=== PATIENT | male | born 1950 | race Caucasian/White ===

== ENCOUNTER → 2017-09-29 11:00 | Outpatient (CLI) | payer MEDICARE, SELFPAY | PROVIDERS: PCP Family Medicine; Visit Provider Nurse Practitioner Gerontology | DX: R31.0 Gross hematuria (principal); C67.9 Malignant neoplasm of bladder, unspecified | CPT/HCPCS: 81003; 99214 ==

== ENCOUNTER → 2017-09-29 11:49 | Outpatient (CLI) | payer MEDICARE, SELFPAY | PROVIDERS: PCP Family Medicine; Visit Provider Urology | DX: R31.0 Gross hematuria (principal); R30.0 Dysuria; Z01.818 Encounter for other preprocedural examination ==

== ENCOUNTER → 2017-09-29 13:42 | Outpatient (REF) | payer MEDICARE, SELFPAY | LOC: LBN 13:42 | PROVIDERS: PCP Family Medicine; Visit Provider Nurse Practitioner Gerontology | DX: R30.0 Dysuria (principal) | CPT/HCPCS: 87086 ==

== ENCOUNTER 2017-10-05 16:49 | Emergency (ER) | payer MEDICARE, SELFPAY ==
[2017-10-05 16:52] VITALS: BP 161/60; PULSE 114; RESP 22; TEMP 37.3; O2SAT 97
--- NOTE | 2017-10-05 18:48 | ED.GENADUL_ITS ---
Disposition Clinical Impression: Urinary retention, Hematuria, Bladder cancer, Painful bladder spasm Disposition: HOME Condition: Good Instructions: Urinary Retention in Men (ED), Garcia Catheter Placement and Care (ED), Hematuria (ED) Additional Instructions: Return immediately if you have any new or worsening symptoms including further bladder retention, blockage or clotting of your catheter. Otherwise follow-up with Dr. Vieyra's office as previously arranged. Referrals: Curly Vieyra MD [ [facility] STAFF PHYSICIAN] - 10/06/17 (Keep your appointment as scheduled for tomorrow) Medical Decision Making - Medical Decision Making Patient presenting to emergency department Inc. acute pain and discomfort due to urinary retention from his Garcia catheter being blocked. Patient states that this was placed due to hematuria from bladder cancer. Garcia catheter was placed last and patient states he is due to see Dr. Vieyra tomorrow and has not had any problems but today started having some small clots and then fully stopped draining any urine. He tried to wait this out to see if this would self resolve but did not resolve. Patient has in a three-way 22 [place] Garcia catheter. Patient was given 4 mg of morphine for pain and discomfort and bladder was irrigated with approximately 500 cc of sterile water removing multiple clots and hematuria. After we began to have flow out of the main port of the catheter. Once this was achieved we performed continuous bladder irrigation with 2 L of sterile saline and had no further clot passage and drainage was mostly clear with only slight tinge of hematuria. Patient felt significantly more comfortable once bladder began to drain. I do not feel patient needs any labs or imaging at this time due to patient having close follow-up with Dr. Vieyra first thing tomorrow morning. After discussion of diagnosis and plan of care with patient patient agreed and stated no further needs, questions, or concerns at this time. History of Present Illness - General Chief complaint: Urinary Stated complaint: CHARLEY Time Seen by Provider: 10/05/17 17:18 Source: patient, RN notes reviewed Mode of arrival: EMS Limitations: no limitations - History of Present Illness Initial comments: Patient reports this morning he noticed his Garcia catheter starting to have less drainage coming out of it. Patient states that he has history of bladder cancer and hematuria which a Garcia was placed in last and he has had continued bloody urination with occasional clot formation. This morning he noticed slowing up which he thought would resolve on its own but then any flow began to cease completely and patient started having significant pain and bladder spasms requiring him to call EMS to be transported to the emergency department. Patient denies any fever chills, nausea vomiting, syncope, or other medical complaints at this time. Onset/Timin -: days(s) Radiation: abdomen (Suprapubic) Severity scale (1-10): 10 Quality: sharp Consistency: intermittent Improves with: none Worsens with: none Associated Symptoms: denies other symptoms Treatments Prior to Arrival: none - Related Data Tiotropium [place] [Spiriva] 18 mcg IH DAILY tab-cap 07/06/12 Amlodipine Besylate 5 mg PO DAILY #90 tab-cap 01/14/17 Metoprolol Tartrate [Lopressor] 1 tab PO BID #180 tab 01/14/17 Budesonide/Formoterol Fumarate [Symbicort 80/4.5 Mcg Inhaler] 2 puff IH BID #1 each 05/26/17 Proventil Hfa 1 - 2 puff IH Q6H PRN #1 inhaler 05/26/17 Simvastatin 40 mg PO DAILY #90 tab-cap 05/26/17 Lisinopril 40 mg PO DAILY #90 tab-cap 06/22/17 Metformin HCl 1,000 mg PO BID #180 tab-cap 06/22/17 Diazepam 5 mg PO Q8H PRN #30 tablet 10/02/17 OxyCODONE/APAP 5 mg/325 mg [Percocet 5 mg/325 mg] 1 - 2 tab PO Q4H PRN PRN #30 tab 10/02/17 Sulfameth/Trimeth Ds [Bactrim Double Strength] 1 tab PO HS #5 tab 10/02/17 Allergies Allergy/AdvReac Type Severity Reaction Status Date / Time No Known Allergies Allergy Unverified 10/05/17 17:01 Review of Systems Constitutional: denies: chills, fever Respiratory: no symptoms reported Gastrointestinal: abdominal pain (Suprapubic). denies: nausea, vomiting, diarrhea Genitourinary: as per HPI, hematuria Comment: All other systems reviewed and negative Past Medical History - Past Medical History Medical history: arthritis, CAD, cancer (Bladder mass), COPD, diabetes, hyperlipidemia, hypertension Surgical history: coronary bypass surgery, other (TURP) Family history: CAD/WA, cancer, diabetes - Social History Smoking status: current everyday smoker Alcohol use: occasionally Drug use: none General Exam - General Limitations: no limitations General appearance: alert, in no apparent distress - Head Head exam: Present: atraumatic - Respiratory Respiratory exam: Absent: respiratory distress - Cardiovascular Cardiovascular Exam: Present: regular rate, normal rhythm - GI/Abdominal GI/Abdominal exam: Present: soft, tenderness (Suprapubic), normal bowel sounds. Absent: guarding, rebound, rigid, organomegaly, mass, bruit - exam: Present: other (Garcia catheter is in place and patient does have drainage noted from around the catheter that appears to be hematuria). Absent: testicular tenderness, scrotal swelling - Neurological Exam Neurological exam: Present: alert, oriented X3 - Skin Skin exam: Present: warm, dry, normal color. Absent: intact Course Vital Signs - 24 hr 10/05/17 16:52 Temperature 37.3 C Pulse 114 H Respiratory 22 Rate Blood Pressure 161/60 Pulse Oximetry 97
[2017-10-05 18:58] VITALS: BP 152/62; PULSE 88; RESP 18; O2SAT 94
== END 2017-10-05 19:01 | disposition home or self-care (01) ==
PROVIDERS: Emergency Provider Student in an Organized Health Care Education/Training Program; PCP Family Medicine
DX: R33.8 Other retention of urine (principal); R31.0 Gross hematuria; N32.89 Other specified disorders of bladder
CPT/HCPCS: 51700 ×2; 96374; 99284 ×2

== ENCOUNTER → 2017-10-06 08:30 | Outpatient (CLI) | payer MEDICARE, SELFPAY | PROVIDERS: PCP Family Medicine; Visit Provider Nurse Practitioner Gerontology | DX: C67.4 Malignant neoplasm of posterior wall of bladder (principal); F17.210 Nicotine dependence, cigarettes, uncomplicated | CPT/HCPCS: 52001; 99214 ==

== ENCOUNTER → 2017-10-11 08:30 | Outpatient (CLI) | payer MEDICARE, SELFPAY | PROVIDERS: PCP Family Medicine; Visit Provider Urology | DX: N32.89 Other specified disorders of bladder (principal); R31.9 Hematuria, unspecified; C67.4 Malignant neoplasm of posterior wall of bladder; Z48.816 Encounter for surgical aftercare following surgery on the genitourinary system | CPT/HCPCS: 53600; 81003; 99213 ==

== ENCOUNTER → 2017-10-11 14:12 | Outpatient (REF) | payer MEDICARE, SELFPAY | LOC: LBN 14:12 | PROVIDERS: PCP Family Medicine; Visit Provider Urology | DX: N32.89 Other specified disorders of bladder (principal); R31.9 Hematuria, unspecified; C67.4 Malignant neoplasm of posterior wall of bladder; Z48.816 Encounter for surgical aftercare following surgery on the genitourinary system | CPT/HCPCS: 53600; 81003; 87077; 99213; 87086 ==

== ENCOUNTER → 2017-10-19 09:55 | Outpatient (BNVA) | payer MEDICARE, SELFPAY | PROVIDERS: PCP Family Medicine; Visit Provider Urology | DX: C67.9 Malignant neoplasm of bladder, unspecified (principal); Z79.890 Hormone replacement therapy | CPT/HCPCS: 51798; 99213 ==

== ENCOUNTER 2017-12-21 01:05 | Outpatient (CLI) | payer MEDICARE, SELFPAY ==
--- NOTE | 2017-12-21 06:12 | DI.RAD_ITS ---
SYMPTOM/DIAGNOSIS: PEDAL EDEMA, R60.0, H/O CABG PA AND LATERAL CHEST: Comparison is made with 03/29/12. Heart size and pulmonary vasculature are within normal limits. The lungs are clear. No effusions or pneumothoraces are identified. There are degenerative changes in the spine. Sternal wires are in place. IMPRESSION: No acute pulmonary process.
[2017-12-21 08:14] LABS: Abs Immature Grans 0.01 k/cumm (0.0-0.09); Absolute Basophil Count 0.06 k/cumm (0.0-0.2); Absolute Eosinophil Count 0.45 k/cumm (0.0-0.7); Absolute Lymphocyte Count 2.73 k/cumm (1.2-3.4); Absolute Monocyte Count 1.22 k/cumm (0.11-0.7); Absolute Neutrophil Count 7.05 k/cumm (1.2-6.7); Basophils % 0.5; Eosinophils % 3.9; HCT 40.5 % (40.0-50.0); HGB 13.4 g/dL (13.5-17.5); Immature Grans % 0.1; Lymphocytes % 23.7; Mean Corp. HGB Concentration 33.1 g/dL (32.0-36.0); Mean Corpuscular Hemoglobin 30.7 pg (27.0-33.0); Mean Corpuscular Volume 92.9 fL (80-95); Mean Platelet Volume 10.3 fL (8.0-11.0); Monocytes % 10.6; Neutrophils % 61.2; Platelet Count 247 x1000/uL (130-400); RBC 4.36 m/cumm (4.50-6.00); RBC Distribution Width 13.4 % (11.8-14.1); White Blood Cell Count 11.52 k/cumm (4.4-10.8)
[2017-12-21 08:52] LABS: Bilirubin Negative (Negative); Blood Large (Negative); Clarity Clear; Glucose Negative (Negative); Ketones Negative (Negative); Leukocyte Esterase Negative (Negative); Nitrite Negative (Negative); Urobilinogen 0.2 EU/dL (Up TO 0.2)
[2017-12-21 09:13] LABS: Epithelial Cells Few HPF (Negative); RBC >50 (0-2); WBC 20-50 HPF (0-5)
[2017-12-21 09:14] LABS: Bacteria Few HPF (Negative); C & S Indicated? Yes; Casts 0-2 Coarse Granular LPF (Negative); Crystals Negative HPF (Negative); Mucus Negative (Negative); Other Cells Few Transitional (Negative)
[2017-12-21 10:09] LABS: ALT 24 U/L (12-78); AST 20 U/L (15-37); Albumin 3.4 g/dL (3.4-5.0); Alkaline Phosphatase 94 U/L (46-116); Anion Gap 10.5 mmol/L (3-11); BUN 18 mg/dL (7-18); Bilirubin, Total 0.2 mg/dL (0.2-1.0); CO2 25.5 mmol/L (21.0-32.0); Chloride 105 mmol/L (98-107); Estimated GFR 55.23 (mL/min/1.73m2); Glucose 129 mg/dL (70-100); NT-proBNP 1222 pg/mL; Potassium 4.4 mmol/L (3.5-5.1); Sodium 141 mmol/L (136-145); TSH (W/Ref FT4) 0.21 uIU/mL (0.358-3.74); Total Protein 6.9 g/dL (6.4-8.2)
[2017-12-21 10:20] LABS: Hemoglobin A1C 6.1 % (4.5-6.2)
[2017-12-21 10:29] LABS: FREE T4 1.19 ng/dL (0.76-1.46)
[2017-12-21 10:52] LABS: Cholesterol 193 mg/dL (50-200); HDL Cholesterol 42 mg/dL (40-60); LDL CHOLESTEROL 109 mg/dL (<100); Triglyceride 402 mg/dL (30-150)
== END 2017-12-21 01:25 ==
PROVIDERS: PCP Family Medicine; Visit Provider Family Medicine
DX: R60.0 Localized edema (principal); E78.5 Hyperlipidemia, unspecified; E11.9 Type 2 diabetes mellitus without complications; Z95.1 Presence of aortocoronary bypass graft; I50.1 Left ventricular failure, unspecified; I50.9 Heart failure, unspecified
CPT/HCPCS: 36415; 80053; 80061; 83721; 87077; 71046; 81003; 81015; 83036; 83880; 84439; 84443; 85025; 87086

== ENCOUNTER 2017-12-28 00:43 | Outpatient (CLI) | payer MEDICARE, SELFPAY ==
--- NOTE | 2017-12-28 07:33 | MERGE_ITS ---
*[facility]* *[facility]* [address] [place] [address] Date of study: 12/28/2017 Transthoracic Echocardiography M-mode, complete 2D, complete spectral Doppler, and color Doppler *STUDY CONCLUSIONS* Summary: 1. Left ventricle: The cavity size was mildly dilated. Wall thickness was increased in a pattern of mild LVH. Systolic function was mildly reduced. The estimated ejection fraction was 45-50%. Severe hypokinesis of the basal-midinferolateral and inferior myocardium. 2. Mitral valve: There was mild regurgitation. 3. Left atrium: The atrium was moderately dilated. 4. Right ventricle: The cavity size was normal. Wall thickness was normal. Systolic function was mildly reduced by visual assessment. 5. Right atrium: The atrium was dilated. 6. Atrial septum: There was a very small patent foramen ovale. Doppler showed a trivial shunt. *PATIENT PRESENTATION* Height: 190.5cm ((75in) ) S/D Pressure: 146 / 65 Weight: 106.6kg ((234.5lb) ) BSA: 2.39m^2 Test start time: 07:40 AM. Test stop time: 08:40 AM. 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 Pertinent images and digital data are archived for permanent storage and are available for subsequent review. Comparison was made to the study of 02/10/2012. Study status: Routine. Transthoracic echocardiography. M-mode, complete 2D, complete spectral Doppler, and color Doppler. A Transthoracic Echocardiogram was performed. Scanning was performed from the parasternal, apical, subcostal, and suprasternal notch acoustic windows. Images were obtained using an [id number] cardiac ultrasound machine. Image quality was adequate. Study completion: The patient tolerated the procedure well. There were no complications. History: PMH: CHF. *CARDIAC ANATOMY* Left ventricle: The cavity size was mildly dilated. Wall thickness was increased in a pattern of mild LVH. Systolic function was mildly reduced. The estimated ejection fraction was 45-50%. Regional wall motion abnormalities: Severe hypokinesis of the basal-midinferolateral and inferior myocardium. Aortic valve: Probably trileaflet; normal thickness leaflets. Mobility was not restricted. Doppler: Transvalvular velocity was within the normal range. There was no stenosis. There was no significant regurgitation. VTI ratio of LVOT to aortic valve: 0.78. Valve area (VTI): 2.6cm^2. Indexed valve area (VTI): 1.1cm^2/m^2. Peak velocity ratio of LVOT to aortic valve: 0.62. Valve area (Vmax): 2.1cm^2. Indexed valve area (Vmax): 0.9cm^2/m^2. Mean velocity ratio of LVOT to aortic valve: 0.6. Valve area (Vmean): 2cm^2. Indexed valve area (Vmean): 0.8cm^2/m^2. Mean gradient (S): 5.3mm Hg. Peak gradient (S): 12.4mm Hg. Aorta: Aortic root: The aortic root was normal in size. Ascending aorta: The ascending aorta was poorly visualized. Mitral valve: Structurally normal valve. Mobility was not restricted. Doppler: Transvalvular velocity was within the normal range. There was no evidence for stenosis. There was mild regurgitation. Valve area by pressure half-time: 3.8cm^2. Indexed valve area by pressure half-time: 1.6cm^2/m^2. Peak gradient (D): 3.9mm Hg. Left atrium: The atrium was moderately dilated. Atrial septum: There was a very small patent foramen ovale. Doppler showed a trivial shunt. Right ventricle: The cavity size was normal. Wall thickness was normal. Systolic function was mildly reduced by visual assessment. Pulmonic valve: Doppler: Transvalvular velocity was within the normal range. There was no evidence for stenosis. There was no significant regurgitation. Peak gradient (S): 5.2mm Hg. Tricuspid valve: Structurally normal valve. Doppler: Transvalvular velocity was within the normal range. There was no evidence for stenosis. There was mild regurgitation. Pulmonary artery: Pulmonary systolic pressure was within the normal range, in the range of 35mm Hg to 40mm Hg. Right atrium: The atrium was dilated. Pericardium: There was no pericardial effusion. Systemic veins: Inferior vena cava: Well visualized. The vessel was patent and normal in size. The respirophasic diameter changes were in the normal range (greater than or equal to 50%). Baseline ECG: Normal sinus rhythm. Measurements Left ventricle Value Reference LV ID, ED, PLAX (H) 7.0 cm 3.5 - 6.0 LV ID, ES, PLAX (H) 5.3 cm 2.1 - 4.0 LV PW thickness, ED, PLAX 1.1 cm LV end-diastolic volume, 1-p A2C 190 ml LV ejection fraction, 1-p A2C 38 % LV end-diastolic volume, 1-p A4C 222 ml LV ejection fraction, 1-p A4C 50 % LV e', lateral 0.076 m/sec LV E/e', lateral 13 LV e', medial 0.048 m/sec LV E/e', medial 20 LV e', average 0.062 m/sec LV E/e', average 16 Ventricular septum Value Reference IVS thickness, ED, PLAX 1.3 cm LVOT Value Reference LVOT ID, A-P 2.1 cm LVOT area 3.3 cm^2 LVOT peak velocity, S 1.09 m/sec LVOT mean velocity, S 0.64 m/sec LVOT VTI, S 24.2 cm LVOT peak gradient, S 4.8 mm Hg LVOT mean gradient, S 2 mm Hg Stroke volume (SV), LVOT DP 80 ml Stroke index (SV/bsa), LVOT DP 34 ml/m^2 Aortic valve Value Reference Aortic valve peak velocity, S 1.8 m/sec Aortic valve mean velocity, S 1.05 m/sec Aortic valve VTI, S 31.0 cm Aortic mean gradient, S 5.3 mm Hg Aortic peak gradient, S 12.4 mm Hg VTI ratio, LVOT/AV 0.78 Aortic valve area, VTI 2.6 cm^2 Velocity ratio, peak, LVOT/AV 0.62 Aortic valve area, peak velocity 2.1 cm^2 Velocity ratio, mean, LVOT/AV 0.6 Aortic valve area, mean velocity 2 cm^2 Aortic valve area/bsa, mean velocity 0.8 cm^2/m^2 Aorta Value Reference Aortic root ID, ED 3.4 cm Left atrium Value Reference LA ID, A-P, ES 4.2 cm LA ID/bsa, A-P 1.7 cm/m^2 <=2.2 LA area, ES, A4C (H) 28.4 cm^2 8.8 - 23.4 LA area, ES, A2C 29 cm^2 LA volume/bsa, ES, 1-p A4C 45 ml/m^2 LA volume, ES, 2-p 101 ml LA volume/bsa, ES, 2-p 42 ml/m^2 LA/aortic root ratio 1.21 Mitral valve Value Reference Mitral E-wave peak velocity 0.98 m/sec Mitral A-wave peak velocity 1.08 m/sec Mitral deceleration time 200 ms 150 - 230 Mitral pressure half-time 58 ms Mitral peak gradient, D 3.9 mm Hg Mitral E/A ratio, peak 0.91 Mitral valve area, PHT, DP 3.8 cm^2 Tricuspid valve Value Reference Tricuspid regurg peak velocity 3 m/sec Tricuspid peak RV-RA gradient 36.4 mm Hg Right atrium Value Reference RA area, ES, A4C (H) 22.5 cm^2 8.3 - 19.5 Pulmonic valve Value Reference Pulmonic peak gradient, S 5.2 mm Hg Legend: (L) and (H) marti values outside specified reference range. I have personally reviewed the images and have reviewed and edited the reported findings. Electronically signed by Jonathan Childs 12/28/2017 12:07
== END 2017-12-28 01:03 ==
PROVIDERS: PCP Family Medicine; Visit Provider Family Medicine
DX: I50.9 Heart failure, unspecified (principal); I51.9 Heart disease, unspecified; I34.0 Nonrheumatic mitral (valve) insufficiency; I51.7 Cardiomegaly
CPT/HCPCS: 93306

== ENCOUNTER 2017-12-29 00:20 | Outpatient (CLI) | payer MEDICARE, SELFPAY ==
--- NOTE | 2017-12-29 06:52 | MERGEMPI_ITS ---
*[facility]* *[facility]* [address] [place] [address] Myocardial Perfusion Imaging - SPECT Yinka protocol Date of study: 12/29/2017 *PATIENT PRESENTATION* Height: 190.5cm (75in) Blood Pressure: Weight: 106.8kg (235lb) BSA: 2.4m^2 Referring physician: Jonathan Childs Ordering physician: Silver Luis Impressions: - Abnormal study after pharmacologic stress. - Low risk of cardiac events. Summary: 1. Myocardial perfusion imaging: There is a small sized, severely intense, fixed defect involving the apical inferior and mid inferior wall(s). This suggests small myocardial infarction in the distribution of the right coronary artery. 2. The calculated left ventricular ejection fraction after stress: 38%. LV global systolic function is moderately reduced. Diffuse left ventricular regional motion abnormalities. There is severe hypokinesis involving the inferior wall(s) of the left ventricle. 3. Stress ECG conclusions: The stress ECG is negative. Recommendations: Medical management is recommended. Indication: I50.9, Appropriate Use Criteria: A (Appropriate). History: REASON FOR TESTING: CONGESTIVE HEART FAILURE WITH LEG SWELLING FOR THE PAST SEVERAL MONTHS. PMH: CHF, HEART FAILURE, SCIATICA, PFO NOTED ON ECHOCARDIOGRAM, URINARY RETENSION, BLADDER CANCER, CARDIAC ARREST 2011 WITH 4V CABG, PEURAL EFFUSION, COPD, ETOH ABUSE, DIABETES. FAMILY HX: FATHER- [place] X3, AT THE AGE OF 57. MOTHER- ANGINA. SMOKINPPD X 45-50 YEARS. EXCERCISE: NO REGULAR EXCERCISE, BUT DOES WALK SLOWLY 1 MILE 2X/WEEK. PMH: COPD. Risk factors: Family history of coronary artery disease. Current tobacco use. Diabetes mellitus. Cholesterol: 193mg/dl. HDL: 42mg/dl. LDL: 109mg/dl. Triglycerides: 402mg/dl. ALLERGIES: NKDA MEDICATIONS: TRAMADOL 50 HS PRN, TIOTROPIUM BROMIDE 18 MCG INHALATION DAILY, SIMVASTATIN 40 MG DAILY, METOPROLOL TARTRATE BID-PT UNSURE OF DOSE, METFORMIN 1000 MG BID, LISINOPRIL 40 MG DAILY, FUROSEMIDE 40 MG DAILY, SYMBICORT 2 PUFFS BID, AMLODIPINE 5 MG DAILY, PROVENTIL MDI, 1-2 PUFFS Q6H PRN. Imaging Technique: Protocol: Yinka protocol. Acquisition: Gated SPECT; 1 day - rest/stress. The patient was imaged in the supine position. Attenuation correction used. Isotope administration: - Rest. Tc[99m]-sestamibi. Dose: 11.9mCi. Injection time: 09:25 AM. Injection to stress time: 00:45. - Stress. Tc[99m]-sestamibi. Dose: 36mCi. Injection time: 11:12 AM. 1-2 min before end of exercise Baseline ECG: LAST EKG 12/20/17- SINUS RHYTHM, 1ST DEGREE AVB, OCCAS PAC, PVC. RBBB. TODAY'S EKG- SINUS RHYTHM, RBBB. HR 62. Normal sinus rhythm with 1degrees AV block and right bundle branch block. Stress protocol: +--------+--+ + + !Stage !HR!BP (mmHg) !Comments ! +--------+--+ + + !Baseline!62!142/68 (93)! ! +--------+--+ + + !1 min !79!150/68 (95)!Inject Regadenoson.! +--------+--+ + + !3 min !83!142/62 (89)! ! +--------+--+ + + !6 min !82!138/60 (86)! ! +--------+--+ + + * Stress results: The rate-pressure product for the peak heart rate and blood pressure was 68270iy Hg/min. Stress ECG: PATIENT UNABLE OT DO ETT DUE TO SCIATICA PAIN AND LEG WEAKNESS. REGADENOSON TESTING ENDED IN 6 MINS MEDICATION EFFECT NO LONGER PRESENT. MAX HR WAS 87, WITH A HYPERTENSIVE BLOOD PRESSURE RESPONSE. ECTOPY: OCCASIONAL PVC'S AND PAC'S NOTED. ANGINA: NO REPORTED CHEST PAIN OR PRESSURE. ISCHEMIA: NO ISCHEMIC CHANGES NOTED. The stress ECG is negative. Myocardial perfusion: Imaging information: gated. The image quality was good. The left ventricle is moderately dilated. There is a small sized, severely intense, fixed defect involving the apical inferior and mid inferior wall(s). This suggests small myocardial infarction in the distribution of the right coronary artery. Ventricular Function (Wall Motion): The calculated left ventricular ejection fraction after stress: 38%. LV global systolic function is moderately reduced. Diffuse left ventricular regional motion abnormalities. There is severe hypokinesis involving the inferior wall(s) of the left ventricle. Study data: Jonathan Childs MD supervised and was readily available during the procedure. This study was interpreted by [facility]. Study status: Routine. Consent: The risks, benefits, and alternatives to the procedure were explained to the patient and informed consent was obtained. Procedure: Initial setup. A baseline ECG was recorded. Surface ECG leads and manual cuff blood pressure measurements were monitored. Heart sounds: Normal. Lung sounds: Normal. Treadmill exercise testing was performed using the Yinka protocol. Study completion: All catheters inserted during the procedure were removed. The patient tolerated the procedure well and was discharged from the lab. Discharge: The patient left the laboratory in stable condition. Birthdate: Patient birthdate: 1950. Sex: Gender: male. Study date: Study date: 12/29/2017. Study time: 06:52 AM. Signature Documentation: - The imaging portion of this study was interpreted by Nuclear Metal Molder Jonathan Childs MD. - The imaging portion of this study was interpreted by Nuclear Radiologist David Longoria MD. - The Stress ECG portion of this study was interpreted by Jonathan Childs MD. Electronically signed by Jonathan Childs 12/29/2017 15:13
[2017-12-29] MEDS: Regadenoson 0.4 MG/5 ML SYR IVP (13:16)
== END 2017-12-29 00:40 ==
PROVIDERS: PCP Family Medicine; Visit Provider Family Medicine
DX: I50.9 Heart failure, unspecified (principal); M79.89 Other specified soft tissue disorders; I25.2 Old myocardial infarction
CPT/HCPCS: 78452; 93016; 93018; 93017; J2785

== ENCOUNTER 2018-01-25 02:05 | Outpatient (CLI) | payer MEDICARE, SELFPAY ==
[2018-01-25 11:20] LABS: Anion Gap 10.4 mmol/L (3-11); BUN 21 mg/dL (7-18); CO2 24.6 mmol/L (21.0-32.0); CREATININE 1.22 mg/dL (0.70-1.30); Calcium 9.3 mg/dL (8.5-10.1); Chloride 106 mmol/L (98-107); Estimated GFR 59.43 (mL/min/1.73m2); Glucose 140 mg/dL (70-100); Potassium 4.8 mmol/L (3.5-5.1); Sodium 141 mmol/L (136-145)
== END 2018-01-25 02:25 ==
PROVIDERS: PCP Family Medicine; Visit Provider Family Medicine
DX: I50.9 Heart failure, unspecified (principal)
CPT/HCPCS: 36415; 80048

== ENCOUNTER 2018-02-09 06:34 | Inpatient (IN) | payer MEDICARE, SELFPAY ==
[2018-02-09] VITALS (26 sets, daily range): BP systolic 108–144; BP diastolic 53–71; PULSE 39–115; RESP 8–29; TEMP 36.5–40.3; O2SAT 90–96
--- NOTE | 2018-02-09 06:44 | DI.RAD_ITS ---
SYMPTOMS/DIAGNOSIS: SHORTNESS OF BREATH, FEVER, COUGH PORTABLE AP CHEST: The heart is not enlarged. The lungs are grossly clear. Mediastinal vascular clips and sternal sutures again noted. CONCLUSION: No evidence of acute change.
[2018-02-09 06:51] LABS: Abs Immature Grans 0.01 k/cumm (0.0-0.09); Absolute Basophil Count 0.01 k/cumm (0.0-0.2); Absolute Lymphocyte Count 0.63 k/cumm (1.2-3.4); Absolute Monocyte Count 0.93 k/cumm (0.11-0.7); Absolute Neutrophil Count 6.32 k/cumm (1.2-6.7); Basophils % 0.1; HCT 37.7 % (40.0-50.0); HGB 12.8 g/dL (13.5-17.5); Immature Grans % 0.1; Mean Corpuscular Hemoglobin 30.3 pg (27.0-33.0); Mean Corpuscular Volume 89.1 fL (80-95); Mean Platelet Volume 10.2 fL (8.0-11.0); Monocytes % 11.8; Platelet Count 131 x1000/uL (130-400); RBC 4.23 m/cumm (4.50-6.00); RBC Distribution Width 13.6 % (11.8-14.1)
--- NOTE | 2018-02-09 06:57 | W.ED.GENAD ---
Discharge Plan Disposition Patient Disposition: [facility] INPATIENT Condition: Stable Discharge Details Chief Complaint: Chest Pain Clinical Impression: Influenza, Community acquired pneumonia, Hypoxemia, Hypomagnesemia Reason For Visit: CHARLEY Primary Care Provider: Silver Luis ED Provider: Fabiano Billings Home Meds and New Rx's Prescriptions: No Action tramadol 50 mg tablet 50 mg PO HS PRN Qty: 20 RF: 0 furosemide 40 mg tablet 20 mg PO DAILY Qty: 30 RF: 11 nitroglycerin 0.4 mg tablet, sublingual 0.4 mg SL ONCE Qty: 20 RF: 2 Spiriva with HandiHaler 18 MCG capsule, w/inhalation device 18 mcg Inhalation DAILY RF: 0 metoprolol tartrate [Lopressor] 50 MG tablet 1 tab PO BID Qty: 180 RF: 2 simvastatin 40 MG tablet 40 mg PO DAILY Qty: 90 RF: 3 PROVENTIL HFA 18 GM HFA.AER.AD 1 - 2 puff Inhalation Q6H PRN Qty: 1 RF: 3 metformin 1,000 MG tablet 1,000 mg PO BID Qty: 180 RF: 3 lisinopril 40 MG tablet 40 mg PO DAILY Qty: 90 RF: 4 amlodipine 5 mg tablet 5 mg PO DAILY Qty: 90 RF: 2 Symbicort 80-4.5 mcg/actuation HFA aerosol inhaler 2 puff Inhalation BID Qty: 1 RF: 3 Medical Decision Making This is a pleasant 67-year-old male with a past medical history of cardiac disease with four-vessel bypass 6 years ago, COPD, who presents today for evaluation of shortness of breath. Patient has had 2 days of shortness of breath, fever, chills and cough. He denies any chest pain or chest tightness. Does admit to a small amount of chest fullness. He states the symptoms are inconsistent with his previous heart attack. Physical exam demonstrates hypoxemia, tachypnea, febrile and tachycardic patient. Concerning differential at this time is highest for community-acquired pneumonia. Pulmonary embolism less likely as he has no concerning recent red flags. EKG shows a right bundle branch block, which appears consistent with his prior EKGs. His chest fullness is inconsistent with an ACS presentation. We are pending laboratory and imaging workup at this time, however I do feel that with the patient's vital sign abnormalities, and current clinical disposition that inpatient admission will be indicated. Chest x-ray is concerning for infiltrate. We are waiting final results at this time. We will start the patient on antibiotic treatment for community-acquired pneumonia. 7:47 AM The patient's influenza has returned and it is positive. With the patient's age, risk factors, and current clinical disposition we will start Tamiflu. I did contact Dr. Almaraz who is on-call for cardiology and discussed the case with him with the patient's EKG findings. I reviewed the EKG and EKG findings, at this point he feels that based on the patient's clinical history, EKG findings, and history of a right bundle branch block he would recommend that he be evaluated on an inpatient basis by cardiology, but he does not feel that this is clinically congruent with ACS either. We will contact the hospitalist for potential admission. 8:07 AM I discussed the case with Dr. Gordon, she agrees the assessment and plan. Patient will be admitted. I have extensively reviewed the treatment plan with the patient. I have addressed all patient concerns at this time. I have also discussed the plan with the admitting physician and they agree with the current assessment and plan and have agreed to assume responsibility for the patient. All parties demonstrate verbal understanding and agreement with our assessment and plan at this time. EKG 6: 36 Rate 116, sinus tachycardia, W[place] 222, QTc 478, QRS 154. Right bundle branch block. Previous EKG from 12/20/17 shows similar right bundle branch block. 2-3 mm depression in V1 and V2 and V3, with 1-2 mm elevation in lead III in the setting of a right bundle branch block. All abnormalities are with discordant QRS complex. HPI General Date/Time Provider Initiated Documentation: 02/09/18 06:43. HPI Narrative: This is a 67-year-old male with a past medical history of cardiac disease with a four-vessel CABG 6 years ago, congestive heart failure, COPD, diabetes mellitus, hypertension, and gout. Patient presents today for evaluation of shortness of breath fever and cough. Patient states that for the last 2 days he has had a cough that is been nonproductive, fever and chills at home, and notable shortness of breath. He denies any relieving factors at home. He has had notable decrease in energy. He denies any chest pain, sharp chest pain, arm, neck, or shoulder pain. He denies any pleuritic chest pain. He does admit to a mild chest fullness. The patient very clearly states that this feels nothing like the symptoms that he had when he had his CABG 6 years ago. Patient still smokes greater than a pack per day. Patient denies any other complaints at this time. He denies any recent antibiotics or admissions. He denies any pertinent family history. Related Data Home Medications Medication Instructions Recorded Confirmed Spiriva with HandiHaler 18 mcg INHALATION DAILY tab-cap 07/06/12 02/09/18 metoprolol tartrate [Lopressor] 1 tab PO BID #180 tab 01/14/17 02/09/18 simvastatin 40 mg PO DAILY #90 tab-cap 05/26/17 02/09/18 lisinopril 40 mg PO DAILY #90 tab-cap 06/22/17 02/09/18 metformin 1,000 mg PO BID #180 tab-cap 06/22/17 02/09/18 amlodipine 5 mg tablet 5 mg PO DAILY #90 tab 10/25/17 02/09/18 tramadol 50 mg tablet 50 mg PO HS PRN #20 tab 12/24/17 02/09/18 furosemide 40 mg tablet 20 mg PO DAILY #30 tab 01/03/18 02/09/18 nitroglycerin 0.4 mg sublingual 0.4 mg SL ONCE #20 tab 01/03/18 02/09/18 tablet budesonide-formoterol HFA 80 2 puff INHALATION BID #1 ea 01/10/18 02/09/18 mcg-4.5 mcg/actuation aerosol inhaler Previous Rx's Medication Instructions Recorded metoprolol tartrate [Lopressor] 1 tab PO BID #180 tab 01/14/17 simvastatin 40 mg PO DAILY #90 tab-cap 05/26/17 lisinopril 40 mg PO DAILY #90 tab-cap 06/22/17 metformin 1,000 mg PO BID #180 tab-cap 06/22/17 amlodipine 5 mg tablet 5 mg PO DAILY #90 tab 10/25/17 tramadol 50 mg tablet 50 mg PO HS PRN #20 tab 12/24/17 furosemide 40 mg tablet 20 mg PO DAILY #30 tab 01/03/18 nitroglycerin 0.4 mg sublingual 0.4 mg SL ONCE #20 tab 11/19/18 tablet budesonide-formoterol HFA 80 2 puff INHALATION BID #1 ea 01/10/18 mcg-4.5 mcg/actuation aerosol inhaler Allergies Allergy/AdvReac Type Severity Reaction Status Date / Time No Known Allergies Allergy Unverified 02/09/18 06:44 General Stated Complaint: Chest Pain JOSH: 2 Review of Systems Review of Systems All systems reviewed & are unremarkable except as noted in HPI and below PFSH Surgical History PROCEDURES Social History Smoking/Tobacco Use Status: Current every day substance use type: does not use hailee/advent: No preference special hailee needs: No Exam Narrative Exam Narrative: 1.Const: Well-nourished, Well-developed, appearing stated age 2.Eyes: PERRL, no conjunctival injection, and symmetrical lids. 3.ENT: Atraumatic external nose and ears. Moist MM. Neck: Symmetric, trachea midline, No thyromegaly. 4.CVS: +S1/S2, No murmurs or gallops. Peripheral pulses 2+ and equal in all extremities. Brisk capillary refill in all extremities. Radial pulses are equal and symmetric bilaterally. 5.RESP: Minimal crackles in the bases, mild respiratory distress with tachypnea. No significant wheezes or rhonchi 6.GI: Soft, Nontender/Nondistended, No hepatosplenomegaly. No guarding or rebound. 7.MSK: Normocephalic/Atraumatic, Extremities w/o deformity or ttp No cyanosis or clubbing, Normal movement of all extremities 8.Skin: Warm, Dry. No rashes or lesions. 9.Neuro: chief of party II-XII grossly intact. Sensation grossly intact, no focal neurologic deficits. 10.Psych: (AAO) x3. Appropriate mood and affect Course Vital Signs Temperature 40.3 C H 02/09/18 06:41 Pulse 114 H 02/09/18 06:41 Respiratory Rate 29 H 02/09/18 06:41 Blood Pressure 144/67 H 02/09/18 06:41 Pulse Oximetry 90 L 02/09/18 06:41 Temperature 40.3 C H 02/09/18 06:41 Temperature Source Temporal Artery Scan 02/09/18 06:41 Pulse 114 H 02/09/18 06:41 Respiratory Rate 28 H 02/09/18 06:45 Respiratory Effort 02/09/18 06:45 Respiratory Depth Normal 02/09/18 06:45 Respiratory Pattern Tachypnea 02/09/18 06:45 Blood Pressure 144/67 H 02/09/18 06:41 Pulse Oximetry 90 L 02/09/18 06:41 Oxygen Delivery Method Nasal Cannula 02/09/18 06:41 Oxygen Flow Rate 3 02/09/18 06:41 Pain Level 0 02/09/18 06:45 Lab/Test Results Lab/Test Results: 02/09/18 06:52 Blood Blood Culture - Pending 02/09/18 06:50 Nasopharynx Influenza Types A,B Antigen - Pending 02/09/18 06:44 Blood Blood Culture - Pending Laboratory Tests Range/Units 02/09/18 06:40 WBC (4.4-10.8) k/cumm 7.90 RBC (4.50-6.00) m/cumm 4.23 L Hgb (13.5-17.5) g/dL 12.8 L Hct (40.0-50.0) % 37.7 L MCV (80-95) fL 89.1 MCH (27.0-33.0) pg 30.3 MCHC (32.0-36.0) g/dL 34.0 RDW (11.8-14.1) % 13.6 Plt Count (130-400) x1000/uL 131 MPV (8.0-11.0) fL 10.2 Immature Gran % 0.1 Neutrophils % 80.0 Lymphocytes % 8.0 Monocytes % 11.8 Eosinophils % 0.0 Basophils % 0.1 Absolute Neutrophils (1.2-6.7) k/cumm 6.32 Absolute Lymphocytes (1.2-3.4) k/cumm 0.63 L Absolute Monocytes (0.11-0.7) k/cumm 0.93 H Absolute Eosinophils (0.0-0.7) k/cumm 0.00 Absolute Basophils (0.0-0.2) k/cumm 0.01
[2018-02-09] MEDS: Aspirin 81 MG CHEW (07:00)
[2018-02-09] MEDS: Ketorolac 30 MG/ML VIAL (07:00)
[2018-02-09 07:07] LABS: ALT 23 U/L (12-78); AST 24 U/L (15-37); Albumin 3.2 g/dL (3.4-5.0); Alkaline Phosphatase 76 U/L (46-116); Anion Gap 11.9 mmol/L (3-11); BUN 20 mg/dL (7-18); Bilirubin, Total 0.4 mg/dL (0.2-1.0); CO2 23.1 mmol/L (21.0-32.0); CREATININE 1.58 mg/dL (0.70-1.30); Calcium 8.8 mg/dL (8.5-10.1); Chloride 103 mmol/L (98-107); Glucose 152 mg/dL (70-100); Magnesium 1.1 mg/dL (1.8-2.4); Sodium 138 mmol/L (136-145); Troponin I 0.06 ng/mL (0.00-0.06)
[2018-02-09] MEDS: MAGNESIUM SULFATE 1 GM/100 ML BAG IVPB ×2 (07:20→08:29)
--- NOTE | 2018-02-09 07:26 | NUR.NOTE ---
Nursing Note: Report from Reshma TOBIAS. Pt c/o sob, LS with scattered I/E wheezes and cooarse throughout. non-productive cough. febrile 39.5C. IV abx infusing. BC x2 sent to lab. awaiting flu results. resting in bed, will continue to monitor.
[2018-02-09] MEDS: Oseltamivir 75 MG CAP PO ×2 (07:44→19:38)
[2018-02-09] MEDS: DOXYCYCLINE 100 MG in Normal Saline 100 ML IVPB ×2 (07:49→19:32)
--- NOTE | 2018-02-09 08:32 | NUR.NOTE ---
Nursing Note: Awaiting bed placement for med surg. Pt awake and alert. denies pain. meds infusing per MAR. temp trending down. no acute resp distress noted. will continue to monitor.
--- NOTE | 2018-02-09 08:53 | NUR.NOTE ---
Nursing Note: Called for Report, RN in morning meeting, awaiting call back
[2018-02-09 11:45] LABS: NT-proBNP 1907 pg/mL
[2018-02-09] MEDS: Metoprolol 50 MG TAB PO ×2 (12:28→19:38)
[2018-02-09] MEDS: Enoxaparin 40 MG/0.4 ML SYR SC (12:28)
[2018-02-09] MEDS: Benzonatate 100 MG CAP PO ×2 (12:28→19:38)
[2018-02-09] MEDS: Normal Saline 1,000 ML 75 ML IV (12:28)
[2018-02-09] MEDS: Normal Saline Flush 10 ML SYR IVP (12:29)
[2018-02-09] MEDS: MAGNESIUM SULFATE 2 GM/50 ML BAG IVPB ×2 (12:29→14:43)
[2018-02-09] MEDS: Albuterol/Ipratropium 3 ML UPD VIAL UPD ×2 (12:44→18:35)
--- NOTE | 2018-02-09 15:01 | W.PM.HP.N ---
Date of service: 02/09/18 Time of Service: 15:02 Assessment and Plan (1) Acute exacerbation of chronic obstructive pulmonary disease (COPD): Current visit: Yes Status: Acute Triggered by Influenza A as well as CAP. Will initiate prednisone. Continue doxycycline as well as rocephin started in the ER. Rx nebs, antitussives, continue home symbicort. Treat flu. (2) Influenza A: Current visit: Yes Status: Acute Continue tamiflu initiated in ER (3) CAP (community acquired pneumonia): Current visit: Yes Status: Acute Continue IV fluids, doxycycline, rocephin. (4) Ischemic heart disease: Current visit: No Status: Chronic Troponin elevated is borderline. Additionally, patient's creatinine is mildly worse than his baseline. Clinical significance of this is unclear. Will check troponin once again at 2200. Cardiology is consulted, as per ER recommendation. (5) Bladder cancer: Current visit: No Status: Acute F/u as outpatient. Will r/o urinary retention considering worsening creatinine. (6) Diabetes mellitus: Current visit: No Status: Acute Noninsulin dependent. Hold home meds. Corrective scale for now. (7) Essential hypertension: Current visit: No Status: Chronic Hold lisinopril and lasix in light of CHARLIE and mild dehydration. (8) Hyperlipidemia: Current visit: No Status: Chronic Continue home statin (9) CHF (congestive heart failure): Current visit: No Status: Chronic Clinically, not in acute exacerbation. Elevated BNP is likely due to current pulmonary infection. Benefits of IV hydration at this time outweigh the risks. Continue gentle IVF and monitor respiratory status. (10) Bundle branch block, right: Current visit: Yes Status: Chronic Per cardiology, no ACS. (11) Discharge planning issues: Current visit: Yes Status: Acute Full code (12) DVT prophylaxis: Current visit: Yes Status: Acute Lovenox (13) CHARLIE (acute kidney injury): Current visit: Yes Status: Acute On aurelia-i, lasix, presently dehydrated from his febrile illness and has history of bladder malignancy. Hold nephrotoxic meds. Gently hydrate. Monitor I/O's, daily weights. R/o urinary retention. (14) Elevated troponin: Current visit: Yes Status: Acute No ACS per cardiology. Will obtain one final value today at 10 pm. (15) Tobacco abuse: Current visit: Yes Status: Acute Counseled on quitting. Nicotrol inhaler while in house. History of Present Illness Chief Complaint: I couldn't breathe Narrative: Mr Lilly is a 67 year old male with PMHX of CAD s/p CABG x4 at [facility] in 2011, ICMO/chronic mild systolic CHF with EF 45-50%, non-oxygen dependent COPD, HTN, hyperlipidemia, who presented to [facility] ED on 02/09/18 complaining of shortness of breath. The patient states everything began on Wednesday 4 days ago. He felt tired, had subjective fevers, chills, runny nose, and nonproductive cough. He did not notice himself wheeze. He states he didn't have chest pain, but felt his chest was full, congested. He did feel short of breath and have palpitations. He was using inhalers he had at home probably too much, but they stopped helping. In the ED, the patient was febrile, tachypneic to 25 breath/min, tachycardic to 110's, and saturated 91% on RA. His flu swab was positive, and his CXR, though read as negative, has an infiltrate in Left lower lobe per my read. His EKG revealed evidence of RBBB (old) with a slight ST elevations in lead III, possibly also seen in lead III on EKG from 12/20/17. His troponin was borderline elevated at 0.06 when he first presented. On repeat draw at 2 pm, it is now 0.10. The patient was initiated on doxycycline, rocephin, and tamiflu as well as gentle IVF. We were asked to admit the patient for further care. Review of Systems Review of Systems 12 systems reviewed. Pertinent positives and negatives are as per HPI. Additionally, complains of feeling like his Left ear is clogged. [facility] Medical History Bladder cancer (Chronic) CAD in [place] artery (Chronic) CHF (congestive heart failure) (Chronic) COPD (chronic obstructive pulmonary disease) (Chronic) Hyperlipidemia (Chronic) Hypertension (Chronic) Seu-vlbuiqf-fphdxbrfw diabetes mellitus without complications (Chronic) PFO (patent foramen ovale) (Chronic) Surgical History S/P CABG x 4 (Acute) H/O transurethral destruction of bladder lesion (Chronic) PROCEDURES Family History Father Heart disease Mother Diabetes Other Hyperlipidemia Hypertension Social History Smoking/Tobacco Use Status: Current every day tobacco type: cigarettes alcohol intake: current alcohol intake frequency: holidays/special occasions only substance use type: does not use hailee/gnosticism: No preference special hailee needs: No Meds Home Medications Medication Instructions Recorded Confirmed Type Spiriva with HandiHaler 18 mcg INHALATION DAILY tab-cap 07/06/12 02/09/18 History metoprolol tartrate [Lopressor] 1 tab PO BID #180 tab 01/14/17 02/09/18 Rx Proventil Hfa 1 - 2 puff INHALATION Q6H PRN #1 05/26/17 02/09/18 Clinic inhaler simvastatin 40 mg PO DAILY #90 tab-cap 05/26/17 02/09/18 Rx lisinopril 40 mg PO DAILY #90 tab-cap 06/22/17 02/09/18 Rx metformin 1,000 mg PO BID #180 tab-cap 06/22/17 02/09/18 Rx amlodipine 5 mg tablet 5 mg PO DAILY #90 tab 10/25/17 02/09/18 Rx tramadol 50 mg tablet 50 mg PO HS PRN #20 tab 12/24/17 02/09/18 Rx furosemide 40 mg tablet 20 mg PO DAILY #30 tab 01/03/18 02/09/18 Rx nitroglycerin 0.4 mg sublingual 0.4 mg SL ONCE #20 tab 01/03/18 02/09/18 Rx tablet budesonide-formoterol HFA 80 2 puff INHALATION BID #1 ea 01/10/18 02/09/18 Rx mcg-4.5 mcg/actuation aerosol inhaler Allergies Allergy/AdvReac Type Severity Reaction Status Date / Time No Known Allergies Allergy Unverified 02/09/18 06:44 Exam Narrative Exam Narrative: General: Middle aged male, laying in bed, looks like he has the flu, laying flat, not tachypneic, able to speak in multiple full sentences without signs of respiratory distress, mildly hard of hearing Neurological: A&Ox3, no focal deficits Psychiatric: Appropriate speech pattern/content Skin: Ichthiosis BLE's, dry skin HEENT: EOMI, Dry MM, clear oropharynx, no submandibular or cervical lymphadenopathy, no goiter or JVD Cardiovascular: RRR, no m/r/g Lungs: coarse breath sounds B with quiet expiratory wheezing Gastrointestinal: abdomen soft, nontender, nondistended Extremities: no edema, clubbing or cyanosis of BLE's; 1+ pedal pulses bilaterally Results Imaging Additional studies: CXR: per my read, LLL infiltrate. Officially: No evidence of acute change. EKG: being located. Results will be addended to current note Labs : 02/09/18 06:40 02/09/18 06:40 Laboratory Results - last 24 hr 02/09/18 02/09/18 02/09/18 06:40 06:40 14:00 WBC 7.90 RBC 4.23 L Hgb 12.8 L Hct 37.7 L MCV 89.1 MCH 30.3 MCHC 34.0 RDW 13.6 Plt Count 131 MPV 10.2 Immature Gran % 0.1 Neutrophils % 80.0 Lymphocytes % 8.0 Monocytes % 11.8 Eosinophils % 0.0 Basophils % 0.1 Absolute Neutrophils 6.32 Absolute Lymphocytes 0.63 L Absolute Monocytes 0.93 H Absolute Eosinophils 0.00 Absolute Basophils 0.01 Sodium 138 Potassium 4.0 Chloride 103 Carbon Dioxide 23.1 Anion Gap 11.9 H BUN 20 H Creatinine 1.58 H Estimated GFR/1.73 m2 44.10 Glucose 152 H Calcium 8.8 Magnesium 1.1 L Total Bilirubin 0.4 AST 24 ALT 23 Alkaline Phosphatase 76 Troponin I 0.06 0.10 H NT-Pro-B Natriuret Pep 1907 H Total Protein 7.0 Albumin 3.2 L Last Vital Signs Temp 37.5 C 02/09/18 11:50 Pulse 86 02/09/18 11:50 Resp 20 02/09/18 11:50 BP 132/71 02/09/18 11:50 Pulse Ox 95 02/09/18 11:50
--- NOTE | 2018-02-09 15:01 | W.CARDCONSUL ---
Date of service: 02/09/18 Time of Service: 15:02 Assessment and Plan (1) Bundle branch block, right: Start date: 02/09/18 Current visit: Yes Status: Acute Likely rate related right bundle branch block. Old inferior MA with posterior extension corresponds with inferior defect on recent stress test. No acute ischemic changes. Ruled out for MA. Continue all cardiac medications without dose adjustments History of Present Illness Chief Complaint: Abnormal EKG Narrative: 67-year-old man with ischemic cardiomyopathy status post CABG admitted because of shortness of breath and found to have influenza. December 2017 stress test showed small MA and RCA territory, post stress EF 38%. Echocardiogram showed an LVEF of 45-50% and mild RV dysfunction. Admission EKG reviewed and interpreted to show showed sinus tachycardia with first-degree AV block and right bundle branch block, old inferior MA with posterior extension no acute ischemic changes. Telemetry is pending visualized to show sinus rhythm throughout. No ventricular or supraventricular tachycardia. No bradycardias Patient ruled out for MA. Consults Consult date: 02/09/18 Requesting physician: Stephen Billings Review of Systems Review of Systems Not obtained [facility] Medical History Bladder cancer (Chronic) CAD in upper [place] artery (Chronic) CHF (congestive heart failure) (Chronic) COPD (chronic obstructive pulmonary disease) (Chronic) Hyperlipidemia (Chronic) Hypertension (Chronic) Eoc-qzkjuak-jcwlclaxu diabetes mellitus without complications (Chronic) PFO (patent foramen ovale) (Chronic) Surgical History PROCEDURES Social History Smoking/Tobacco Use Status: Current every day substance use type: does not use hailee/scientology: No preference special hailee needs: No Exam Narrative Exam Narrative: Patient not examined. Results Last Vital Signs Temp 37.5 C 02/09/18 11:50 Pulse 86 02/09/18 11:50 Resp 20 02/09/18 11:50 BP 132/71 02/09/18 11:50 Pulse Ox 95 02/09/18 11:50 Labs : 02/09/18 06:40 02/09/18 06:40 Laboratory Results - last 24 hr 02/09/18 02/09/18 02/09/18 06:40 06:40 14:00 WBC 7.90 RBC 4.23 L Hgb 12.8 L Hct 37.7 L MCV 89.1 MCH 30.3 MCHC 34.0 RDW 13.6 Plt Count 131 MPV 10.2 Immature Gran % 0.1 Neutrophils % 80.0 Lymphocytes % 8.0 Monocytes % 11.8 Eosinophils % 0.0 Basophils % 0.1 Absolute Neutrophils 6.32 Absolute Lymphocytes 0.63 L Absolute Monocytes 0.93 H Absolute Eosinophils 0.00 Absolute Basophils 0.01 Sodium 138 Potassium 4.0 Chloride 103 Carbon Dioxide 23.1 Anion Gap 11.9 H BUN 20 H Creatinine 1.58 H Estimated GFR/1.73 m2 44.10 Glucose 152 H Calcium 8.8 Magnesium 1.1 L Total Bilirubin 0.4 AST 24 ALT 23 Alkaline Phosphatase 76 Troponin I 0.06 0.10 H NT-Pro-B Natriuret Pep 1907 H Total Protein 7.0 Albumin 3.2 L
--- NOTE | 2018-02-09 15:10 | HPE_ITS ---
Date of service: 02/09/18 Time of Service: 15:02 Assessment and Plan (1) Acute exacerbation of chronic obstructive pulmonary disease (COPD): Current visit: Yes Status: Acute Triggered by Influenza A as well as CAP. Will initiate prednisone. Continue doxycycline as well as rocephin started in the ER. Rx nebs, antitussives, continue home symbicort. Treat flu. (2) Influenza A: Current visit: Yes Status: Acute Continue tamiflu initiated in ER (3) CAP (community acquired pneumonia): Current visit: Yes Status: Acute Continue IV fluids, doxycycline, rocephin. (4) Ischemic heart disease: Current visit: No Status: Chronic Troponin elevated is borderline. Additionally, patient's creatinine is mildly worse than his baseline. Clinical significance of this is unclear. Will check troponin once again at 2200. Cardiology is consulted, as per ER recommendation. (5) Bladder cancer: Current visit: No Status: Acute F/u as outpatient. Will r/o urinary retention considering worsening creatinine. (6) Diabetes mellitus: Current visit: No Status: Acute Noninsulin dependent. Hold home meds. Corrective scale for now. (7) Essential hypertension: Current visit: No Status: Chronic Hold lisinopril and lasix in light of CHARLIE and mild dehydration. (8) Hyperlipidemia: Current visit: No Status: Chronic Continue home statin (9) CHF (congestive heart failure): Current visit: No Status: Chronic Clinically, not in acute exacerbation. Elevated BNP is likely due to current pulmonary infection. Benefits of IV hydration at this time outweigh the risks. Continue gentle IVF and monitor respiratory status. (10) Bundle branch block, right: Current visit: Yes Status: Chronic Per cardiology, no ACS. (11) Discharge planning issues: Current visit: Yes Status: Acute Full code (12) DVT prophylaxis: Current visit: Yes Status: Acute Lovenox (13) CHARLIE (acute kidney injury): Current visit: Yes Status: Acute On aurelia-i, lasix, presently dehydrated from his febrile illness and has history of bladder malignancy. Hold nephrotoxic meds. Gently hydrate. Monitor I/O's, daily weights. R/o urinary retention. (14) Elevated troponin: Current visit: Yes Status: Acute No ACS per cardiology. Will obtain one final value today at 10 pm. (15) Tobacco abuse: Current visit: Yes Status: Acute Counseled on quitting. Nicotrol inhaler while in house. History of Present Illness Chief Complaint: I couldn't breathe Narrative: Mr Lilly is a 67 year old male with PMHX of CAD s/p CABG x4 at [facility] in 2011, ICMO/chronic mild systolic CHF with EF 45-50%, non-oxygen dependent COPD, HTN, hyperlipidemia, who presented to [facility] ED on 02/09/18 complaining of shortness of breath. The patient states everything began on Wednesday 4 days ago. He felt tired, had subjective fevers, chills, runny nose, and nonproductive cough. He did not notice himself wheeze. He states he didn't have chest pain, but felt his chest was full, congested. He did feel short of breath and have palpitations. He was using inhalers he had at home probably too much, but they stopped helping. In the ED, the patient was febrile, tachypneic to 25 breath/min, tachycardic to 110's, and saturated 91% on RA. His flu swab was positive, and his CXR, though read as negative, has an infiltrate in Left lower lobe per my read. His EKG revealed evidence of RBBB (old) with a slight ST elevations in lead III, possibly also seen in lead III on EKG from 12/20/17. His troponin was borderline elevated at 0.06 when he first presented. On repeat draw at 2 pm, it is now 0.10. The patient was initiated on doxycycline, rocephin, and tamiflu as well as gentle IVF. We were asked to admit the patient for further care. Review of Systems Review of Systems 12 systems reviewed. Pertinent positives and negatives are as per HPI. Additionally, complains of feeling like his Left ear is clogged. [facility] Medical History Bladder cancer (Chronic) CAD in [place] artery (Chronic) CHF (congestive heart failure) (Chronic) COPD (chronic obstructive pulmonary disease) (Chronic) Hyperlipidemia (Chronic) Hypertension (Chronic) [id number] diabetes mellitus without complications (Chronic) PFO (patent foramen ovale) (Chronic) Surgical History S/P CABG x 4 (Acute) H/O transurethral destruction of bladder lesion (Chronic) PROCEDURES Family History Father Heart disease Mother Diabetes Other Hyperlipidemia Hypertension Social History Smoking/Tobacco Use Status: Current every day tobacco type: cigarettes alcohol intake: current alcohol intake frequency: holidays/special occasions only substance use type: does not use hailee/shinto: No preference special hailee needs: No Meds Home Medications Medication Instructions Recorded Confirmed Type Spiriva with HandiHaler 18 mcg INHALATION DAILY tab-cap 07/06/12 02/09/18 History metoprolol tartrate [Lopressor] 1 tab PO BID #180 tab 01/14/17 02/09/18 Rx Proventil Hfa 1 - 2 puff INHALATION Q6H PRN #1 05/26/17 02/09/18 Clinic inhaler simvastatin 40 mg PO DAILY #90 tab-cap 05/26/17 02/09/18 Rx lisinopril 40 mg PO DAILY #90 tab-cap 06/22/17 02/09/18 Rx metformin 1,000 mg PO BID #180 tab-cap 06/22/17 02/09/18 Rx amlodipine 5 mg tablet 5 mg PO DAILY #90 tab 10/25/17 02/09/18 Rx tramadol 50 mg tablet 50 mg PO HS PRN #20 tab 12/24/17 02/09/18 Rx furosemide 40 mg tablet 20 mg PO DAILY #30 tab 01/03/18 02/09/18 Rx nitroglycerin 0.4 mg sublingual 0.4 mg SL ONCE #20 tab 01/03/18 02/09/18 Rx tablet budesonide-formoterol HFA 80 2 puff INHALATION BID #1 ea 01/10/18 02/09/18 Rx mcg-4.5 mcg/actuation aerosol inhaler Allergies Allergy/AdvReac Type Severity Reaction Status Date / Time No Known Allergies Allergy Unverified 02/09/18 06:44 Exam Narrative Exam Narrative: General: Middle aged male, laying in bed, looks like he has the flu, laying flat, not tachypneic, able to speak in multiple full sentences without signs of respiratory distress, mildly hard of hearing Neurological: A&Ox3, no focal deficits Psychiatric: Appropriate speech pattern/content Skin: Ichthiosis BLE's, dry skin HEENT: EOMI, Dry MM, clear oropharynx, no submandibular or cervical lymphadenopathy, no goiter or JVD Cardiovascular: RRR, no m/r/g Lungs: coarse breath sounds B with quiet expiratory wheezing Gastrointestinal: abdomen soft, nontender, nondistended Extremities: no edema, clubbing or cyanosis of BLE's; 1+ pedal pulses bilaterally Results Imaging Additional studies: CXR: per my read, LLL infiltrate. Officially: No evidence of acute change. EKG: being located. Results will be addended to current note Labs : 02/09/18 06:40 02/09/18 06:40 Laboratory Results - last 24 hr 02/09/18 02/09/18 02/09/18 06:40 06:40 14:00 WBC 7.90 RBC 4.23 L Hgb 12.8 L Hct 37.7 L MCV 89.1 MCH 30.3 MCHC 34.0 RDW 13.6 Plt Count 131 MPV 10.2 Immature Gran % 0.1 Neutrophils % 80.0 Lymphocytes % 8.0 Monocytes % 11.8 Eosinophils % 0.0 Basophils % 0.1 Absolute Neutrophils 6.32 Absolute Lymphocytes 0.63 L Absolute Monocytes 0.93 H Absolute Eosinophils 0.00 Absolute Basophils 0.01 Sodium 138 Potassium 4.0 Chloride 103 Carbon Dioxide 23.1 Anion Gap 11.9 H BUN 20 H Creatinine 1.58 H Estimated GFR/1.73 m2 44.10 Glucose 152 H Calcium 8.8 Magnesium 1.1 L Total Bilirubin 0.4 AST 24 ALT 23 Alkaline Phosphatase 76 Troponin I 0.06 0.10 H NT-Pro-B Natriuret Pep 1907 H Total Protein 7.0 Albumin 3.2 L Last Vital Signs Temp 37.5 C 02/09/18 11:50 Pulse 86 02/09/18 11:50 Resp 20 02/09/18 11:50 BP 132/71 02/09/18 11:50 Pulse Ox 95 02/09/18 11:50
[2018-02-09] MEDS: predniSONE 20 MG TAB 40 MG PO ×2 (16:17→19:38)
[2018-02-09] MEDS: guaiFENesin/D-METHORPHAN HB 5 ML CUP PO (16:35)
[2018-02-09] MEDS: guaiFENesin 600 MG TABCR PO (19:37)
[2018-02-09] MEDS: Magnesium Chloride 64 MG TABCR PO (19:38)
[2018-02-09] MEDS: Budesonide/Formoterol 80/4.5 6.9 GM 60 PUFF INH IH (19:40)
[2018-02-09 22:22] LABS: Troponin I 0.09 ng/mL (0.00-0.06)
[2018-02-09] MEDS: Normal Saline 1,000 ML 125 ML IV (23:25)
[2018-02-10] VITALS (22 sets, daily range): BP systolic 118–152; BP diastolic 61–74; PULSE 51–64; RESP 8–20; TEMP 36.1–36.8; O2SAT 92–98
[2018-02-10] MEDS: Albuterol/Ipratropium 3 ML UPD VIAL UPD ×3 (05:47→17:47)
[2018-02-10 07:11] LABS: Abs Immature Grans 0.01 k/cumm (0.0-0.09); Absolute Lymphocyte Count 0.87 k/cumm (1.2-3.4); Absolute Monocyte Count 0.33 k/cumm (0.11-0.7); Absolute Neutrophil Count 5.87 k/cumm (1.2-6.7); HGB 11.4 g/dL (13.5-17.5); Immature Grans % 0.1; Lymphocytes % 12.3; Mean Corp. HGB Concentration 32.6 g/dL (32.0-36.0); Mean Corpuscular Hemoglobin 29.7 pg (27.0-33.0); Mean Corpuscular Volume 91.1 fL (80-95); Mean Platelet Volume 10.3 fL (8.0-11.0); Monocytes % 4.7; Neutrophils % 82.9; Platelet Count 114 x1000/uL (130-400); RBC 3.84 m/cumm (4.50-6.00); RBC Distribution Width 13.8 % (11.8-14.1); White Blood Cell Count 7.08 k/cumm (4.4-10.8)
[2018-02-10 07:23] LABS: Anion Gap 9.9 mmol/L (3-11); BUN 25 mg/dL (7-18); CO2 22.1 mmol/L (21.0-32.0); CREATININE 1.19 mg/dL (0.70-1.30); Calcium 8.4 mg/dL (8.5-10.1); Chloride 106 mmol/L (98-107); Glucose 189 mg/dL (70-100); Magnesium 2.2 mg/dL (1.8-2.4); Potassium 4.2 mmol/L (3.5-5.1); Sodium 138 mmol/L (136-145)
[2018-02-10] MEDS: Budesonide/Formoterol 80/4.5 6.9 GM 60 PUFF INH IH ×2 (07:40→20:13)
[2018-02-10] MEDS: Insulin Aspart 300 UNITS/3 ML PEN SC ×3 (07:59→17:01)
[2018-02-10] MEDS: guaiFENesin 600 MG TABCR PO ×2 (08:00→20:13)
[2018-02-10] MEDS: Magnesium Chloride 64 MG TABCR PO ×2 (08:00→20:13)
[2018-02-10] MEDS: Oseltamivir 75 MG CAP PO ×2 (08:00→20:13)
[2018-02-10] MEDS: Carbamide Peroxide 15 ML BTL AU ×2 (08:00→20:13)
[2018-02-10] MEDS: Acetaminophen 325 MG TAB PO (08:00)
[2018-02-10] MEDS: Pantoprazole 40 MG TABCR PO (08:01)
[2018-02-10] MEDS: Benzonatate 100 MG CAP PO (08:01)
[2018-02-10] MEDS: Simvastatin 40 MG TAB PO (08:01)
[2018-02-10] MEDS: predniSONE 20 MG TAB 40 MG PO (08:02)
[2018-02-10] MEDS: DOXYCYCLINE 100 MG in Normal Saline 100 ML IVPB (08:02)
--- NOTE | 2018-02-10 09:27 | PHARADMIT ---
Admission Pharmacy Clinical Review Influenza Code Status Full Code Current Weight 104.5 kg Renally Cleared and Narrow Therapeutic Index Meds Crcl ~74.00 mL/min current meds okay QTc Value / Action Taken QTc 469 BP Control, Fever BP 145/61 Tmax 40.3 on admit Electrolytes reviewed within normal limits DVT Prophylaxis enoxaparin Opiate Usage / Scheduled Bowel Regimen Ordered prn/prn Plt/SCr for Heparin / Enoxaparin plt 114 (down) SCr 1.19 INR for Warfarin n/a H/H stable, WBC/Bands H/H 11.4/35.0 wbc 7.08 Antibiotic appropriateness ceftriaxone and doxycycline for CAP/COPD exacerbation per H+P Cultures and Sensitivities blood culture no growth at 24 hours rapid influenza- positive for flu A antigen sputum culture pending Surgical ABX d/c within 24 hr n/a DM control / Insulin Dosing bg 189 sliding scale insulin aspart Heart Failure (Check EF%) (SUGAR's, B-Block, Diuretics) metoprolol IV to PO Switch n/a Home Meds Reviewed -multiple anticholinergic meds (tiotropium, oxybutynin) may increase risk of anticholinergic side effects/toxicity -doses of simvastatin greater than 20 mg daily should be avoided in pts also using amlodipine, monitor for adverse reactions/toxicity Home Meds Not Ordered amlodipine, furosemide, lisinopril, metformin, oxybutynin, phenazopyridine, tiotropium Comments- -watch platelet levels, may need to change DVT prophylaxis if continues to decrease -watch for mag level tomorrow
--- NOTE | 2018-02-10 10:30 | PDOC.CMIN ---
Care Management Initial Assess REASON FOR HOSPITALIZATION:: Influenza PAST MEDICAL HISTORY/PAST SURGICAL HISTORY:: Bladder cancer, CAD S/P CABGx4 [facility] in 2012, CHF, COPD, Hyperlipidemia, Hypertension, Non-insulin dependent diabetes mellitus without complications, PFO PREVIOUS FUNCTIONAL STATUS/SOCIAL/FAMILY SUPPORTS:: Al resides alone in [place] alone and reports that he has a good support system of friends locally. He has three adult children, one of whom lives locally. He is retired following many years working in [employer] and at [employer] in [place]. He is independent with his ADLs and transportation. CURRENT FUNCTIONAL STATUS:: Al was ambulating independently in his room. He remains pleasant in interaction-consistent from previous admission. ADVANCE DIRECTIVES:: On file at [facility]. Has patient been provided with information about the portal?: No Did the patient sign up for the portal?: No INSURANCE COVERAGE / FINANCIAL ISSUES:: Medicare, financial asst 100. CURRENT HOME/COMMUNITY SERVICES/EQUIPMENT:: No current services. PRIMARY CARE PHYSICIAN:: Silver Luis MD. POTENTIAL DISCHARGE NEEDS:: Follow up appointment with MD. PATIENT/FAMILY EDUCATION NEEDS:: Discharge education, any limitations and follow up plan of care. Ask Me Three discussion. ANTICIPATED BARRIERS TO DISCHARGE:: No anticipated barriers to discharge. TRANSPORTATION:: Al will transport via private vehicle with friendAdolfo, when medically ready per MD. PLAN:: Al will discharge home when medically cleared by MD. Al will follow up with PCP and plan of care. Anticipate Al will discharge with no services. He will transport via private vehicle with friendAdolfo. CM to continue to provide support to patient and careteam regarding discharge planning and disposition.
--- NOTE | 2018-02-10 10:55 | INITIAL_ITS ---
Care Management Initial Assess REASON FOR HOSPITALIZATION:: Influenza PAST MEDICAL HISTORY/PAST SURGICAL HISTORY:: Bladder cancer, CAD S/P CABGx4 [facility] [place] in 2012, CHF, COPD, Hyperlipidemia, Hypertension, Non-insulin dependent diabetes mellitus without complications, PFO PREVIOUS FUNCTIONAL STATUS/SOCIAL/FAMILY SUPPORTS:: Al resides alone in [place] alone and reports that he has a good support system of friends locally. He has three adult children, one of whom lives locally. 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 He is independent with his ADLs and transportation. CURRENT FUNCTIONAL STATUS:: Al was ambulating independently in his room. He remains pleasant in interaction-consistent from previous admission. ADVANCE DIRECTIVES:: On file at [facility]. Has patient been provided with information about the portal?: No Did the patient sign up for the portal?: No INSURANCE COVERAGE / FINANCIAL ISSUES:: Medicare, financial asst 100. CURRENT HOME/COMMUNITY SERVICES/EQUIPMENT:: No current services. PRIMARY CARE PHYSICIAN:: Silver Luis MD. POTENTIAL DISCHARGE NEEDS:: Follow up appointment with MD. PATIENT/FAMILY EDUCATION NEEDS:: Discharge education, any limitations and follow up plan of care. Ask Me Three discussion. ANTICIPATED BARRIERS TO DISCHARGE:: No anticipated barriers to discharge. TRANSPORTATION:: Al will transport via private vehicle with friendAdolfo, when medically ready per MD. PLAN:: Al will discharge home when medically cleared by MD. Al will follow up with PCP and plan of care. Anticipate Al will discharge with no services. He will transport via private vehicle with Adlofo hebert. CM to continue to provide support to patient and careteam regarding discharge planning and disposition.
--- NOTE | 2018-02-10 11:04 | DI.RAD_ITS ---
SYMPTOM/DIAGNOSIS: WORSENING OXYGEN REQUIREMENT PORTABLE AP CHEST: There is no evidence of a localized pulmonary infiltrate, mass or pleural effusion. The heart is top limits of normal in size in this patient who is status post CABG. The hilar vasculature is unremarkable. The mediastinum and tracheal air column are intact. SUMMARY: No evidence of acute cardiopulmonary disease on a single AP upright portable chest.
[2018-02-10] MEDS: Enoxaparin 40 MG/0.4 ML SYR SC (12:21)
--- NOTE | 2018-02-10 14:00 | CHAPLAIN ---
Al was sitting up watching tv when I visited. He said he is feeling better and hopes to go home tomorrow. 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
--- NOTE | 2018-02-10 17:32 | W.PM.PROGNOT ---
Date of Service Date of service: 02/10/18 Time of Service: 15:00 Assessment and Plan (1) Acute exacerbation of chronic obstructive pulmonary disease (COPD): Current visit: No Status: Acute Triggered by Influenza A. CAP not seen on repeat CXR. Prednisone taper. Continue doxycycline as well as rocephin, nebs, antitussives, continue home symbicort; tamiflu. (2) Influenza A: Current visit: No Status: Acute Continue tamiflu (3) CAP (community acquired pneumonia): Current visit: No Status: Acute I am now less convinced that the patient truly has this. D/c abx. (4) Ischemic heart disease: Current visit: No Status: Chronic Troponin elevationis borderline in setting of mild worsening of creatinine. Clinical significance of this is unclear. Cardiology does not recommend further workup. (5) Bladder cancer: Current visit: No Status: Acute F/u as outpatient. (6) Diabetes mellitus: Current visit: No Status: Acute Noninsulin dependent. Continue to Hold home meds. Corrective scale for now. (7) Essential hypertension: Current visit: No Status: Chronic Hold lisinopril and lasix in light of CHARLIE and mild dehydration. (8) Hyperlipidemia: Current visit: No Status: Chronic Continue home statin (9) CHF (congestive heart failure): Current visit: No Status: Chronic Clinically, not in acute exacerbation. Elevated BNP is likely due to current pulmonary infection. Resume lasix tomorrow. (10) Bundle branch block, right: Current visit: No Status: Chronic Per cardiology, no ACS. (11) Discharge planning issues: Current visit: No Status: Acute Full code Possible discharge tomorrow. (12) DVT prophylaxis: Current visit: No Status: Acute Lovenox (13) CHARLIE (acute kidney injury): Current visit: No Status: Acute Improved/resolving. Hold nephrotoxic meds. D/c IVF. Monitor I/O's, daily weights. (14) Elevated troponin: Current visit: No Status: Acute No ACS per cardiology. (15) Tobacco abuse: Current visit: No Status: Acute Counseled on quitting. Nicotrol inhaler while in house. Subjective Interval history since last seen: Feels better today. Last night, HR was noted to go down into 40's and occasionally 30's and patient did require oxygen. The patient admits to snoring at home and has never had a sleep study. He verbalizes understanding that he will have to get one. Denies dizziness, chest pain, shortness of breath, nausea, vomiting. Exam Narrative Exam Narrative: General: Middle aged male, sitting up in a chair, comfortable, looks a little better Neurological: A&Ox3, no focal deficits Psychiatric: Appropriate speech pattern/content Skin: Ichthiosis BLE's, dry skin HEENT: EOMI, MMM Cardiovascular: RRR, no m/r/g, slightly bradycardic Lungs: coarse breath sounds B with quiet expiratory wheezing, better Gastrointestinal: abdomen soft, nontender, nondistended Extremities: no edema, clubbing or cyanosis of BLE's; 1+ pedal pulses bilaterally Objective Objective Clinical Data: Abnormal lab results 02/09/18 02/10/18 02/10/18 Range/Units 21:55 06:15 06:18 RBC 3.84 L (4.50-6.00) m/cumm Hgb 11.4 L (13.5-17.5) g/dL Hct 35.0 L (40.0-50.0) % Plt Count 114 L (130-400) x1000/uL Absolute Lymphocytes 0.87 L (1.2-3.4) k/cumm BUN 25 H (7-18) mg/dL Glucose 189 H (70-100) mg/dL Calcium 8.4 L (8.5-10.1) mg/dL Troponin I 0.09 H (0.00-0.06) ng/mL Vital Signs Temperature 36.2 C L 02/10/18 15:53 Temperature Source Temporal Artery Scan 02/10/18 15:53 Pulse 55 L 02/10/18 15:53 Pulse Rhythm Regular 02/10/18 15:55 Pulse 110 H 02/09/18 06:50 Respiratory Rate 20 02/10/18 15:53 Respiratory Effort 02/10/18 15:55 Respiratory Depth Normal 02/10/18 15:55 Respiratory Pattern Normal 02/10/18 15:55 Blood Pressure 132/65 02/10/18 15:53 Blood Pressure Mean 85 02/09/18 06:38 Pulse Oximetry 92 L 02/10/18 16:04 Oxygen Delivery Method Room Air 02/10/18 16:04 Oxygen Flow Rate 0 02/10/18 16:04 Pain Level 0 02/10/18 15:53 Intake & Output 02/09/18 02/10/18 02/10/18 23:59 11:59 23:59 Intake Total 1350.000 / 3000.472 6932 / 2068 480 / 2068 Output Total 1500 / 1500 Balance 1350.000 / 1698.333 88 / 568 480 / 568 Weight 104.5 kg Intake: IV 1110.000 / 0066.878 2229 / 1108 Oral 240 / 240 480 / 960 480 / 960 Output: Urine 1500 / 1500 Post Void Residual 0 / 0 Other: Urine Color Light Mariah Urine Appearance Clear Urine Odor Normal Comment pt states that he just voided in the toilet Bladder scan results 40 and 66 Voiding Methods Toilet Toilet Laboratory Results WBC 7.08 k/cumm (4.4-10.8) 02/10/18 06:18 RBC 3.84 m/cumm (4.50-6.00) L 02/10/18 06:18 Hgb 11.4 g/dL (13.5-17.5) L 02/10/18 06:18 Hct 35.0 % (40.0-50.0) L 02/10/18 06:18 MCV 91.1 fL (80-95) 02/10/18 06:18 MCH 29.7 pg (27.0-33.0) 02/10/18 06:18 MCHC 32.6 g/dL (32.0-36.0) 02/10/18 06:18 RDW 13.8 % (11.8-14.1) 02/10/18 06:18 Plt Count 114 x1000/uL (130-400) L 02/10/18 06:18 MPV 10.3 fL (8.0-11.0) 02/10/18 06:18 Immature Gran % 0.1 02/10/18 06:18 Neutrophils % 82.9 02/10/18 06:18 Lymphocytes % 12.3 02/10/18 06:18 Monocytes % 4.7 02/10/18 06:18 Eosinophils % 0.0 02/10/18 06:18 Basophils % 0.0 02/10/18 06:18 Absolute Neutrophils 5.87 k/cumm (1.2-6.7) 02/10/18 06:18 Absolute Lymphocytes 0.87 k/cumm (1.2-3.4) L 02/10/18 06:18 Absolute Monocytes 0.33 k/cumm (0.11-0.7) 02/10/18 06:18 Absolute Eosinophils 0.00 k/cumm (0.0-0.7) 02/10/18 06:18 Absolute Basophils 0.00 k/cumm (0.0-0.2) 02/10/18 06:18 Sodium 138 mmol/L (136-145) 02/10/18 06:15 Potassium 4.2 mmol/L (3.5-5.1) 02/10/18 06:15 Chloride 106 mmol/L (98-107) 02/10/18 06:15 Carbon Dioxide 22.1 mmol/L (21.0-32.0) 02/10/18 06:15 Anion Gap 9.9 mmol/L (3-11) 02/10/18 06:15 BUN 25 mg/dL (7-18) H 02/10/18 06:15 Creatinine 1.19 mg/dL (0.70-1.30) 02/10/18 06:15 Estimated GFR/1.73 m2 >= 60.00 (mL/min/1.73m2) 02/10/18 06:15 Glucose 189 mg/dL (70-100) H 02/10/18 06:15 Calcium 8.4 mg/dL (8.5-10.1) L 02/10/18 06:15 Magnesium 2.2 mg/dL (1.8-2.4) 02/10/18 06:15 Total Bilirubin 0.4 mg/dL (0.2-1.0) 02/09/18 06:40 AST 24 U/L (15-37) 02/09/18 06:40 ALT 23 U/L (12-78) 02/09/18 06:40 Alkaline Phosphatase 76 U/L (46-116) 02/09/18 06:40 Troponin I 0.09 ng/mL (0.00-0.06) H 02/09/18 21:55 NT-Pro-B Natriuret Pep 1907 pg/mL (-299) H 02/09/18 06:40 Total Protein 7.0 g/dL (6.4-8.2) 02/09/18 06:40 Albumin 3.2 g/dL (3.4-5.0) L 02/09/18 06:40 CXR: No evidence of acute cardiopulmonary disease on a single AP upright portable chest.
[2018-02-11] VITALS (8 sets, daily range): BP systolic 134–166; BP diastolic 64–80; PULSE 52–78; RESP 8–28; TEMP 36.1–37; O2SAT 89–95
[2018-02-11] MEDS: Albuterol 2.5 MG/3 ML INH SOLN VIAL UPD (02:10)
[2018-02-11 05:57] LABS: Abs Immature Grans 0.01 k/cumm (0.0-0.09); Absolute Lymphocyte Count 1.45 k/cumm (1.2-3.4); Absolute Monocyte Count 0.81 k/cumm (0.11-0.7); HGB 11.2 g/dL (13.5-17.5); Immature Grans % 0.1; Lymphocytes % 14.7; Mean Corp. HGB Concentration 32.9 g/dL (32.0-36.0); Mean Corpuscular Hemoglobin 29.6 pg (27.0-33.0); Mean Corpuscular Volume 89.9 fL (80-95); Mean Platelet Volume 10.4 fL (8.0-11.0); Monocytes % 8.2; Platelet Count 130 x1000/uL (130-400); RBC 3.78 m/cumm (4.50-6.00); RBC Distribution Width 13.7 % (11.8-14.1); White Blood Cell Count 9.84 k/cumm (4.4-10.8)
[2018-02-11 06:01] LABS: Absolute Neutrophil Count 7.58 k/cumm (1.2-6.7)
[2018-02-11 06:08] LABS: Anion Gap 9.7 mmol/L (3-11); BUN 32 mg/dL (7-18); CO2 22.3 mmol/L (21.0-32.0); Calcium 8.8 mg/dL (8.5-10.1); Chloride 107 mmol/L (98-107); Estimated GFR 55.23 (mL/min/1.73m2); Glucose 116 mg/dL (70-100); Magnesium 1.7 mg/dL (1.8-2.4); Potassium 3.6 mmol/L (3.5-5.1); Sodium 139 mmol/L (136-145)
[2018-02-11] MEDS: guaiFENesin 600 MG TABCR PO (09:13)
[2018-02-11] MEDS: Carbamide Peroxide 15 ML BTL AU (09:13)
[2018-02-11] MEDS: Magnesium Chloride 64 MG TABCR PO (09:13)
[2018-02-11] MEDS: Metoprolol 50 MG TAB PO (09:14)
[2018-02-11] MEDS: Simvastatin 40 MG TAB PO (09:14)
[2018-02-11] MEDS: Pantoprazole 40 MG TABCR PO (09:14)
[2018-02-11] MEDS: predniSONE 20 MG TAB 40 MG PO (09:14)
[2018-02-11] MEDS: Oseltamivir 75 MG CAP PO (09:14)
[2018-02-11] MEDS: Normal Saline Flush 10 ML SYR IVP (10:38)
[2018-02-11] MEDS: MAGNESIUM SULFATE 2 GM/50 ML BAG IVPB (10:39)
[2018-02-11] MEDS: Budesonide/Formoterol 80/4.5 6.9 GM 60 PUFF INH IH (10:58)
[2018-02-11] MEDS: Enoxaparin 40 MG/0.4 ML SYR SC (12:42)
[2018-02-11] MEDS: Insulin Aspart 300 UNITS/3 ML PEN SC (12:42)
--- NOTE | 2018-02-11 13:07 | W.PM.DS.N ---
Date of service: 02/11/18 Time of Service: 13:07 DS: Diagnosis Discharge Diagnosis (1) Acute exacerbation of chronic obstructive pulmonary disease (COPD): Status: Acute (2) Influenza A: Status: Acute (3) CAP (community acquired pneumonia): Status: Suspected (4) Ischemic heart disease: Status: Chronic (5) Bladder cancer: Status: Chronic (6) Diabetes mellitus: Status: Chronic (7) Essential hypertension: Status: Chronic (8) Hyperlipidemia: Status: Chronic (9) CHF (congestive heart failure): Status: Chronic Asessment and Plan: Chronic, systolic, EF 45-50% (10) Bundle branch block, right: Status: Chronic (11) CHARLIE (acute kidney injury): Status: Resolved (12) Elevated troponin: Status: Acute Asessment and Plan: No ACS on this admission (13) Tobacco abuse: Status: Acute (14) Sleep apnea: Status: Suspected Asessment and Plan: with noctural hypoxia and bradycardia Discharge Plan Disposition Patient Disposition: HOME Condition: Stable Discharge Details Reason For Visit: INFLUENZA Admit Date/Time: 02/09/18 08:00 Admit Provider: Fabby Birmingham Attending Provider: Fabby Birmingham [facility] Hospital Course: Mr Lilly is a 67 year old male with PMHx of non-oxygen dependent COPD, CAD s/p CABG, chronic systolic CHF (EF 45-50%), who was admitted to [facility] on 02/09/17 for COPD exacerbation due to Influenza A infection in addition to suspected community acquired pneumonia. He also had borderline, nonspecific Troponin elevations with a right bundle branch block on EKG. He was evaluated by cardiology and was ruled out for acute coronary syndrome. He remained on telemetry because of nonsustained VTach which he had in setting of hypomagnesemia and resolved with correction of magnesium levels. His exacerbation of COPD due to influenza A infection was treated with tamiflu, prednisone, sheduled and prn nebs, symbicort, antitussives. He also received 2 days of empiric antibiotics, which were discontinued once his repeat CXR failed to reveal an infiltrate. The patient did have an episode of hypoxia on his first night in the hospital, which coincided with bradycardia at the time of sleep. There is a high index of suspicion that the patient has JIMMY. He is getting discharged home with an overnight oxymetry study, which should be followed up by his PCP. Ultimately, he is going to need a formal sleep study. During the day the patient does not require oxygen - his ambulatory pulse ox is 89% on room air. His metoprolol dose at night is being lowered to 25 mg (morning dose remains 50 mg) in light of this bradycardia, likely associated with underlying JIMMY. He will be finishing 2 more days of steroids and his 5 day course of tamiflu at home with follow up with his PCP for further care. Home Meds and New Rx's Prescriptions: New benzonatate 100 mg Capsule 100 mg PO TID PRN PRN (Reason: cough) Qty: 30 RF: 0 prednisone 20 mg Tablet 20 mg PO DAILY Qty: 3 RF: 0 pantoprazole 40 mg Tablet,Delayed Release (Dr/Ec) 40 mg PO DAILY@0730 Qty: 10 RF: 0 magnesium chloride [Mag 64] 64 mg Tablet,Delayed Release (Dr/Ec) 64 mg PO BID Qty: 60 RF: 0 guaifenesin [Mucinex] 600 mg Tablet Extended Release 12hr 600 mg PO BID PRN PRN (Reason: cough) Qty: 20 RF: 0 oseltamivir [Tamiflu] 75 mg Capsule 75 mg PO BID Qty: 5 RF: 0 Continued tramadol 50 mg tablet 50 mg PO HS PRN Qty: 20 RF: 0 furosemide 40 mg tablet 20 mg PO DAILY Qty: 30 RF: 11 nitroglycerin 0.4 mg tablet, sublingual 0.4 mg SL ONCE Qty: 20 RF: 2 Spiriva with HandiHaler 18 MCG capsule, w/inhalation device 18 mcg Inhalation DAILY RF: 0 simvastatin 40 MG tablet 40 mg PO DAILY Qty: 90 RF: 3 PROVENTIL HFA 18 GM HFA.AER.AD 1 - 2 puff Inhalation Q6H PRN Qty: 1 RF: 3 metformin 1,000 MG tablet 1,000 mg PO BID Qty: 180 RF: 3 lisinopril 40 MG tablet 40 mg PO DAILY Qty: 90 RF: 4 amlodipine 5 mg tablet 5 mg PO DAILY Qty: 90 RF: 2 Symbicort 80-4.5 mcg/actuation HFA aerosol inhaler 2 puff Inhalation BID Qty: 1 RF: 3 Changed metoprolol tartrate [Lopressor] 50 MG tablet See Rx Instructions .ROUTE .COMPLEX Qty: 45 RF: 0 Discharge Instructions Instructions: Prednisone (By mouth), Oseltamivir (By mouth), How to Stop Smoking (DC), Influenza (DC), COPD (Chronic Obstructive Pulmonary Disease) (DC) Additional Instructions: You must stop smoking! Finish your tamiflu and prednisone as prescribed. Return to the hospital with any fever, bleeding, chest pain, or shortness of breath. Follow up with your PCP for results of the overnight oximetry study. You will need a formal sleep study as outpatient. Stand Alone Forms: Nursing Discharge Form Referrals: Silver Luis [Primary Care Provider] - 02/21/18 1:20 pm Activity:: Activity as Tolerated Equipment/Supplies:: No Equipment Needed Diet:: heart healthy diabetic Discharge Orders Discharge Orders: Discharge Order (Routine); Ordered 02/11/18 Ordered By: Fabby Birmingham Other Ambulatory Orders: Basic Metabolic Panel (Routine) Timeframe: 1 Week Location: Determined by Patient Ordered By: Fabby Birmingham Complete Blood Count No Diff (Routine) Timeframe: 1 Week Location: Determined by Patient Ordered By: Fabby Birmingham Magnesium (Routine) Timeframe: 1 Week Location: Determined by Patient Ordered By: Fabby Birmingham SaO2 Overnight Study (Outpt) (ONCE) (1) Timeframe: 1 Day Location: Determined by Patient Ordered By: Fabby Birmingham Exam Narrative Exam Narrative: General: Middle aged male, sitting up in a chair, comfortable, eating a hamburger, looks better Neurological: A&Ox3, no focal deficits Psychiatric: Appropriate speech pattern/content Skin: Ichthiosis BLE's, dry skin HEENT: EOMI, MMM Cardiovascular: RRR, no m/r/g, slightly bradycardic Lungs: coarse breath sounds B; no wheezing heard Gastrointestinal: abdomen soft, nontender, nondistended Extremities: no edema, clubbing or cyanosis of BLE's; 1+ pedal pulses bilaterally DS: Data Vitals/I&O Vitals and I&O: Vital Signs Temperature 36.5 C 02/11/18 11:35 Temperature Source Tympanic 02/11/18 11:35 Pulse 62 02/11/18 12:23 Pulse Rhythm Regular 02/11/18 12:50 Pulse 110 H 02/09/18 06:50 Respiratory Rate 18 02/11/18 11:35 Respiratory Effort 02/11/18 12:50 Respiratory Depth Normal 02/11/18 12:50 Respiratory Pattern Normal 02/11/18 12:50 Blood Pressure 134/64 02/11/18 11:35 Blood Pressure Mean 85 02/09/18 06:38 Pulse Oximetry 94 L 02/11/18 11:35 Oxygen Delivery Method Room Air 02/11/18 11:35 Oxygen Flow Rate 0 02/11/18 11:35 Pain Level 0 02/11/18 11:35 Comment 02/11/18 03:35 Intake & Output 02/10/18 02/11/18 02/11/18 23:59 11:59 23:59 Intake Total 720 / 2308 780 / 780 Balance 720 / 808 780 / 780 Intake: Oral 720 / 1200 780 / 780 Other: Urine Appearance Clear Comment voided in toilet. volume not measured. pt denies dysuria and states he voided a good volume. Pt voids independently in bathroom. Voiding Methods Toilet Toilet Completed studies during hospitalization [Text1]: Blood cx x 2 02/09/18: NGTD Sputum cx 02/09/18: normal respiratory sulaiman Influenza A: positive CXR 02/09/18: No evidence of acute change. CXR 02/10/18: No evidence of acute cardiopulmonary disease on a single AP upright portable chest. Labs on day of discharge: Labs from last 24 hours 02/11/18 02/11/18 05:41 05:41 WBC 9.84 D RBC 3.78 L Hgb 11.2 L Hct 34.0 L MCV 89.9 MCH 29.6 MCHC 32.9 RDW 13.7 Plt Count 130 MPV 10.4 Immature Gran % 0.1 Neutrophils % 77.0 Lymphocytes % 14.7 Monocytes % 8.2 Eosinophils % 0.0 Basophils % 0.0 Absolute Neutrophils 7.58 H Absolute Lymphocytes 1.45 Absolute Monocytes 0.81 H Absolute Eosinophils 0.00 Absolute Basophils 0.00 Sodium 139 Potassium 3.6 Chloride 107 Carbon Dioxide 22.3 Anion Gap 9.7 BUN 32 H Creatinine 1.30 Estimated GFR/1.73 m2 55.23 Glucose 116 H Calcium 8.8 Magnesium 1.7 L Preliminary micro results at discharge 02/09/18 07:13 Blood Culture - Preliminary Blood NO GROWTH 48 HOURS 02/09/18 06:52 Blood Culture - Preliminary Blood NO GROWTH 48 HOURS PFSH Medical History Bladder cancer (Chronic) CAD in [place] artery (Chronic) CHF (congestive heart failure) (Chronic) COPD (chronic obstructive pulmonary disease) (Chronic) Hyperlipidemia (Chronic) Hypertension (Chronic) [id number]-svqcizdxw diabetes mellitus without complications (Chronic) PFO (patent foramen ovale) (Chronic) Surgical History S/P CABG x 4 (Acute) H/O transurethral destruction of bladder lesion (Chronic) PROCEDURES Family History Father Heart disease Mother Diabetes Other Hyperlipidemia Hypertension Social History Smoking/Tobacco Use Status: Current every day tobacco type: cigarettes alcohol intake: current alcohol intake frequency: holidays/special occasions only substance use type: does not use hailee/church: No preference special hailee needs: No
--- NOTE | 2018-02-11 16:58 | PDOC.CMDIS ---
LACE Index Scoring Tool - Questions: Length of Stay (in days): 3 Acuity (Admit via E.D.?): Yes Comorbidities: Diabetes w/o Complication, Congestive Heart Failure, Chronic Pulmonary Disease E.D. Visits: 2 - Answers: Total Score: 13 Risk of Readmission: High Risk Care Management Discharge Reason for Hospitalization: Influenza Discharge Plan: Al will discharge home when medically cleared by MD. Al will follow up with PCP and plan of care including cardiology follow up and eventual sleep study. No additional services anticipated at this time. He will transport via private vehicle with friend, Adolfo. Patient/Family Education Needs: Review of discharge instructions; discuss Ask Me Three.
== END 2018-02-11 16:08 | disposition home or self-care (01) | DRG 194 ==
LOC: ER 08:17 → MS 09:40
PROVIDERS: Admitting Provider Internal Medicine; Emergency Provider Student in an Organized Health Care Education/Training Program; PCP Family Medicine; Visit Provider Internal Medicine
DX: J11.00 Influenza due to unidentified influenza virus with unspecified type of pneumonia (principal); N17.9 Acute kidney failure, unspecified; F17.210 Nicotine dependence, cigarettes, uncomplicated; I11.0 Hypertensive heart disease with heart failure; J44.1 Chronic obstructive pulmonary disease with (acute) exacerbation; I50.9 Heart failure, unspecified; G47.30 Sleep apnea, unspecified; G47.36 Sleep related hypoventilation in conditions classified elsewhere; I25.5 Ischemic cardiomyopathy; R77.8 Other specified abnormalities of plasma proteins; Z95.1 Presence of aortocoronary bypass graft; E11.9 Type 2 diabetes mellitus without complications; Z79.84 Long term (current) use of oral hypoglycemic drugs; E78.5 Hyperlipidemia, unspecified; E83.42 Hypomagnesemia
CPT/HCPCS: 36415; 80048; 80053; 87040; 87449; 93005; 94618; 94640; 96365; 96366; 96368; 96375; 99221; 99223; 99232; 99239; 99285; J1650; 71045; 83735; 83880; 84484; 85025; 87070; 87205; 93010; J0696; J1885; J3475; J7512; J7613; J7620

== ENCOUNTER → 2018-02-09 11:39 | Outpatient (BNVA) | payer MEDICARE, SELFPAY | PROVIDERS: PCP Family Medicine; Visit Provider Student in an Organized Health Care Education/Training Program | DX: R69 Illness, unspecified (principal) ==

== ENCOUNTER 2018-04-11 14:05 | Observation (INO) | payer MEDICARE, SELFPAY ==
[2018-04-11] VITALS (7 sets, daily range): BP systolic 132–176; BP diastolic 61–79; PULSE 54–67; RESP 16–18; TEMP 36.1–36.9; O2SAT 93–96
[2018-04-11] MEDS: Lactated Ringers 1,000 ML 80 ML IV ×2 (10:35→14:36)
--- NOTE | 2018-04-11 10:39 | W.PM.HP.N ---
Date of service: 04/11/18 Time of Service: 10:39 Assessment and Plan (1) Malignant neoplasm of posterior wall of urinary bladder: Current visit: No Status: Acute We would do a cystoscopy with transurethral resection of any recurrent tumor that is visible. If a large tumor is found, we may need to admit him for continuous bladder irrigation overnight. If a small tumor is found, we may instill mitomycin-C into the bladder to help prevent recurrence. If no tumor is found, we will simply schedule him for surveillance cystoscopy. History of Present Illness Chief Complaint: Urothelial cell acrcinoma of bladder Narrative: This is a 68-year-old gentleman who has a previous diagnosis of noninvasive urothelial cell carcinoma of the bladder. He comes in for surveillance cystoscopy. He is not having any gross hematuria. He still gets up an average of twice a night to void. He has not gone into retention. Review of Systems Review of Systems No fevers or chills No vision change or dysphasia No diabetes or thyroid No sputum production or hemoptysis. Hospitalized with pneumonia in January 2018. No chest pain or palpitations. Due to see cardiology in May No nausea, vomiting, hepatitis, ulcers, jaundice, diarrhea or constipation No seizures, strokes or peripheral neuropathy No bleeding disorders or anemia No gout PFSH Social History Smoking and Tabacco status: Current every day tobacco type: cigarettes Tobacco: How many years used: 40 alcohol intake: current alcohol intake frequency: holidays/special occasions only substance use type: does not use hailee/sabianist: No preference special hailee needs: No Meds Home Medications Medication Instructions Recorded Confirmed Type Proventil Hfa 1 - 2 puff INHALATION Q6H PRN #1 05/26/17 04/11/18 Clinic inhaler simvastatin 40 mg PO DAILY #90 tab-cap 05/26/17 04/11/18 Rx lisinopril 40 mg PO DAILY #90 tab-cap 06/22/17 04/11/18 Rx metformin 1,000 mg PO BID #180 tab-cap 06/22/17 04/11/18 Rx amlodipine 5 mg tablet 5 mg PO DAILY #90 tab 10/25/17 04/11/18 Rx nitroglycerin 0.4 mg sublingual 0.4 mg SL ONCE #20 tab 01/03/18 04/11/18 Rx tablet budesonide-formoterol HFA 80 2 puff INHALATION BID #1 ea 01/10/18 04/11/18 Rx mcg-4.5 mcg/actuation aerosol inhaler guaifenesin [Mucinex] 600 mg PO BID PRN PRN #20 tab 02/11/18 04/11/18 Rx magnesium chloride [Mag 64] 64 mg PO BID #60 tab 02/11/18 04/11/18 Rx isosorbide mononitrate ER 30 mg 30 mg PO DAILY #30 tab 02/21/18 04/11/18 Rx tablet,extended release 24 hr metoprolol tartrate 50 mg tablet 50 mg PO DAILY #90 tab 02/21/18 04/11/18 Rx nicotine 10 mg inhalation cartridge 1 inh IH BID PRN #168 each 02/21/18 04/11/18 Rx ascorbic acid (vitamin C) [Vitamin 500 mg PO DAILY 03/03/18 04/11/18 History C] furosemide 40 mg PO .QOD 03/03/18 04/11/18 History metoprolol tartrate 25 mg PO HS 03/03/18 04/11/18 History Allergies Allergy/AdvReac Type Severity Reaction Status Date / Time No Known Allergies Allergy Unverified 04/11/18 10:26 Exam Narrative Exam Narrative: He is in no current distress. He is cooperative. He does not appear septic or toxic. His vital signs are documented elsewhere in the chart His neck is thick but supple with no mass His lungs are clear Cardiac exam shows no murmurs. His rate is regular Abdomen is soft with no masses There is no edema in the lower extremities He is awake, alert and oriented Results Last Vital Signs Temp 36.3 C L 04/11/18 10:31 Pulse 61 04/11/18 10:31 Resp 16 04/11/18 10:31 BP 149/61 H 04/11/18 10:31 Pulse Ox 96 04/11/18 10:31
[2018-04-11] MEDS: Lidocaine 2% Jelly 6 ML SYR (11:33)
--- NOTE | 2018-04-11 11:40 | BLADDER_PTH ---
PATIENT: Al Lilly LOC: U#:[id number] AGE/SX: 68/M ROOM: 206 RE04/11/[address]: Curly Vieyra MD : 1950 BED: A DIS: 04/12/2018 SPEC #: [id number] RECD: 04/11/18 17:38 STATUS: KRIS REQ #: [id number] OMER: 04/11/18 11:[address]: Curly Vieyra DEPT: Surgical Specimen RECD BY: Yuridia Rios ENTERED: 04/11/18 17:38 SP TYPE: Bladder OTHR DR: Silver Luis MD Tissues: 1 - BLADDER CURRETTINGS Procedures: GROSS AND MICRO LEVEL 5 Comments: [id number]
[2018-04-11] MEDS: Diazepam 2 MG TAB PO (13:21)
[2018-04-11] MEDS: traMADol 50 MG TAB PO (13:21)
--- NOTE | 2018-04-11 14:30 | ROE_ITS ---
DATE OF PROCEDURE: April 11, 2018 PREOPERATIVE DIAGNOSIS: Bladder cancer. POSTOPERATIVE DIAGNOSIS: Same. PROCEDURE: Cystoscopy, transurethral resection of large bladder tumor. SURGEON: Curly Vieyra M.D. ANESTHESIA: General. COMPLICATIONS: None. ESTIMATED BLOOD LOSS: 200 cc's HISTORY: This is a 68-year-old gentleman who was previously identified as having a non-invasive, lar ge urothelial cell carcinoma of the bladder. He presents today for surveillance cystoscopy. It has been about four months since his last procedure. OPERATIVE REPORT: The patient was brought to the Operating Room on 04/11/18. After successful induct ion of general anesthesia, he was placed in the dorsal lithotomy position. His genitalia was prepped and draped. 2% Xylocaine jelly was instilled into the urethra to act as a local anesthetic. A 22 Kiswahili rigid cystoscope was passed through the urethra into the bladder. The urethra and bladde r were inspected with the 30-degree lens. The pendulous, bulbous and membranous urethras appeared normal with no strictures. The prostatic ure thra showed some papillary tissue just at the bladder neck. The bladder neck was entered and the jami dder mucosa was inspected. Some smaller papillary lesions were seen at the base of the bladder, but up on the right lateral and posterior bladder wall a greater than 5 cm papillary lesion was identifie d. We removed the cystoscope and utilized a 24 Kiswahili resectoscope to resect the tumor. We used bipolar cautery and resected all visible tumor within the bladder and prostate. All resected tissue was carol cuated and sent to Pathology for permanent section. At the completion of the resection we switched to the cautery button and cauterized the entire resect ion site. Some areas of bladder perforation were identified, so it was elected not to place Mitomyci n-C into the bladder. The patient will be kept with a Garcia catheter for 5 to 7 days total. At the completion of the procedure no active bleeding was seen. I went ahead and started continuous bladder irrigation in the perioperative period. Once the patient wakes up we will discontinue the ir rigation and decide if he can go home with a Garcia catheter, or if he needs to stay overnight for con tinued bladder irrigation. cc: Silver Luis M.D.
[2018-04-11] MEDS: metFORMIN 500 MG TAB 1000 MG PO (17:51)
[2018-04-11] MEDS: Budesonide/Formoterol 80/4.5 6.9 GM 60 PUFF INH IH (19:33)
[2018-04-11] MEDS: Magnesium Chloride 64 MG TABCR PO (19:33)
[2018-04-11] MEDS: Ketorolac 15 MG/ML VIAL IVP (20:51)
[2018-04-11] MEDS: Metoprolol 25 MG TAB PO (21:55)
[2018-04-12 04:00] VITALS: BP 140/67; PULSE 60; RESP 17; TEMP 36.6; O2SAT 94
[2018-04-12] MEDS: Lactated Ringers 1,000 ML 80 ML IV (05:37)
[2018-04-12 07:19] LABS: HGB 10.5 g/dL (13.5-17.5)
--- NOTE | 2018-04-12 07:23 | W.PM.PROGNOT ---
Date of Service Date of service: 04/12/18 Time of Service: 07:23 Assessment and Plan (1) Malignant neoplasm of posterior wall of urinary bladder: Current visit: No Status: Acute We will await this AM's labs. Assuming they are OK, we will D/C his CBI and discharge him with his catheter in place. He will come to the office on Wednesday or Wednesday to have his catheter removed. Subjective Interval history since last seen: Required hand irrigation once overnight. Comfortable at this time. Exam Narrative Exam Narrative: He looks comfortable. I hand irrigated his catheter until no additional clots were obtained. His CBI is now clear Objective Objective Clinical Data: Vital Signs Temperature 36.6 C 04/12/18 04:00 Temperature Source Tympanic 04/12/18 04:00 Pulse 60 04/12/18 04:00 Pulse Rhythm Regular 04/11/18 19:45 Respiratory Rate 17 04/12/18 04:00 Respiratory Effort 04/11/18 19:45 Respiratory Depth Normal 04/11/18 19:45 Respiratory Pattern Normal 04/11/18 19:45 Blood Pressure 140/67 04/12/18 04:00 Pulse Oximetry 94 L 04/12/18 04:00 Oxygen Delivery Method Room Air 04/12/18 04:00 Oxygen Flow Rate 0 04/12/18 04:00 Pain Level 0 04/11/18 16:15 Intake & Output 04/11/18 04/11/18 04/12/18 11:59 23:59 11:59 Intake Total 100 / 2576 2476 / 2576 1940.000 / 1940.000 Balance 100 / 2576 2476 / 2576 1940.000 / 1940.000 Weight 101 kg 103 kg Intake: IV 100 / 1136 1036 / 1136 1100.000 / 1100.000 Oral 1440 / 1440 840 / 840 Other: Urine Color Whitehead Urine Appearance Hematuria Emesis Description None
[2018-04-12 07:28] LABS: Anion Gap 8.4 mmol/L (3-11); BUN 32 mg/dL (7-18); CO2 24.6 mmol/L (21.0-32.0); CREATININE 1.24 mg/dL (0.70-1.30); Calcium 8.6 mg/dL (8.5-10.1); Chloride 107 mmol/L (98-107); Estimated GFR 58.15 (mL/min/1.73m2); Glucose 149 mg/dL (70-100); Potassium 4.5 mmol/L (3.5-5.1); Sodium 140 mmol/L (136-145)
--- NOTE | 2018-04-12 07:28 | W.PM.DS.N ---
Date of service: 04/12/18 DS: Diagnosis Discharge Diagnosis (1) Malignant neoplasm of posterior wall of urinary bladder: Status: Acute Discharge Plan Disposition Patient Disposition: HOME Condition: Stable Discharge Details Reason For Visit: BLADDER TUMOR Admit Date/Time: 04/11/18 14:05 Admit Provider: Curly Vieyra Attending Provider: Curly Vieyra Primary Care Provider: Silver Luis [facility] Course Hospital Course: The patient was brought to the operating room on 04/11/2018. He underwent cystoscopy. We found a large volume papillary bladder tumor and performed transurethral resection of that tumor. We considered discharging him with a Garcia catheter in place, but his urine remained bloody enough that I thought a more prudent approach would be to run continuous bladder irrigation for 24 hours. He was then admitted as an observation patient. We ran continuous bladder irrigation with saline. He required hand irrigation once overnight. I again hand irrigated him this morning and removed a number of small clots. He will be discharged later today with his catheter hooked to a leg bag (assuming his morning lab work is stable). He will need his catheter in place for 5-7 days total, so he will follow-up with us either Wednesday of this week or Wednesday of next week to have his catheter removed. His ultimate treatment plan will depend on his surgical pathology. Home Meds and New Rx's Prescriptions: No Action nitroglycerin 0.4 mg tablet, sublingual 0.4 mg SL ONCE Qty: 20 RF: 2 tramadol 50 mg tablet 50 mg PO Q6H MDD 4 tab PRN (Reason: pain) Qty: 12 RF: 0 Nicotrol 10 mg cartridge 1 inh IH BID PRN (Reason: nicotine cravings) Qty: 168 RF: 0 metoprolol tartrate 50 mg tablet 50 mg PO DAILY Qty: 90 RF: 3 isosorbide mononitrate 30 mg tablet extended release 24 hr 30 mg PO DAILY Qty: 30 RF: 5 simvastatin 40 MG tablet 40 mg PO DAILY Qty: 90 RF: 3 PROVENTIL HFA 18 GM HFA.AER.AD 1 - 2 puff Inhalation Q6H PRN Qty: 1 RF: 3 metformin 1,000 MG tablet 1,000 mg PO BID Qty: 180 RF: 3 lisinopril 40 MG tablet 40 mg PO DAILY Qty: 90 RF: 4 amlodipine 5 mg tablet 5 mg PO DAILY Qty: 90 RF: 2 Symbicort 80-4.5 mcg/actuation HFA aerosol inhaler 2 puff Inhalation BID Qty: 1 RF: 3 furosemide 40 mg tablet 40 mg PO .QOD RF: 0 metoprolol tartrate 25 mg tablet 25 mg PO HS RF: 0 ascorbic acid (vitamin C) [Vitamin C] 500 mg Tablet 500 mg PO DAILY RF: 0 magnesium chloride [Mag 64] 64 mg Tablet,Delayed Release (Dr/Ec) 64 mg PO BID Qty: 60 RF: 0 guaifenesin [Mucinex] 600 mg Tablet Extended Release 12hr 600 mg PO BID PRN PRN (Reason: cough) Qty: 20 RF: 0 Discharge Instructions Instructions: Cystoscopy (DC) Additional Instructions: Garcia catheter to leg bag. Follow-up appointment Wednesday of this week or Wednesday of next week for catheter removal. He will also need an appointment to discuss his pathology results at the same visit. Stand Alone Forms: Nursing Discharge Form Referrals: Curly Vieyra MD [ [facility] STAFF PHYSICIAN] - Activity:: As Tolerated Equipment/Supplies:: Garcia catheter to leg bag Diet:: As Tolerated Discharge Orders Discharge Orders: Discharge Order (Routine); Ordered 04/12/18 Ordered By: Curly Vieyra Exam Narrative Exam Narrative: At the time of discharge: He looks well. He does not appear septic or toxic. His vital signs are documented elsewhere in the chart He does not appear short of breath at rest. Cardiac exam shows a regular rate and rhythm His abdomen is soft with no masses. His Garcia catheter is draining pink urine. I hand irrigated the catheter and removed multiple small clots. He is awake, alert and oriented. DS: Data Vitals/I&O Vitals and I&O: Vital Signs Temperature 36.6 C 04/12/18 04:00 Temperature Source Tympanic 04/12/18 04:00 Pulse 60 04/12/18 04:00 Pulse Rhythm Regular 04/11/18 19:45 Respiratory Rate 17 04/12/18 04:00 Respiratory Effort 04/11/18 19:45 Respiratory Depth Normal 04/11/18 19:45 Respiratory Pattern Normal 04/11/18 19:45 Blood Pressure 140/67 04/12/18 04:00 Pulse Oximetry 94 L 04/12/18 04:00 Oxygen Delivery Method Room Air 04/12/18 04:00 Oxygen Flow Rate 0 04/12/18 04:00 Pain Level 0 04/11/18 16:15 Intake & Output 04/11/18 04/11/18 04/12/18 11:59 23:59 11:59 Intake Total 100 / 2576 2476 / 2576 1940.000 / 1940.000 Balance 100 / 2576 2476 / 2576 1940.000 / 1940.000 Weight 101 kg 103 kg Intake: IV 100 / 1136 1036 / 1136 1100.000 / 1100.000 Oral 1440 / 1440 840 / 840 Other: Urine Color Whitehead Urine Appearance Hematuria Emesis Description None Labs on day of discharge: Labs from last 24 hours 04/12/18 04/12/18 06:12 06:12 Hgb 10.5 L Hct 32.0 L Sodium Pending Potassium Pending Chloride Pending Carbon Dioxide Pending Anion Gap Pending BUN Pending Creatinine Pending Estimated GFR/1.73 m2 Pending Glucose Pending Calcium Pending PFSH Medical History Bladder cancer (Chronic) CAD in [place] artery (Chronic) CHF (congestive heart failure) (Chronic) COPD (chronic obstructive pulmonary disease) (Chronic) Hyperlipidemia (Chronic) Hypertension (Chronic) Eiz-gvsmezd-qagbzzvet diabetes mellitus without complications (Chronic) PFO (patent foramen ovale) (Chronic) Social History Smoking and Tabacco status: Current every day tobacco type: cigarettes Tobacco: How many years used: 40 alcohol intake: current alcohol intake frequency: holidays/special occasions only substance use type: does not use hailee/orthodox: No preference special hailee needs: No
[2018-04-12 07:47] VITALS: BP 159/74; PULSE 50; RESP 18; TEMP 36; O2SAT 97
[2018-04-12] MEDS: amLODIPine 5 MG TAB PO (08:05)
[2018-04-12] MEDS: Lisinopril 20 MG TAB 40 MG PO (08:05)
[2018-04-12] MEDS: Magnesium Chloride 64 MG TABCR PO (08:05)
[2018-04-12] MEDS: Ascorbic Acid 500 MG TAB PO (08:05)
[2018-04-12] MEDS: metFORMIN 500 MG TAB 1000 MG PO (08:06)
[2018-04-12] MEDS: Metoprolol 50 MG TAB PO (08:06)
[2018-04-12] MEDS: Furosemide 40 MG TAB PO (08:06)
[2018-04-12] MEDS: Budesonide/Formoterol 80/4.5 6.9 GM 60 PUFF INH IH (09:04)
== END 2018-04-12 10:00 | disposition home or self-care (01) ==
LOC: MS 16:37
PROVIDERS: Admitting Provider Urology; PCP Family Medicine; Visit Provider Urology
PROC: 0TBB8ZZ Excision of Bladder, Via Natural or Artificial Opening Endoscopic (ICD-10-PCS; CPT 52240; principal; 2018-04-11 11:00)
DX: C67.4 Malignant neoplasm of posterior wall of bladder (principal); C67.2 Malignant neoplasm of lateral wall of bladder; F17.210 Nicotine dependence, cigarettes, uncomplicated
CPT/HCPCS: 52240; 36415; 80048; 88305; 99217; 99225; NC; 85014; 85018; 88307; G0378; J0690; J1100; J1885; J2405; J3010

== ENCOUNTER → 2018-04-15 07:43 | Outpatient (BNVA) | payer MEDICARE, SELFPAY | PROVIDERS: PCP Family Medicine; Visit Provider Urology | DX: C67.9 Malignant neoplasm of bladder, unspecified (principal); Z46.6 Encounter for fitting and adjustment of urinary device; R31.0 Gross hematuria | CPT/HCPCS: 99212; 99214 ==

== ENCOUNTER 2018-04-17 14:48 | Emergency (ER) | payer MEDICARE, SELFPAY ==
[2018-04-17 14:51] VITALS: BP 166/50; PULSE 85; RESP 20; TEMP 36.8; O2SAT 96
[2018-04-17 16:16] LABS: Bilirubin Small (Negative); Blood Large (Negative); Clarity Cloudy; Glucose Negative (Negative); Ketones Trace mg/dL (Negative); Leukocyte Esterase Small (Negative); Nitrite Negative (Negative)
[2018-04-17 16:26] LABS: Bacteria Few HPF (Negative); C & S Indicated? Yes; Casts Negative LPF (Negative); Crystals Negative HPF (Negative); Epithelial Cells Rare HPF (Negative); Mucus Negative (Negative); Other Cells Rare Renal (Negative); RBC >50 (0-2)
--- NOTE | 2018-04-17 16:55 | W.ED.GENAD ---
Discharge Plan Disposition Patient Disposition: HOME Condition: Improving Discharge Details Chief Complaint: Urinary Clinical Impression: Retention of urine, unspecified, Painful bladder spasm, Gross hematuria Primary Care Provider: Silver Luis ED Provider: Dhaval Alexandra Home Meds and New Rx's Prescriptions: Continued nitroglycerin 0.4 mg tablet, sublingual 0.4 mg SL ONCE Qty: 20 RF: 2 Nicotrol 10 mg cartridge 1 inh IH BID PRN (Reason: nicotine cravings) Qty: 168 RF: 0 metoprolol tartrate 50 mg tablet 50 mg PO DAILY Qty: 90 RF: 3 simvastatin 40 MG tablet 40 mg PO DAILY Qty: 90 RF: 3 PROVENTIL HFA 18 GM HFA.AER.AD 1 - 2 puff Inhalation Q6H PRN Qty: 1 RF: 3 metformin 1,000 MG tablet 1,000 mg PO BID Qty: 180 RF: 3 lisinopril 40 MG tablet 40 mg PO DAILY Qty: 90 RF: 4 amlodipine 5 mg tablet 5 mg PO DAILY Qty: 90 RF: 2 Symbicort 80-4.5 mcg/actuation HFA aerosol inhaler 2 puff Inhalation BID Qty: 1 RF: 3 furosemide 40 mg tablet 40 mg PO .QOD RF: 0 metoprolol tartrate 25 mg tablet 25 mg PO HS RF: 0 ascorbic acid (vitamin C) [Vitamin C] 500 mg Tablet 500 mg PO DAILY RF: 0 magnesium chloride [Mag 64] 64 mg Tablet,Delayed Release (Dr/Ec) 64 mg PO BID Qty: 60 RF: 0 guaifenesin [Mucinex] 600 mg Tablet Extended Release 12hr 600 mg PO BID PRN PRN (Reason: cough) Qty: 20 RF: 0 Discharge Instructions Instructions: Urinary Retention in Men (ED) Additional Instructions: Please continue to stay well-hydrated and keep your appointment with urologist for tomorrow. You may use the provided diazepam 2 mg tablets 1 tablet every 6 hours just as needed for bladder spasms. If you have any new or significant worsening of symptoms please feel free to return the emergency department. Referrals: Curly Vieyra MD [ [facility] STAFF PHYSICIAN] - 1 day (Keep your appointment as scheduled for tomorrow. ) Discharge Data Discharge Date/Time-TO BE ENTERED AT DEPARTURE: 04/17/18 17:05 Medical Decision Making Patient presenting the emergency department for chief complaint of bladder spasms and leaking around his catheter. Patient states that he had a catheter placed by urology and was due to have it out on Wednesday but had some clotting which they irrigated. They did give patient diazepam which she has been using for spasms but he ran out. Over the last couple hours he is noted more leaking around catheter, less urine noted in leg bag, and more increase of spasms. Physical exam is unremarkable and no suprapubic tenderness, and small amount of bloody output seen in bag. Otherwise patient is afebrile and comfortable except when having spasms which were observed in the emergency department. Concern for possible clot causing retention. director of medical staff services did do bladder scan noted around 200 mL's retained in bladder. Bladder irrigation was ordered. director of medical staff services stated that they irrigated bladder with approximately 60 cc allowed this to retain in the bladder for a while and then they were able to expel a clot. After that patient had full resolution of symptoms, continued bladder drainage into leg bag, no further spasms. Urinalysis was ordered and does show some leukocyte esterase, only only 5-10WBC, and large amount of blood which is to be expected. Given that patient is following up with urologist tomorrow and culture has been ordered I do not feel that initial treatment with antibiotic is immediately warranted as I question if some of these findings are related to patient's ongoing bladder cancer. Patient denies any other changes in his symptoms. Return precautions were discussed and patient has follow-up tomorrow morning with urologist. After discussion of diagnosis and plan of care patient has no further needs, questions, or concerns and states clear understanding to return to the emergency department for any worsening symptoms. HPI General Mode of arrival: ambulatory. Date/Time Provider Initiated Documentation: 04/17/18 14:54. Limitations to Documentation: no limitations. Information obtained by: patient, RN notes reviewed and old records reviewed. History of Present Illness 68 year old M presents to the emergency department with the chief complaint of Bladder spasms, urinary retention, described as severe, and it has been colicky. Related Data Home Medications Medication Instructions Recorded Confirmed simvastatin 40 mg PO DAILY #90 tab-cap 05/26/17 04/20/18 lisinopril 40 mg PO DAILY #90 tab-cap 06/22/17 04/20/18 metformin 1,000 mg PO BID #180 tab-cap 06/22/17 04/20/18 amlodipine 5 mg tablet 5 mg PO DAILY #90 tab 10/25/17 04/17/18 nitroglycerin 0.4 mg sublingual 0.4 mg SL ONCE #20 tab 01/03/18 04/20/18 tablet budesonide-formoterol HFA 80 2 puff INHALATION BID #1 ea 01/10/18 04/17/18 mcg-4.5 mcg/actuation aerosol inhaler guaifenesin [Mucinex] 600 mg PO BID PRN PRN #20 tab 02/11/18 04/20/18 magnesium chloride [Mag 64] 64 mg PO BID #60 tab 02/11/18 04/20/18 metoprolol tartrate 50 mg tablet 50 mg PO DAILY #90 tab 02/21/18 04/20/18 nicotine 10 mg inhalation cartridge 1 inh IH BID PRN #168 each 02/21/18 04/20/18 ascorbic acid (vitamin C) [Vitamin 500 mg PO DAILY 03/03/18 04/17/18 C] furosemide 40 mg PO .QOD 03/03/18 04/20/18 metoprolol tartrate 25 mg PO HS 03/03/18 04/20/18 Previous Rx's Medication Instructions Recorded simvastatin 40 mg PO DAILY #90 tab-cap 05/26/17 lisinopril 40 mg PO DAILY #90 tab-cap 06/22/17 metformin 1,000 mg PO BID #180 tab-cap 06/22/17 amlodipine 5 mg tablet 5 mg PO DAILY #90 tab 10/25/17 nitroglycerin 0.4 mg sublingual 0.4 mg SL ONCE #20 tab 01/03/18 tablet budesonide-formoterol HFA 80 2 puff INHALATION BID #1 ea 01/10/18 mcg-4.5 mcg/actuation aerosol inhaler guaifenesin [Mucinex] 600 mg PO BID PRN PRN #20 tab 02/11/18 magnesium chloride [Mag 64] 64 mg PO BID #60 tab 02/11/18 metoprolol tartrate 50 mg tablet 50 mg PO DAILY #90 tab 02/21/18 nicotine 10 mg inhalation cartridge 1 inh IH BID PRN #168 each 02/21/18 Allergies Allergy/AdvReac Type Severity Reaction Status Date / Time No Known Allergies Allergy Unverified 04/11/18 10:26 General Stated Complaint: Urinary JOSH: 3 Review of Systems Constitutional Denies chills and Denies fever(s) Gastrointestinal Denies abdominal pain, Denies diarrhea, Denies nausea and Denies vomiting Genitourinary Reports as per HPI, Reports hematuria and Reports urinary incontinence Neurologic Denies confusion Psychiatric Denies confusion [facility] Medical History Bladder cancer (Chronic) CAD in [place] artery (Chronic) CHF (congestive heart failure) (Chronic) COPD (chronic obstructive pulmonary disease) (Chronic) Hyperlipidemia (Chronic) Hypertension (Chronic) Peh-pcrioof-anzfqanjm diabetes mellitus without complications (Chronic) PFO (patent foramen ovale) (Chronic) Surgical History S/P CABG x 4 (Acute) H/O transurethral destruction of bladder lesion (Chronic) PROCEDURES Family History Father Heart disease Mother Diabetes Other Hyperlipidemia Hypertension Social History Smoking and Tabacco status: Current every day tobacco type: cigarettes Tobacco: How many years used: 40 alcohol intake: current alcohol intake frequency: holidays/special occasions only substance use type: does not use hailee/jehovah's witness: No preference special hailee needs: No Exam Const General: cooperative and no acute distress Orientation: alert, awake and oriented x3 Resp Effort & Inspection: normal respiratory effort and able to speak in complete sentences Auscultation: clear to auscultation bilaterally Cardio Rate: regular rate Rhythm: regular rhythm Heart Sounds: S1 normal and S2 normal GI Palpation: soft and nontender Auscultation: normal bowel sounds Male General Exam: Yes normal external exam and Yes other (Urinary catheter in place) Back/Spine/Pelvis Back: no CVA tenderness Neuro General: alert, awake and oriented x3 Extrem General: normal capillary refill Course Vital Signs Temperature 36.8 C 04/17/18 14:51 Pulse 85 04/17/18 14:51 Respiratory Rate 20 04/17/18 14:51 Blood Pressure 166/50 H 04/17/18 14:51 Pulse Oximetry 96 04/17/18 14:51 Temperature 36.8 C 04/17/18 14:51 Temperature Source Temporal Artery Scan 04/17/18 14:51 Pulse 85 04/17/18 14:51 Respiratory Rate 20 04/17/18 14:51 Respiratory Effort Non-Labored 04/17/18 14:51 Blood Pressure 166/50 H 04/17/18 14:51 Blood Pressure Position Sitting 04/17/18 14:51 Pulse Oximetry 96 04/17/18 14:51 Oxygen Delivery Method Room Air 04/17/18 14:51 Oxygen Flow Rate 0 04/17/18 14:51 Pain Level 5 04/17/18 14:51 Lab/Test Results Lab/Test Results: 04/17/18 16:09 Urine - Reflex from Ua Urine Culture - Pending Laboratory Tests Range/Units 04/17/18 16:09 Urine Color (Yellow) Red Urine Clarity Cloudy Urine pH (5-8) 6.0 Ur Specific [place] (1.005-1.025) 1.020 Urine Protein (Negative) mg/dL >=300 H Urine Ketones (Negative) mg/dL Trace H Urine Blood (Negative) Large H Urine Nitrite (Negative) Negative Urine Bilirubin (Negative) Small H Urine Urobilinogen (Up TO 0.2) EU/dL 1.0 H Ur Leukocyte Esterase (Negative) Small H Urine RBC (0-2) >50 H Urine WBC (0-5) HPF 5-10 Ur Epithelial Cells (Negative) HPF Rare Urine Crystals (Negative) HPF Negative Urine Bacteria (Negative) HPF Few Urine Casts (Negative) LPF Negative Urine Mucus (Negative) Negative Urine Other (Negative) Rare renal Ur Culture Indicated? Yes Urine Glucose (Negative) mg/dL Negative
[2018-04-17] MEDS: Diazepam 2 MG TAB 4 MG PO (17:03)
== END 2018-04-17 17:05 | disposition home or self-care (01) ==
PROVIDERS: Emergency Provider Nurse Practitioner Family; PCP Family Medicine
DX: R33.9 Retention of urine, unspecified (principal); R31.0 Gross hematuria; N32.89 Other specified disorders of bladder; Z96.0 Presence of urogenital implants
CPT/HCPCS: 99284; 81003; 81015; 87086

== ENCOUNTER → 2018-04-18 08:00 | Outpatient (BNVA) | payer MEDICARE, SELFPAY | PROVIDERS: PCP Family Medicine; Visit Provider Urology | DX: C67.4 Malignant neoplasm of posterior wall of bladder (principal); R31.9 Hematuria, unspecified; Z46.6 Encounter for fitting and adjustment of urinary device | CPT/HCPCS: 99212 ==

== ENCOUNTER → 2018-04-28 10:49 | Outpatient (BNVA) | payer MEDICARE, SELFPAY | PROVIDERS: PCP Family Medicine; Visit Provider Urology | DX: C67.9 Malignant neoplasm of bladder, unspecified (principal) | CPT/HCPCS: 99213 ==

== ENCOUNTER → 2018-05-30 09:12 | Outpatient (BNVA) | payer MEDICARE, SELFPAY | PROVIDERS: PCP Family Medicine; Visit Provider Urology | DX: C67.8 Malignant neoplasm of overlapping sites of bladder (principal); R31.0 Gross hematuria | CPT/HCPCS: 81003; 99213 ==

== ENCOUNTER 2018-05-30 14:24 | Outpatient (REF) | payer MEDICARE, SELFPAY | END 2018-05-30 14:44 | LOC: LBN 14:24 | PROVIDERS: PCP Family Medicine; Visit Provider Urology | DX: R31.0 Gross hematuria (principal); R31.9 Hematuria, unspecified | CPT/HCPCS: 87077; 87086; 87186 ==

== ENCOUNTER 2018-06-10 09:09 | Outpatient (CLI) | payer MEDICARE, SELFPAY | END 2018-06-10 09:29 | PROVIDERS: PCP Family Medicine; Visit Provider Internal Medicine Cardiovascular Disease | DX: C67.8 Malignant neoplasm of overlapping sites of bladder (principal); R31.9 Hematuria, unspecified; I25.10 Atherosclerotic heart disease of native coronary artery without angina pectoris; E78.2 Mixed hyperlipidemia; I25.5 Ischemic cardiomyopathy; I10 Essential (primary) hypertension; Z95.1 Presence of aortocoronary bypass graft; E11.9 Type 2 diabetes mellitus without complications; J44.9 Chronic obstructive pulmonary disease, unspecified | CPT/HCPCS: 51720; 81003; 96401; 99204; 99212; 99215; J9280; 93005; 93010 ==

== ENCOUNTER → 2018-06-20 09:01 | Outpatient (BNVA) | payer MEDICARE, SELFPAY | PROVIDERS: PCP Family Medicine; Visit Provider Urology | DX: C67.9 Malignant neoplasm of bladder, unspecified (principal); R31.9 Hematuria, unspecified; E11.9 Type 2 diabetes mellitus without complications; I10 Essential (primary) hypertension; J44.9 Chronic obstructive pulmonary disease, unspecified | CPT/HCPCS: 51720; 81003; 99212; J9280 ==

== ENCOUNTER → 2018-07-04 09:08 | Outpatient (BNVA) | payer MEDICARE, SELFPAY | PROVIDERS: PCP Family Medicine; Visit Provider Urology | DX: C67.8 Malignant neoplasm of overlapping sites of bladder (principal); R31.9 Hematuria, unspecified; J44.9 Chronic obstructive pulmonary disease, unspecified; I10 Essential (primary) hypertension; E11.9 Type 2 diabetes mellitus without complications | CPT/HCPCS: 51720; 81003; 99212; J9280 ==

== ENCOUNTER → 2018-07-19 13:42 | Outpatient (BNVA) | payer MEDICARE, SELFPAY | PROVIDERS: PCP Family Medicine; Visit Provider Urology | DX: C67.4 Malignant neoplasm of posterior wall of bladder (principal); F17.210 Nicotine dependence, cigarettes, uncomplicated | CPT/HCPCS: 51720; 81003; 99212; J9280 ==

== ENCOUNTER 2018-07-20 01:32 | Outpatient (CLI) | payer MEDICARE, SELFPAY ==
[2018-07-20 10:56] LABS: HCT 37.9 % (40.0-50.0); HGB 12.3 g/dL (13.5-17.5); Mean Corp. HGB Concentration 32.5 g/dL (32.0-36.0); Mean Corpuscular Hemoglobin 29.1 pg (27.0-33.0); Mean Corpuscular Volume 89.6 fL (80-95); Mean Platelet Volume 11.5 fL (8.0-11.0); Platelet Count 215 x1000/uL (130-400); RBC 4.23 m/cumm (4.50-6.00); RBC Distribution Width 14.6 % (11.8-14.1); White Blood Cell Count 8.43 k/cumm (4.4-10.8)
[2018-07-20 11:16] LABS: ALT 19 U/L (12-78); AST 14 U/L (15-37); Albumin 3.4 g/dL (3.4-5.0); Alkaline Phosphatase 84 U/L (46-116); Anion Gap 9.9 mmol/L (3-11); BUN 25 mg/dL (7-18); Bilirubin, Total 0.2 mg/dL (0.2-1.0); CO2 22.1 mmol/L (21.0-32.0); CREATININE 1.26 mg/dL (0.70-1.30); Calcium 9.2 mg/dL (8.5-10.1); Calculated LDL 69; Chloride 110 mmol/L (98-107); Cholesterol 146 mg/dL (50-200); Estimated GFR 57.08 (mL/min/1.73m2); Glucose 102 mg/dL (70-100); HDL Cholesterol 51 mg/dL (40-60); Potassium 4.8 mmol/L (3.5-5.1); Sodium 142 mmol/L (136-145); Total Protein 6.8 g/dL (6.4-8.2); Triglyceride 133 mg/dL (30-150)
[2018-07-20 11:21] LABS: Hemoglobin A1C 5.9 % (4.5-6.2)
== END 2018-07-20 01:52 ==
PROVIDERS: PCP Family Medicine; Visit Provider Family Medicine
DX: E11.9 Type 2 diabetes mellitus without complications (principal); E78.2 Mixed hyperlipidemia
CPT/HCPCS: 36415; 80053; 80061; 83721; 85027; 83036

== ENCOUNTER → 2018-08-02 13:46 | Outpatient (BNVA) | payer MEDICARE, SELFPAY | PROVIDERS: PCP Family Medicine; Visit Provider Urology | DX: R31.9 Hematuria, unspecified (principal); C67.8 Malignant neoplasm of overlapping sites of bladder | CPT/HCPCS: 51720; 81003; 99212; J9280 ==

== ENCOUNTER → 2018-08-16 13:37 | Outpatient (BNVA) | payer MEDICARE, SELFPAY | PROVIDERS: PCP Family Medicine; Visit Provider Urology | DX: C67.4 Malignant neoplasm of posterior wall of bladder (principal); R31.9 Hematuria, unspecified | CPT/HCPCS: 51720; 81003; 99212; J9280 ==

== ENCOUNTER → 2018-10-07 12:33 | Outpatient (BNVA) | payer MEDICARE, SELFPAY | PROVIDERS: PCP Family Medicine; Visit Provider Urology | DX: C67.4 Malignant neoplasm of posterior wall of bladder (principal) | CPT/HCPCS: 52000; 99212 ==

== ENCOUNTER 2018-10-24 08:46 | Inpatient (IN) | payer MEDICARE, SELFPAY ==
[2018-10-24] VITALS (9 sets, daily range): BP systolic 128–162; BP diastolic 46–72; PULSE 50–74; RESP 12–18; TEMP 36–37.2; O2SAT 96–99
--- NOTE | 2018-10-24 09:23 | W.PM.HP.N ---
Date of service: 10/24/18 Time of Service: 09:23 Assessment and Plan (1) Malignant neoplasm of posterior wall of urinary bladder: Current visit: No Status: Acute We will move ahead with repeat transurethral resection of the bladder tumor. We will plan on instilling chemotherapy into the bladder immediately after the resection (as long as the urine is clear) We have made arrangements for admission for continuous bladder irrigation just in case the urine remains bloody. 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 He has undergone intravesical mitomycin treatments in the office. He then had a surveillance cystoscopy which showed recurrent tumors. He presents now for repeat transurethral resection. He is not seeing any gross hematuria currently. He has no dysuria or episodes of retention. Review of Systems Review of Systems No fevers or chills. He sustained a recent fall which led to skin breaks on the arms and forehead. No vision change or dysphasia No thyroid dysfunction. Hx diabetes. No hemoptysis. SOB on exertion. No chest pain or palpitations. Hx CAD and CHF No nausea, vomiting, hepatitis, ulcers, jaundice, diarrhea or constipation No seizures, strokes or peripheral neuropathy No bleeding disorders or anemia No gout. Soft tissue mass left elbow PFSH Social History Smoking/Tobacco Use Status: Current every day Tobacco Type: cigarettes Tobacco: How many years used: 40 Alcohol Intake: current Alcohol Intake frequency: holidays/special occasions only Drug use: Never Substance use type: does not use Cate/Denominational: No preference Special cate needs: No Do you feel safe in your relationship?: Yes Meds Home Medications Medication Instructions Recorded Confirmed Type Proventil Hfa 1 - 2 puff INHALATION Q6H PRN #1 05/26/17 10/24/18 Clinic inhaler metformin 1,000 mg PO BID #180 tab-cap 06/22/17 10/24/18 Rx nitroglycerin 0.4 mg sublingual 0.4 mg SL ONCE #20 tab 01/03/18 10/24/18 Rx tablet guaifenesin [Mucinex] 600 mg PO BID PRN PRN #20 tab 02/11/18 10/24/18 Rx magnesium chloride [Mag 64] 64 mg PO BID #60 tab 02/11/18 10/24/18 Rx metoprolol tartrate 50 mg tablet 50 mg PO DAILY #90 tab 02/21/18 10/24/18 Rx nicotine 10 mg inhalation cartridge 1 inh IH BID PRN #168 each 02/21/18 10/24/18 Rx ascorbic acid (vitamin C) [Vitamin 500 mg PO DAILY 03/03/18 10/24/18 History C] furosemide 40 mg PO .QOD 03/03/18 10/24/18 History metoprolol tartrate 25 mg PO HS 03/03/18 10/24/18 History simvastatin 40 mg tablet 40 mg PO DAILY #90 tab-cap 05/27/18 10/24/18 Rx aspirin 81 mg tablet,delayed 81 mg PO DAILY #90 tab 06/14/18 10/24/18 Rx release budesonide-formoterol HFA 80 2 puff INHALATION BID #1 each 06/30/18 10/24/18 Rx mcg-4.5 mcg/actuation aerosol inhaler amlodipine 5 mg tablet 5 mg PO DAILY #90 tab 07/25/18 10/24/18 Rx lisinopril 40 mg tablet 40 mg PO DAILY #90 tab-cap 09/14/18 10/24/18 Rx Allergies Allergy/AdvReac Type Severity Reaction Status Date / Time No Known Allergies Allergy Unverified 10/20/18 15:20 Exam Narrative Exam Narrative: He is in no current distress. He is cooperative. His vital signs are documented elsewhere in the chart His neck is supple with no mass His chest wall motion is normal. His lungs are clear on auscultation with decreased breath sounds at the bases. Cardiac exam shows a regular rate and rhythm His abdomen is soft with no masses. There are chronic venous stasis skin changes in the lower extremities. There is a nontender mobile soft tissue mass overlying the left elbow. There is a healed abrasion on the forehead. He is awake, alert and oriented. Results Last Vital Signs Temp 36.1 C L 10/24/18 09:10 Pulse 57 L 10/24/18 09:10 Resp 16 10/24/18 09:10 BP 150/72 H 10/24/18 09:10 Pulse Ox 96 10/24/18 09:10
[2018-10-24] MEDS: Lactated Ringers 1,000 ML 80 ML IV ×4 (09:47→23:48)
[2018-10-24] MEDS: ceFAZolin 2 GM/50 ML BAG IVPB (10:41)
[2018-10-24] MEDS: Lidocaine 2% Jelly 6 ML SYR (10:58)
--- NOTE | 2018-10-24 11:05 | BLADDER_PTH ---
PATIENT: Al Lilly LOC: U#:[id number] AGE/SX: 68/M ROOM: RE10/24/[address]: Curly Vieyra MD : [id number] BED: A DIS: 10/26/2018 SPEC #: [id number] RECD: 10/24/18 12:44 STATUS: KRIS REQ #: [id number] OMER: 10/24/18 11:[address]: Curly Vieyra DEPT: Surgical Specimen RECD BY: Yuridia Rios ENTERED: 10/24/18 12:45 SP TYPE: Bladder OTHR DR: Silver Luis MD Tissues: 1 - BLADDER CURRETTINGS Procedures: GROSS AND MICRO LEVEL 5 Comments: [id number]
[2018-10-24] MEDS: fentaNYL 100 MCG/2 ML VIAL IVP ×2 (12:20→12:33)
[2018-10-24] MEDS: traMADol 50 MG TAB PO (14:36)
[2018-10-24] MEDS: Ketorolac 15 MG/ML VIAL IVP (14:36)
--- NOTE | 2018-10-24 15:13 | NUR.NOTE ---
Nursing Note: 1303: pt arrives to room 231 via stretcher from pacu. pt moves from stretcher to bed by sliding on his own. pt has patent IV in LW, pt has schultz draining stokes urine with no clots noted. pt hr regular, ls decreased, hypo bowel sounds. pt oriented to call [facility] system. fluids at the bedside
[2018-10-24] MEDS: metFORMIN 500 MG TAB 1000 MG PO (16:18)
[2018-10-24] MEDS: Budesonide/Formoterol 80/4.5 6.9 GM 60 PUFF INH IH (20:11)
[2018-10-24] MEDS: Magnesium Chloride 64 MG TABCR PO (20:12)
[2018-10-24] MEDS: Metoprolol 25 MG TAB PO (21:26)
[2018-10-25 00:14] VITALS: BP 159/72; PULSE 59; RESP 19; TEMP 37.2; O2SAT 98
[2018-10-25 03:57] VITALS: BP 138/70; PULSE 59; RESP 18; TEMP 36.6; O2SAT 98
[2018-10-25 07:21] LABS: HCT 32.8 % (40.0-50.0); HGB 10.6 g/dL (13.5-17.5); Mean Corp. HGB Concentration 32.3 g/dL (32.0-36.0); Mean Corpuscular Hemoglobin 30.5 pg (27.0-33.0); Mean Corpuscular Volume 94.5 fL (80-95); Mean Platelet Volume 9.9 fL (8.0-11.0); Platelet Count 199 x1000/uL (130-400); RBC 3.47 m/cumm (4.50-6.00); RBC Distribution Width 13.5 % (11.8-14.1); White Blood Cell Count 8.13 k/cumm (4.4-10.8)
--- NOTE | 2018-10-25 07:25 | W.PM.PROGNOT ---
Date of Service Date of service: 10/25/18 Time of Service: 07:25 Assessment and Plan (1) Malignant neoplasm of posterior wall of urinary bladder: Current visit: No Status: Acute We will get him up and more active today and see if it is possible to wean off his bladder irrigation. If it is, we can probably let him home later today. If his urine remains red or pink as he becomes more active, we will likely need to run bladder irrigation for 1 additional day. Subjective Interval history since last seen: He has remained comfortable with no significant spasms. He has not gone into clot retention. Exam Narrative Exam Narrative: He looks well. He does not appear septic or toxic. His vital signs are documented elsewhere in the chart. His urine is pink but clear with his bladder irrigation and a slow rate currently. He is awake and alert Objective Objective Clinical Data: Abnormal lab results 10/25/18 Range/Units 07:10 RBC 3.47 L (4.50-6.00) m/cumm Hgb 10.6 L (13.5-17.5) g/dL Hct 32.8 L (40.0-50.0) % Vital Signs Temperature 36.6 C 10/25/18 03:57 Temperature Source Temporal Artery Scan 10/25/18 03:57 Pulse 59 L 10/25/18 03:57 Pulse Rhythm Regular 10/25/18 04:33 Respiratory Rate 18 10/25/18 03:57 Respiratory Effort Non-Labored 10/25/18 04:33 Respiratory Depth Normal 10/25/18 04:33 Respiratory Pattern Normal 10/25/18 04:33 Blood Pressure 138/70 10/25/18 03:57 Pulse Oximetry 98 10/25/18 03:57 Respiratory End-tidal CO2 30 10/24/18 12:50 Oxygen Delivery Method Room Air 10/25/18 03:57 Oxygen Flow Rate 0 10/25/18 03:57 Pain Level 0 10/25/18 03:57 Intake & Output 10/24/18 10/24/18 10/25/18 11:59 23:59 11:59 Intake Total 50 / 9802.683 0282.666 / 1878.666 240 / 240 Balance 50 / 4637.556 7996.666 / 1878.666 240 / 240 Weight 101.1 kg Intake: IV 50 / 5229.096 7607.666 / 1578.666 Oral 300 / 300 240 / 240 Other: Urine Color [place] Whitehead Urine Appearance Clear Clear Clear Comment attempting to decrease flow of CBI at this time; urine remains pink to whitehead, no clots, no increased pain at this time, no spasms noted Emesis Description None Laboratory Results WBC 8.13 k/cumm (4.4-10.8) 10/25/18 07:10 RBC 3.47 m/cumm (4.50-6.00) L 10/25/18 07:10 Hgb 10.6 g/dL (13.5-17.5) L 10/25/18 07:10 Hct 32.8 % (40.0-50.0) L 10/25/18 07:10 MCV 94.5 fL (80-95) 10/25/18 07:10 MCH 30.5 pg (27.0-33.0) 10/25/18 07:10 MCHC 32.3 g/dL (32.0-36.0) 10/25/18 07:10 RDW 13.5 % (11.8-14.1) 10/25/18 07:10 Plt Count 199 x1000/uL (130-400) 10/25/18 07:10 MPV 9.9 fL (8.0-11.0) 10/25/18 07:10
[2018-10-25 07:27] VITALS: BP 156/71; PULSE 63; RESP 16; TEMP 36.2; O2SAT 94
[2018-10-25 07:33] LABS: Anion Gap 11.5 mmol/L (3-11); BUN 28 mg/dL (7-18); CO2 21.5 mmol/L (21.0-32.0); Calcium 8.1 mg/dL (8.5-10.1); Chloride 109 mmol/L (98-107); Glucose 94 mg/dL (70-100); Potassium 4.2 mmol/L (3.5-5.1); Sodium 142 mmol/L (136-145)
[2018-10-25] MEDS: Magnesium Chloride 64 MG TABCR PO ×2 (08:14→20:02)
[2018-10-25] MEDS: Metoprolol 50 MG TAB PO (08:14)
[2018-10-25] MEDS: Lisinopril 20 MG TAB 40 MG PO (08:14)
[2018-10-25] MEDS: Simvastatin 40 MG TAB PO (08:14)
[2018-10-25] MEDS: amLODIPine 5 MG TAB PO (08:14)
[2018-10-25] MEDS: Ascorbic Acid 500 MG TAB PO (08:14)
[2018-10-25] MEDS: metFORMIN 500 MG TAB 1000 MG PO ×2 (08:14→16:41)
[2018-10-25] MEDS: Furosemide 40 MG TAB PO (08:14)
[2018-10-25] MEDS: Budesonide/Formoterol 80/4.5 6.9 GM 60 PUFF INH IH ×2 (12:09→20:02)
--- NOTE | 2018-10-25 14:20 | PDOC.CMIN ---
- If Service Date Differs Date of service: 10/25/18 Time of Service: 14:20 Care Management Initial Assess REASON FOR HOSPITALIZATION:: Malignant neoplasm of posterior wall of bladder PAST MEDICAL HISTORY/PAST SURGICAL HISTORY:: Past medical History: Bladder cancer. CAD. CHF. COPD. Hyperlipidemia. Hypertension. NIDDM. PFO (patent foramen ovale). Surgical history. Hx of TURP. S/P: CABG X4 PREVIOUS FUNCTIONAL STATUS/SOCIAL/FAMILY SUPPORTS:: Al lives alone with his cat Villa in an apartment in [place], [place] He has 2 sons who live locally and a daughter who lives on the [facility]. Al is independent with all of his care and activities and continues to drive. CURRENT FUNCTIONAL STATUS:: Al was sitting up in bed when CM came to see him. He was pleasant and cooperatine and readily engaged in conversation. Al shared the history of his bladder cancer from diagnosis 3-4 years ago to the current hospitalization. He states that the bladder tumors keep recurring, requiring additional surgeries. Al states he believes he may be discharged tomorrow. He hopes his schultz can be removed before discharge but knows it may not be . He has had to go home with a catheter before and is comfortable with the care it requires. ADVANCE DIRECTIVES:: On file. Elton Lilly [facility] [phone] Has patient been provided with information about the portal?: No Did the patient sign up for the portal?: No CODE STATUS:: Full Code INSURANCE COVERAGE / FINANCIAL ISSUES:: Medicare. Financial Assist 100 CURRENT HOME/COMMUNITY SERVICES/EQUIPMENT:: none currently PRIMARY CARE PHYSICIAN:: Silver Felder POTENTIAL DISCHARGE NEEDS:: follow up with Urologist, PCP and discharge plan of care PATIENT/FAMILY EDUCATION NEEDS:: Discharge plan, limitations, follow up plan, Ask Me Three. TRANSPORTATION:: Al will be transported by private vehicle with his son when ready. PLAN:: Al will be discharged home with no new services. He states that he would like to investigate the possibility of receiving Meals on Wheels. A referral was sent by CM to [facility], at his request. CM will continue to provide suppport to patient, family and discharge planning needs.
--- NOTE | 2018-10-25 14:38 | ROE_ITS ---
DATE OF PROCEDURE: October 24, 2018 PREOPERATIVE DIAGNOSIS: Bladder cancer. POSTOPERATIVE DIAGNOSIS: Bladder cancer. PROCEDURE: Cystoscopy; transurethral resection of large bladder tumor. SURGEON: Curly Vieyra M.D. ANESTHESIA: General. COMPLICATIONS: None. ESTIMATED BLOOD LOSS: 200 cc's HISTORY: This is a 68-year-old gentleman who has a history of large volume papillary, noninvasive ur othelial cell carcinoma of the bladder. He underwent transurethral resection followed by an inductio n course of Mitomycin-C. On surveillance cystoscopy he had recurrent tumor, especially up toward the dome. He presents now for a cystoscopy with transurethral resection of visible tumor. OPERATIVE REPORT: The patient was brought to the Operating Room on 10/24/18. After successful inducti on of general anesthesia, he was placed in the dorsal lithotomy position. His genitalia was prepped and draped sterilely. A 26 Moroccan resectoscope sheath was passed through the urethra into the bladder. The bladder was ins pected with the 30-degree lens. Multiple areas of papillary tumor were visible at the bladder neck and also up toward the dome. A fe w areas of papillary tumor were seen on the lateral kitchen. The posterior wall appeared relatively sp ared. We then used the resectoscope loop and bipolar cautery to resect visible tumor. There were some area s up toward the dome that were not adequately accessible for resection, so we used the plasma bulb to cauterize those areas. At the completion of the procedure no active bleeding was identified. We collected all resected tiss ue and sent it to Pathology for permanent section. We then removed the cystoscope and passed in a 22 Moroccan hematuria catheter through the urethra into the bladder. The catheter balloon was inflated w ith 30 cc's of sterile water. The catheter was hooked to gravity drainage. At the completion of the procedure, bimanual exam was performed. There was no lateral wall fixation of the bladder, but there did feel to be some anterior wall thickening with no specific discreet mass . This area was still quite mobile. The patient tolerated the procedure well. There were no complications.
[2018-10-25 16:17] VITALS: BP 129/68; PULSE 66; RESP 18; TEMP 37.7; O2SAT 94
[2018-10-25] MEDS: Metoprolol 25 MG TAB PO (21:34)
[2018-10-26 00:12] VITALS: BP 130/63; PULSE 68; RESP 18; TEMP 37.6; O2SAT 94
[2018-10-26 03:37] VITALS: TEMP 38
[2018-10-26] MEDS: Normal Saline Flush 10 ML SYR IV (03:37)
[2018-10-26] MEDS: Ketorolac 15 MG/ML VIAL IVP (03:37)
[2018-10-26 03:48] VITALS: BP 162/73; PULSE 66; RESP 16; TEMP 38; O2SAT 96
[2018-10-26 07:40] VITALS: BP 103/68; PULSE 67; RESP 17; TEMP 37; O2SAT 96
[2018-10-26] MEDS: amLODIPine 5 MG TAB PO (07:59)
[2018-10-26] MEDS: Simvastatin 40 MG TAB PO (07:59)
[2018-10-26] MEDS: metFORMIN 500 MG TAB 1000 MG PO (07:59)
[2018-10-26] MEDS: Metoprolol 50 MG TAB PO (07:59)
[2018-10-26] MEDS: Lisinopril 20 MG TAB 40 MG PO (08:00)
[2018-10-26] MEDS: Magnesium Chloride 64 MG TABCR PO (08:00)
[2018-10-26] MEDS: Ascorbic Acid 500 MG TAB PO (08:00)
[2018-10-26] MEDS: Budesonide/Formoterol 80/4.5 6.9 GM 60 PUFF INH IH (08:17)
--- NOTE | 2018-10-26 10:25 | PGE_ITS ---
Date of Service Date of service: 10/26/18 Time of Service: 10:25 Assessment and Plan (1) Bladder cancer: Current visit: No Status: Chronic We will run the bladder irrigation for another hour or so and then discontinue it. If his urine remains transparent, he can be discharged home with his catheter in place. He would need to follow-up in my office either Wednesday morning or Wednesday morning to have his catheter removed. His ultimate treatment will depend on his surgical pathology. Qualifiers: Bladder location: overlapping sites Qualified Code(s): C67.8 - Malignant neoplasm of overlapping sites of bladder Subjective Interval history since last seen: He had several occurrences of clot retention yesterday, but was comfortable overnight. He has had a few spasms but not so many that he required medical treatment. Exam Narrative Exam Narrative: He is comfortable. I hand irrigated his catheter and obtained some very small soft clots. We then restarted his bladder irrigation and it is crystal-clear at this time. Objective Objective Clinical Data: Vital Signs Temperature 37.0 C 10/26/18 07:40 Temperature Source Tympanic 10/26/18 07:40 Pulse 67 10/26/18 07:40 Pulse Rhythm Regular 10/26/18 04:21 Respiratory Rate 17 10/26/18 07:40 Respiratory Effort Non-Labored 10/26/18 04:21 Respiratory Depth Normal 10/26/18 04:21 Respiratory Pattern Normal 10/26/18 04:21 Blood Pressure 103/68 10/26/18 07:40 Pulse Oximetry 96 10/26/18 07:40 Respiratory End-tidal CO2 30 10/24/18 12:50 Oxygen Delivery Method Room Air 10/26/18 07:40 Oxygen Flow Rate 0 10/26/18 07:40 Pain Level 0 10/26/18 07:40 Comment 10/26/18 03:48 Intake & Output 10/25/18 10/25/18 10/26/18 11:59 23:59 11:59 Intake Total 720 / 2960 2240 / 2960 1000 / 1000 Balance 720 / 2960 2240 / 2960 1000 / 1000 Intake: IV 1999 Oral 720 / 960 240 / 960 980 / 980 Other: Urine Color [place] Urine Appearance Clear Clear Clear Comment CBI noted to not be engaged even with clamps open. darkened drainage in schultz line. CBI re-engaged to wide open, drainage returns to reji color. very small clots noted. pt denies pain or spasms at this time. pt in significant discomfort. hand irrigated for large amount of clots in syringe followed by moderate amount of clots in schultz tubing pt noting increased bladder spasms while up in the chair this morning. pt has ambulated x 1 in halls with RN. pt educated to suppository available for spasms. pt declines supp x 2 so far this shift. pt did receive toradol for discomfort in left knee previously Stool Size Moderate Stool Characteristics Soft Formed Laboratory Results WBC 8.13 k/cumm (4.4-10.8) 10/25/18 07:10 RBC 3.47 m/cumm (4.50-6.00) L 10/25/18 07:10 Hgb 10.6 g/dL (13.5-17.5) L 10/25/18 07:10 Hct 32.8 % (40.0-50.0) L 10/25/18 07:10 MCV 94.5 fL (80-95) 10/25/18 07:10 MCH 30.5 pg (27.0-33.0) 10/25/18 07:10 MCHC 32.3 g/dL (32.0-36.0) 10/25/18 07:10 RDW 13.5 % (11.8-14.1) 10/25/18 07:10 Plt Count 199 x1000/uL (130-400) 10/25/18 07:10 MPV 9.9 fL (8.0-11.0) 10/25/18 07:10 Sodium 142 mmol/L (136-145) 10/25/18 07:10 Potassium 4.2 mmol/L (3.5-5.1) 10/25/18 07:10 Chloride 109 mmol/L (98-107) H 10/25/18 07:10 Carbon Dioxide 21.5 mmol/L (21.0-32.0) 10/25/18 07:10 11.5 mmol/L (3-11) H 10/25/18 07:10 BUN 28 mg/dL (7-18) H 10/25/18 07:10 1.20 mg/dL (0.70-1.30) 10/25/18 07:10 >= 60.00 (mL/min/1.73m2) 10/25/18 07:10 Glucose 94 mg/dL (70-100) 10/25/18 07:10 Calcium 8.1 mg/dL (8.5-10.1) L 10/25/18 07:10
--- NOTE | 2018-10-26 10:28 | W.PM.DS.N ---
Date of service: 10/26/18 Time of Service: 10:28 DS: Diagnosis Discharge Diagnosis (1) Bladder cancer: Status: Chronic Discharge Plan Disposition Patient Disposition: HOME Condition: Stable Discharge Details Reason For Visit: BLADDER CANCER Admit Date/Time: 10/24/18 12:02 Admit Provider: Curly Vieyra Attending Provider: Curly Vieyra Primary Care Provider: Silver Luis [place] Hospital Course Hospital Course: The patient was taken to the operating room on 10/24/2018. He underwent cystoscopy with transurethral resection of a large bladder tumor. We admitted him to the hospital afterwards for continuous bladder irrigation. He developed a few clots that needed hand irrigation on postoperative day #1 so we kept him in the hospital an additional day with bladder irrigation. On the morning of 10/26/2018, I hand irrigated his catheter and remove some soft clot but no large organized clots. He will be discharged to home later today as long as his urine remains transparent. He will go home with his Schultz catheter in place and come to the office either Wednesday morning or Wednesday morning for a voiding trial. Home Meds and New Rx's Prescriptions: New diazepam 5 mg tablet 5 mg PO TID PRN (Reason: spasm) Qty: 15 RF: 0 No Action nitroglycerin 0.4 mg tablet, sublingual 0.4 mg SL ONCE Qty: 20 RF: 2 Nicotrol 10 mg cartridge 1 inh IH BID PRN (Reason: nicotine cravings) Qty: 168 RF: 0 metoprolol tartrate 50 mg tablet 50 mg PO DAILY Qty: 90 RF: 3 PROVENTIL HFA 18 GM HFA.AER.AD 1 - 2 puff Inhalation Q6H PRN Qty: 1 RF: 3 metformin 1,000 MG tablet 1,000 mg PO BID Qty: 180 RF: 3 simvastatin 40 mg tablet 40 mg PO DAILY Qty: 90 RF: 3 aspirin [Adult Low Dose Aspirin] 81 mg tablet,delayed release (DR/EC) 81 mg PO DAILY Qty: 90 RF: 3 Symbicort 80-4.5 mcg/actuation HFA aerosol inhaler 2 puff Inhalation BID Qty: 1 RF: 5 amlodipine 5 mg tablet 5 mg PO DAILY Qty: 90 RF: 3 lisinopril 40 mg tablet 40 mg PO DAILY Qty: 90 RF: 4 furosemide 40 mg tablet 40 mg PO .QOD RF: 0 metoprolol tartrate 25 mg tablet 25 mg PO HS RF: 0 ascorbic acid (vitamin C) [Vitamin C] 500 mg Tablet 500 mg PO DAILY RF: 0 magnesium chloride [Mag 64] 64 mg Tablet,Delayed Release (Dr/Ec) 64 mg PO BID Qty: 60 RF: 0 guaifenesin [Mucinex] 600 mg Tablet Extended Release 12hr 600 mg PO BID PRN PRN (Reason: cough) Qty: 20 RF: 0 Discharge Instructions Additional Instructions: Schultz catheter to either leg bag or large drainage bag. Follow-up in my office either Wednesday of this week or Wednesday of next week for a voiding trial Okay to drive and shower Asked patient not to restart his aspirin until his catheter has been removed Ask the patient not to do any heavy lifting or straining (greater than 20 pounds) Stand Alone Forms: Nursing Discharge Form Referrals: Curly Vieyra MD [ [facility] STAFF PHYSICIAN] - (Dr Vieyra's office will call you with a day and time for cath removal) Activity:: no lifting over 20 pounds Equipment/Supplies:: schultz to drainage Diet:: As Tolerated Discharge Orders Discharge Orders: Discharge Order (Routine); Ordered 10/26/18 Ordered By: Curly Vieyra Discharge Data Discharge Comment: If urine does not remain free flowing/transparent, restart CBI and do not discharge today DS: Data Vitals/I&O Vitals and I&O: Vital Signs Temperature 37.0 C 10/26/18 07:40 Temperature Source Tympanic 10/26/18 07:40 Pulse 67 10/26/18 07:40 Pulse Rhythm Regular 10/26/18 04:21 Respiratory Rate 17 10/26/18 07:40 Respiratory Effort Non-Labored 10/26/18 04:21 Respiratory Depth Normal 10/26/18 04:21 Respiratory Pattern Normal 10/26/18 04:21 Blood Pressure 103/68 10/26/18 07:40 Pulse Oximetry 96 10/26/18 07:40 Respiratory End-tidal CO2 30 10/24/18 12:50 Oxygen Delivery Method Room Air 10/26/18 07:40 Oxygen Flow Rate 0 10/26/18 07:40 Pain Level 0 10/26/18 07:40 Comment 10/26/18 03:48 Intake & Output 0910/25/18 10/26/18 11:59 23:59 11:59 Intake Total 720 / 2960 2240 / 2960 1000 / 1000 Balance 720 / 2960 2240 / 2960 1000 / 1000 Intake: IV 1999 Oral 720 / 960 240 / 960 980 / 980 Other: Urine Color [place] Urine Appearance Clear Clear Clear Comment CBI noted to not be engaged even with clamps open. darkened drainage in schultz line. CBI re-engaged to wide open, drainage returns to reji color. very small clots noted. pt denies pain or spasms at this time. pt in significant discomfort. hand irrigated for large amount of clots in syringe followed by moderate amount of clots in schultz tubing pt noting increased bladder spasms while up in the chair this morning. pt has ambulated x 1 in halls with RN. pt educated to suppository available for spasms. pt declines supp x 2 so far this shift. pt did receive toradol for discomfort in left knee previously Stool Size Moderate Stool Characteristics Soft Formed PFSH Medical History Bladder cancer (Chronic) CAD in [place] artery (Chronic) S/p CABG x 4 @ [facility] [place] in 2011 CHF (congestive heart failure) (Chronic) EF 40-50% COPD (chronic obstructive pulmonary disease) (Chronic) Hyperlipidemia (Chronic) Hypertension (Chronic) Rvr-oeybrbf-ccepdnmvu diabetes mellitus without complications (Chronic) PFO (patent foramen ovale) (Chronic) Surgical History H/O transurethral destruction of bladder lesion (Chronic) PROCEDURES Vessel coronary artery bypass graft 11/23/11. Ejection fraction 60 %. S/P CABG x 4 (Acute) Family History Father Heart disease of [place] at 56 yo Mother Diabetes Other Hyperlipidemia Hypertension Social History Smoking/Tobacco Use Status: Current every day Tobacco Type: cigarettes Tobacco: How many years used: 40 Alcohol Intake: current Alcohol Intake frequency: holidays/special occasions only Drug use: Never Substance use type: does not use Cate/Scientology: No preference Special cate needs: No Do you feel safe in your relationship?: Yes
--- NOTE | 2018-10-26 10:44 | PDOC.CMDIS ---
LACE Index Scoring Tool - Questions: Length of Stay (in days): 2 Acuity (Admit via E.D.?): No Comorbidities: Congestive Heart Failure, Chronic Pulmonary Disease, Any Tumor E.D. Visits: 2 - Answers: Total Score: 9 Risk of Readmission: Low Risk Care Management Discharge Reason for Hospitalization: Malignant neoplasm of posterior wall of bladder Discharge Plan: Al will be discharged home with additional services at this time. He requested a Meals on Wheels referral was initiated by CM to [place] [facility] for [facility] and [facility]. Al will transport via private vehicle with a friend. Patient/Family Education Needs: Review of discharge instructions, community based supports, discussed self care needs upon discharge Ask Me Three. Services Needed at Discharge: Home Delivered Meals
[2018-10-26 11:43] VITALS: BP 111/63; PULSE 61; RESP 18; TEMP 37; O2SAT 97
== END 2018-10-26 13:39 | disposition home or self-care (01) | DRG 670 ==
LOC: PDS 08:58 → MS 13:35
PROVIDERS: Admitting Provider Urology; PCP Family Medicine; Visit Provider Urology
PROC: 0TBB8ZZ Excision of Bladder, Via Natural or Artificial Opening Endoscopic (ICD-10-PCS; CPT 52240; principal; 2018-10-24 11:45)
DX: C67.5 Malignant neoplasm of bladder neck (principal); C67.2 Malignant neoplasm of lateral wall of bladder; J44.9 Chronic obstructive pulmonary disease, unspecified; F17.210 Nicotine dependence, cigarettes, uncomplicated; G47.33 Obstructive sleep apnea (adult) (pediatric); E78.5 Hyperlipidemia, unspecified; I10 Essential (primary) hypertension; E11.9 Type 2 diabetes mellitus without complications; Z79.84 Long term (current) use of oral hypoglycemic drugs
CPT/HCPCS: 52240; 52500; 36415; 80048; 85027; 94640; 99232; 99238; NC; 88307; J0690; J1885; J3010

== ENCOUNTER → 2018-10-27 13:47 | Outpatient (BNVA) | payer MEDICARE, SELFPAY | PROVIDERS: PCP Family Medicine; Visit Provider Nurse Practitioner Gerontology | DX: C67.8 Malignant neoplasm of overlapping sites of bladder (principal); Z46.6 Encounter for fitting and adjustment of urinary device; Z48.816 Encounter for surgical aftercare following surgery on the genitourinary system; C67.4 Malignant neoplasm of posterior wall of bladder | CPT/HCPCS: 99213 ==

== ENCOUNTER → 2018-10-28 15:01 | Outpatient (BNVA) | payer MEDICARE, SELFPAY | PROVIDERS: PCP Family Medicine; Visit Provider Urology | DX: Z48.816 Encounter for surgical aftercare following surgery on the genitourinary system (principal); Z46.6 Encounter for fitting and adjustment of urinary device; C67.9 Malignant neoplasm of bladder, unspecified | CPT/HCPCS: 51700 ==

== ENCOUNTER → 2018-10-31 07:44 | Outpatient (BNVA) | payer MEDICARE, SELFPAY | PROVIDERS: PCP Family Medicine; Visit Provider Nurse Practitioner Gerontology | DX: Z48.816 Encounter for surgical aftercare following surgery on the genitourinary system (principal); C67.8 Malignant neoplasm of overlapping sites of bladder | CPT/HCPCS: 99212 ==

== ENCOUNTER → 2018-11-03 14:49 | Outpatient (BNVA) | payer MEDICARE, SELFPAY | PROVIDERS: PCP Family Medicine; Visit Provider Urology | DX: C67.9 Malignant neoplasm of bladder, unspecified (principal); Z48.816 Encounter for surgical aftercare following surgery on the genitourinary system; R35.0 Frequency of micturition; Z87.448 Personal history of other diseases of urinary system | CPT/HCPCS: 51798; 81003; 99212 ==

== ENCOUNTER 2018-11-03 16:02 | Outpatient (REF) | payer MEDICARE, SELFPAY | END 2018-11-03 16:22 | LOC: LBN 16:02 | PROVIDERS: PCP Family Medicine; Visit Provider Urology | DX: R35.0 Frequency of micturition (principal) | CPT/HCPCS: 87077; 87086; 87186 ==

== ENCOUNTER 2018-11-15 12:36 | Outpatient (REF) | payer MEDICARE, SELFPAY ==
[2018-11-15 13:34] LABS: Bilirubin Negative (Negative); Blood Moderate (Negative); Clarity Cloudy (Clear); Glucose Negative (Negative); Ketones Negative (Negative); Leukocyte Esterase Moderate (Negative); Nitrite Positive (Negative); Urobilinogen 0.2 EU/dL (Up TO 0.2); pH 5.5 (5-8)
[2018-11-15 13:54] LABS: Bacteria Moderate HPF (Negative); C & S Indicated? C&S Done As Ordered; Casts Negative LPF (Negative); Crystals Negative HPF (Negative); Epithelial Cells Few HPF (Negative); Mucus Negative (Negative); WBC >50 HPF (0-5)
== END 2018-11-15 12:56 ==
LOC: LBN 12:36
PROVIDERS: PCP Family Medicine; Visit Provider Family Medicine
DX: R35.0 Frequency of micturition (principal)
CPT/HCPCS: 87077; 81003; 81015; 87086; 87186

== ENCOUNTER → 2018-12-05 07:41 | Outpatient (BNVA) | payer MEDICARE, SELFPAY | PROVIDERS: PCP Family Medicine; Referring Provider Family Medicine; Visit Provider Urology | DX: C67.8 Malignant neoplasm of overlapping sites of bladder (principal); R31.9 Hematuria, unspecified; R30.0 Dysuria | CPT/HCPCS: 81003; 99213 ==

== ENCOUNTER 2018-12-05 10:51 | Outpatient (REF) | payer MEDICARE, SELFPAY | END 2018-12-05 11:11 | LOC: LBN 10:51 | PROVIDERS: PCP Family Medicine; Visit Provider Urology | DX: R30.0 Dysuria (principal) | CPT/HCPCS: 87077; 87086; 87186 ==

== ENCOUNTER → 2018-12-19 08:07 | Outpatient (BNVA) | payer MEDICARE, SELFPAY | PROVIDERS: PCP Family Medicine; Referring Provider Family Medicine; Visit Provider Urology | DX: C67.9 Malignant neoplasm of bladder, unspecified (principal) | CPT/HCPCS: 51720; 99212; J9201 ==

== ENCOUNTER → 2018-12-26 08:06 | Outpatient (BNVA) | payer MEDICARE, SELFPAY | PROVIDERS: PCP Family Medicine; Referring Provider Family Medicine; Visit Provider Urology | DX: C67.4 Malignant neoplasm of posterior wall of bladder (principal) | CPT/HCPCS: 51720; 81003; 99213; J9201 ==

== ENCOUNTER → 2019-01-03 08:10 | Outpatient (BNVA) | payer MEDICARE, SELFPAY | PROVIDERS: PCP Family Medicine; Referring Provider Family Medicine; Visit Provider Urology | DX: C67.4 Malignant neoplasm of posterior wall of bladder (principal); R31.9 Hematuria, unspecified | CPT/HCPCS: 51720; 81003; 99212; J9201 ==

== ENCOUNTER → 2019-01-09 08:11 | Outpatient (BNVA) | payer MEDICARE, SELFPAY | PROVIDERS: PCP Family Medicine; Referring Provider Family Medicine; Visit Provider Urology | DX: C67.4 Malignant neoplasm of posterior wall of bladder (principal); R31.9 Hematuria, unspecified | CPT/HCPCS: 51720; 81003; 99212; J9201 ==

== ENCOUNTER → 2019-01-16 07:49 | Outpatient (BNVA) | payer MEDICARE, SELFPAY | PROVIDERS: PCP Family Medicine; Referring Provider Family Medicine; Visit Provider Urology | DX: R31.9 Hematuria, unspecified (principal); C67.4 Malignant neoplasm of posterior wall of bladder | CPT/HCPCS: 51720; 81003; 99212; J9201 ==

== ENCOUNTER → 2019-03-07 08:29 | Outpatient (BNVA) | payer MEDICARE, SELFPAY | PROVIDERS: PCP Family Medicine; Referring Provider Family Medicine; Visit Provider Urology | DX: C67.9 Malignant neoplasm of bladder, unspecified (principal) | CPT/HCPCS: 52000; 81003; 99213 ==

== ENCOUNTER 2019-04-06 07:08 | Day surgery (SDC) | payer MEDICARE, SELFPAY ==
[2019-04-06] VITALS (10 sets, daily range): BP systolic 82–152; BP diastolic 36–75; PULSE 41–53; RESP 16–27; TEMP 36.1–36.6; O2SAT 90–97
--- NOTE | 2019-04-06 07:57 | W.PM.HP.N ---
Date of service: 04/06/19 Time of Service: 07:57 Assessment and Plan Assessment and plan (1) Bladder cancer: Status: Chronic Assessment and plan: Cystoscopy with transurethral resection of bladder tumor. His follow-up will really depend on his surgical pathology. 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 On one occasion, there was a question of lamina propria involement focally, but no muscularis invasion. He has had intravesical treatments with mitomycin-C but his tumor recurred. We then treated him with an induction series of intravesical gemcitabine. On his last cystoscopy, he did have a recurrence up towards the dome of the bladder. He presents for transurethral resection. Review of Systems Narrative: No fevers or chills No vision change or dysphasia No diabetes or thyroid No change in chronic shortness of breath. No sputum production or hemoptysis No chest pain or palpitations No nausea, vomiting, hepatitis, ulcers, jaundice, diarrhea or constipation No seizures, strokes or peripheral neuropathy No bleeding disorders or anemia No gout attacks recently [facility] Social History Smoking/Tobacco Use Status: Current every day Tobacco Type: cigarettes Smoking packs per day: 1 Smoking cigarettes per day: 20.0 Years smoked: 40 Smoking pack-years: 40.00 Tobacco: How many years used: 40 Alcohol Intake: current Alcohol Intake frequency: a few times a week Alcohol type: beer Drug use: Never Substance use type: does not use Cate/Sikh: No preference Special cate needs: No Do you feel safe at home: Yes Do you feel safe in your relationship?: Yes Meds Home Medications and Allergies Home Medications Medication Instructions Recorded Confirmed Type Proventil Hfa 1 - 2 puff INHALATION Q6H PRN #1 05/26/17 04/06/19 Clinic inhaler nitroglycerin 0.4 mg sublingual 0.4 mg SL ONCE #20 tab 01/03/18 04/06/19 Rx tablet guaifenesin [Mucinex] 600 mg PO BID PRN PRN #20 tab 02/11/18 04/06/19 Rx magnesium chloride [Mag 64] 64 mg PO BID #60 tab 02/11/18 04/06/19 Rx nicotine 10 mg inhalation cartridge 1 inh IH BID PRN #168 each 02/21/18 04/06/19 Rx ascorbic acid (vitamin C) [Vitamin 500 mg PO DAILY 03/03/18 04/06/19 History C] furosemide 40 mg PO .QOD 03/03/18 04/06/19 History simvastatin 40 mg tablet 40 mg PO DAILY #90 tab-cap 05/27/18 04/06/19 Rx aspirin 81 mg tablet,delayed 81 mg PO DAILY #90 tab 06/14/18 04/06/19 Rx release amlodipine 5 mg tablet 5 mg PO DAILY #90 tab 07/25/18 04/06/19 Rx lisinopril 40 mg tablet 40 mg PO DAILY #90 tab-cap 09/14/18 04/06/19 Rx ampicillin 500 mg capsule 500 mg PO QID #28 cap 12/06/18 04/06/19 Rx metformin 1,000 mg tablet 1,000 mg PO BID #180 tab-cap 12/13/18 04/06/19 Rx budesonide-formoterol HFA 80 2 puff INHALATION BID #1 each 03/01/19 04/06/19 Rx mcg-4.5 mcg/actuation aerosol inhaler metoprolol tartrate 25 mg tablet 25 mg PO HS #90 tab 03/07/19 04/06/19 Rx metoprolol tartrate 50 mg tablet 50 mg PO DAILY #90 tab 03/07/19 04/06/19 Rx Allergies Allergy/AdvReac Type Severity Reaction Status Date / Time No Known Allergies Allergy Unverified 04/03/19 10:18 Exam Const General: cooperative and comfortable Neck Neck: supple Resp Effort & Inspection: normal respiratory effort Auscultation: clear to auscultation bilaterally Cardio Rate: regular rate Rhythm: regular rhythm GI Inspection: normal to inspection Palpation: soft, no masses and nontender Neuro General: alert, awake and oriented x3 Results Last Vital Signs Temp 36.6 C 04/06/19 07:28 Pulse 48 L 04/06/19 07:28 Resp 16 04/06/19 07:28 BP 152/70 H 04/06/19 07:28 Pulse Ox 97 04/06/19 07:28
[2019-04-06] MEDS: Lactated Ringers 1,000 ML 80 ML IV (08:12)
[2019-04-06] MEDS: ceFAZolin 2 GM/50 ML BAG IVPB (08:41)
[2019-04-06] MEDS: Lidocaine 2% Jelly 6 ML SYR (08:55)
--- NOTE | 2019-04-06 09:30 | BLADDER_PTH ---
PATIENT: Al Lilly LOC: [facility] U#:[id number] AGE/SX: 69/M ROOM: RE04/06/[address]: Curly Vieyra MD : 1950 BED: DIS: 04/06/2019 SPEC #: [id number] RECD: 04/06/19 12:14 STATUS: KRIS REQ #: [id number] OMER: 04/06/19 09:[address]: Curly Vieyra DEPT: Surgical Specimen RECD BY: Yuridia Rios ENTERED: 04/06/19 12:15 SP TYPE: Bladder OTHR DR: Silver Luis MD Tissues: 1 - BLADDER CURRETTINGS Procedures: GROSS AND MICRO LEVEL 5 Comments: [id number]
--- NOTE | 2019-04-06 10:12 | W.PM.DSUDISC ---
Discharge Plan Disposition Patient Disposition: HOME Condition: Stable Discharge Details Attending Provider: Curly Vieyra Primary Care Provider: Silver Luis Home Meds and New Rx's Prescriptions: No Action nitroglycerin 0.4 mg tablet, sublingual 0.4 mg SL ONCE Qty: 20 RF: 2 Nicotrol 10 mg cartridge 1 inh IH BID PRN (Reason: nicotine cravings) Qty: 168 RF: 0 PROVENTIL HFA 18 GM HFA.AER.AD 1 - 2 puff Inhalation Q6H PRN Qty: 1 RF: 3 simvastatin 40 mg tablet 40 mg PO DAILY Qty: 90 RF: 3 aspirin [Adult Low Dose Aspirin] 81 mg tablet,delayed release (DR/EC) 81 mg PO DAILY Qty: 90 RF: 3 amlodipine 5 mg tablet 5 mg PO DAILY Qty: 90 RF: 3 lisinopril 40 mg tablet 40 mg PO DAILY Qty: 90 RF: 4 ampicillin 500 mg capsule 500 mg PO QID Qty: 28 RF: 0 metformin 1,000 mg tablet 1,000 mg PO BID Qty: 180 RF: 3 budesonide-formoterol [Symbicort] 80-4.5 mcg/actuation HFA aerosol inhaler 2 puff Inhalation BID Qty: 1 RF: 11 metoprolol tartrate 50 mg tablet 50 mg PO DAILY Qty: 90 RF: 3 metoprolol tartrate 25 mg tablet 25 mg PO HS Qty: 90 RF: 3 furosemide 40 mg tablet 40 mg PO .QOD RF: 0 ascorbic acid (vitamin C) [Vitamin C] 500 mg Tablet 500 mg PO DAILY RF: 0 magnesium chloride [Mag 64] 64 mg Tablet,Delayed Release (Dr/Ec) 64 mg PO BID Qty: 60 RF: 0 guaifenesin [Mucinex] 600 mg Tablet Extended Release 12hr 600 mg PO BID PRN PRN (Reason: cough) Qty: 20 RF: 0 Discharge Instructions Additional Instructions: no lifting over 10 to 20 pounds Followup 1 to 2 weeks for pathology results catheter will be removed prior to discharge Activity:: see above Shower/Bathe:: 24 hours Diet:: As Tolerated DS: Diagnosis Discharge Diagnosis (1) Bladder cancer: Status: Chronic
[2019-04-06] MEDS: Phenazopyridine 200 MG TAB (12:28)
--- NOTE | 2019-04-07 07:07 | ROE_ITS ---
REPORT OF OPERATIVE PROCEDURE DATE OF SURGERY April 06, 2019 PREOPERATIVE DIAGNOSIS Bladder cancer. POSTOPERATIVE DIAGNOSIS Bladder cancer. PROCEDURE Cystoscopy with transurethral resection of large bladder tumor. SURGEON Curly Vieyra M.D. ANESTHESIA General. COMPLICATIONS None. ESTIMATED BLOOD LOSS 100 cc HISTORY This is a 69-year-old gentleman who has a history of low grade noninvasive urothelial cell carcinoma of the bladder. He was initially treated with intravesical mitomycin C, but he had recurrent tumors. We then converted to intravesical gemcitabine. On surveillance cystoscopy we identified papillary tumor up toward the dome of the bladder. He presen ts now for transurethral resection of these areas. OPERATIVE REPORT The patient was brought to the Operating Room on 04/06/2019. After successful induction of general ane sthesia, he was placed in the dorsal lithotomy position. His genitalia was prepped and draped steril andrey. A #24 Liberian resectoscope sheath was passed through the urethra into the bladder. We used the visual obturator to inspect the urethra and prostate as we entered the bladder. The pendulous, bulbous and membranous urethras appeared normal with no strictures. The prostatic uret hra showed no papillary lesions The bladder showed multiple areas with papillary lesions. There was a small less than 2-cm lesion on the posterior bladder wall, but up toward the dome of the bladder, especially on the right side, we i dentified an area of papillary tumor that measured greater than 5 cm. We then utilized bipolar cautery and resected the viable tumor. All resected tissue was evacuated and sent to Pathology for permanent section. Because of the large size of the resected area, we switched to the vaporization button and cauterized all resected areas. Hemostasis appeared quite good. We did not see any evidence of extravesical tissue, but because of th e extent of the resection, we elected not to place a dose of gemcitabine into the bladder today. We placed a #16-Liberian Garcia catheter through the urethra into the bladder. We inflated the catheter balloon with 10 cc of sterile water. The catheter was hooked to gravity drainage. Bimanual examination revealed no fixed mass. A belladonna and opium suppository was then positioned r ectally to help with postop bladder spams. The patient tolerated the procedure well with no complications. If the resected tissue shows low grad e noninvasive urothelial cell carcinoma as we expect, we would recommended a repeat induction course of gemcitabine.
== END 2019-04-06 13:05 | disposition home or self-care (01) ==
PROVIDERS: PCP Family Medicine; Visit Provider Urology
PROC: 0TBB8ZZ Excision of Bladder, Via Natural or Artificial Opening Endoscopic (ICD-10-PCS; CPT 52240; principal; 2019-04-06 08:45)
DX: C67.8 Malignant neoplasm of overlapping sites of bladder (principal)
CPT/HCPCS: 52240; NC; 88307; J0690; J1885; J2001

== ENCOUNTER → 2019-04-10 13:10 | Outpatient (BNVA) | payer MEDICARE, SELFPAY | PROVIDERS: PCP Family Medicine; Referring Provider Family Medicine; Visit Provider Nurse Practitioner Gerontology | DX: C67.8 Malignant neoplasm of overlapping sites of bladder (principal); R33.9 Retention of urine, unspecified | CPT/HCPCS: 51701; 99213 ==

== ENCOUNTER → 2019-04-17 14:45 | Outpatient (BNVA) | payer MEDICARE, SELFPAY | PROVIDERS: PCP Family Medicine; Referring Provider Family Medicine; Visit Provider Urology | DX: C67.8 Malignant neoplasm of overlapping sites of bladder (principal) | CPT/HCPCS: 99213 ==

== ENCOUNTER → 2019-05-02 13:46 | Outpatient (BNVA) | payer MEDICARE, SELFPAY | PROVIDERS: PCP Family Medicine; Referring Provider Family Medicine; Visit Provider Urology | DX: C67.8 Malignant neoplasm of overlapping sites of bladder (principal) | CPT/HCPCS: 51720; 81003; 99212; J9201 ==

== ENCOUNTER → 2019-05-09 13:57 | Outpatient (BNVA) | payer MEDICARE, SELFPAY | PROVIDERS: PCP Family Medicine; Referring Provider Family Medicine; Visit Provider Urology | DX: C67.8 Malignant neoplasm of overlapping sites of bladder (principal) | CPT/HCPCS: 51720; 99213; J9201 ==

== ENCOUNTER → 2019-05-16 14:18 | Outpatient (BNVA) | payer MEDICARE, SELFPAY | PROVIDERS: PCP Family Medicine; Referring Provider Family Medicine; Visit Provider Urology | DX: C67.8 Malignant neoplasm of overlapping sites of bladder (principal) | CPT/HCPCS: 51720; 99212; J9201 ==

== ENCOUNTER → 2019-05-23 14:19 | Outpatient (BNVA) | payer MEDICARE, SELFPAY | PROVIDERS: PCP Family Medicine; Referring Provider Family Medicine; Visit Provider Urology | DX: C67.8 Malignant neoplasm of overlapping sites of bladder (principal) | CPT/HCPCS: 51720; 99213; J9201 ==

== ENCOUNTER → 2019-05-30 13:46 | Outpatient (BNVA) | payer MEDICARE, SELFPAY | PROVIDERS: PCP Family Medicine; Referring Provider Family Medicine; Visit Provider Urology | DX: C67.8 Malignant neoplasm of overlapping sites of bladder (principal) | CPT/HCPCS: 51720; 99212; J9201 ==

== ENCOUNTER → 2019-06-06 13:56 | Outpatient (BNVA) | payer MEDICARE, SELFPAY | PROVIDERS: PCP Family Medicine; Referring Provider Family Medicine; Visit Provider Urology | DX: C67.8 Malignant neoplasm of overlapping sites of bladder (principal) | CPT/HCPCS: 51720; 99212; J9201 ==

== ENCOUNTER → 2019-10-13 13:10 | Outpatient (BNVA) | payer MEDICARE, SELFPAY | PROVIDERS: PCP Family Medicine; Referring Provider Family Medicine; Visit Provider Urology | DX: C67.8 Malignant neoplasm of overlapping sites of bladder (principal); J44.9 Chronic obstructive pulmonary disease, unspecified; I11.0 Hypertensive heart disease with heart failure; I50.9 Heart failure, unspecified; E11.9 Type 2 diabetes mellitus without complications; F17.210 Nicotine dependence, cigarettes, uncomplicated | CPT/HCPCS: 52000; 99213 ==

== ENCOUNTER 2019-10-27 03:19 | Outpatient (CLI) | payer MEDICARE, SELFPAY ==
[2019-10-28 20:22] LABS: COVID-19 RT-PCR Result NEGATIVE (Negative)
== END 2019-10-27 03:39 ==
PROVIDERS: PCP Family Medicine; Visit Provider Urology
DX: Z11.59 Encounter for screening for other viral diseases (principal)
CPT/HCPCS: U0003

== ENCOUNTER 2019-10-30 06:06 | Day surgery (SDC) | payer MEDICARE, SELFPAY ==
[2019-10-30 06:15] VITALS: BP 140/62; PULSE 52; RESP 17; TEMP 37.2; O2SAT 97
[2019-10-30] MEDS: Lactated Ringers 1,000 ML 80 ML IV (06:50)
--- NOTE | 2019-10-30 07:04 | W.PM.HP.N ---
Date of service: 10/30/19 Time of Service: 07:04 Assessment and Plan Assessment and plan (1) Bladder cancer: Status: Chronic Assessment and plan: We will resect all visible tumor and instill Mitomycin C into the bladder Qualifiers: Bladder location: overlapping sites Qualified Code(s): C67.8 - Malignant neoplasm of overlapping sites of bladder History of Present Illness History of Present Illness Chief Complaint: Bladder Cancer Narrative: This is a 69 year old man who has a history of high grade, noninvasive urothelial cell carcinoma of the bladder. He has received intravesical Gemcitabine therapy. At his most recent cystoscopy, tumor was again identified on the anterior bladder wall. He presents for TURBT. He has seen some intermittent gross blood in the urine within the past 2 weeks, but none in the past 3 days. Review of Systems Narrative: No fevers or chills No vision change or dysphasia No diabetes or thyroid c/o chronic cough. No sputum production or hemoptysis No chest pain or palpitations No nausea, vomiting, hepatitis, ulcers, jaundice, diarrhea or constipation No seizures, strokes or peripheral neuropathy No bleeding disorders or anemia No gout PFSH Medical History Bladder cancer CAD in [place] artery S/p CABG x 4 @ [facility] [place] in 2011 CHF (congestive heart failure) EF 40-50% COPD (chronic obstructive pulmonary disease) Hyperlipidemia Hypertension Cve-wckyczk-vxddpqsnh diabetes mellitus without complications PFO (patent foramen ovale) Surgical History H/O transurethral destruction of bladder lesion PROCEDURES Vessel coronary artery bypass graft 11/23/11. Ejection fraction 60 %. S/P CABG x 4 PT. F/U WITH DR. DUONG, PT. STATES HE SAW DR. BLAIR AND STATED HE DIDN'T NEED TO BE SEEN ANYMORE, AND TO JUST F/U WITH PCP Family History Father Heart disease of [place] at 56 yo Mother Diabetes Other Hyperlipidemia Hypertension Social History Smoking/Tobacco Use Status: Current every day Tobacco Type: cigarettes Smoking packs per day: 1 Smoking cigarettes per day: 20.0 Years smoked: 40 Smoking pack-years: 40.00 Tobacco: How many years used: 40 Alcohol Intake: current Alcohol Intake frequency: a few times a week Alcohol type: beer Drug use: Never Substance use type: does not use Cate/Adventist: No preference Special cate needs: No Do you feel safe at home: Yes Do you feel safe in your relationship?: Yes Meds Home Medications and Allergies Home Medications Medication Instructions Recorded Confirmed Type nitroglycerin 0.4 mg sublingual 0.4 mg SL ONCE #20 tab 01/03/18 10/30/19 Rx tablet magnesium chloride [Mag 64] 64 mg PO BID #60 tab 02/11/18 10/30/19 Rx ascorbic acid (vitamin C) [Vitamin 500 mg PO DAILY 03/03/18 10/30/19 History C] furosemide 40 mg PO .QOD 03/03/18 10/30/19 History aspirin 81 mg tablet,delayed 81 mg PO DAILY #90 tab 06/14/18 10/26/19 Rx release lisinopril 40 mg tablet 40 mg PO DAILY #90 tab-cap 09/14/18 10/30/19 Rx metformin 1,000 mg tablet 1,000 mg PO BID #180 tab-cap 12/13/18 10/30/19 Rx budesonide-formoterol HFA 80 2 puff INHALATION BID #1 each 03/01/19 10/30/19 Rx mcg-4.5 mcg/actuation aerosol inhaler metoprolol tartrate 25 mg tablet 25 mg PO HS #90 tab 03/07/19 10/30/19 Rx metoprolol tartrate 50 mg tablet 50 mg PO DAILY #90 tab 03/07/19 10/30/19 Rx oxybutynin chloride 5 mg tablet 5 mg PO Q6H PRN PRN #12 tab 04/07/19 10/30/19 Rx albuterol sulfate 90 mcg/actuation 2 puff IH Q4H PRN #18 gm 05/15/19 10/30/19 Rx aerosol inhaler inhalational spacing device #1 each 05/15/19 05/15/19 Rx simvastatin 40 mg tablet 40 mg PO DAILY #90 tab-cap 05/15/19 10/30/19 Rx amlodipine 5 mg tablet 5 mg PO DAILY #90 tab 07/24/19 10/30/19 Rx Allergies Allergy/AdvReac Type Severity Reaction Status Date / Time No Known Allergies Allergy Unverified 10/30/19 06:23 Exam Const General: cooperative, comfortable and no acute distress Neck Neck: supple Resp Effort & Inspection: normal respiratory effort Auscultation: clear to auscultation bilaterally Cardio Rate: regular rate Rhythm: regular rhythm GI Inspection: normal to inspection Palpation: soft and no masses Skin Other: chronic venous stasis changes lower extremities Neuro General: patient alert and patient awake Results Last Vital Signs Temp 37.2 C 10/30/19 06:15 Pulse 52 L 10/30/19 06:15 Resp 17 10/30/19 06:15 BP 140/62 10/30/19 06:15 Pulse Ox 97 10/30/19 06:15 COVID-19 Screening Have you,or household,traveled outside [place] in last 14 days?: No Had IN PERSON contact w/suspected or confirmed C-19 person: No
[2019-10-30] MEDS: ceFAZolin 2 GM/50 ML BAG IVPB (07:30)
[2019-10-30] MEDS: Lidocaine 2% Jelly 6 ML SYR (07:48)
--- NOTE | 2019-10-30 08:32 | BLADDER_PTH ---
PATIENT: Al Lilly LOC: [facility] U#:[id number] AGE/SX: 69/M ROOM: RE10/30/[address]: Curly Vieyra MD : 1950 BED: DIS: 10/30/2019 SPEC #: [id number] RECD: 10/30/19 12:35 STATUS: KRIS RE #: [id number] OMER: 10/30/19 08:[address]: Curly Vieyra DEPT: Surgical Specimen RECD BY: Yuridia Rios ENTERED: 10/30/19 12:36 SP TYPE: Bladder OTHR DR: Silver Luis MD Tissues: 1 - BLADDER BIOPSY Procedures: GROSS AND MICRO LEVEL 5 Comments: [id number]
--- NOTE | 2019-10-30 08:37 | W.PM.DSUDISC ---
Discharge Plan Disposition Patient Disposition: HOME Condition: Stable Discharge Details Reason For Visit: bladder cancer Attending Provider: Curly Vieyra Primary Care Provider: Silver Luis Home Meds and New Rx's Prescriptions: No Action nitroglycerin 0.4 mg tablet, sublingual 0.4 mg SL ONCE Qty: 20 RF: 2 simvastatin 40 mg tablet 40 mg PO DAILY Qty: 90 RF: 3 albuterol sulfate [Ventolin HFA] 90 mcg/actuation HFA aerosol inhaler 2 puff IH Q4H PRN (Reason: shortness of breath or wheezing) Qty: 18 RF: 6 (DME) Aerochamber MV Spacer See Rx Instructions .ROUTE .MEDSUPPLY Qty: 1 RF: 0 aspirin [Adult Low Dose Aspirin] 81 mg tablet,delayed release (DR/EC) 81 mg PO DAILY Qty: 90 RF: 3 lisinopril 40 mg tablet 40 mg PO DAILY Qty: 90 RF: 4 metformin 1,000 mg tablet 1,000 mg PO BID Qty: 180 RF: 3 budesonide-formoterol [Symbicort] 80-4.5 mcg/actuation HFA aerosol inhaler 2 puff Inhalation BID Qty: 1 RF: 11 metoprolol tartrate 50 mg tablet 50 mg PO DAILY Qty: 90 RF: 3 metoprolol tartrate 25 mg tablet 25 mg PO HS Qty: 90 RF: 3 oxybutynin chloride 5 mg tablet 5 mg PO Q6H PRN PRN (Reason: bladder spasms) Qty: 12 RF: 0 amlodipine 5 mg tablet 5 mg PO DAILY Qty: 90 RF: 3 furosemide 40 mg tablet 40 mg PO .QOD RF: 0 ascorbic acid (vitamin C) [Vitamin C] 500 mg Tablet 500 mg PO DAILY RF: 0 magnesium chloride [Mag 64] 64 mg Tablet,Delayed Release (Dr/Ec) 64 mg PO BID Qty: 60 RF: 0 Discharge Instructions Additional Instructions: Garcia to leg bag Followup @ 1 week for catheter removal Followup @ 2 weeks for pathology results Shower/Bathe:: 24 hours Diet:: As Tolerated Discharge Orders Discharge Orders: Discharge Order (Routine); Ordered 10/30/19 Ordered By: Curly Vieyra DS: Diagnosis Discharge Diagnosis (1) Bladder cancer: Status: Chronic
--- NOTE | 2019-10-30 08:41 | ROE_ITS ---
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 He has been treated with intravesical gemcitabine. On his most recent surveillance cystoscopy, he was found to have a recurrent tumor posteriorly and up towards the dome of the bladder. He presents for transurethral resection. Findings: Multiple papillary lesions on posterior bladder wall and dome. Largest tumor measures over 5 cm in diameter. Procedure Description: The patient was brought to the operating room on 10/30/2019. After successful induction of general anesthesia, he is placed in the dorsal lithotomy position. He was given a dose of IV antibiotics. His genitalia is prepped and draped. 2% Xylocaine jelly is instilled into the urethra to act as a local anesthetic. 24 R[place]an resectoscope sheath was passed through the urethra into the bladder. We used a 30 degree lens to visualize the previously identified bladder tumors. We used bipolar cautery and and Trivedi resectoscope to resect all visible tumor. Some of the underlying muscle was resected as well. All resected tissue was evacuated and sent to pathology for permanent section. All resected sites were then cauterized using the bipolar cautery. At the completion of the procedure, no active bleeding was seen. Because of the depth of resection, we elected not to place intravesical mitomycin-C. I did place an 18 [place] Garcia through the urethra into the bladder. The catheter balloon was inflated with 10 cc of sterile water and the catheter was hooked to gravity drainage. I also instilled a belladonna and opium suppository to help with postop bladder spasms. The patient tolerated the procedure well. The estimated blood loss was 100 cc. He was taken to the recovery room in stable condition.
[2019-10-30 08:45] VITALS: BP 131/65; PULSE 57; RESP 20; TEMP 37; O2SAT 98
[2019-10-30 08:50] VITALS: BP 152/57; PULSE 55; RESP 17; TEMP 37; O2SAT 97
[2019-10-30 08:55] VITALS: BP 168/57; PULSE 55; RESP 16; TEMP 37; O2SAT 97
[2019-10-30] MEDS: Phenazopyridine 200 MG TAB PO (09:07)
[2019-10-30 09:10] VITALS: BP 154/63; PULSE 53; RESP 15; TEMP 36.9; O2SAT 95
[2019-10-30 09:52] VITALS: BP 159/77; PULSE 50; RESP 19; TEMP 36.4; O2SAT 94
== END 2019-10-30 10:34 | disposition home or self-care (01) ==
PROVIDERS: PCP Family Medicine; Visit Provider Urology
PROC: 0TBB8ZZ Excision of Bladder, Via Natural or Artificial Opening Endoscopic (ICD-10-PCS; CPT 52240; principal; 2019-10-30 07:30)
DX: C67.8 Malignant neoplasm of overlapping sites of bladder (principal); I25.10 Atherosclerotic heart disease of native coronary artery without angina pectoris; I11.0 Hypertensive heart disease with heart failure; I50.9 Heart failure, unspecified; E78.5 Hyperlipidemia, unspecified; E11.9 Type 2 diabetes mellitus without complications; Q21.1 Atrial septal defect
CPT/HCPCS: 52240; 88305; NC; 88307; J0690

== ENCOUNTER → 2019-11-02 10:27 | Outpatient (BNVA) | payer MEDICARE, SELFPAY | PROVIDERS: PCP Family Medicine; Referring Provider Family Medicine; Visit Provider Nurse Practitioner Gerontology | DX: C67.8 Malignant neoplasm of overlapping sites of bladder (principal); I11.0 Hypertensive heart disease with heart failure; I50.9 Heart failure, unspecified; J44.9 Chronic obstructive pulmonary disease, unspecified; E11.9 Type 2 diabetes mellitus without complications; Z79.84 Long term (current) use of oral hypoglycemic drugs; F17.210 Nicotine dependence, cigarettes, uncomplicated; Z46.6 Encounter for fitting and adjustment of urinary device | CPT/HCPCS: 99213 ==

== ENCOUNTER → 2019-11-13 14:48 | Outpatient (BNVA) | payer MEDICARE, SELFPAY | PROVIDERS: PCP Family Medicine; Referring Provider Family Medicine; Visit Provider Urology | DX: C67.8 Malignant neoplasm of overlapping sites of bladder (principal); J44.9 Chronic obstructive pulmonary disease, unspecified; I50.9 Heart failure, unspecified; E11.9 Type 2 diabetes mellitus without complications; I11.0 Hypertensive heart disease with heart failure | CPT/HCPCS: 99213 ==

== ENCOUNTER → 2019-12-28 13:40 | Outpatient (BNVA) | payer MEDICARE, SELFPAY | PROVIDERS: PCP Family Medicine; Referring Provider Family Medicine; Visit Provider Nurse Practitioner Gerontology | DX: C67.8 Malignant neoplasm of overlapping sites of bladder (principal); Z98.890 Other specified postprocedural states; J44.9 Chronic obstructive pulmonary disease, unspecified; I11.0 Hypertensive heart disease with heart failure; I50.9 Heart failure, unspecified; E11.9 Type 2 diabetes mellitus without complications | CPT/HCPCS: 51720; 81003; 99213; J9201 ==

== ENCOUNTER → 2020-02-15 09:04 | Outpatient (BNVA) | payer MEDICARE, SELFPAY | PROVIDERS: PCP Family Medicine; Referring Provider Family Medicine; Visit Provider Urology | DX: C67.8 Malignant neoplasm of overlapping sites of bladder (principal) | CPT/HCPCS: 52000; 81003; 99213 ==

== ENCOUNTER 2020-02-29 02:32 | Outpatient (CLI) | payer MEDICARE, SELFPAY ==
[2020-03-01 15:25] LABS: COVID-19 RT-PCR Result NEGATIVE (Negative)
== END 2020-02-29 02:52 ==
PROVIDERS: PCP Family Medicine; Visit Provider Urology
DX: Z11.52 Encounter for screening for COVID-19 (principal); Z01.818 Encounter for other preprocedural examination
CPT/HCPCS: U0003

== ENCOUNTER 2020-03-04 08:05 | Day surgery (SDC) | payer MEDICARE, SELFPAY ==
[2020-03-04] VITALS (7 sets, daily range): BP systolic 107–157; BP diastolic 50–79; PULSE 48–58; RESP 15–17; TEMP 36–36.8; O2SAT 16–100
--- NOTE | 2020-03-04 08:38 | W.PM.HP.N ---
Date of service: 03/04/20 Time of Service: 08:39 Assessment and Plan Assessment and plan (1) Bladder cancer: Status: Chronic Assessment and plan: For cystoscopy, TURBT and instillation of Mitomicin C into the bladder Qualifiers: Bladder location: overlapping sites Qualified Code(s): C67.8 - Malignant neoplasm of overlapping sites of bladder History of Present Illness History of Present Illness Chief Complaint: Bladder cancer Narrative: This is a 69-year-old gentleman who has a history of high-grade, noninvasive urothelial cell carcinoma of the bladder. He has been treated with transurethral resections as well as intravesical instillation of gemcitabine. On his most recent surveillance cystoscopy, we did find a papillary lesion up towards the dome of the bladder. He presents for transurethral resection as well as instillation of mitomycin-C into the bladder. Review of Systems Narrative: No fevers or chills No vision change or dysphasia Hx Diabetes Hx COPD. No hemoptysis No chest pain or palpitations No nausea, vomiting, hepatitis, ulcers, jaundice No seizures, strokes or peripheral neuropathy No bleeding disorders or anemia Having gout flareup right elbow PFSH Medical History Bladder cancer CAD [place] [facility] [place] CHF (congestive heart failure) EF 40-50% COPD (chronic obstructive pulmonary disease) Hyperlipidemia Hypertension Bij-ovzrjsj-jzqtwkixu diabetes mellitus without complications PFO (patent foramen ovale) Surgical History H/O transurethral destruction of bladder lesion PROCEDURES Vessel coronary artery bypass graft 11/23/11. Ejection fraction 60 %. S/P CABG x 4 PT. F/U WITH DR. DUONG, PT. STATES HE SAW DR. BLAIR AND STATED HE DIDN'T NEED TO BE SEEN ANYMORE, AND TO JUST F/U WITH PCP Family History Father Heart disease of [place] at 56 yo Mother Diabetes Other Hyperlipidemia Hypertension Social History Smoking/Tobacco Use Status: Current every day Tobacco Type: cigarettes Smoking packs per day: 1 Smoking cigarettes per day: 20.0 Years smoked: 40 Smoking pack-years: 40.00 Tobacco: How many years used: 40 Smoking risk assessment performed?: Yes Alcohol Intake: current Alcohol Intake frequency: a few times a week Alcohol type: beer Drug use: Never Substance use type: does not use Cate/Gnosticism: No preference Special cate needs: No Do you feel safe at home: Yes Do you feel safe in your relationship?: Yes Meds Home Medications and Allergies Home Medications Medication Instructions Recorded Confirmed Type nitroglycerin 0.4 mg sublingual 0.4 mg SL ONCE #20 tab 01/03/18 03/01/20 Rx tablet magnesium chloride [Mag 64] 64 mg PO BID #60 tab 02/11/18 03/04/20 Rx ascorbic acid (vitamin C) [Vitamin 500 mg PO DAILY 03/03/18 03/04/20 History C] furosemide 40 mg PO .QOD 03/03/18 03/04/20 History aspirin 81 mg tablet,delayed 81 mg PO DAILY #90 tab 06/14/18 03/04/20 Rx release budesonide-formoterol HFA 80 2 puff INHALATION BID #1 each 03/01/19 03/04/20 Rx mcg-4.5 mcg/actuation aerosol inhaler metoprolol tartrate 25 mg tablet 25 mg PO HS #90 tab 03/07/19 03/04/20 Rx metoprolol tartrate 50 mg tablet 50 mg PO DAILY #90 tab 03/07/19 03/04/20 Rx albuterol sulfate 90 mcg/actuation 2 puff IH Q4H PRN #18 gm 05/15/19 03/01/20 Rx aerosol inhaler inhalational spacing device #1 each 05/15/19 03/01/20 Rx simvastatin 40 mg tablet 40 mg PO DAILY #90 tab-cap 05/15/19 03/04/20 Rx amlodipine 5 mg tablet 5 mg PO DAILY #90 tab 07/24/19 03/04/20 Rx hyoscyamine sulfate 0.125 mg 0.125 mg PO Q6H PRN #20 tab 10/30/19 03/01/20 Rx sublingual tablet lisinopril 40 mg tablet 40 mg PO DAILY #90 tab-cap 12/06/19 03/04/20 Rx metformin 1,000 mg tablet 1,000 mg PO BID #180 tab-cap 12/06/19 03/04/20 Rx Allergies Allergy/AdvReac Type Severity Reaction Status Date / Time No Known Allergies Allergy Unverified 03/04/20 08:14 Exam Const General: cooperative and comfortable Neck Neck: supple Resp Effort & Inspection: normal respiratory effort Auscultation: diminished lung sounds Cardio Rate: regular rate Rhythm: regular rhythm GI Palpation: soft Neuro General: patient alert, patient awake and patient oriented x3 Results Last Vital Signs Temp 36.8 C 03/04/20 08:05 Pulse 58 L 03/04/20 08:05 Resp 16 03/04/20 08:05 BP 123/79 03/04/20 08:05 Pulse Ox 95 03/04/20 08:05 COVID-19 Screening Have you, or household traveled for leisure in last 14 days?: No Had IN PERSON contact w/suspected or confirmed C-19 person: No
[2020-03-04] MEDS: Lactated Ringers 1,000 ML 80 ML IV (08:54)
[2020-03-04] MEDS: ceFAZolin 2 GM/50 ML BAG IVPB (09:17)
[2020-03-04] MEDS: Lidocaine 2% Jelly 6 ML SYR (09:34)
--- NOTE | 2020-03-04 09:38 | BLADDER_PTH ---
PATIENT: Al Lilly LOC: [facility] U#:[id number] AGE/SX: 69/M ROOM: RE03/04/[address]: Curly Vieyra MD : 1950 BED: DIS: 03/04/2020 SPEC #: [id number] RECD: 03/04/20 12:22 STATUS: KRIS RE #: [id number] OMER: 03/04/20 09:[address]: Curly Vieyra DEPT: Surgical Specimen RECD BY: Yuridia Rios ENTERED: 03/04/20 12:23 SP TYPE: Bladder OTHR DR: Silver Luis MD Tissues: 1 - BLADDER BIOPSY 2 - PROSTATE CURRETTINGS Procedures: GROSS AND MICRO LEVEL 4 GROSS AND MICRO LEVEL 5 Comments: [id number]
[2020-03-04] MEDS: fentaNYL 100 MCG/2 ML VIAL IVP (09:40)
[2020-03-04] MEDS: mitoMYcin 40 MG, Normal Saline 40 ML BLADIN (09:59)
--- NOTE | 2020-03-04 10:05 | W.PM.DSUDISC ---
Discharge Plan Disposition Patient Disposition: HOME Condition: Stable Discharge Details Reason For Visit: Bladder Cancer Attending Provider: Curly Vieyra Primary Care Provider: Silver Luis Home Meds and New Rx's Prescriptions: No Action nitroglycerin 0.4 mg tablet, sublingual 0.4 mg SL ONCE Qty: 20 RF: 2 simvastatin 40 mg tablet 40 mg PO DAILY Qty: 90 RF: 3 albuterol sulfate [Ventolin HFA] 90 mcg/actuation HFA aerosol inhaler 2 puff IH Q4H PRN (Reason: shortness of breath or wheezing) Qty: 18 RF: 6 (DME) Aerochamber MV Spacer See Rx Instructions .ROUTE .MEDSUPPLY Qty: 1 RF: 0 hyoscyamine sulfate [Levsin/SL] 0.125 mg tablet, sublingual 0.125 mg PO Q6H PRN (Reason: spasms) Qty: 20 RF: 0 aspirin [Adult Low Dose Aspirin] 81 mg tablet,delayed release (DR/EC) 81 mg PO DAILY Qty: 90 RF: 3 budesonide-formoterol [Symbicort] 80-4.5 mcg/actuation HFA aerosol inhaler 2 puff Inhalation BID Qty: 1 RF: 11 metoprolol tartrate 50 mg tablet 50 mg PO DAILY Qty: 90 RF: 3 metoprolol tartrate 25 mg tablet 25 mg PO HS Qty: 90 RF: 3 amlodipine 5 mg tablet 5 mg PO DAILY Qty: 90 RF: 3 lisinopril 40 mg tablet 40 mg PO DAILY Qty: 90 RF: 4 metformin 1,000 mg tablet 1,000 mg PO BID Qty: 180 RF: 3 furosemide 40 mg tablet 40 mg PO .QOD RF: 0 ascorbic acid (vitamin C) [Vitamin C] 500 mg Tablet 500 mg PO DAILY RF: 0 magnesium chloride [Mag 64] 64 mg Tablet,Delayed Release (Dr/Ec) 64 mg PO BID Qty: 60 RF: 0 Discharge Instructions Additional Instructions: Leave Garcia catheter clamped with mitomycin C in the bladder for 1 to 2 hours then unclamp, drain bladder and remove Garcia catheter. If the patient has significant pain before the 1 or 2 hours is up, unclamp, drain bladder and remove Garcia. Followup 1 to 2 weeks for pathology results Activity:: Activity as Tolerated Shower/Bathe:: 24 hours Diet:: As Tolerated Discharge Orders Discharge Orders: Discharge Order (Routine); Ordered 03/04/20 Ordered By: Curly Vieyra DS: Diagnosis Discharge Diagnosis (1) Bladder cancer: Status: Chronic
--- NOTE | 2020-03-04 10:09 | ROE_ITS ---
Date of service: 03/04/20 Time of Service: 10:09 Operative Note Operative Note DATE OF PROCEDURE: 03/04/20 PRE-OP DIAGNOSIS: Bladder cancer POST-OP DIAGNOSIS: same PROCEDURE: Cystoscopy, TUR bladder tumor, TUR papillary lesion in prostatic urethra, instillation Mitomycin C into bladder SURGEON: Curly Vieyra ANESTHESIA: other (General by LMA) ESTIMATED BLOOD LOSS: 25 PATHOLOGY: other (1. Bladder tumor 2. 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 He has been treated with transurethral resections as well as instillation of gemcitabine into the bladder. He presents for repeat cystoscopy with transurethral resection. He was identified as having small tumors at the dome on his surveillance cystoscopy. Findings: Papillary lesion in prostatic urethra Papillary lesions dome of bladder Procedure Description: The patient was brought to the operating room on 03/04/2020. After successful induction of general anesthesia without intubation, he was placed in the dorsal lithotomy position. His genitalia is prepped and draped. He was given preoperative IV antibiotics. A 24 Malaysian resectoscope sheath was passed through the urethra into the bladder. The urethra and bladder were inspected with the visual obturator and 30 degree lens. The pendulous, bulbous and membranous urethra was appeared normal. There is a papillary lesion in the prostate with an attachment to the prostatic urethra. Just inside the bladder neck was a small left-sided 1 cm papillary lesion. This was toward the floor the bladder. 2 additional papillary lesions were seen up towards the dome. We then used the [email or web address] resectoscope and bipolar cautery to perform transurethral resection of the visible lesions. The bladder lesions were collected together and sent to pathology for permanent section. The prostatic urethra lesions were likewise collected and sent as a separate specimen. All bleeding points were cauterized using the bipolar cautery. Once hemostasis had been obtained, the bladder was filled with irrigant, the scope was removed and an 18 [place] Schultz catheter was passed through the urethra into the bladder. The catheter balloon was inflated with 10 cc of sterile water. Once the bladder was drained, a solution containing 40 mg of mitomycin-C mixed in 40 mL of saline was instilled into the bladder. The catheter was then clamped leaving the solution in place. The patient tolerated this procedure well with no complications. A belladonna and opium suppository was placed rectally. He was then taken to the recovery room in stable condition.
[2020-03-04] MEDS: Phenazopyridine 200 MG TAB PO (12:28)
== END 2020-03-04 13:14 | disposition home or self-care (01) ==
PROVIDERS: PCP Family Medicine; Visit Provider Urology
PROC: 0TBB8ZZ Excision of Bladder, Via Natural or Artificial Opening Endoscopic (ICD-10-PCS; CPT 52234; principal; 2020-03-04 09:30)
DX: C67.1 Malignant neoplasm of dome of bladder (principal); C67.5 Malignant neoplasm of bladder neck; J44.9 Chronic obstructive pulmonary disease, unspecified; E11.9 Type 2 diabetes mellitus without complications; F17.210 Nicotine dependence, cigarettes, uncomplicated
CPT/HCPCS: 52234; 52204; 51720; 88305; NC; 88307; J0690; J1100; J2001; J2405; J2704; J3010; J9280

== ENCOUNTER → 2020-03-22 14:32 | Outpatient (BNVA) | payer MEDICARE, SELFPAY | PROVIDERS: PCP Family Medicine; Referring Provider Family Medicine; Visit Provider Urology | DX: C67.8 Malignant neoplasm of overlapping sites of bladder (principal) | CPT/HCPCS: 99213; 99214 ==

== ENCOUNTER → 2020-05-01 08:40 | Outpatient (BNVA) | payer MEDICARE, SELFPAY | PROVIDERS: PCP Family Medicine; Referring Provider Family Medicine; Visit Provider Nurse Practitioner Gerontology | DX: C67.8 Malignant neoplasm of overlapping sites of bladder (principal); N39.0 Urinary tract infection, site not specified; R30.0 Dysuria | CPT/HCPCS: 81003 ==

== ENCOUNTER 2020-05-01 13:06 | Outpatient (REF) | payer MEDICARE, SELFPAY | END 2020-05-01 13:07 | disposition home or self-care (01) | LOC: LBN 13:06 | PROVIDERS: PCP Family Medicine; Visit Provider Nurse Practitioner Gerontology | DX: N39.0 Urinary tract infection, site not specified (principal) | CPT/HCPCS: 87077; 87086; 87186 ==

== ENCOUNTER → 2020-05-21 09:45 | Outpatient (BNVA) | payer MEDICARE, SELFPAY | PROVIDERS: PCP Family Medicine; Referring Provider Family Medicine; Visit Provider Urology | DX: C67.8 Malignant neoplasm of overlapping sites of bladder (principal) | CPT/HCPCS: 51720; 81003; 99213; J9031 ==

== ENCOUNTER → 2020-07-09 08:35 | Outpatient (BNVA) | payer MEDICARE, SELFPAY | PROVIDERS: PCP Family Medicine; Referring Provider Family Medicine; Visit Provider Urology | DX: C67.8 Malignant neoplasm of overlapping sites of bladder (principal) | CPT/HCPCS: 52000; 81003; 99213 ==

== ENCOUNTER → 2020-08-21 13:39 | Outpatient (BNVA) | payer MEDICARE, SELFPAY | PROVIDERS: PCP Family Medicine; Referring Provider Family Medicine; Visit Provider Nurse Practitioner Gerontology | DX: C67.8 Malignant neoplasm of overlapping sites of bladder (principal); Z51.11 Encounter for antineoplastic chemotherapy | CPT/HCPCS: 51720; 81003; J9030 ==

== ENCOUNTER 2020-10-14 03:48 | Outpatient (CLI) | payer MEDICARE, SELFPAY ==
[2020-10-14 13:53] LABS: Abs Immature Grans 0.03 10^3/uL (0.0-0.06); Absolute Basophil Count 0.06 10^3/uL (0.0-0.2); Absolute Eosinophil Count 0.28 10^3/uL (0.0-0.7); Absolute Lymphocyte Count 2.52 10^3/uL (1.2-3.4); Absolute Monocyte Count 0.94 10^3/uL (0.1-0.8); Basophils % 0.6; HCT 37.8 % (40.0-50.0); HGB 12.4 g/dL (13.5-17.5); Immature Grans % 0.3; Lymphocytes % 26.7; MCH 31.1 pg (27.0-33.0); MCHC 32.8 % (32.0-36.0); MCV 94.7 fL (80-95); MPV 9.9 fL (8.0-11.0); Neutrophils % 59.4; Nucleated RBC 0 %; Platelet Count 216 10^3/uL (130-400); RBC 3.99 10^6/uL (4.36-5.78); RDW 12.8 % (11.8-14.1); RDW-SD 44.5 fL; WBC 9.43 10^3/uL (4.4-10.8)
[2020-10-14 15:29] LABS: ALT 24 U/L (16-63); AST 12 U/L (15-37); Albumin 3.6 g/dL (3.4-5.0); Alkaline Phosphatase 94 U/L (46-116); Anion Gap 15.2 mmol/L (3-11); BUN 24 mg/dL (7-18); Bilirubin, Total 0.4 mg/dL (0.2-1.0); CO2 19.8 mmol/L (21.0-32.0); CREATININE 1.5 mg/dL (0.70-1.30); Calcium 8.8 mg/dL (8.5-10.1); Calculated LDL 37 mg/dL (<100); Chloride 109 mmol/L (98-107); Cholesterol 125 mg/dL (<200); Glucose 153 mg/dL (74-106); HDL Cholesterol 48 mg/dL (40-60); Potassium 4.3 mmol/L (3.5-5.1); Sodium 144 mmol/L (136-145); TSH (W/Ref FT4) 0.03 uIU/mL (0.36-3.74); Total Protein 6.9 g/dL (6.4-8.2); Triglyceride 200 mg/dL (<150)
[2020-10-14 15:52] LABS: FREE T4 1.15 ng/dL (0.76-1.46)
[2020-10-15 10:28] LABS: Hepatitis C Ab w Rflx HCV PCR Negative (Negative)
== END 2020-10-14 03:49 | disposition home or self-care (01) ==
LOC: LBO 03:48
PROVIDERS: PCP Family Medicine; Visit Provider Family Medicine
DX: E11.9 Type 2 diabetes mellitus without complications (principal); Z85.51 Personal history of malignant neoplasm of bladder; Z11.59 Encounter for screening for other viral diseases; Z00.00 Encounter for general adult medical examination without abnormal findings; C67.8 Malignant neoplasm of overlapping sites of bladder
CPT/HCPCS: 36415; 52000; 80053; 80061; 81003; 86803; 99213; 84439; 84443; 85025

== ENCOUNTER 2020-10-16 01:17 | Outpatient (CLI) | payer MEDICARE, SELFPAY ==
--- NOTE | 2020-10-16 08:30 | DI.RAD_ITS ---
Exam(s) XR HAND RT COMPLETE XR HAND LT COMPLETE XR WRIST LT COMPLETE XR WRIST RT COMPLETE EXAM: XR HAND and wrist RT COMPLETE and XR hand and wrist left complete CLINICAL HISTORY: bilat wrist / hand pain, M79.641. TECHNIQUE: 2D digital imaging was performed. COMPARISON: No previous for comparison. FINDINGS: BONES: No acute fracture is present. No bony destructive lesion is seen. JOINTS: No dislocation present. No erosions are identified. No periarticular osteopenia. There is m ild periarticular spurring and a few of the DIP joints of both hands. SOFT TISSUE: There is soft tissue calcification in joint swelling in the hands and wrists bilaterally . The findings are most marked in the right hand at the MCP joints and the PIP joints. IMPRESSION: Findings suggestive of CPPD arthropathy. Gout or other inflammatory arthritides may also be consider ed. DATA REPOSITORY: RADIATION DOSE DELIVERED:
--- NOTE | 2020-10-16 08:30 | DI.CTLCSR_ITS ---
Exam(s) CT CHEST LUNG CANCER SCREEN EXAM: CT CHEST LUNG CANCER SCREEN CLINICAL HISTORY: Screening for lung cancer, current smoker, F17.210 TECHNIQUE: Imaging Protocol: Axial computed tomography images with coronal and sagittal reformatted images were created and reviewed COMPARISON: No exams were available for comparison FINDINGS: Tracheobronchial tree: Patent where visualized. Pulmonary parenchyma: No consolidation or dominant measurable mass. Mild paraseptal emphysema. Lung Nodules: There is a 3 mm nodule in the right upper lobe. There is a 5 mm nodule in the left upp er lobe. Mediastinum and Jayashree: No dominant adenopathy or fluid collection. Pleura: No effusion or pneumothorax. Heart: The heart is not dilated. Coronary artery calcifications and/or stents. No pericardial effusi on. Aorta: Thoracic aorta non-dilated.Atherosclerosis. Upper abdomen: Unremarkable. Soft Tissues: Unremarkable. Bones: Within normal limits. Sternal wires are in place. Old bilateral rib fractures. There is DISH in the thoracic spine. IMPRESSION: Pulmonary nodules. Lung RADS Cat 2 - Benign Appearance / Behavior: Nodules with a very low likelihood of becoming a clin ically active cancer due to size or lack of growth Lung-RADS 1.0 CATEGORIES: Category 0 - Prior chest CT exam(s) being located for comparison. Category 1 - Annual screening in 12 months. No nodules or definitely benign nodules. Category 2 - Annual screening in 12 months. Benign appearance. Nodules with low likelihood of becomin g active cancer. Category 3 - 6-month follow-up. Probably benign. Short-term follow-up suggested. Nodules with low lik elihood of becoming active cancer. Category 4A - 3-month follow-up and CT/PET if >8 mm in size. Suspicious finding. Findings which requi re additional testing. Category 4B - Findings which require additional testing and tissue sampling. Suspicious finding. Modifier S- Potentially clinically significant finding. (Non lung cancer) RADIATION DOSE DELIVERED: 81.62mGy.cm Total DLP 1.84mGy CTDIvol 81.62mGy.cm Total DLP 1.84mGy CTDIvol DATA REPOSITORY: All CT scans at this facility are submitted to the National Radiology Data Registry (NRDR) Dose Index Registry (DIR) with the [employer] ([employer]). RADIATION OPTIMIZATION: All CT scans at this facility use at least one of these dose optimization te chniques: automated exposure control; mA and/or kV adjustment per patient size (includes targeted exa ms where dose is matched to clinical indication); or iterative reconstruction.
== END 2020-10-16 01:37 ==
PROVIDERS: PCP Family Medicine; Visit Provider Family Medicine
DX: F17.210 Nicotine dependence, cigarettes, uncomplicated (principal); D22.9 Melanocytic nevi, unspecified; E11.42 Type 2 diabetes mellitus with diabetic polyneuropathy; K08.9 Disorder of teeth and supporting structures, unspecified; L84 Corns and callosities; M25.531 Pain in right wrist; M25.532 Pain in left wrist; M79.641 Pain in right hand; M79.642 Pain in left hand; Z12.2 Encounter for screening for malignant neoplasm of respiratory organs; R91.8 Other nonspecific abnormal finding of lung field; M12.841 Other specific arthropathies, not elsewhere classified, right hand; M12.842 Other specific arthropathies, not elsewhere classified, left hand
CPT/HCPCS: 71271; 73110; 73130

== ENCOUNTER 2020-10-17 05:00 | Outpatient (CLI) | payer MEDICARE, SELFPAY ==
[2020-10-17] MEDS: Albuterol HFA 18 GM 200 PUFF INH IH (11:06)
[2020-10-17] MEDS: Inhaler, Assist Device 1 EACH MC (11:07)
--- NOTE | 2020-10-18 12:54 | W.PFT ---
Date of service: 10/17/20 Time of Service: 10:07 Pulmonary Function Test Result Requesting Provider Polly Beverly Indications: Productive cough Interpretation Spirometry: There is moderate airflow limitation. There is no significant bronchodilator response. The FVC is low. Lung Volumes: Lung volumes are normal. Diffusion Capacity: The diffusion is reduced. Airway Pressure: Voice resistance is normal. Impression Moderate airflow obstruction with no significant bronchodilator response. The low FVC is likely due to airflow limitation. There is a reduced diffusion. In the correct clinical setting these pulmonary function tests could be consistent with emphysematous COPD. Note: When compared to 01/28/2012 the FEV1 and FVC have improved and there is no longer a significant bronchodilator effect. The diffusion has reduced since this time the airways resistance has improved. Clinical Correlation therefore is recommended.
== END 2020-10-17 05:01 | disposition home or self-care (01) ==
PROVIDERS: PCP Family Medicine; Visit Provider Family Medicine
DX: J44.9 Chronic obstructive pulmonary disease, unspecified (principal)
CPT/HCPCS: 94060; 94726; 94729

== ENCOUNTER 2020-10-22 04:22 | Outpatient (CLI) | payer MEDICARE, SELFPAY ==
[2020-10-22 12:20] LABS: Bilirubin Negative (Negative); Blood Negative (Negative); Clarity Clear (Clear); Glucose Negative (Negative); Ketones Negative (Negative); Leukocyte Esterase Negative (Negative); Nitrite Negative (Negative); Specific Gravity 1.025 (1.005-1.025); Urobilinogen 0.2 EU/dL (Up TO 0.2)
[2020-10-22 12:31] LABS: Bacteria Negative HPF (Negative); C & S Indicated? No; Casts 5-10 Hyaline LPF (Negative); Crystals Negative HPF (Negative); Epithelial Cells Few HPF (Negative); Mucus Negative (Negative); RBC Negative HPF (0-2); WBC Negative HPF (0-5)
[2020-10-22 12:57] LABS: Magnesium 1.8 mg/dL (1.8-2.4)
[2020-10-22 13:01] LABS: PHOSPHORUS 3.8 mg/dL (2.6-4.7); Uric Acid 8.3 mg/dL (3.5-7.2)
[2020-10-22 14:00] LABS: COMMENT (LAB VIEW ONLY) 181.47 mg/dL
[2020-10-22 15:13] LABS: PROTEIN 262.9 mg/dL (0.0-11.9)
[2020-10-24 10:05] LABS: Parathyroid Hormone,Intact 75 pg/mL (19-88)
== END 2020-10-22 04:23 | disposition home or self-care (01) ==
LOC: LOS 04:23
PROVIDERS: PCP Family Medicine; Visit Provider Family Medicine
DX: E87.2 Acidosis (principal); E11.22 Type 2 diabetes mellitus with diabetic chronic kidney disease; I12.9 Hypertensive chronic kidney disease with stage 1 through stage 4 chronic kidney disease, or unspecified chronic kidney disease; N18.31 Chronic kidney disease, stage 3a; M79.641 Pain in right hand; M79.642 Pain in left hand; E11.42 Type 2 diabetes mellitus with diabetic polyneuropathy
CPT/HCPCS: 36415; 81003; 81015; 82043; 82570; 83735; 83970; 84100; 84156; 84550

== ENCOUNTER 2020-10-29 01:03 | Outpatient (CLI) | payer MEDICARE, SELFPAY ==
[2020-10-30 09:58] LABS: Hepatitis B Surface Ag Negative (Negative)
[2020-10-30 10:02] LABS: C3 Complement 115 mg/dL (81-157); C4 Complement 25 mg/dL (13-39); Kappa Free Light Chain 4.99 mg/dL (0.33-1.94); Lambda Free Light Chain 3.35 mg/dL (0.57-2.63)
[2020-10-30 10:47] LABS: Syphilis Serology (RPR) Negative (Negative)
[2020-10-30 13:47] LABS: Albumin 57.9 % (55.8-66.1); Total Protein 7.1 g/dL (6.3-8.2)
[2020-10-30 15:36] LABS: ANA Interpretation Negative (Negative)
== END 2020-10-29 01:04 | disposition home or self-care (01) ==
LOC: LOS 01:04
PROVIDERS: PCP Family Medicine; Visit Provider Family Medicine
DX: N18.9 Chronic kidney disease, unspecified (principal); R80.9 Proteinuria, unspecified
CPT/HCPCS: 36415; 87340; 83883; 84165; 86038; 86160; 86592

== ENCOUNTER 2020-10-31 03:01 | Outpatient (CLI) | payer MEDICARE, SELFPAY ==
[2020-11-05 12:08] LABS: Cryoglobulin, S Negative %ppt (Negative)
== END 2020-10-31 03:02 | disposition home or self-care (01) ==
LOC: LBO 03:01
PROVIDERS: PCP Family Medicine; Visit Provider Family Medicine
DX: N18.9 Chronic kidney disease, unspecified (principal); R80.9 Proteinuria, unspecified
CPT/HCPCS: 36415; 82595

== ENCOUNTER 2020-11-02 08:36 | Outpatient (REF) | payer MEDICARE, SELFPAY ==
[2020-11-04 15:18] LABS: Albumin, Urine % 72.7 %; Globulins, Urine % 27.3 %; Immunotyping, Urine (See Note); Total Protein Urine 263 mg/dL (See Note); Total Protein, Urine 24hrs 1841 mg/24hrs (<150); Urine Volume 700 mL
== END 2020-11-02 08:37 | disposition home or self-care (01) ==
LOC: LBN 08:36
PROVIDERS: PCP Family Medicine; Visit Provider Family Medicine
DX: R80.9 Proteinuria, unspecified (principal); N18.9 Chronic kidney disease, unspecified
CPT/HCPCS: 84156; 84166; 86335; 81050

== ENCOUNTER 2020-11-05 01:50 | Outpatient (CLI) | payer MEDICARE, SELFPAY ==
[2020-11-05 11:57] LABS: Source Nasal/Nares
[2020-11-05 14:25] LABS: COVID-19 PCR Negative (Negative)
== END 2020-11-05 01:51 | disposition home or self-care (01) ==
LOC: LBO 01:50
PROVIDERS: PCP Family Medicine; Visit Provider Urology
DX: Z20.822 Contact with and (suspected) exposure to COVID-19 (principal); Z01.818 Encounter for other preprocedural examination
CPT/HCPCS: 87635

== ENCOUNTER 2020-11-07 07:53 | Day surgery (SDC) | payer MEDICARE, SELFPAY ==
[2020-11-07 08:10] VITALS: BP 159/77; PULSE 57; RESP 16; TEMP 36.8; O2SAT 98
[2020-11-07] MEDS: Lactated Ringers 1,000 ML 80 ML IV (08:32)
--- NOTE | 2020-11-07 08:32 | ANES.PREOP_ITS ---
General Info Date of Service Date Performed: 11/07/20 Height: 6 ft 3 in Weight: 98.4 kg Body Mass Index (BMI): 27.1 Surgical Procedure: Operation Date: 11/07/20 09:40 Proposed Procedures Side Surgeon p Transurethral Resection Bladder Tumo Curly Vieyra MD s Bladder Installation mitomcycin c Curly Vieyra MD Meds Allergies and Home Medications Allergies Allergy/AdvReac Type Severity Reaction Status Date / Time No Known Allergies Allergy Unverified 11/07/20 08:06 Home Medication Medication Instructions Recorded nitroglycerin 0.4 mg sublingual 0.4 mg SL ONCE #20 tab 01/03/18 tablet magnesium chloride [Mag 64] 64 mg PO BID #60 tab 02/11/18 ascorbic acid (vitamin C) [Vitamin 500 mg PO DAILY 03/03/18 C] aspirin 81 mg tablet,delayed 81 mg PO DAILY #90 tab 06/14/18 release inhalational spacing device #1 each 05/15/19 metoprolol tartrate 25 mg tablet 25 mg PO HS #90 tab 05/01/20 metoprolol tartrate 50 mg tablet 50 mg PO DAILY #90 tab 05/01/20 simvastatin 40 mg tablet 40 mg PO DAILY #90 tab-cap 05/23/20 albuterol sulfate 90 mcg/actuation 2 puff IH Q4H PRN #18 gm 10/09/20 aerosol inhaler amlodipine 5 mg tablet 5 mg PO DAILY #90 tab 10/09/20 budesonide-formoterol HFA 80 2 puff INHALATION BID #1 each 10/09/20 mcg-4.5 mcg/actuation aerosol inhaler furosemide 40 mg tablet 40 mg PO DAILY PRN tab 10/09/20 hyoscyamine sulfate 0.125 mg 0.125 mg PO Q6H PRN #20 tab 10/09/20 sublingual tablet lisinopril 40 mg tablet 40 mg PO DAILY #90 tab-cap 10/09/20 metformin 1,000 mg tablet 1,000 mg PO BID #180 tab-cap 10/09/20 Current Visit Medications: Current Medications Generic Name Dose Route Start Last Admin Trade Name Freq PRN Reason Stop Dose Admin Ringer's Solution 1,000 mls @ 80 mls/hr 11/07/20 06:00 IV 12/06/20 23:59 INFUSION WILLY Cefazolin Sodium 2,000 mg/ 100 mls @ 200 mls/hr 11/07/20 06:00 Sodium Chloride IVPB 11/07/20 16:00 PREOP WILLY IV Miscellaneous Supplies 1 each 11/07/20 06:00 Iv Access IV 12/06/20 23:59 DIRECTED WILLY Sodium Chloride 0 ml 11/07/20 06:00 Normal Saline Flush 10 Ml Syr IV 12/06/20 23:59 PRN PRN Sodium Chloride 0 ml 11/07/20 06:00 Normal Saline 10 Ml Vial IJ 12/06/20 23:59 DIRECTED PRN Sterile Water 0 ml 11/07/20 06:00 Water,Injection,Sterile 10 Ml Vial IJ 12/06/20 23:59 DIRECTED PRN PFSH Active Problems Active Problems: Problem Status Onset Code Essential hypertension 01/03/13 I10 Hyperlipidemia 03/28/12 E78.5 Pulmonary nodule seen on imaging study 12/10/14 R91.1 CHF (congestive heart failure) I50.9 Bundle branch block, right I45.10 Tobacco abuse Z72.0 History of coronary artery bypass surgery ~2011 Z95.1 Alcohol abuse 01/04/13 F10.10 Bilateral wrist pain M25.531, M25.532 Bilateral hand pain M79.641, M79.642 Plantar callus L84 Poor dentition K08.9 Multiple atypical skin moles D22.9 Diabetic peripheral neuropathy associated with type 2 diabetes mellitus E11.42 Metabolic acidosis E87.2 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 stattes no chest pain or pressure Chronic obstructive lung disease (03/28/12) Diabetes Gout (07/04/14) Hyperlipidemia Hypertension Olecranon bursitis of left elbow (07/04/14) PFO (patent foramen ovale) Surgical History Surgical History H/O transurethral destruction of bladder lesion S/P CABG x 4 (~2011) Tobacco Smoking/Tobacco Use Status: Current every day Tobacco Type: cigarettes Smoking packs per day: 1 Smoking cigarettes per day: 20.0 Years smoked: 40 Smoking pack- years: 40.00 Tobacco: How many years used: 40 Counseling given: provider counseling Alcohol Alcohol Intake: current Alcohol intake frequency: a few times a week Alcohol type: beer Substance Use Substance use: Never Substance use type: does not use Vital Signs and Lab Results Vital Signs Most Recent Vital Signs in EMR: Most Recent Vital Signs Temp Pulse Resp BP Pulse Ox 36.8 C 57 L 16 159/77 H 98 11/07/20 08:10 11/07/20 08:10 11/07/20 08:10 11/07/20 08:10 11/07/20 08:10 Point of Care Results Point of Care Results: Finger Stick Blood Glucose 104 11/07/20 08:27 Lab Results Blood Type / Crossmatch: No Data to Display Complete Blood Count: White Blood Count 9.43 10^3/uL (4.4-10.8) 10/14/20 13:25 10/14/20 Red Blood Count 3.99 10^6/uL (4.36-5.78) L 10/14/20 13:25 10/14/20 Hemoglobin 12.4 g/dL (13.5-17.5) L 10/14/20 13:25 10/14/20 Hematocrit 37.8 % (40.0-50.0) L 10/14/20 13:25 10/14/20 Platelet Count 216 10^3/uL (130-400) 10/14/20 13:25 10/14/20 Complete Metabolic Panel: Sodium Level 144 mmol/L (136-145) 10/14/20 13:25 10/14/20 Potassium Level 4.3 mmol/L (3.5-5.1) 10/14/20 13:25 10/14/20 Chloride Level 109 mmol/L (98-107) H 10/14/20 13:25 10/14/20 Carbon Dioxide Level 19.8 mmol/L (21.0-32.0) L 10/14/20 13:25 10/14/20 Blood Urea Nitrogen 24 mg/dL (7-18) H 10/14/20 13:25 10/14/20 Creatinine 1.5 mg/dL (0.70-1.30) H 10/14/20 13:25 10/14/20 Estimated GFR/1.73 m2 46.40 (mL/min/1.73m2) 10/14/20 13:25 10/14/20 Magnesium Level 1.8 mg/dL (1.8-2.4) 10/22/20 11:27 10/22/20 Calcium Level 8.8 mg/dL (8.5-10.1) 10/14/20 13:25 10/14/20 Albumin 3.6 g/dL (3.4-5.0) 10/14/20 13:25 10/14/20 Glucose Level 153 mg/dL (74-106) H 10/14/20 13:25 10/14/20 Hemoglobin A1c 5.7 % (4.5-5.7) 10/09/20 09:26 10/09/20 Liver Function Panel: Alanine Aminotransferase (ALT/SGPT) 24 U/L (16-63) 10/14/20 13:25 10/14/20 Aspartate Amino Transf (AST/SGOT) 12 U/L (15-37) L 10/14/20 13:25 10/14/20 Coagulation Panel: No Data to Display Cardiac Panel: No Data to Display Arterial Blood Gas: No Data to Display Venous Blood Gas: No Data to Display Pancreas Panel: No Data to Display Thyroid Panel: Thyroid Stimulating Hormone (TSH) 0.03 uIU/mL (0.36-3.74) L 10/14/20 13:25 10/14/20 Infectious Disease: Coronavirus (COVID-19)(PCR) Negative (Negative) 11/05/20 10:53 11/05/20 Coronavirus 2019 Source Nasal/Nares 11/05/20 10:53 11/05/20 Hepatitis B Surface Antigen Negative (Negative) 10/29/20 10:38 10/29/20 Hepatitis C Antibody Negative (Negative) 10/14/20 13:25 10/14/20 Syphilis Serology Negative (Negative) 10/29/20 10:38 10/29/20 Blood Cultures: No Data to Display Toxicology Panel: No Data to Display Imaging and Studies Imaging and Studies Stress Test Summary: 2018: small sized, fixed defect involving the apical inferior and mid inferior kitchen suggestive of infarct in RCA territory. LVEF 38% diffuse LV regional wall motion abnormalities. there is severe hypokinesis of the inferior kitchen. Stress EKG is negative. Echocardiogram Summary: 2018: Mild LVH, LVEF 45-50%, severe hypokinesis of the basal-midinferolateral and inferior myocardium. mild MR, LA moderate dilation, RVFXN mildly reduced. RA dilation. small PFO. Pulmonary Function Summary: 10/2020: moderate airflow obstruction with no sig bronchodilator response. reduced diffusion. 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 Anesthesia Assessment and Plan Anesthesia History Personal History: No History of Anesthesia Complications Family History: No Family History of Anesthesia Complications Exercise Tolerance Exercise Tolerance: Metabolic Equivalents>4 Cardiac & Pulmonary Exam Cardiac Exam: Normal S1/S2 Heart Sounds Pulmonary Exam: Clear Bilateral Breath Sounds Airway Exam Known Difficult Airway: No Mallampati Class: 2 Mouth Opening: Normal (> 3cm) Thyromental Distance: Less than 3 cm Neck Range of Motion: Limited ROM Neck Circumference: Normal Teeth Condition: Other (denies loose, but teeth in very poor condition, multiple missing, multiple decayed. ) ASA Classification ASA Score: ASA 3 Emergency Case?: No NPO Status NPO Status: NPO Clears >2 hours, Solids >8 hours Anesthesia Plan Resuscitation Status: Full Code Anesthesia Technique: General Anesthesia Airway Planned: Natural Airway ( vs LMA. ) Monitors Used: Standard Monitors Preoperative Comments:: 70 yo male for TURPT. sig PMHx: HTN (furosemide, lisinopril, metoprolol), bundle branch block, smoker, CAD (CABG 2011, has NTG - hasn't used, ASA), COPD/emphysema (albut - uses rarely/sybicort), CHF, PFO. Previous anesthesia: LMA 5 and GA without airway for TURBT in the past. Has tolerated procedure well.
[2020-11-07 09:04] VITALS: BMI 27.1
--- NOTE | 2020-11-07 09:09 | HPE_ITS ---
Date of service: 11/07/20 Time of Service: 09:09 Assessment and Plan Assessment and plan (1) Bladder cancer: Status: Chronic Assessment and plan: We will resect his visible tumors and instill Mitomycin C into the bladder postoperatively. Qualifiers: Bladder location: overlapping sites Qualified Code(s): C67.8 - Malignant neoplasm of overlapping sites of bladder History of Present Illness History of Present Illness Chief Complaint: Bladder cancer Narrative: his is a 70-year-old gentleman who has a history of urothelial cell carcinoma of the bladder. He was treated with transurethral resection along with intravesical BCG. He has had both maintenance doses of BCG and an induction series. His most recent surveillance cystoscopy demonstrated papillary lesions toward the dome of the bladder. He presents for TUR bladder tumor and instillation of Mitomycin C. He is not seeing any gross hematuria. Review of Systems Narrative: No fevers or chills No vision change or dysphasia Hx diabetes but A1C now normal. No thyroid dysfunction Hx COPD. No cough or hemoptysis Hx CAD and CHF. Had bypass surgery in past. 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 stattes no chest pain or pressure Chronic obstructive lung disease (03/28/12) Diabetes Gout (07/04/14) Hyperlipidemia Hypertension Olecranon bursitis of left elbow (07/04/14) PFO (patent foramen ovale) Surgical History H/O transurethral destruction of bladder lesion S/P CABG x 4 (~2011) Family History (Updated 10/09/20 @ 10:20 by Polly Beverly MD) Father , age 57 Heart disease of [place] at 56 yo Mother , 93 Diabetes Other Hyperlipidemia Hypertension Social History (Updated 10/09/20 @ 10:22 by Polly Beverly MD) Smoking/Tobacco Use Status: Current every day Tobacco Type: cigarettes Smoking packs per day: 1 Smoking cigarettes per day: 20.0 Years smoked: 40 Smoking pack- years: 40.00 Tobacco: How many years used: 40 Counseling given: provider counseling Smoking risk assessment performed?: Yes Alcohol Intake: current Alcohol Intake frequency: a few times a week Alcohol type: beer Drug use: Never Substance use type: does not use Household members: none Housing: apartment Number of Children: 2 number of grandchildren: 4 Education Level: high school 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 Cate/Religious: No preference Special cate needs: No Do you feel safe at home: Yes Do you feel safe in your relationship?: Yes Meds Allergies and Home Medications Allergies Allergy/AdvReac Type Severity Reaction Status Date / Time No Known Allergies Allergy Unverified 11/07/20 08:06 Home Medications Medication Instructions Recorded Confirmed Type nitroglycerin 0.4 mg sublingual 0.4 mg SL ONCE #20 tab 01/03/18 11/05/20 Rx tablet magnesium chloride [Mag 64] 64 mg PO BID #60 tab 02/11/18 11/07/20 Rx ascorbic acid (vitamin C) [Vitamin 500 mg PO DAILY 03/03/18 11/07/20 History C] aspirin 81 mg tablet,delayed 81 mg PO DAILY #90 tab 06/14/18 11/05/20 Rx release inhalational spacing device #1 each 05/15/19 11/05/20 Rx metoprolol tartrate 25 mg tablet 25 mg PO HS #90 tab 05/01/20 11/07/20 Rx metoprolol tartrate 50 mg tablet 50 mg PO DAILY #90 tab 05/01/20 11/07/20 Rx simvastatin 40 mg tablet 40 mg PO DAILY #90 tab-cap 05/23/20 11/07/20 Rx albuterol sulfate 90 mcg/actuation 2 puff IH Q4H PRN #18 gm 10/09/20 11/05/20 Rx aerosol inhaler amlodipine 5 mg tablet 5 mg PO DAILY #90 tab 10/09/20 11/07/20 Rx budesonide-formoterol HFA 80 2 puff INHALATION BID #1 each 10/09/20 11/07/20 Rx mcg-4.5 mcg/actuation aerosol inhaler furosemide 40 mg tablet 40 mg PO DAILY PRN tab 10/09/20 11/05/20 History hyoscyamine sulfate 0.125 mg 0.125 mg PO Q6H PRN #20 tab 10/09/20 11/05/20 Rx sublingual tablet lisinopril 40 mg tablet 40 mg PO DAILY #90 tab-cap 10/09/20 11/07/20 Rx metformin 1,000 mg tablet 1,000 mg PO BID #180 tab-cap 10/09/20 11/07/20 Rx Exam Const General: cooperative and no acute distress Neck Neck: supple Resp Effort & Inspection: normal respiratory effort Auscultation: clear to auscultation bilaterally Cardio Rate: regular rate Rhythm: regular rhythm GI Palpation: soft and no masses Neuro General: patient alert, patient awake and patient oriented x3 Results Last Vital Signs Temp 36.8 C 11/07/20 08:10 Pulse 57 L 11/07/20 08:10 Resp 16 11/07/20 08:10 BP 159/77 H 11/07/20 08:10 Pulse Ox 98 11/07/20 08:10
[2020-11-07] MEDS: ceFAZolin 2,000 MG in Normal Saline 100 ML 200 MG IVPB (10:00)
[2020-11-07] MEDS: Lidocaine 2% Jelly 6 ML SYR (10:16)
--- NOTE | 2020-11-07 10:21 | BLADDER_PTH ---
PATIENT: Al Lilly LOC: [facility] U#:[id number] AGE/SX: 70/M ROOM: RE11/07/[address]: Curly Vieyra MD : 1950 BED: DIS: 11/07/2020 SPEC #: [id number] RECD: 11/07/20 12:54 STATUS: KRIS REQ #: [id number] OMER: 11/07/20 10:[address]: Curly Vieyra DEPT: Surgical Specimen RECD BY: Yuridia Rios ENTERED: 11/07/20 12:55 SP TYPE: Bladder OTHR DR: Polly Beverly Tissues: 1 - BLADDER CURRETTINGS Procedures: GROSS AND MICRO LEVEL 5 Comments: [id number]
--- NOTE | 2020-11-07 10:27 | W.PM.DSUDISC ---
Discharge Plan Disposition Patient Disposition: HOME Condition: Stable Discharge Details Reason For Visit: Bladder cancer Attending Provider: Curly Vieyra Primary Care Provider: Polly Beverly Home Meds and New Rx's Prescriptions: No Action nitroglycerin 0.4 mg tablet, sublingual 0.4 mg SL ONCE Qty: 20 RF: 2 (DME) Aerochamber MV Spacer See Rx Instructions .ROUTE .MEDSUPPLY Qty: 1 RF: 0 albuterol sulfate [Ventolin HFA] 90 mcg/actuation HFA aerosol inhaler 2 puff IH Q4H PRN (Reason: shortness of breath or wheezing) Qty: 18 RF: 6 amlodipine 5 mg tablet 5 mg PO DAILY Qty: 90 RF: 3 budesonide-formoterol [Symbicort] 80-4.5 mcg/actuation HFA aerosol inhaler 2 puff Inhalation BID Qty: 1 RF: 11 hyoscyamine sulfate [Levsin/SL] 0.125 mg tablet, sublingual 0.125 mg PO Q6H PRN (Reason: spasms) Qty: 20 RF: 0 lisinopril 40 mg tablet 40 mg PO DAILY Qty: 90 RF: 4 metformin 1,000 mg tablet 1,000 mg PO BID Qty: 180 RF: 3 Hold Instructions: Home Medication placed on hold at Doctor's office aspirin [Adult Low Dose Aspirin] 81 mg tablet,delayed release (DR/EC) 81 mg PO DAILY Qty: 90 RF: 3 metoprolol tartrate 50 mg tablet 50 mg PO DAILY Qty: 90 RF: 3 metoprolol tartrate 25 mg tablet 25 mg PO HS Qty: 90 RF: 3 simvastatin 40 mg tablet 40 mg PO DAILY Qty: 90 RF: 3 ascorbic acid (vitamin C) [Vitamin C] 500 mg Tablet 500 mg PO DAILY RF: 0 furosemide 40 mg tablet 40 mg PO DAILY PRN (Reason: edema) RF: 0 magnesium chloride [Mag 64] 64 mg Tablet,Delayed Release (Dr/Ec) 64 mg PO BID Qty: 60 RF: 0 Discharge Instructions Additional Instructions: Leave schultz clamped with Mitomycin C in bladder for 1 to 2 hours (unclamp sooner if pt having pain) then unclamp, drain bladder and remove schultz Followup appt @ 2 weeks for pathology results Activity:: Activity as Tolerated Shower/Bathe:: 24 hours Diet:: As Tolerated Discharge Orders Discharge Orders: Discharge Order (Routine); Ordered 11/07/20 Ordered By: Curly Vieyra DS: Diagnosis Discharge Diagnosis (1) Bladder cancer: Status: Chronic
--- NOTE | 2020-11-07 10:31 | W.PM.OP ---
Date of service: 11/07/20 Time of Service: 10:31 Operative Note Operative Note DATE OF PROCEDURE: 11/07/20 PRE-OP DIAGNOSIS: Bladder cancer POST-OP DIAGNOSIS: same PROCEDURE: cystoscopy, TUR bladder tumor and instillation Mitomycin C into bladder SURGEON: Curly Vieyra ANESTHESIA TYPE: Local By Surgeon and General:No Airway Refer to Anesthesia Record ESTIMATED BLOOD LOSS: 25 PATHOLOGY: other (bladder tumor) COMPLICATIONS: None Patient was transported to: same day Patient's condition: stable Implants: 16 Telugu schultz catheter with 10 cc sterile water in balloon Indications: This is a 70-year-old gentleman who has a history of high-grade, noninvasive urothelial cell carcinoma of the bladder. He has been treated with multiple transurethral resections as well as intravesical BCG (both induction and maintenance doses). On his most recent surveillance cystoscopy, we identified recurrent tumors at the dome. He presents for transurethral resection Findings: papillary lesions at dome of bladder Procedure Description: The patient was given preoperative antibiotics. He was brought to the operating room on 11/08/2020. After successful induction of general anesthesia, he was placed in the dorsal lithotomy position. His genitalia was prepped and draped. 2% Xylocaine jelly was instilled into the urethra to act as a local anesthetic. A 24 Telugu resectoscope sheath was then passed through the urethra into the bladder. The bladder was inspected with a 30 degree lens. As with our previous cystoscopy, we identified 3 areas of papillary tumor at the dome. None of these areas were larger than 2 cm in largest dimension. We used bipolar cautery and an Trivedi resectoscope to resect the visible papillary lesions. The base of the resection was cauterized. Hemostasis was achieved. All resected tissue was evacuated and sent to pathology for permanent section. We then passed a 16 Telugu Schultz catheter through the urethra into the bladder. The catheter balloon was inflated with 10 cc of sterile water. The bladder was drained. We then instilled a solution of mitomycin-C 40 mg mixed in 50 mL of saline. We clamped the catheter leaving the solution in the bladder. The patient tolerated this procedure well. We will plan on relieving the mitomycin-C in the bladder for 1 to 2 hours as long as patient is able to tolerate it.
[2020-11-07 10:40] VITALS: BP 124/65; PULSE 61; RESP 16; TEMP 36.7; O2SAT 96
--- NOTE | 2020-11-07 10:41 | W.ANESPOSTOP ---
Postoperative Evaluation Date, Time and Location Date Performed: 11/07/20 Time Performed: 10:41 Patient Location: Day Surgery Unit Vital Signs Most Recent Imported Vital Signs: Most Recent Vital Signs Temp Pulse Resp BP Pulse Ox 36.8 C 57 L 16 159/77 H 98 11/07/20 08:10 11/07/20 08:10 11/07/20 08:10 11/07/20 08:10 11/07/20 08:10 Most Recent Manually Entered Vital Signs: Adult Blood Pressure: 124/65 Heart Rate: 58 Respirations: 12 Oxygen Saturation (%): 96 Temperature (C): 36.7 C Pain Score (0-10 Scale): 0 Pain Score Most Recent Pain Score: Most Recent Pain Score Pain Level 0 11/07/20 08:10 Assessment Mental Status: Awake (Alert & Oriented to Patient Baseline) Airway and Respiratory Function: Patent airway with normal (patient baseline) respiratory exam Cardiovascular Function: Hemodynamically Stable Hydration Status: Adequately Hydrated Nausea & Vomiting: No Nausea or Vomiting Pain: Pt. Denies Any Pain Peripheral Nerve Block: Patient did not receive a nerve block Teaching Patient Teaching: Discussed Safe Use of Pain Medication Given Likely or Known JIMMY
[2020-11-07 10:42] VITALS: BP 124/65; PULSE 58; RESP 12; TEMPC 36.7; O2SAT 96
[2020-11-07 11:11] VITALS: BP 159/85; PULSE 55; RESP 18; TEMP 36.6; O2SAT 91
[2020-11-07] MEDS: Phenazopyridine 200 MG TAB PO (11:22)
== END 2020-11-07 12:04 | disposition home or self-care (01) ==
PROVIDERS: PCP Family Medicine; Visit Provider Urology
PROC: 0TBB8ZZ Excision of Bladder, Via Natural or Artificial Opening Endoscopic (ICD-10-PCS; CPT 52234; principal; 2020-11-07 09:30)
PROC: (CPT 52234; 2020-11-07 09:30)
DX: C67.8 Malignant neoplasm of overlapping sites of bladder (principal)
CPT/HCPCS: 52234; 51720; 88307; J0690; J2001; J9280

== ENCOUNTER 2020-11-22 01:43 | Outpatient (CLI) | payer MEDICARE, SELFPAY ==
[2020-11-22 12:28] LABS: Anion Gap 10.5 mmol/L (3-11); BUN 25 mg/dL (7-18); CO2 23.5 mmol/L (21.0-32.0); CREATININE 1.5 mg/dL (0.70-1.30); Calcium 8.9 mg/dL (8.5-10.1); Chloride 108 mmol/L (98-107); Glucose 101 mg/dL (74-106); Potassium 4.5 mmol/L (3.5-5.1); Sodium 142 mmol/L (136-145)
== END 2020-11-22 01:44 | disposition home or self-care (01) ==
LOC: LOS 01:43
PROVIDERS: PCP Family Medicine; Visit Provider Family Medicine
DX: I12.9 Hypertensive chronic kidney disease with stage 1 through stage 4 chronic kidney disease, or unspecified chronic kidney disease; N18.31 Chronic kidney disease, stage 3a; C67.8 Malignant neoplasm of overlapping sites of bladder; R35.0 Frequency of micturition
CPT/HCPCS: 36415; 80048; 81003; 99213

== ENCOUNTER 2020-11-22 15:19 | Outpatient (REF) | payer MEDICARE, SELFPAY | END 2020-11-22 15:20 | disposition home or self-care (01) | LOC: LBN 15:19 | PROVIDERS: PCP Family Medicine; Visit Provider Urology | DX: N39.0 Urinary tract infection, site not specified (principal) | CPT/HCPCS: 87077; 87086; 87186 ==

== ENCOUNTER 2020-11-27 11:35 | Outpatient (REF) | payer MEDICARE, SELFPAY ==
--- NOTE | 2020-11-27 11:00 | SKI_PTH ---
PATIENT: Al Lilly LOC: [facility] U#:[id number] AGE/SX: 70/M ROOM: RE11/27/[address]: Polly Beverly : 1950 BED: DIS: 11/27/2020 SPEC #: [id number] RECD: 11/27/20 13:02 STATUS: KRIS RODRIGUEZ #: [id number] OMER: 11/27/20 11:[address]: Polly Beverly DEPT: Surgical Specimen RECD BY: Yuridia Rios Tissues: 1 - SKIN BIOPSY(SHAVE/PUNCH) Procedures: SKIN LEVEL 4 Comments: [id number]
== END 2020-11-27 11:36 | disposition home or self-care (01) ==
LOC: LBN 11:35
PROVIDERS: PCP Family Medicine; Visit Provider Family Medicine
DX: D22.5 Melanocytic nevi of trunk (principal)
CPT/HCPCS: 88305

== ENCOUNTER 2021-02-25 02:36 | Outpatient (CLI) | payer MEDICARE, SELFPAY ==
[2021-02-25 10:08] LABS: Hemoglobin A1C 6.3 % (<5.7)
[2021-02-25 11:05] LABS: COMMENT (LAB VIEW ONLY) 71.25 mg/dL
[2021-02-25 11:12] LABS: Anion Gap 11.7 mmol/L (3-11); BUN 31 mg/dL (7-18); CO2 21.3 mmol/L (21.0-32.0); CREATININE 1.5 mg/dL (0.70-1.30); Calcium 8.9 mg/dL (8.5-10.1); Chloride 107 mmol/L (98-107); Glucose 117 mg/dL (74-106); Potassium 4.6 mmol/L (3.5-5.1); Sodium 140 mmol/L (136-145)
== END 2021-02-25 02:37 | disposition home or self-care (01) ==
LOC: LBO 02:36
PROVIDERS: PCP Family Medicine; Visit Provider Family Medicine
DX: E11.22 Type 2 diabetes mellitus with diabetic chronic kidney disease (principal); I12.9 Hypertensive chronic kidney disease with stage 1 through stage 4 chronic kidney disease, or unspecified chronic kidney disease; N18.31 Chronic kidney disease, stage 3a
CPT/HCPCS: 36415; 80048; 82043; 82570; 83036

== ENCOUNTER → 2021-02-28 12:44 | Outpatient (BNVA) | payer MEDICARE, SELFPAY | PROVIDERS: PCP Family Medicine; Referring Provider Family Medicine; Visit Provider Urology | DX: R30.0 Dysuria (principal); C67.8 Malignant neoplasm of overlapping sites of bladder | CPT/HCPCS: 52000; 81003 ==

== ENCOUNTER 2021-02-28 18:50 | Outpatient (REF) | payer MEDICARE, SELFPAY | END 2021-02-28 18:51 | disposition home or self-care (01) | LOC: LBN 18:50 | PROVIDERS: PCP Family Medicine; Visit Provider Urology | DX: R30.0 Dysuria (principal) | CPT/HCPCS: 87077; 87086; 87186 ==

== ENCOUNTER 2021-05-26 02:55 | Outpatient (CLI) | payer MEDICARE, SELFPAY ==
[2021-05-26 13:50] LABS: Hemoglobin A1C 6.6 % (<5.7)
[2021-05-26 14:45] LABS: ALT 20 U/L (16-63); AST 13 U/L (15-37); Albumin 3.5 g/dL (3.4-5.0); Alkaline Phosphatase 111 U/L (46-116); Anion Gap 10.8 mmol/L (3-11); BUN 33 mg/dL (7-18); Bilirubin, Total 0.3 mg/dL (0.2-1.0); CO2 22.2 mmol/L (21.0-32.0); CREATININE 1.5 mg/dL (0.70-1.30); Calcium 8.8 mg/dL (8.5-10.1); Chloride 109 mmol/L (98-107); Estimated GFR 46.27 (mL/min/1.73m2); Glucose 130 mg/dL (74-106); Potassium 4.3 mmol/L (3.5-5.1); Sodium 142 mmol/L (136-145); Total Protein 7.1 g/dL (6.4-8.2)
== END 2021-05-26 02:56 | disposition home or self-care (01) ==
LOC: LBO 02:55
PROVIDERS: PCP Family Medicine; Visit Provider Family Medicine
DX: E11.42 Type 2 diabetes mellitus with diabetic polyneuropathy (principal); E11.22 Type 2 diabetes mellitus with diabetic chronic kidney disease; I12.9 Hypertensive chronic kidney disease with stage 1 through stage 4 chronic kidney disease, or unspecified chronic kidney disease; E66.9 Obesity, unspecified
CPT/HCPCS: 36415; 80053; 83036

== ENCOUNTER → 2021-05-30 12:39 | Outpatient (BNVA) | payer MEDICARE, SELFPAY | PROVIDERS: PCP Family Medicine; Visit Provider Urology | DX: N39.0 Urinary tract infection, site not specified (principal); C67.8 Malignant neoplasm of overlapping sites of bladder | CPT/HCPCS: 81003; 99214 ==

== ENCOUNTER 2021-05-30 18:43 | Outpatient (REF) | payer MEDICARE, SELFPAY | END 2021-05-30 18:44 | disposition home or self-care (01) | LOC: LBN 18:43 | PROVIDERS: PCP Family Medicine; Visit Provider Urology | DX: R31.9 Hematuria, unspecified (principal); C67.9 Malignant neoplasm of bladder, unspecified | CPT/HCPCS: 87077; 87086; 87186 ==

== ENCOUNTER → 2021-06-10 10:44 | Outpatient (BNVA) | payer MEDICARE, SELFPAY | PROVIDERS: PCP Family Medicine; Referring Provider Family Medicine; Visit Provider Urology | DX: C67.8 Malignant neoplasm of overlapping sites of bladder (principal); N39.0 Urinary tract infection, site not specified | CPT/HCPCS: 52000; 81003 ==

== ENCOUNTER → 2021-06-16 10:15 | Outpatient (BNVA) | payer MEDICARE, SELFPAY | PROVIDERS: PCP Family Medicine; Referring Provider Family Medicine; Visit Provider Surgery | DX: D22.5 Melanocytic nevi of trunk (principal); L98.9 Disorder of the skin and subcutaneous tissue, unspecified | CPT/HCPCS: 11402; 99242 ==

== ENCOUNTER 2021-06-16 11:49 | Outpatient (REF) | payer MEDICARE, SELFPAY ==
--- NOTE | 2021-06-16 10:45 | SKI_PTH ---
PATIENT: Al Lilly LOC: [facility] U#:[id number] AGE/SX: 71/M ROOM: RE06/16/[address]: Radha Baum : 1950 BED: DIS: 06/16/2021 SPEC #: [id number] RECD: 06/16/21 12:51 STATUS: KRIS RODRIGUEZ #: [id number] OMER: 06/16/21 10:[address]: Radha Baum DEPT: Surgical Specimen RECD BY: Yuridia Rios ENTERED: 06/16/21 12:52 SP TYPE: DESTIN RODRIGUEZ DR: Polly Beverly Tissues: 1 - SKIN BIOPSY(SHAVE/PUNCH) Procedures: SKIN LEVEL 4 Comments: [id number]
== END 2021-06-16 11:50 | disposition home or self-care (01) ==
LOC: LBN 11:49
PROVIDERS: PCP Family Medicine; Visit Provider Surgery
DX: D22.5 Melanocytic nevi of trunk (principal); L90.5 Scar conditions and fibrosis of skin
CPT/HCPCS: 88305

== ENCOUNTER → 2021-06-26 12:42 | Outpatient (BNVA) | payer MEDICARE, SELFPAY | PROVIDERS: PCP Family Medicine; Referring Provider Family Medicine; Visit Provider Surgery | DX: D22.5 Melanocytic nevi of trunk (principal); L98.9 Disorder of the skin and subcutaneous tissue, unspecified ==

== ENCOUNTER 2021-09-01 01:29 | Outpatient (CLI) | payer MEDICARE, SELFPAY ==
[2021-09-01 12:45] LABS: Abs Immature Grans 0.03 10^3/uL (0.0-0.06); Absolute Basophil Count 0.04 10^3/uL (0.0-0.2); Absolute Eosinophil Count 0.25 10^3/uL (0.0-0.7); Absolute Lymphocyte Count 1.94 10^3/uL (1.2-3.4); Absolute Monocyte Count 0.87 10^3/uL (0.1-0.8); Absolute Neutrophil Count 5.04 10^3/uL (1.2-6.7); Basophils % 0.5; Eosinophils % 3.1; HCT 33.7 % (40.0-50.0); HGB 10.8 g/dL (13.5-17.5); Immature Grans % 0.4; Lymphocytes % 23.7; MCH 30.3 pg (27.0-33.0); MCV 95 fL (80-95); Monocytes % 10.6; Neutrophils % 61.7; Platelet Count 215 10^3/uL (130-400); RBC 3.56 10^6/uL (4.36-5.78); RDW 15.5 % (11.8-14.1); RDW-SD 54.4 fL; WBC 8.17 10^3/uL (4.4-10.8)
[2021-09-01 13:10] LABS: ALT 20 U/L (16-63); AST 19 U/L (15-37); Albumin 3.5 g/dL (3.4-5.0); Alkaline Phosphatase 102 U/L (46-116); Anion Gap 11.6 mmol/L (3-11); BUN 40 mg/dL (7-18); Bilirubin, Total 0.5 mg/dL (0.2-1.0); CO2 18.4 mmol/L (21.0-32.0); Calcium 8.8 mg/dL (8.5-10.1); Chloride 110 mmol/L (98-107); Glucose 99 mg/dL (74-106); Potassium 4.5 mmol/L (3.5-5.1); Sodium 140 mmol/L (136-145); Total Protein 7.2 g/dL (6.4-8.2)
[2021-09-01 14:06] LABS: Hemoglobin A1C 5.8 % (<5.7)
[2021-09-01 14:47] LABS: COMMENT (LAB VIEW ONLY) 98.62 mg/dL
[2021-09-01 14:57] LABS: Microalb ug/mg Crea 683.9 ug/mg Cr
[2021-09-05 10:42] LABS: Lab Add On Test DONE
[2021-09-05 11:10] LABS: TSH 0.05 uIU/mL (0.36-3.74)
[2021-09-05 12:54] LABS: Bilirubin Negative (Negative); Blood Small (Negative); Clarity Cloudy (Clear); Glucose Negative (Negative); Ketones Negative (Negative); Leukocyte Esterase Moderate (Negative); Nitrite Negative (Negative); Urobilinogen 0.2 EU/dL (Up TO 0.2); pH 5.5 (5-8)
[2021-09-05 13:08] LABS: Bacteria Moderate HPF (Negative); C & S Indicated? Yes; Casts Negative LPF (Negative); Crystals Negative HPF (Negative); Epithelial Cells Rare HPF (Negative); Mucus Negative (Negative); RBC 0-2 HPF (0-2); WBC >50 HPF (0-5)
== END 2021-09-01 01:30 | disposition home or self-care (01) ==
LOC: LOS 01:29
PROVIDERS: PCP Family Medicine; Visit Provider Family Medicine
DX: E11.22 Type 2 diabetes mellitus with diabetic chronic kidney disease (principal); I12.9 Hypertensive chronic kidney disease with stage 1 through stage 4 chronic kidney disease, or unspecified chronic kidney disease; N18.31 Chronic kidney disease, stage 3a; Z00.00 Encounter for general adult medical examination without abnormal findings; E11.42 Type 2 diabetes mellitus with diabetic polyneuropathy; E11.9 Type 2 diabetes mellitus without complications; R94.6 Abnormal results of thyroid function studies; N39.0 Urinary tract infection, site not specified; R30.0 Dysuria
CPT/HCPCS: 36415; 80053; 87077; 81003; 81015; 82043; 82570; 83036; 84436; 84439; 84443; 85025; 87086; 87186

== ENCOUNTER 2021-09-07 14:31 | Emergency (ER) | payer MEDICARE, SELFPAY ==
[2021-09-07] VITALS (21 sets, daily range): BP systolic 151–177; BP diastolic 50–65; PULSE 48–60; RESP 15–41; TEMP 36.5–36.6; O2SAT 95–98
--- NOTE | 2021-09-07 14:30 | RT.EKG_ITS ---
APPROVED REPORT Exam: Resting ECG Reason for Exam: chest pain Patient Location: E HR:56 bpm ECG Measurements Heart Rate 56 AXIS MA 257 P -41 QRSd 149 QRS -75 QT 487 T 63 QTc 472 Conclusion Sinus bradycardia...rate< 60 Prolonged MA interval...MA >220, V-rate 50- 90 Right bundle branch block...QRSd>120, terminal axis(90,270) Left ventricular hypertrophy...multiple LVH criteria Inferior infarct, old...Q >35mS, II III aVF sinus bradycardia, left axis, RBBB, poor baseline
--- NOTE | 2021-09-07 14:45 | DI.RAD_ITS ---
Exam(s) XR PORTABLE CHEST AP EXAM: XR PORTABLE CHEST AP CLINICAL HISTORY: chest pain TECHNIQUE: 2D digital imaging was performed of the chest. One image was obtained. An AP view was ob tained. COMPARISON: CR XR PORTABLE CHEST AP from 02/10/2018 FINDINGS: MEDIASTINUM: Normal. HEART: Normal. PULMONARY VASCULATURE: Normal. LUNGS: No focal consolidating infiltrates are seen. PLEURAL SPACE: No pleural effusion or pneumothorax. BONE:Within normal limits for the patient's age. There are old right rib fracture deformities. Nino al wires are in place. Surgical clips are seen in the mediastinum. OTHER FINDINGS:Normal. IMPRESSION: No acute pulmonary findings. DATA REPOSITORY: RADIATION DOSE DELIVERED:
[2021-09-07] MEDS: Aspirin 81 MG CHEW 324 MG CH (15:01)
--- NOTE | 2021-09-07 15:06 | ED.GENADUL_ITS ---
Discharge Plan Disposition Patient Disposition: HOME Condition: Improving Discharge Details Chief Complaint: Chest Pain Clinical Impression: Chest pain Primary Care Provider: Polly Beverly ED Provider: Billy Mosquera Home Meds and New Rx's Prescriptions: No Action atorvastatin 40 mg tablet 40 mg PO QHS Qty: 90 3RF (DME) blood-glucose meter [OneTouch Ultra2 Meter] Kit See Rx Instructions .ROUTE .MEDSUPPLY Qty: 1 0RF Rx Instructions: As directed (DME) lancets [OneTouch Delica Plus Lancet] 30 gauge misc See Rx Instructions .ROUTE .MEDSUPPLY Qty: 100 0RF Rx Instructions: As directed (DME) OneTouch Ultra Test Strip See Rx Instructions .ROUTE .MEDSUPPLY Qty: 100 3RF Rx Instructions: As directed - test daily nitroglycerin 0.4 mg tablet, sublingual 0.4 mg SL ONCE Qty: 20 2RF Rx Instructions: 1 tab SL q. 5-10 minutes as needed for chest pain. No relief after 3 seek emergency care/call 911. glimepiride 2 mg tablet 2 mg PO DAILY PRN (Reason: hyperglycemia) Qty: 30 1RF (DME) Aerochamber MV Spacer See Rx Instructions .ROUTE .MEDSUPPLY Qty: 1 0RF Rx Instructions: As directed albuterol sulfate [Ventolin HFA] 90 mcg/actuation HFA aerosol inhaler 2 puff IH Q4H PRN (Reason: shortness of breath or wheezing) Qty: 18 6RF budesonide-formoterol [Symbicort] 80-4.5 mcg/actuation HFA aerosol inhaler 2 puff Inhalation BID Qty: 1 11RF lisinopril 40 mg tablet 40 mg PO DAILY Qty: 90 4RF aspirin [Adult Low Dose Aspirin] 81 mg tablet,delayed release (DR/EC) 81 mg PO DAILY Qty: 90 3RF Label Comments: 10/30/19 Pt states he no longer takes. PG metoprolol tartrate 50 mg tablet 50 mg PO DAILY Qty: 90 3RF metoprolol tartrate 25 mg tablet 25 mg PO HS Qty: 90 3RF Rx Instructions: 25mg at night, 50 mg in the morning amlodipine 5 mg tablet 10 mg PO DAILY Qty: 90 3RF ascorbic acid (vitamin C) [Vitamin C] 500 mg Tablet 500 mg PO DAILY Mag 64 64 mg Tablet,Delayed Release (Dr/Ec) 64 mg PO BID Qty: 60 0RF Discharge Instructions Instructions: Chest Pain (ED) Additional Instructions: Please follow-up with cardiology and your primary care physician. Please return to the emergency department you develop any chest pain shortness of breath nausea sweating feeling like you are pass out or any other abnormal symptoms Medical Decision Making 71-year-old male history of coronary disease, quadruple bypass 10 years ago presents with exertional chest pain over the past 3 days relieved with rest, no shortness of breath fevers chills cough peripheral edema or systemic signs of in fection, has not taken aspirin today as he is out of his medications. EKG showing right bundle branch block known to have this conduction delay, sinus bradycardia without significant ST segment changes. Resting comfortably chest pain-free now. Given age and comorbidities as well as past history concern for ACS versus pleurisy versus musculoskeletal versus anxiety versus less likely PE versus less likely aortic pathology versus less likely GI. Screening labs chest x-ray EKG trial of nitro. Will administer aspirin. Close reassessment of symptoms disposition pending symptomatology and labs 18: 21 patient resting comfortably no acute distress. Is chest pain-free. Labs unremarkable. BNP elevated however no signs of fluid overload clinically. Patient denies short of breath, has no hypoxia or peripheral edema. Counseled patient that his symptoms could be a sign that a cardiac is imminent and I encouraged patient to stay overnight for further testing including echocardiogram cardiac evaluation. Patient adamant that he wants to return home. We will follow-up with cardiology within the next 24 to 48 hours. Patient given strict return precautions for worsening symptoms. HPI General Date/Time Provider Initiated Documentation: 09/07/21 14:32 . HPI Narrative: 71-year-old male history of coronary artery disease, quadruple bypass 10 years ago presents with exertional chest pain worse for the past 3 days resolved/relieved with rest denies shortness of breath nausea vomiting diaphoresis leg swelling or leg pain. No history of DVT or PE. Is supposed to be on daily aspirin however has not taken it in some time. Related Data Home Medications Medication Instructions Recorded Confirmed magnesium chloride 64 mg 64 mg PO BID #60 tabs 02/11/18 09/07/21 (magnesium chloride) tablet,delayed release (Mag 64) ascorbic acid (vitamin C) 500 mg 500 mg PO DAILY 01/17/19 07/24/22 tablet (Vitamin C) aspirin 81 mg tablet,delayed 81 mg PO DAILY #90 tabs 06/14/18 09/07/21 release (Adult Low Dose Aspirin) inhalational spacing device #1 ea 05/15/19 09/07/21 (Aerochamber MV spacer) albuterol sulfate 90 mcg/actuation 2 puff inhalation Q4H PRN 10/09/20 09/07/21 aerosol inhaler (Ventolin HFA) shortness of breath or wheezing #18 grams budesonide-formoterol HFA 80 2 puff inhalation BID #1 ea 10/09/20 09/07/21 mcg-4.5 mcg/actuation aerosol inhaler (Symbicort) lisinopril 40 mg tablet 40 mg PO DAILY #90 tab-caps 10/09/20 09/07/21 atorvastatin 40 mg tablet 40 mg PO QHS #90 tabs 11/27/20 09/07/21 blood sugar diagnostic (OneTouch #100 ea 02/28/21 09/07/21 Ultra Test strips) blood-glucose meter (Nimble Apps LimitedTouch #1 ea 02/28/21 09/07/21 Ultra2 Meter kit) lancets 30 gauge (OneTouch Delica #100 ea 02/28/21 09/07/21 Plus Lancet) metoprolol tartrate 25 mg tablet 25 mg PO HS #90 tabs 05/06/21 09/07/21 metoprolol tartrate 50 mg tablet 50 mg PO DAILY #90 tabs 05/06/21 09/07/21 amlodipine 5 mg tablet 10 mg PO DAILY #90 tabs 08/05/21 09/07/21 glimepiride 2 mg tablet 2 mg PO DAILY PRN hyperglycemia 09/05/21 09/07/21 #30 tabs nitroglycerin 0.4 mg sublingual 0.4 mg sublingual ONCE CAD #20 tabs 09/05/21 09/07/21 tablet Previous Rx's Medication Instructions Recorded magnesium chloride 64 mg 64 mg PO BID #60 tabs 02/11/18 (magnesium chloride) tablet,delayed release (Mag 64) aspirin 81 mg tablet,delayed 81 mg PO DAILY #90 tabs 06/14/18 release (Adult Low Dose Aspirin) inhalational spacing device #1 ea 05/15/19 (Aerochamber MV spacer) albuterol sulfate 90 mcg/actuation 2 puff inhalation Q4H PRN 10/09/20 aerosol inhaler (Ventolin HFA) shortness of breath or wheezing #18 grams budesonide-formoterol HFA 80 2 puff inhalation BID #1 ea 10/09/20 mcg-4.5 mcg/actuation aerosol inhaler (Symbicort) lisinopril 40 mg tablet 40 mg PO DAILY #90 tab-caps 10/09/20 atorvastatin 40 mg tablet 40 mg PO QHS #90 tabs 11/27/20 blood sugar diagnostic (Nimble Apps LimitedTouch #100 ea 02/28/21 Ultra Test strips) blood-glucose meter (N[employer] Apps LimitedTouch #1 ea 02/28/21 Ultra2 Meter kit) lancets 30 gauge (Nimble Apps LimitedTouch Delica #100 ea 02/28/21 Plus Lancet) metoprolol tartrate 25 mg tablet 25 mg PO HS #90 tabs 05/06/21 metoprolol tartrate 50 mg tablet 50 mg PO DAILY #90 tabs 05/06/21 amlodipine 5 mg tablet 10 mg PO DAILY #90 tabs 08/05/21 glimepiride 2 mg tablet 2 mg PO DAILY PRN hyperglycemia 09/05/21 #30 tabs nitroglycerin 0.4 mg sublingual 0.4 mg sublingual ONCE CAD #20 tabs 09/05/21 tablet Allergies Allergy/AdvReac Type Severity Reaction Status Date / Time No Known Allergies Allergy Verified 09/07/21 14:39 General Stated Complaint: Chest Pain JOSH: 2 Review of Systems Narrative: Review of Systems Constitutional: negative Eyes: negative ENT: negative Cardiovascular: Chest pain Respiratory: negative Gastrointestinal: negative : negative Musculoskeletal: negative Skin: negative Neurologic: negative Psych: negative PFSH All Active Problems (Updated 09/07/21 @ 18:23 by Billy Mosquera MD) Chest pain (Acute) Hyperthyroidism determined by thyroid function test (Acute) Recurrent UTI (urinary tract infection) (Acute) Multiple atypical skin moles (Acute) Onychomycosis (Acute) Essential hypertension (Chronic 01/03/13) Hyperlipidemia (Chronic 03/28/12) Pulmonary nodule seen on imaging study (Acute 12/10/14) lung CT due 10/2021 CHF (congestive heart failure) (Chronic) Bundle branch block, right (Chronic) Tobacco abuse (Acute) 40 pack year hx. Plantar callus (Acute) Poor dentition (Acute) Diabetic peripheral neuropathy associated with type 2 diabetes mellitus (Acute) Hypertension associated with stage 3a chronic kidney disease due to type 2 diabetes mellitus (Acute) Bladder cancer (Chronic ~06/2016) CAD in [place] artery (Chronic ~2011) S/[place] CABG x 4 [place] [facility] [place] Chronic obstructive lung disease (Chronic 03/28/12) Medical History (Updated 09/07/21 @ 18:23 by Billy Mosquera MD) Alcohol abuse (01/04/13) binge drinks 6 pack on Wednesday Gout (07/04/14) Hyperlipidemia Olecranon bursitis of left elbow (07/04/14) PFO (patent foramen ovale) Surgical History (Updated 09/04/21 @ 17:01 by Polly Beverly MD) H/O transurethral destruction of bladder lesion S/P CABG x 4 (~2011) Family History Father , age 57 Heart disease of [place] at 56 yo Mother , 93 Diabetes Other Hyperlipidemia Hypertension Social History Smoking/Tobacco Use Status: Current every day Tobacco Type: cigarettes Smoking packs per day: 1 Smoking cigarettes per day: 20.0 Years smoked: 40 Smoking pack-years: 40.00 Tobacco: How many years used: 40 Quit status: not considering quitting Counseling given: provider counseling Smoking risk assessment performed?: Yes Alcohol Intake: current Alcohol Intake frequency: a few times a week Alcohol type: beer Drug use: Never Substance use type: does not use Household members: none Housing: apartment Number of Children: 2 number of grandchildren: 4 Education Level: high school 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 Cate/Quaker: No preference Special cate needs: No Do you feel safe at home: Yes Do you feel safe in your relationship?: Yes Exam Narrative Exam Narrative: Physical Examination General: alert, awake, cooperative, resting comfortably, no acute distress HEENT: normocephalic, atraumatic; PERRL, EOM intact, conjunctiva normal; no nasal discharge; moist mucous membranes, oral and pharyngeal mucosa normal, tolerating secretions Neck: supple, trachea midline; full ROM Chest: normal to inspection Respiratory: normal respiratory effort, speaking in full sentences, clear to auscultation, no wheezing, rales or rhonchi Cardiac: Bradycardia, regular rhythm, S1S2 intact, no murmurs rubs or gallops GI: abdomen soft, non-tender, non-distended; no palpable mass or hepatosplenomegaly Skin: no lesions, rashes or trauma appreciated Neuro: AAOx3, normal speech, moving all extremities Extremities: No peripheral edema Psych: Appropriate mood and affect Course Vital Signs Vital signs: Vital Signs Temperature 36.5 C 09/07/21 14:34 Pulse 60 09/07/21 14:34 Respiratory Rate 24 09/07/21 14:34 Blood Pressure 177/65 H 09/07/21 14:34 Pulse Oximetry 97 09/07/21 14:34 Temperature 36.5 C 09/07/21 14:34 Temperature Source Skin 09/07/21 14:34 Pulse 60 09/07/21 14:34 Respiratory Rate 24 09/07/21 14:34 Respiratory Effort 09/07/21 14:50 Blood Pressure 177/65 H 09/07/21 14:34 Pulse Oximetry 97 09/07/21 14:34 Oxygen Delivery Method Room Air 09/07/21 14:34 Oxygen Flow Rate 0 09/07/21 14:34 Pain Level 0 09/07/21 14:34
[2021-09-07 15:11] LABS: Abs Immature Grans 0.02 10^3/uL (0.0-0.06); Absolute Basophil Count 0.06 10^3/uL (0.0-0.2); Absolute Eosinophil Count 0.34 10^3/uL (0.0-0.7); Absolute Lymphocyte Count 2.02 10^3/uL (1.2-3.4); Absolute Neutrophil Count 5.78 10^3/uL (1.2-6.7); Basophils % 0.7; Eosinophils % 3.7; HCT 33.2 % (40.0-50.0); HGB 11.1 g/dL (13.5-17.5); Immature Grans % 0.2; Lymphocytes % 22.1; MCH 30.7 pg (27.0-33.0); MCHC 33.4 % (32.0-36.0); MCV 92 fL (80-95); MPV 9.8 fL (8.0-11.0); Monocytes % 9.9; Neutrophils % 63.4; Platelet Count 239 10^3/uL (130-400); RBC 3.61 10^6/uL (4.36-5.78); RDW-SD 50.9 fL; WBC 9.12 10^3/uL (4.4-10.8)
[2021-09-07 15:23] LABS: PTT Activated 24.8 sec (21.0-27.5); Prothrombin Time 10.4 sec (9.3-11.0)
[2021-09-07 15:30] LABS: ALT 21 U/L (16-63); AST 15 U/L (15-37); Albumin 3.5 g/dL (3.4-5.0); Alkaline Phosphatase 100 U/L (46-116); Anion Gap 12.3 mmol/L (3-11); BUN 48 mg/dL (7-18); Bilirubin, Total 0.4 mg/dL (0.2-1.0); CO2 18.7 mmol/L (21.0-32.0); CREATININE 1.9 mg/dL (0.70-1.30); Calcium 8.9 mg/dL (8.5-10.1); Chloride 110 mmol/L (98-107); Estimated GFR 35.22 (mL/min/1.73m2); Glucose 115 mg/dL (74-106); Potassium 4.3 mmol/L (3.5-5.1); Sodium 141 mmol/L (136-145); Total Protein 7.4 g/dL (6.4-8.2)
--- NOTE | 2021-09-07 15:37 | NUR.NOTE ---
pt ambulated to rm 7 from room 3. when asked, he admitted to chest pain from walking Nursing Note:
[2021-09-07 15:49] LABS: NT-proBNP 1509 pg/mL (<300); Troponin I < 50 ng/L (<or=60)
--- NOTE | 2021-09-07 16:06 | DI.VRAD_ITS ---
PROCEDURE INFORMATION: Exam: XR Chest Exam date and time: 09/07/2021 3:30 PM Age: 71 years old Clinical indication: Other: Chest pain TECHNIQUE: Imaging protocol: Radiologic exam of the chest. Views: 1 view. COMPARISON: CT CHEST LUNG CANCER SCREEN 10/16/2020 2:01 PM FINDINGS: Airway: The airways are patent. Lungs: Questionable subtle ground-glass airspace opacities in the bilateral lung bases. Remainder of the lungs are clear. Pleural spaces: No pleural effusions or pneumothorax. Heart/Mediastinum: Heart is of normal size and morphology. Vasculature: Calcified aortic knob. Bones/joints: Sternotomy wires and mediastinal surgical clips are present, consistent with previous coronary arterial bypass grafting. No acute skeletal abnormality or aggressive osseous lesion. IMPRESSION: 1. Questionable early airspace disease in the bilateral lung bases versus artifact from superimposition of bronchovascular structures. Developing acute viral illness should be entertained in the appropriate clinical setting. 2. No other acute thoracic pathology noted. Dictated and Authenticated by: Aries Galvez MD. Ordering:JEY Cervantes MD
--- NOTE | 2021-09-07 16:47 | NUR.NOTE ---
Nursing Note: Mikaela [phone]
--- NOTE | 2021-09-07 17:45 | NUR.NOTE ---
pts chest pain after walking resolved 5 min after he rested. he never did take any of the NTG . [facility]Nursing Note:
[2021-09-07 18:09] LABS: Troponin I < 50 ng/L (<or=60)
--- NOTE | 2021-09-07 18:25 | NUR.NOTE ---
Nursing Note: Referral faxed to [facility] for chest pain, bypass pt/ either WedSeptember 08 or September 09
== END 2021-09-07 18:44 | disposition home or self-care (01) ==
PROVIDERS: Emergency Provider Emergency Medicine; PCP Family Medicine
DX: R07.9 Chest pain, unspecified (principal); R00.1 Bradycardia, unspecified; I45.10 Unspecified right bundle-branch block; R79.89 Other specified abnormal findings of blood chemistry; I25.10 Atherosclerotic heart disease of native coronary artery without angina pectoris; E78.5 Hyperlipidemia, unspecified; Z95.1 Presence of aortocoronary bypass graft; Z79.82 Long term (current) use of aspirin
CPT/HCPCS: 36415; 80053; 93005; 99284; 71045; 83880; 84484; 85025; 85610; 85730; 93010

== ENCOUNTER → 2021-09-26 12:47 | Outpatient (BNVA) | payer MEDICARE, SELFPAY | PROVIDERS: PCP Family Medicine; Referring Provider Family Medicine; Visit Provider Urology | DX: R30.0 Dysuria (principal); N39.0 Urinary tract infection, site not specified | CPT/HCPCS: 81003; 99214 ==

== ENCOUNTER 2021-09-26 16:20 | Outpatient (REF) | payer MEDICARE, SELFPAY | END 2021-09-26 16:21 | disposition home or self-care (01) | LOC: LBN 16:20 | PROVIDERS: PCP Family Medicine; Visit Provider Urology | DX: N39.0 Urinary tract infection, site not specified (principal) | CPT/HCPCS: 87077; 87086; 87186 ==

== ENCOUNTER 2021-10-06 03:59 | Outpatient (CLI) | payer MEDICARE, SELFPAY ==
[2021-10-06 13:22] LABS: Anion Gap 13.6 mmol/L (3-11); BUN 46 mg/dL (7-18); CO2 16.4 mmol/L (21.0-32.0); CREATININE 2.3 mg/dL (0.70-1.30); Calcium 8.9 mg/dL (8.5-10.1); Chloride 110 mmol/L (98-107); Estimated GFR 28.25 (mL/min/1.73m2); FREE T4 1.08 ng/dL (0.76-1.46); Glucose 95 mg/dL (74-106); Potassium 5.2 mmol/L (3.5-5.1); Sodium 140 mmol/L (136-145)
== END 2021-10-06 04:00 | disposition home or self-care (01) ==
LOC: LOS 03:59
PROVIDERS: PCP Family Medicine; Visit Provider Family Medicine
DX: E05.90 Thyrotoxicosis, unspecified without thyrotoxic crisis or storm (principal); R94.6 Abnormal results of thyroid function studies; E11.22 Type 2 diabetes mellitus with diabetic chronic kidney disease; I12.9 Hypertensive chronic kidney disease with stage 1 through stage 4 chronic kidney disease, or unspecified chronic kidney disease; N18.31 Chronic kidney disease, stage 3a
CPT/HCPCS: 36415; 52000; 80048; 81003; 84439

== ENCOUNTER 2021-10-06 11:56 | Outpatient (REF) | payer MEDICARE, SELFPAY ==
--- NOTE | 2021-10-06 11:30 | PAPNONF_PTH ---
PATIENT: Al Lilly LOC: [facility] U#:[id number] AGE/SX: 71/M ROOM: RE10/06/[address]: Curly Vieyra MD : 1950 BED: DIS: 10/06/2021 SPEC #: [id number] RECD: 10/06/21 12:51 STATUS: KRIS REYumiko #: [id number] OMER: 10/06/21 11:[address]: Curly Vieyra DEPT: [facility] Cytology RECD BY: Yuridia Rios ENTERED: 10/06/21 12:51 SP TYPE: MENDEZ RODRIGUEZ DR: Polly Beverly Tissues: 1 - BODY FLUID CYTO(SPUTUM/URINE)[facility] Procedures: BODY FLUID CYTO(URINE/SPUTUM) Comments: [id number] (TOTAL VOLUME = 55 ml) 55 ml URINE & 55 ml CYTOLYT ADDED)
== END 2021-10-06 11:57 | disposition home or self-care (01) ==
LOC: LBN 11:56
PROVIDERS: PCP Family Medicine; Visit Provider Urology
DX: C67.8 Malignant neoplasm of overlapping sites of bladder (principal)
CPT/HCPCS: 88104

== ENCOUNTER 2021-10-29 01:40 | Outpatient (CLI) | payer MEDICARE, SELFPAY ==
[2021-10-29 13:03] LABS: Anion Gap 10.3 mmol/L (3-11); BUN 28 mg/dL (7-18); CO2 22.7 mmol/L (21.0-32.0); CREATININE 1.8 mg/dL (0.70-1.30); Calcium 8.8 mg/dL (8.5-10.1); Chloride 109 mmol/L (98-107); Estimated GFR 39.99 (mL/min/1.73m2); Glucose 100 mg/dL (74-106); Potassium 4.4 mmol/L (3.5-5.1); Sodium 142 mmol/L (136-145)
== END 2021-10-29 01:41 | disposition home or self-care (01) ==
LOC: LOS 01:40
PROVIDERS: PCP Family Medicine; Visit Provider Family Medicine
DX: E11.22 Type 2 diabetes mellitus with diabetic chronic kidney disease (principal); I12.9 Hypertensive chronic kidney disease with stage 1 through stage 4 chronic kidney disease, or unspecified chronic kidney disease; N18.31 Chronic kidney disease, stage 3a
CPT/HCPCS: 36415; 80048

== ENCOUNTER → 2021-11-04 00:49 | Outpatient (CLI) | payer MEDICARE, SELFPAY ==
--- NOTE | 2021-11-04 07:15 | DI.CTLCSR_ITS ---
Exam(s) CT CHEST LUNG CANCER SCREEN EXAM: CT CHEST LUNG CANCER SCREEN CLINICAL HISTORY: Screening for lung cancer,SMOKER, f17.210. TECHNIQUE: Imaging Protocol: Low Dose Technique CONTRAST MATERIAL: None COMPARISON: CT CT CHEST LUNG CANCER SCREEN from 10/16/2020 CR,XR XR PORTABLE CHEST AP from 09/07/2021 FINDINGS: CHEST: LUNGS: There is an unchanged 4 millimeter peripheral nodule in the right upper lobe, unchanged from S eptember 2020. There are no other pulmonary nodules evident. No pleural effusions. Minimal benign- appearing increased markings in the posterior basal segment of the right lower lobe.. There are no c onfluent infiltrates. However, there are very mild diffuse increased markings throughout both lung f ields again noted. There are no pleural effusions. There is mucous noted in the right mainstem bron chus. None in the left mainstem bronchus and trachea. MEDIASTINUM: There is no obvious hilar nor mediastinal adenopathy. CARDIAC: Sternotomy wires and evidence of previous CABG.Caliber thoracic aorta is upper normal. Ramone nary artery calcification noted the. No pericardial effusion. OTHER: OSSEOUS: No significant osseous lesions.Flowing calcification the anterior longitudinal ligament of t he mid-lower thoracic spine noted.. IMPRESSION: 1. Stable 4 mm right upper lobe nodule. No other nodules nor pleural effusions nor intrathoracic sophia nopathy 2. Subtle diffuse bilateral increased lung markings noted. Mucous noted in the right mainstem bronch us. 3. Lung RADS Cat 2 - Benign Appearance / Behavior: Nodules with a very low likelihood of becoming a c linically active cancer due to size or lack of growth Lung-RADS 1.0 CATEGORIES: Category 0 - Prior chest CT exam(s) being located for comparison. Category 1 - Annual screening in 12 months. No nodules or definitely benign nodules. Category 2 - Annual screening in 12 months. Benign appearance. Nodules with low likelihood of becomin g active cancer. Category 3 - 6-month follow-up. Probably benign. Short-term follow-up suggested. Nodules with low lik elihood of becoming active cancer. Category 4A - 3-month follow-up and CT/PET if >8 mm in size. Suspicious finding. Findings which requi re additional testing. Category 4B - Findings which require additional testing and tissue sampling. Category 4X - Category 3 or 4 nodules with additional features or imaging findings that increases the suspicion of malignancy. Modifier S- Potentially clinically significant findings (non lung cancer) RADIATION DOSE DELIVERED: 99.65mGy.cm Total DLP 2.21mGy CTDIvol DATA REPOSITORY: All CT scans at this facility are submitted to the National Radiology Data Registry (NRDR) Dose Index Registry (DIR) with the [employer] (ACR). RADIATION OPTIMIZATION: All CT scans at this facility use at least one of these dose optimization te chniques: automated exposure control; mA and/or kV adjustment per patient size (includes targeted exa ms where dose is matched to clinical indication); or iterative reconstruction.
== END ==
PROVIDERS: PCP Family Medicine; Visit Provider Family Medicine
DX: F17.210 Nicotine dependence, cigarettes, uncomplicated (principal); Z12.2 Encounter for screening for malignant neoplasm of respiratory organs; R91.1 Solitary pulmonary nodule
CPT/HCPCS: 71271

== ENCOUNTER 2021-12-05 01:28 | Outpatient (CLI) | payer MEDICARE, SELFPAY ==
[2021-12-05 12:54] LABS: Anion Gap 11.5 mmol/L (3-11); BUN 39 mg/dL (7-18); CO2 20.5 mmol/L (21.0-32.0); CREATININE 1.9 mg/dL (0.70-1.30); Chloride 108 mmol/L (98-107); Estimated GFR 37.48 (mL/min/1.73m2); Glucose 114 mg/dL (74-106); Potassium 4.6 mmol/L (3.5-5.1); Sodium 140 mmol/L (136-145)
[2021-12-10 11:55] LABS: TSH (W/Ref FT4) 0.03 uIU/mL (0.36-3.74)
[2021-12-10 12:13] LABS: FREE T4 1.21 ng/dL (0.76-1.46)
[2022-01-29 14:32] LABS: Lab Add On Test DONE
== END 2021-12-05 01:29 | disposition home or self-care (01) ==
LOC: LOS 01:29
PROVIDERS: PCP Family Medicine; Visit Provider Family Medicine
DX: E11.22 Type 2 diabetes mellitus with diabetic chronic kidney disease (principal); I12.9 Hypertensive chronic kidney disease with stage 1 through stage 4 chronic kidney disease, or unspecified chronic kidney disease; N18.31 Chronic kidney disease, stage 3a; E05.90 Thyrotoxicosis, unspecified without thyrotoxic crisis or storm
CPT/HCPCS: 36415; 80048; 84439; 84443

== ENCOUNTER → 2021-12-24 00:56 | Outpatient (CLI) | payer MEDICARE, SELFPAY ==
--- NOTE | 2021-12-24 07:15 | DI.US_ITS ---
Exam(s) US RENAL EXAM: US RENAL CLINICAL HISTORY: r/o hydronephrosis,RECURRENT UTI,DIABETES,N39.0. TECHNIQUE: Jaramillo scale, color and spectral Doppler were used. COMPARISON: No exams were available for comparison FINDINGS: Renal size in cm: Right: 11.3. Left: 11.5. Echogenicity: Normal. Hydronephrosis: No. Cyst or mass: No. Nephrolithiasis: No. Other findings: None. Bladder:Suboptimally evaluated as the patient had voided prior to the examination. Ureteral jets: Right: Visualized and unremarkable. Left: Visualized and unremarkable. Prevoid vol:35 cc Postvoid vol:Patient was unable to void following examination. Prostate: 95 cc Renal color flow: Symmetric and within normal limits. IMPRESSION: 1. No evidence of hydronephrosis. 2. Enlarged prostate gland. DATA REPOSITORY:
== END ==
PROVIDERS: PCP Family Medicine; Visit Provider Urology
DX: E11.42 Type 2 diabetes mellitus with diabetic polyneuropathy (principal); N39.0 Urinary tract infection, site not specified; N40.0 Benign prostatic hyperplasia without lower urinary tract symptoms
CPT/HCPCS: 76770

== ENCOUNTER 2021-12-24 11:24 | Outpatient (REF) | payer MEDICARE, SELFPAY ==
[2021-12-24 13:54] LABS: Bilirubin Negative (Negative); Blood Moderate (Negative); Clarity Cloudy (Clear); Glucose Negative (Negative); Ketones Negative (Negative); Leukocyte Esterase Large (Negative); Nitrite Negative (Negative); Specific Gravity >= 1.030 (1.005-1.025); Urobilinogen 0.2 EU/dL (Up TO 0.2)
[2021-12-24 14:00] LABS: Bacteria Rare HPF (Negative); C & S Indicated? C&S Done As Ordered; Casts 0-2 Hyaline LPF (Negative); Crystals Negative HPF (Negative); Epithelial Cells Rare HPF (Negative); Mucus Negative (Negative); WBC >50 HPF (0-5)
== END 2021-12-24 11:25 | disposition home or self-care (01) ==
LOC: LBN 11:24
PROVIDERS: PCP Family Medicine; Visit Provider Nurse Practitioner Gerontology
DX: C67.8 Malignant neoplasm of overlapping sites of bladder (principal); R31.9 Hematuria, unspecified
CPT/HCPCS: 87077; 81003; 81015; 87086; 87186

== ENCOUNTER → 2021-12-30 08:35 | Outpatient (BNVA) | payer MEDICARE, SELFPAY | PROVIDERS: PCP Family Medicine; Referring Provider Family Medicine; Visit Provider Urology | DX: N39.0 Urinary tract infection, site not specified (principal); C67.8 Malignant neoplasm of overlapping sites of bladder | CPT/HCPCS: 81003; 99213 ==

== ENCOUNTER → 2022-01-05 10:39 | Outpatient (BNVA) | payer MEDICARE, SELFPAY | PROVIDERS: PCP Family Medicine; Referring Provider Family Medicine; Visit Provider Urology | DX: Z08 Encounter for follow-up examination after completed treatment for malignant neoplasm (principal); Z85.51 Personal history of malignant neoplasm of bladder; Z85.59 Personal history of malignant neoplasm of other urinary tract organ | CPT/HCPCS: 52000; 81003 ==

== ENCOUNTER 2022-01-05 11:27 | Outpatient (REF) | payer MEDICARE, SELFPAY ==
--- NOTE | 2022-01-05 11:20 | PAPNONF_PTH ---
PATIENT: Al Lilly LOC: [facility] U#:[id number] AGE/SX: 71/M ROOM: RE01/05/[address]: Curly Vieyra MD : 1950 BED: DIS: 01/05/2022 SPEC #: [id number] RECD: 01/05/22 13:37 STATUS: KRIS REQ #: [id number] OMER: 01/05/22 11:[address]: Curly Vieyra DEPT: [facility] Cytology RECD BY: Yuridia Rios ENTERED: 01/05/22 13:37 SP TYPE: MENDEZ RODRIGUEZ DR: Polly Beverly Tissues: 1 - BODY FLUID CYTO(SPUTUM/URINE)[facility] Procedures: BODY FLUID CYTO(URINE/SPUTUM) Comments: [id number] (TOTAL VOLUME = 38 ml) (REFRIGERATE) (38 ml URINE & 38 ml CYTOLYT ADDED)
== END 2022-01-05 11:28 | disposition home or self-care (01) ==
LOC: LBN 11:27
PROVIDERS: PCP Family Medicine; Visit Provider Urology
DX: Z85.51 Personal history of malignant neoplasm of bladder (principal); R35.0 Frequency of micturition
CPT/HCPCS: 88104

== ENCOUNTER 2022-03-05 03:59 | Outpatient (CLI) | payer MEDICARE, SELFPAY ==
[2022-03-05 12:36] LABS: Abs Immature Grans 0.04 10^3/uL (0.0-0.06); Absolute Basophil Count 0.06 10^3/uL (0.0-0.2); Absolute Eosinophil Count 0.35 10^3/uL (0.0-0.7); Absolute Lymphocyte Count 2.21 10^3/uL (1.2-3.4); Absolute Monocyte Count 1.01 10^3/uL (0.1-0.8); Absolute Neutrophil Count 5.98 10^3/uL (1.2-6.7); Basophils % 0.6; Eosinophils % 3.6; HCT 36.7 % (40.0-50.0); HGB 11.6 g/dL (13.5-17.5); Immature Grans % 0.4; Lymphocytes % 22.9; MCH 29.4 pg (27.0-33.0); MCHC 31.6 % (32.0-36.0); MCV 93 fL (80-95); MPV 10.3 fL (8.0-11.0); Monocytes % 10.5; Platelet Count 231 10^3/uL (130-400); RBC 3.95 10^6/uL (4.36-5.78); RDW 13.9 % (11.8-14.1); RDW-SD 46.8 fL; WBC 9.65 10^3/uL (4.4-10.8)
[2022-03-05 13:03] LABS: ALT 16 U/L (16-63); AST 17 U/L (15-37); Albumin 3.6 g/dL (3.4-5.0); Alkaline Phosphatase 112 U/L (46-116); Anion Gap 9.9 mmol/L (3-11); BUN 30 mg/dL (7-18); Bilirubin, Total 0.5 mg/dL (0.2-1.0); CO2 21.1 mmol/L (21.0-32.0); CREATININE 1.8 mg/dL (0.70-1.30); Calcium 8.7 mg/dL (8.5-10.1); Chloride 110 mmol/L (98-107); Estimated GFR 39.99 (mL/min/1.73m2); Glucose 100 mg/dL (74-106); Potassium 4.3 mmol/L (3.5-5.1); Sodium 141 mmol/L (136-145); Total Protein 7.6 g/dL (6.4-8.2)
[2022-03-05 14:45] LABS: Hemoglobin A1C 5.6 % (<5.7)
== END 2022-03-05 04:00 | disposition home or self-care (01) ==
LOC: LOS 03:59
PROVIDERS: PCP Family Medicine; Visit Provider Family Medicine
DX: E11.22 Type 2 diabetes mellitus with diabetic chronic kidney disease (principal); E11.42 Type 2 diabetes mellitus with diabetic polyneuropathy; N18.30 Chronic kidney disease, stage 3 unspecified; I12.9 Hypertensive chronic kidney disease with stage 1 through stage 4 chronic kidney disease, or unspecified chronic kidney disease
CPT/HCPCS: 36415; 80053; 82043; 82570; 83036; 85025

== ENCOUNTER 2022-04-01 01:34 | Outpatient (CLI) | payer MEDICARE, SELFPAY ==
[2022-04-01 12:38] LABS: Anion Gap 12.9 mmol/L (3-11); BUN 32 mg/dL (7-18); CO2 22.1 mmol/L (21.0-32.0); CREATININE 1.8 mg/dL (0.70-1.30); Calcium 9.3 mg/dL (8.5-10.1); Chloride 106 mmol/L (98-107); Estimated GFR 39.75 (mL/min/1.73m2); Glucose 116 mg/dL (74-106); Potassium 4.3 mmol/L (3.5-5.1); Sodium 141 mmol/L (136-145)
== END 2022-04-01 01:35 | disposition home or self-care (01) ==
LOC: LOS 01:35
PROVIDERS: PCP Family Medicine; Visit Provider Family Medicine
DX: E11.42 Type 2 diabetes mellitus with diabetic polyneuropathy (principal); I10 Essential (primary) hypertension
CPT/HCPCS: 36415; 80048

== ENCOUNTER → 2022-06-30 08:26 | Outpatient (BNVA) | payer MEDICARE, SELFPAY | PROVIDERS: PCP Family Medicine; Referring Provider Family Medicine; Visit Provider Urology | DX: Z08 Encounter for follow-up examination after completed treatment for malignant neoplasm (principal); Z85.51 Personal history of malignant neoplasm of bladder | CPT/HCPCS: 52000; 81003 ==

== ENCOUNTER 2022-07-03 02:16 | Outpatient (CLI) | payer MEDICARE, SELFPAY ==
[2022-07-03 12:28] LABS: Hemoglobin A1C 5.8 % (<5.7)
[2022-07-03 12:37] LABS: ALT 15 U/L (16-63); AST 13 U/L (15-37); Albumin 3.5 g/dL (3.4-5.0); Alkaline Phosphatase 113 U/L (46-116); BUN 41 mg/dL (7-18); Bilirubin, Total 0.4 mg/dL (0.2-1.0); CREATININE 1.9 mg/dL (0.70-1.30); Calcium 9.1 mg/dL (8.5-10.1); Chloride 110 mmol/L (98-107); Estimated GFR 37.25 (mL/min/1.73m2); Glucose 114 mg/dL (74-106); Potassium 4.6 mmol/L (3.5-5.1); Sodium 143 mmol/L (136-145); Total Protein 7.4 g/dL (6.4-8.2)
[2022-07-03 12:54] LABS: FREE T4 1.01 ng/dL (0.76-1.46)
== END 2022-07-03 02:17 | disposition home or self-care (01) ==
LOC: LOS 02:17
PROVIDERS: PCP Family Medicine; Visit Provider Family Medicine
DX: I10 Essential (primary) hypertension (principal); E11.42 Type 2 diabetes mellitus with diabetic polyneuropathy; E11.65 Type 2 diabetes mellitus with hyperglycemia; E03.9 Hypothyroidism, unspecified; E05.90 Thyrotoxicosis, unspecified without thyrotoxic crisis or storm; R94.6 Abnormal results of thyroid function studies
CPT/HCPCS: 36415; 80053; 83036; 84439; 84443

== ENCOUNTER 2022-10-15 01:29 | Outpatient (CLI) | payer MEDICARE, SELFPAY ==
[2022-10-15 12:22] LABS: Abs Immature Grans 0.03 10^3/uL (0.0-0.06); Absolute Basophil Count 0.04 10^3/uL (0.0-0.2); Absolute Lymphocyte Count 2.16 10^3/uL (1.2-3.4); Absolute Monocyte Count 0.84 10^3/uL (0.1-0.8); Absolute Neutrophil Count 5.63 10^3/uL (1.2-6.7); Basophils % 0.4; Eosinophils % 2.2; HCT 37.2 % (40.0-50.0); Immature Grans % 0.3; Lymphocytes % 24.3; MCH 29.7 pg (27.0-33.0); MCHC 32.3 % (32.0-36.0); MCV 92 fL (80-95); MPV 9.7 fL (8.0-11.0); Monocytes % 9.4; Neutrophils % 63.4; Platelet Count 228 10^3/uL (130-400); RBC 4.04 10^6/uL (4.36-5.78); RDW 12.9 % (11.8-14.1); RDW-SD 43.5 fL
[2022-10-15 12:31] LABS: ALT 16 U/L (16-63); AST 10 U/L (15-37); Albumin 3.5 g/dL (3.4-5.0); Alkaline Phosphatase 105 U/L (46-116); Anion Gap 12.4 mmol/L (3-11); BUN 39 mg/dL (7-18); Bilirubin, Total 0.4 mg/dL (0.2-1.0); CO2 18.6 mmol/L (21.0-32.0); CREATININE 1.9 mg/dL (0.70-1.30); Calcium 8.9 mg/dL (8.5-10.1); Chloride 108 mmol/L (98-107); Estimated GFR 37.25 (mL/min/1.73m2); Glucose 108 mg/dL (74-106); Potassium 4.7 mmol/L (3.5-5.1); Sodium 139 mmol/L (136-145); Total Protein 7.3 g/dL (6.4-8.2); Uric Acid 7.4 mg/dL (3.5-7.2)
== END 2022-10-15 01:30 | disposition home or self-care (01) ==
LOC: LOS 01:29
PROVIDERS: PCP Family Medicine; Visit Provider Family Medicine
DX: Z00.00 Encounter for general adult medical examination without abnormal findings
CPT/HCPCS: 36415; 80053; 84550; 85025

== ENCOUNTER → 2022-11-05 02:01 | Outpatient (CLI) | payer MEDICARE, SELFPAY ==
--- NOTE | 2022-11-05 10:45 | DI.CTLCSR_ITS ---
Exam(s) CT CHEST LUNG CANCER SCREEN EXAM: CT CHEST LUNG CANCER SCREEN CLINICAL HISTORY: Screening for lung cancer,current smoker, f17.210 TECHNIQUE: Imaging Protocol: Axial computed tomography images with coronal and sagittal reformatted images were created and reviewed COMPARISON: CT CT CHEST LUNG CANCER SCREEN from 11/04/2021 FINDINGS: Tracheobronchial tree: Patent where visualized. Pulmonary parenchyma: Emphysematous changes are seen in the lungs. No architectural distortion. Calc ified granuloma are present. No focal consolidating infiltrates. Lung Nodules: Stable 4 mm noncalcified pulmonary nodule in the lateral aspect of the right upper lobe . There is a stable 6 mm nodule in the medial aspect of the left upper lobe. No new pulmonary nodul es are present. Mediastinum and Jayashree: No dominant adenopathy or fluid collection. The esophagus is unremarkable. Thyroid gland: Unremarkable. Lymph nodes: Unremarkable. Pleura: No effusion or pneumothorax. Heart: The heart is not dilated. Coronary artery calcifications and/or stents are present. No perica rdial effusion. Aorta: Thoracic aorta non-dilated.Atherosclerosis. Upper abdomen: Unremarkable. Soft Tissues: Mild gynecomastia. Bones: Within normal limits. Sternal wires are in place. Old rib fracture deformities. IMPRESSION: Stable pulmonary nodules. No new pulmonary nodules. Lung RADS Cat 2 - Benign Appearance / Behavior: Nodules with a very low likelihood of becoming a clin ically active cancer due to size or lack of growth Lung-RADS 1.0 CATEGORIES: Category 0 - Prior chest CT exam(s) being located for comparison. Category 1 - Annual screening in 12 months. No nodules or definitely benign nodules. Category 2 - Annual screening in 12 months. Benign appearance. Nodules with low likelihood of becomin g active cancer. Category 3 - 6-month follow-up. Probably benign. Short-term follow-up suggested. Nodules with low lik elihood of becoming active cancer. Category 4A - 3-month follow-up and CT/PET if >8 mm in size. Suspicious finding. Findings which requi re additional testing. Category 4B - Findings which require additional testing and tissue sampling. Suspicious finding. Category 4X - Category 3 or 4 nodules with additional features or imaging findings that increases the suspicion of malignancy. Modifier S- Potentially clinically significant finding. (Non lung cancer) RADIATION DOSE DELIVERED: 84.68mGy.cm Total DLP 84.68mGy.cmTotal DLP DATA REPOSITORY: All CT scans at this facility are submitted to the National Radiology Data Registry (NRDR) Dose Index Registry (DIR) with the [employer] (ACR). RADIATION OPTIMIZATION: All CT scans at this facility use at least one of these dose optimization te chniques: automated exposure control; mA and/or kV adjustment per patient size (includes targeted exa ms where dose is matched to clinical indication); or iterative reconstruction.
== END ==
PROVIDERS: PCP Family Medicine; Visit Provider Family Medicine
DX: F17.210 Nicotine dependence, cigarettes, uncomplicated (principal); Z12.2 Encounter for screening for malignant neoplasm of respiratory organs; R91.1 Solitary pulmonary nodule
CPT/HCPCS: 71271

== ENCOUNTER → 2022-12-29 12:45 | Outpatient (BNVA) | payer MEDICARE, SELFPAY | PROVIDERS: PCP Family Medicine; Referring Provider Family Medicine; Visit Provider Urology | DX: C67.8 Malignant neoplasm of overlapping sites of bladder (principal); N39.0 Urinary tract infection, site not specified | CPT/HCPCS: 81002; 99214 ==

== ENCOUNTER 2022-12-29 15:30 | Outpatient (REF) | payer MEDICARE, SELFPAY | END 2022-12-29 15:31 | disposition home or self-care (01) | LOC: LBN 15:30 | PROVIDERS: PCP Family Medicine; Visit Provider Urology | DX: N39.0 Urinary tract infection, site not specified (principal) | CPT/HCPCS: 87077; 87086; 87186 ==

== ENCOUNTER → 2023-01-05 01:48 | Outpatient (CLI) | payer MEDICARE, SELFPAY ==
--- NOTE | 2023-01-05 10:05 | DI.CT_ITS ---
Exam(s) CT ABDOMEN PELVIS WO EXAM: CT ABDOMEN PELVIS WO CLINICAL HISTORY: ?stone, hydronephrosis,BLADDER CA,RECURR UTI,C67.9,N39.0. TECHNIQUE: Imaging Protocol: Axial computed tomography images with coronal and sagittal reformatted images were created and reviewed. COMPARISON: CT RENAL COLIC WO CONTRAST from 05/04/2016 FINDINGS: ABDOMEN: Lung Bases: Sternal wires are in place. Coronary artery calcifications and/or stents are present. T here are calcified granuloma seen in the lung bases. Liver: Normal density. No measurable mass. Parenchymal calcifications are present which likely reflec t granulomatous disease. Gallbladder and biliary tract: No radiodense calculus or biliary ductal dilation. Pancreas: Calcifications are again seen in the pancreas which may reflect sequelae of chronic pancrea titis. No peripancreatic inflammatory changes are seen. Spleen: Normal. Kidneys: Normal size, contour and axis.Bilateral nephrolithiasis. There is no evidence of ureterolit hiasis. There is mild dilatation of both renal collecting systems. No masses seen. Adrenal glands: No mass is seen. Lymph nodes: Within normal limits. Abdominal Aorta: Abdominal portion non-dilated. There is extensive atherosclerosis. PELVIS: Bladder:There is diffuse thickening of the wall of the urinary bladder. There is irregular thickenin g seen anteriorly and inferiorly. Bowel: There is diverticulosis of the colon without evidence of acute diverticulitis. There is no ev idence of bowel wall thickening or bowel obstruction. Appendix is unremarkable. Peritoneal cavity: No ascites, collection or mesenteric inflammatory response. No free air. Reproductive organs: Mildly enlarged. Bones: Within normal limits. The lytic lesion involving the left iliac bone appears unchanged. Soft Tissues: Within normal limits. IMPRESSION: 1. Asymmetric thickening of the anterior and inferior aspect of the urinary bladder. Recurrent or ne w neoplasm should be considered. Cystitis cannot be excluded. 2. Bilateral nephrolithiasis. No evidence of ureterolithiasis. 3. Mild dilatation of both renal collecting systems particularly distally without evidence of calcifi ed stone. Ureteroscopy may be considered for further evaluation. Unexpected findings RADIATION DOSE DELIVERED: Total DLP DATA REPOSITORY: All CT scans at this facility are submitted to the National Radiology Data Registry (NRDR) Dose Index Registry (DIR) with the [employer] (ACR). RADIATION OPTIMIZATION: All CT scans at this facility use at least one of these dose optimization te chniques: automated exposure control; mA and/or kV adjustment per patient size (includes targeted exa ms where dose is matched to clinical indication); or iterative reconstruction.
== END ==
PROVIDERS: PCP Family Medicine; Visit Provider Urology
DX: C67.9 Malignant neoplasm of bladder, unspecified (principal); N20.0 Calculus of kidney
CPT/HCPCS: 74176

== ENCOUNTER → 2023-01-26 12:45 | Outpatient (BNVA) | payer MEDICARE, SELFPAY | PROVIDERS: PCP Family Medicine; Referring Provider Family Medicine; Visit Provider Urology | DX: N39.0 Urinary tract infection, site not specified (principal); C67.8 Malignant neoplasm of overlapping sites of bladder ==

== ENCOUNTER 2023-02-11 00:47 | Outpatient (CLI) | payer MEDICARE, SELFPAY ==
[2023-02-11 12:25] LABS: HCT 36.9 % (40.0-50.0); MCH 30.5 pg (27.0-33.0); MCHC 32.5 % (32.0-36.0); MCV 94 fL (80-95); MPV 10.1 fL (8.0-11.0); Platelet Count 201 10^3/uL (130-400); RBC 3.94 10^6/uL (4.36-5.78); RDW-SD 44.4 fL; WBC 7.59 10^3/uL (4.4-10.8)
[2023-02-11 12:44] LABS: ALT 17 U/L (16-63); AST 13 U/L (15-37); Albumin 3.3 g/dL (3.4-5.0); Alkaline Phosphatase 105 U/L (46-116); Anion Gap 11.1 mmol/L (3-11); BUN 40 mg/dL (7-18); Bilirubin, Total 0.3 mg/dL (0.2-1.0); CO2 18.9 mmol/L (21.0-32.0); CREATININE 2.3 mg/dL (0.70-1.30); Calcium 8.8 mg/dL (8.5-10.1); Chloride 110 mmol/L (98-107); Estimated GFR 29.62 (mL/min/1.73m2); Glucose 101 mg/dL (74-106); Potassium 4.9 mmol/L (3.5-5.1); Sodium 140 mmol/L (136-145); TSH (W/Ref FT4) 0.04 uIU/mL (0.36-3.74); Total Protein 7.5 g/dL (6.4-8.2)
[2023-02-11 13:07] LABS: FREE T4 0.99 ng/dL (0.76-1.46)
[2023-02-11 17:56] LABS: PSA, Screening 1.6 ng/mL (<=6.5)
== END 2023-02-11 00:48 | disposition home or self-care (01) ==
LOC: LOS 00:48
PROVIDERS: PCP Family Medicine; Visit Provider Family Medicine
DX: E03.9 Hypothyroidism, unspecified (principal); E05.90 Thyrotoxicosis, unspecified without thyrotoxic crisis or storm; R94.6 Abnormal results of thyroid function studies; R35.1 Nocturia; Z12.5 Encounter for screening for malignant neoplasm of prostate; E11.22 Type 2 diabetes mellitus with diabetic chronic kidney disease; I12.9 Hypertensive chronic kidney disease with stage 1 through stage 4 chronic kidney disease, or unspecified chronic kidney disease; N18.31 Chronic kidney disease, stage 3a
CPT/HCPCS: 36415; 80053; 84153; 85027; 84439; 84443

== ENCOUNTER 2023-03-29 07:29 | Day surgery (SDC) | payer MEDICARE, SELFPAY ==
[2023-03-29 07:47] VITALS: BP 139/67; PULSE 60; RESP 18; TEMP 36.7; O2SAT 95
--- NOTE | 2023-03-29 08:05 | ANES.PREOP_ITS ---
General Info Date of Service Date Performed: 03/29/23 Height: 6 ft 3 in Weight: 95.6 kg Body Mass Index (BMI): 26.3 Surgical Procedure: Operation Date: 03/29/23 11:55 Proposed Procedure Side Surgeon p Cystoscopy w/ Transurethral Resection Bladder Tumor Curly Vieyra MD Meds Allergies and Home Medications Allergies Allergy/AdvReac Type Severity Reaction Status Date / Time sulfamethoxazole AdvReac Severe Kidney Verified 03/29/23 07:58 [From Bactrim] function distortion trimethoprim [From Bactrim] AdvReac Severe Kidney Verified 03/29/23 07:58 function distortion Home Medication Medication Instructions Recorded ascorbic acid (vitamin C) 500 mg 500 mg PO DAILY 03/03/18 tablet (Vitamin C) inhalational spacing device #1 ea 05/15/19 (Aerochamber MV spacer) blood sugar diagnostic (Financial Transaction ServicesTouch #100 ea 02/28/21 Ultra Test strips) blood-glucose meter ([employer] #1 ea 02/28/21 Ultra2 Meter kit) lancets 30 gauge (OneTouch Delica #100 ea 02/28/21 Plus Lancet) nitroglycerin 0.4 mg sublingual 0.4 mg sublingual ONCE CAD #20 tabs 09/05/21 tablet furosemide 40 mg tablet 40 mg PO DAILY PRN edema #30 tabs 04/08/22 metoprolol tartrate 25 mg tablet 25 mg PO HS #90 tabs 05/18/22 metoprolol tartrate 50 mg tablet 50 mg PO DAILY #90 tabs 05/21/22 albuterol sulfate 90 mcg/actuation 2 puff inhalation Q4H PRN 07/10/22 aerosol inhaler (Ventolin HFA) shortness of breath or wheezing #18 grams amlodipine 10 mg tablet 10 mg PO DAILY #90 tabs 07/10/22 colchicine 0.6 mg tablet 1.2 mg (2 x 0.6 mg) PO .COMPLEX 07/10/22 PRN gout #20 tabs atorvastatin 40 mg tablet 40 mg PO QHS #90 tabs 10/20/22 lisinopril 40 mg tablet 40 mg PO DAILY #90 tab-caps 10/20/22 umeclidinium 62.5 mcg-vilanterol 1 inh inhalation DAILY #180 ea 10/20/22 25 mcg/actuation powdr for inhalation allopurinol 100 mg tablet 50 mg (2 x 100 mg) PO Q2D #45 02/17/23 tabs Current Visit Medications: Current Medications Generic Name Dose Route Start Last Admin Trade Name Oj PRN Reason Stop Dose Admin Ringer's Solution 1,000 mls @ 80 mls/hr 03/29/23 06:00 IV 03/29/23 23:59 INFUSION WILLY Ceftriaxone Sodium/Dextrose 1 gm in 50 mls @ 100 mls/hr 03/29/23 06:00 Rocephin IVPB 03/29/23 23:59 PREOP WILLY IV Miscellaneous Supplies 1 each 03/29/23 06:00 Iv Access IV 03/29/23 23:59 DIRECTED WILLY Sodium Chloride 0 ml 03/29/23 06:00 Normal Saline Flush 10 Ml Syr IV 03/29/23 23:59 PRN PRN Sodium Chloride 0 ml 03/29/23 06:00 Normal Saline 10 Ml Vial IJ 03/29/23 23:59 DIRECTED PRN Sterile Water 0 ml 03/29/23 06:00 Water,Injection,Sterile 10 Ml Vial IJ 03/29/23 23:59 DIRECTED PRN PFSH Active Problems Active Problems: Problem Status Onset Code Chronic kidney disease, stage 4 (severe) N18.4 CKD stage 4 secondary to hypertension I12.9, N18.4 Bladder cancer ~06/2016 C67.9 Chronic obstructive lung disease 03/28/12 J44.9 Essential hypertension 01/03/13 I10 Gout 07/04/14 M10.9 Hyperlipidemia 03/28/12 E78.5 Pulmonary nodule seen on imaging study 12/10/14 R91.1 CHF (congestive heart failure) I50.9 CAD in [place] artery ~2011 I25.10 Bundle branch block, right I45.10 Tobacco abuse Z72.0 Poor dentition K08.9 Multiple atypical skin moles D22.9 Onychomycosis B35.1 Recurrent UTI (urinary tract infection) N39.0 Hyperthyroidism determined by thyroid function test E05.90, R94.6 Corns and callosities L84 Nail dystrophy L60.3 Nocturia more than twice per night R35.1 Medical History Medical History Diabetic peripheral neuropathy associated with type 2 diabetes mellitus Alcohol abuse (11/20/13) binge drinks 6 pack on Wednesday PFO (patent foramen ovale) Hyperlipidemia Olecranon bursitis of left elbow (07/04/14) Surgical History Surgical History S/P CABG x 4 (~2011) H/O transurethral destruction of bladder lesion Tobacco Smoking/Tobacco Use Status: Current every day Tobacco Type: cigarettes Smoking packs per day: 1 Smoking cigarettes per day: 20.0 Years smoked: 40 Smoking pack- years: 40.00 Counseling given: provider counseling Alcohol Alcohol Intake: current Alcohol intake frequency: a few times a week Alcohol type: beer Substance Use Substance use: Never Substance use type: does not use Vital Signs and Lab Results Vital Signs Most Recent Vital Signs in EMR: Most Recent Vital Signs Temp Pulse Resp BP Pulse Ox 36.7 C 60 18 139/67 95 03/29/23 07:47 03/29/23 07:47 03/29/23 07:47 03/29/23 07:47 03/29/23 07:47 Lab Results Blood Type / Crossmatch: No Data to Display Complete Blood Count: No Data to Display Complete Metabolic Panel: No Data to Display Liver Function Panel: No Data to Display Coagulation Panel: No Data to Display Cardiac Panel: No Data to Display Arterial Blood Gas: No Data to Display Venous Blood Gas: No Data to Display Pancreas Panel: No Data to Display Thyroid Panel: No Data to Display Infectious Disease: No Data to Display Blood Cultures: No Data to Display Toxicology Panel: No Data to Display Imaging and Studies Imaging and Studies Study information below may be from another EMR and interpreted by another provider. Please see original notes in EMR for more complete details. Stress Test Summary: 2018: small sized, fixed defect involving the apical inferior and mid inferior kitchen suggestive of infarct in RCA territory. LVEF 38% diffuse LV regional wall motion abnormalities. there is severe hypokinesis of the inferior kitchen. Stress EKG is negative. Echocardiogram Summary: 2018: Mild LVH, LVEF 45-50%, severe hypokinesis of the basal-midinferolateral and inferior myocardium. mild MR, LA moderate dilation, RVFXN mildly reduced. RA dilation. small PFO. Pulmonary Function Summary: 10/2020: moderate airflow obstruction with no sig bronchodilator response. reduced diffusion. 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 Anesthesia Assessment and Plan Anesthesia History Personal History: No History of Anesthesia Complications Family History: No Family History of Anesthesia Complications Exercise Tolerance Exercise Tolerance: Metabolic Equivalents>4 Pertinent Negatives Pertinent Negatives: No Symptoms of GERD Cardiac & Pulmonary Exam Cardiac Exam: Normal S1/S2 Heart Sounds Pulmonary Exam: Clear Bilateral Breath Sounds Implantable Cardiac Device Does patient have a Pacemaker or an ICD?: No Airway Exam Known Difficult Airway: No Mallampati Class: 2 Mouth Opening: Normal (> 3cm) Thyromental Distance: Less than 3 cm Neck Range of Motion: Limited ROM Neck Circumference: Normal Teeth Condition: Other (denies loose, but teeth in very poor condition, multiple missing, multiple decayed. ) ASA Classification ASA Score: ASA 3 Emergency Case?: No NPO Status NPO Status: NPO Clears >2 hours, Solids >8 hours Anesthesia Plan Resuscitation Status: Full Code Anesthesia Technique: General Anesthesia Airway Planned: Natural Airway Monitors Used: Standard Monitors
[2023-03-29 08:07] VITALS: BMI 26.3
[2023-03-29] MEDS: Lactated Ringers 1,000 ML 80 ML IV (08:10)
--- NOTE | 2023-03-29 08:39 | W.PM.HP.N ---
Date of service: 03/29/23 Time of Service: 08:39 History of Present Illness History of Present Illness Chief Complaint: Bladder cancer Narrative: This is a 73 year old man who has a history of urothelial cell carcinoma of the bladder. On his last surveillance cystoscopy, there was a patch of erythematous bladder mucosa worrisome for carcinoma in situ. he presents for cystoscopy and biopsy of the erythematous mucosa. He has had recurrent bacterial urinary tract infections. He has not seen any gross hematuria. Review of Systems Narrative: No fevers or chills No vision change or dysphasia No diabetes SOB with exertion. No hemoptysis No chest pain or palpitations No hepatitis, ulcers, jaundice, diarrhea or constipation No seizures, strokes or peripheral neuropathy No bleeding disorders or anemia Hx gout PFSH All Active Problems Chronic kidney disease, stage 4 (severe) (Acute) CKD stage 4 secondary to hypertension (Acute) Bladder cancer (Chronic ~06/2016) Chronic obstructive lung disease (Chronic 03/28/12) Essential hypertension (Chronic 01/03/13) Gout (Chronic 07/04/14) Hyperlipidemia (Chronic 03/28/12) Pulmonary nodule seen on imaging study (Acute 12/10/14) lung CT due 10/2021 CHF (congestive heart failure) (Chronic) CAD in [place] artery (Chronic ~2011) [place] [facility] [place] Bundle branch block, right (Chronic) Tobacco abuse (Acute) 40 pack year hx. Poor dentition (Acute) Multiple atypical skin moles (Acute) Onychomycosis (Acute) Recurrent UTI (urinary tract infection) (Acute) Hyperthyroidism determined by thyroid function test (Acute) Corns and callosities (Acute) Nail dystrophy (Acute) Nocturia more than twice per night (Acute) Medical History Diabetic peripheral neuropathy associated with type 2 diabetes mellitus Alcohol abuse (01/04/13) binge drinks 6 pack on Wednesday PFO (patent foramen ovale) Hyperlipidemia Olecranon bursitis of left elbow (07/04/14) Surgical History S/P CABG x 4 (~2011) H/O transurethral destruction of bladder lesion Family History Father , age 57 Heart disease of [place] at 56 yo Mother , 93 Diabetes Other Hyperlipidemia Hypertension Social History Smoking/Tobacco Use Status: Current every day Tobacco Type: cigarettes Smoking packs per day: 1 Smoking cigarettes per day: 20.0 Years smoked: 40 Smoking pack-years: 40.00 Tobacco: How many years used: 40 Quit status: not considering quitting Counseling given: provider counseling Smoking risk assessment performed?: Yes Alcohol Intake: current Alcohol Intake frequency: a few times a week Alcohol type: beer Drug use: Never Substance use type: does not use Household members: none Housing: apartment Number of Children: 2 number of grandchildren: 4 Education Level: high school 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 Cate/Orthodoxy: No preference Special cate needs: No Do you feel safe at home: Yes Additional Social history: lives alone Meds Allergies and Home Medications Allergies Allergy/AdvReac Type Severity Reaction Status Date / Time sulfamethoxazole AdvReac Severe Kidney Verified 03/29/23 07:58 [From Bactrim] function distortion trimethoprim [From Bactrim] AdvReac Severe Kidney Verified 03/29/23 07:58 function distortion Home Medications Medication Instructions Recorded Confirmed Type ascorbic acid (vitamin C) 500 mg 500 mg PO DAILY 03/03/18 03/29/23 History tablet (Vitamin C) inhalational spacing device #1 ea 05/15/19 01/28/23 Rx (Aerochamber MV spacer) blood sugar diagnostic (OneTouch #100 ea 02/28/21 01/28/23 Rx Ultra Test strips) blood-glucose meter (OneTouch #1 ea 02/28/21 01/28/23 Rx Ultra2 Meter kit) lancets 30 gauge (OneTouch Delica #100 ea 02/28/21 01/28/23 Rx Plus Lancet) nitroglycerin 0.4 mg sublingual 0.4 mg sublingual ONCE CAD #20 tabs 09/05/21 03/29/23 Rx tablet furosemide 40 mg tablet 40 mg PO DAILY PRN edema #30 tabs 04/08/22 03/29/23 Rx metoprolol tartrate 25 mg tablet 25 mg PO HS #90 tabs 05/18/22 03/29/23 Rx metoprolol tartrate 50 mg tablet 50 mg PO DAILY #90 tabs 05/21/22 03/29/23 Rx albuterol sulfate 90 mcg/actuation 2 puff inhalation Q4H PRN 07/10/22 03/29/23 Rx aerosol inhaler (Ventolin HFA) shortness of breath or wheezing #18 grams amlodipine 10 mg tablet 10 mg PO DAILY #90 tabs 07/10/22 03/29/23 Rx colchicine 0.6 mg tablet 1.2 mg (2 x 0.6 mg) PO .COMPLEX 07/10/22 03/29/23 Rx PRN gout #20 tabs atorvastatin 40 mg tablet 40 mg PO QHS #90 tabs 10/20/22 03/29/23 Rx lisinopril 40 mg tablet 40 mg PO DAILY #90 tab-caps 10/20/22 03/29/23 Rx umeclidinium 62.5 mcg-vilanterol 1 inh inhalation DAILY #180 ea 10/20/22 03/29/23 Rx 25 mcg/actuation powdr for inhalation allopurinol 100 mg tablet 50 mg (1/2 x 100 mg) PO Q2D #45 02/17/23 03/29/23 Rx tabs Exam Const General: cooperative Neck Neck: supple Resp Effort & Inspection: normal respiratory effort Auscultation: clear to auscultation bilaterally Cardio Rate: regular rate Rhythm: regular rhythm GI Palpation: soft and no masses Neuro General: patient alert, patient awake and patient oriented x3 Results Last Vital Signs Temp 36.7 C 03/29/23 07:47 Pulse 60 03/29/23 07:47 Resp 18 03/29/23 07:47 BP 139/67 03/29/23 07:47 Pulse Ox 95 03/29/23 07:47 Time Spent Time spent with Patient: <40 minutes Time was spent: other
[2023-03-29] MEDS: cefTRIAXone 1 GM/50 ML BAG IVPB (09:13)
--- NOTE | 2023-03-29 09:32 | BLADDER_PTH ---
PATIENT: Al Lilly LOC: [facility] U#:[id number] AGE/SX: 73/M ROOM: RE03/29/[address]: Curly Vieyra MD : 1950 BED: DIS: 03/29/2023 SPEC #: [id number] RECD: 03/29/23 13:06 STATUS: KRIS RE #: [id number] OMER: 03/29/23 09:[address]: Curly Vieyra DEPT: Surgical Specimen RECD BY: Yuridia Rios ENTERED: 03/29/23 13:06 SP TYPE: Bladder OTHR DR: Polly Beverly Tissues: 1 - BLADDER BIOPSY Procedures: GROSS AND MICRO LEVEL 4 Comments: [id number]
[2023-03-29] MEDS: Lidocaine 2% Jelly 6 ML SYR (09:37)
--- NOTE | 2023-03-29 09:43 | W.PM.DSUDISC ---
Date of service: 03/29/23 Time of Service: 09:43 Discharge Plan Disposition Patient Disposition: Home Discharge Details Reason For Visit: cystoscopy with bladder biopsy Attending Provider: Curly Vieyra Primary Care Provider: Polly Beverly Home Meds and New Rx's Prescriptions: No Action (DME) blood-glucose meter [OneTouch Ultra2 Meter] Kit See Rx Instructions .ROUTE .MEDSUPPLY Qty: 1 0RF Rx Instructions: As directed (DME) lancets [OneTouch Delica Plus Lancet] 30 gauge misc See Rx Instructions .ROUTE .MEDSUPPLY Qty: 100 0RF Rx Instructions: As directed (DME) OneTouch Ultra Test Strip See Rx Instructions .ROUTE .MEDSUPPLY Qty: 100 3RF Rx Instructions: As directed - test daily nitroglycerin 0.4 mg tablet, sublingual 0.4 mg SL ONCE Qty: 20 2RF Rx Instructions: 1 tab SL q. 5-10 minutes as needed for chest pain. No relief after 3 seek emergency care/call 911. atorvastatin 40 mg tablet 40 mg PO QHS Qty: 90 3RF lisinopril 40 mg tablet 40 mg PO DAILY Qty: 90 3RF umeclidinium-vilanterol 62.5-25 mcg/actuation blister with device 1 inh inhalation DAILY Qty: 180 3RF allopurinol 100 mg tablet 50 mg PO Q2D Qty: 45 1RF (DME) Aerochamber MV Spacer See Rx Instructions .ROUTE .MEDSUPPLY Qty: 1 0RF Rx Instructions: As directed furosemide 40 mg tablet 40 mg PO DAILY PRN (Reason: edema) Qty: 30 0RF albuterol sulfate [Ventolin HFA] 90 mcg/actuation HFA aerosol inhaler 2 puff IH Q4H PRN (Reason: shortness of breath or wheezing) Qty: 18 6RF amlodipine 10 mg tablet 10 mg PO DAILY Qty: 90 3RF colchicine 0.6 mg tablet 1.2 mg PO .COMPLEX PRN (Reason: gout) Qty: 20 0RF Rx Instructions: 1.2 mg orally x 1 dose at gout onset, repeat with 0.6mg six hours later if needed. PRN; metoprolol tartrate 25 mg tablet 25 mg PO HS Qty: 90 12RF Rx Instructions: 25mg at night, 50 mg in the morning metoprolol tartrate 50 mg tablet 50 mg PO DAILY Qty: 90 3RF ascorbic acid (vitamin C) [Vitamin C] 500 mg Tablet 500 mg PO DAILY Discharge Instructions Additional Instructions: followup 1 to 2 weeks for pathology results Discharge Orders Discharge Orders: Discharge Order (Routine); Ordered 03/29/23 Ordered By: Curly Vieyra
--- NOTE | 2023-03-29 09:46 | ROE_ITS ---
Date of service: 03/29/23 Time of Service: 09:46 Operative Note Operative Note DATE OF PROCEDURE: 03/29/23 PRE-OP DIAGNOSIS: Bladder cancer POST-OP DIAGNOSIS: same PROCEDURE: Cystoscopy, bladder biopsy with fulguration SURGEON: Curly Vieyra ANESTHESIA TYPE: Local By Surgeon and General:No Airway Refer to Anesthesia Record ESTIMATED BLOOD LOSS: 5 PATHOLOGY: other (bladder biopsies) COMPLICATIONS: None Patient was transported to: same day Patient's condition: stable Implants: none Indications: This is a 73-year-old gentleman who has a history of high-grade, noninvasive urothelial cell carcinoma of the bladder. He has been treated with transurethral resections and intravesical BCG. On his most recent surveillance cystoscopy, we found some erythematous mucosa toward the base of the bladder. He presents for cystoscopy and biopsy of the area to rule out carcinoma in situ. Findings: Erythematous patch of mucosa on the posterior bladder wall Procedure Description: The patient was given preoperative IV antibiotics. He was brought to the operating room on 03/29/2023. After successful induction of general anesthesia, he was placed in the dorsal lithotomy position. His genitalia was prepped and draped. 2% Xylocaine jelly was instilled into the urethra to act as a local anesthetic. A 22 Czech rigid cystoscope was passed through the urethra into the bladder. The urethra and bladder were inspected with the 30 degree lens. On the posterior bladder wall, we identified some erythematous mucosa that had a pebbly appearance. There was some whitish debris adherent to the mucosa. No a dditional patches of erythematous mucosa were identified. We biopsied the erythematous mucosa using cold cup biopsy forceps. I then used bipolar cautery to cauterize both the biopsy sites and any remaining erythematous mucosa. The biopsies were sent to pathology for permanent section. Hemostasis appeared adequate. The bladder was emptied and the cystoscope was removed. The patient tolerated this procedure well and was taken back to the day surgery unit in stable condition.
[2023-03-29 09:51] VITALS: BP 113/93; PULSE 60; RESP 20; TEMP 36.4; O2SAT 97
[2023-03-29 10:25] VITALS: BP 127/62; PULSE 50; RESP 18; TEMP 36.4; O2SAT 95
[2023-03-29] MEDS: Phenazopyridine 200 MG TAB PO (10:31)
--- NOTE | 2023-03-29 10:46 | W.ANESPOSTOP ---
Postoperative Evaluation Date, Time and Location Date Performed: 03/29/23 Time Performed: 10:10 Patient Location: Day Surgery Unit Vital Signs Most Recent Imported Vital Signs: Most Recent Vital Signs Temp Pulse Resp BP Pulse Ox 36.4 C L 50 L 18 127/62 95 03/29/23 10:25 03/29/23 10:25 03/29/23 10:25 03/29/23 10:25 03/29/23 10:25 Pain Score Most Recent Pain Score: Most Recent Pain Score Pain Level 0 03/29/23 10:25 Assessment Mental Status: Awake (Alert & Oriented to Patient Baseline) Airway and Respiratory Function: Patent airway with normal (patient baseline) respiratory exam Cardiovascular Function: Hemodynamically Stable Hydration Status: Adequately Hydrated Nausea & Vomiting: No Nausea or Vomiting Pain: Pt. Denies Any Pain Peripheral Nerve Block: Patient did not receive a nerve block
== END 2023-03-29 11:20 | disposition home or self-care (01) ==
PROVIDERS: PCP Family Medicine; Visit Provider Urology
PROC: 0TBB8ZZ Excision of Bladder, Via Natural or Artificial Opening Endoscopic (ICD-10-PCS; CPT 52204; principal; 2023-03-29 11:45)
DX: C67.4 Malignant neoplasm of posterior wall of bladder (principal); I13.0 Hypertensive heart and chronic kidney disease with heart failure and stage 1 through stage 4 chronic kidney disease, or unspecified chronic kidney disease; N18.4 Chronic kidney disease, stage 4 (severe); I50.9 Heart failure, unspecified; F17.210 Nicotine dependence, cigarettes, uncomplicated
CPT/HCPCS: 52204; 88305; J0696; J1100; J2405; J2704

== ENCOUNTER → 2023-04-13 10:44 | Outpatient (BNVA) | payer MEDICARE, SELFPAY | PROVIDERS: PCP Family Medicine; Referring Provider Family Medicine; Visit Provider Urology ==

== ENCOUNTER 2023-04-13 13:10 | Outpatient (CLI) | payer MEDICARE, SELFPAY ==
[2023-04-13 12:54] LABS: BUN 43 mg/dL (7-18); CREATININE 1.8 mg/dL (0.70-1.30)
== END 2023-04-13 13:11 | disposition home or self-care (01) ==
LOC: LBO 13:10
PROVIDERS: PCP Family Medicine; Visit Provider Urology
DX: N18.4 Chronic kidney disease, stage 4 (severe) (principal); C67.8 Malignant neoplasm of overlapping sites of bladder; N39.0 Urinary tract infection, site not specified
CPT/HCPCS: 36415; 81002; 84520; 99214; 82565

== ENCOUNTER 2023-04-13 18:07 | Outpatient (REF) | payer MEDICARE, SELFPAY | END 2023-04-13 18:08 | disposition home or self-care (01) | LOC: LBN 18:07 | PROVIDERS: PCP Family Medicine; Visit Provider Urology | DX: R30.0 Dysuria (principal) | CPT/HCPCS: 87086 ==

== ENCOUNTER 2023-06-10 06:02 | Outpatient (CLI) | payer MEDICARE, SELFPAY ==
[2023-06-10 12:25] LABS: HCT 38.6 % (40.0-50.0); HGB 12.3 g/dL (13.5-17.5); MCH 30.6 pg (27.0-33.0); MCHC 31.9 % (32.0-36.0); MCV 96 fL (80-95); MPV 9.7 fL (8.0-11.0); Platelet Count 258 10^3/uL (130-400); RBC 4.02 10^6/uL (4.36-5.78); RDW 12.6 % (11.8-14.1); RDW-SD 44.8 fL; WBC 9.74 10^3/uL (4.4-10.8)
[2023-06-10 12:37] LABS: ALT 24 U/L (16-63); AST 14 U/L (15-37); Albumin 3.6 g/dL (3.4-5.0); Alkaline Phosphatase 114 U/L (46-116); Anion Gap 12.9 mmol/L (3-11); BUN 36 mg/dL (7-18); Bilirubin, Total 0.4 mg/dL (0.2-1.0); CO2 20.1 mmol/L (21.0-32.0); CREATININE 1.8 mg/dL (0.70-1.30); Calcium 8.7 mg/dL (8.5-10.1); Chloride 108 mmol/L (98-107); Glucose 118 mg/dL (74-106); Magnesium 1.8 mg/dL (1.8-2.4); Potassium 4.9 mmol/L (3.5-5.1); Sodium 141 mmol/L (136-145); Total Protein 7.5 g/dL (6.4-8.2)
[2023-06-10 18:14] LABS: Parathyroid Hormone,Intact 163 pg/mL (19-88)
[2023-06-10 20:14] LABS: COMMENT (LAB VIEW ONLY) 105.49 mg/dL; PROTEIN 80.4 mg/dL; Prot/Crea Ur Ratio 0.76
[2023-06-10 20:35] LABS: Vitamin D 25 Total 22.2 ng/mL (30-100)
== END 2023-06-10 06:03 | disposition home or self-care (01) ==
LOC: LOS 06:02
PROVIDERS: PCP Family Medicine; Visit Provider Family Medicine
DX: N18.4 Chronic kidney disease, stage 4 (severe); Z00.00 Encounter for general adult medical examination without abnormal findings
CPT/HCPCS: 36415; 80053; 82306; 85027; 82565; 83735; 83970; 84100; 84156

== ENCOUNTER 2023-08-31 04:28 | Outpatient (CLI) | payer MEDICARE, SELFPAY ==
[2023-08-31 12:25] LABS: Anion Gap 13.1 mmol/L (3-11); BUN 53 mg/dL (7-18); CO2 19.9 mmol/L (21.0-32.0); CREATININE 2.3 mg/dL (0.70-1.30); Calcium 8.7 mg/dL (8.5-10.1); Chloride 110 mmol/L (98-107); Estimated GFR 29.43 (mL/min/1.73m2); Glucose 117 mg/dL (74-106); PHOSPHORUS 5.5 mg/dL (2.6-4.7); Potassium 4.5 mmol/L (3.5-5.1); Sodium 143 mmol/L (136-145)
[2023-08-31 12:48] LABS: Vitamin D 25 Total 34.1 ng/mL (30-100)
[2023-08-31 19:40] LABS: Parathyroid Hormone,Intact 130 pg/mL (19-88)
[2023-09-03 12:26] LABS: 1,25-Dihydroxyvitamin D 24 pg/mL (18-64)
== END 2023-08-31 04:29 | disposition home or self-care (01) ==
LOC: LOS 04:29
PROVIDERS: PCP Family Medicine; Visit Provider Family Medicine
DX: N25.81 Secondary hyperparathyroidism of renal origin (principal); I10 Essential (primary) hypertension; N18.4 Chronic kidney disease, stage 4 (severe); N18.9 Chronic kidney disease, unspecified
CPT/HCPCS: 36415; 80048; 82306; 82652; 83970; 84100

== ENCOUNTER → 2023-10-12 12:54 | Outpatient (BNVA) | payer MEDICARE, SELFPAY | PROVIDERS: PCP Family Medicine; Referring Provider Family Medicine; Visit Provider Urology | DX: N39.0 Urinary tract infection, site not specified (principal); C67.8 Malignant neoplasm of overlapping sites of bladder | CPT/HCPCS: 52000; 81003 ==

== ENCOUNTER 2023-12-22 03:55 | Outpatient (CLI) | payer MEDICARE, SELFPAY ==
[2023-12-22 12:22] LABS: Abs Immature Grans 0.05 10^3/uL (0.0-0.06); Absolute Basophil Count 0.07 10^3/uL (0.0-0.2); Absolute Eosinophil Count 0.33 10^3/uL (0.0-0.7); Absolute Lymphocyte Count 2.89 10^3/uL (1.2-3.4); Absolute Monocyte Count 0.85 10^3/uL (0.1-0.8); Absolute Neutrophil Count 6.45 10^3/uL (1.2-6.7); Basophils % 0.7 %; Eosinophils % 3.1 %; HCT 38.4 % (40.0-50.0); HGB 12.7 g/dL (13.5-17.5); Immature Grans % 0.5 %; Lymphocytes % 27.2 %; MCH 30.6 pg (27.0-33.0); MCHC 33.1 % (32.0-36.0); MCV 93 fL (80-95); MPV 10.1 fL (8.0-11.0); Neutrophils % 60.5 %; Platelet Count 248 10^3/uL (130-400); RBC 4.15 10^6/uL (4.36-5.78); RDW 12.6 % (11.8-14.1); RDW-SD 42.8 fL; WBC 10.64 10^3/uL (4.4-10.8)
[2023-12-22 12:37] LABS: COMMENT (LAB VIEW ONLY) 120.15 mg/dL; Prot/Crea Ur Ratio 0.44
[2023-12-22 12:40] LABS: Iron 92 ug/dL (65-175); Total Iron Binding Capacity 227 ug/dL (250-450)
[2023-12-22 12:51] LABS: ALT 23 U/L (16-63); AST 16 U/L (15-37); Albumin 3.5 g/dL (3.4-5.0); Alkaline Phosphatase 116 U/L (46-116); BUN 39 mg/dL (7-18); CREATININE 1.9 mg/dL (0.70-1.30); Calcium 8.9 mg/dL (8.5-10.1); Chloride 112 mmol/L (98-107); Estimated GFR 37.02 (mL/min/1.73m2); Glucose 97 mg/dL (74-106); PHOSPHORUS 3.8 mg/dL (2.6-4.7); Sodium 142 mmol/L (136-145); Total Protein 7.7 g/dL (6.4-8.2); Uric Acid 8.1 mg/dL (3.5-7.2)
[2023-12-22 13:25] LABS: Ferritin 227 ng/mL (26-388); Vitamin D 25 Total 32.4 ng/mL (30-100)
[2023-12-22 18:29] LABS: Parathyroid Hormone,Intact 138 pg/mL (19-88)
== END 2023-12-22 03:56 | disposition home or self-care (01) ==
LOC: LOS 03:55
PROVIDERS: PCP Family Medicine; Visit Provider Family Medicine
DX: N18.4 Chronic kidney disease, stage 4 (severe) (principal); I12.9 Hypertensive chronic kidney disease with stage 1 through stage 4 chronic kidney disease, or unspecified chronic kidney disease
CPT/HCPCS: 36415; 80053; 82306; 82565; 82728; 83540; 83550; 83970; 84100; 84156; 84550; 85025

== ENCOUNTER 2024-02-28 03:14 | Outpatient (CLI) | payer MEDICARE, SELFPAY ==
[2024-02-28 13:11] LABS: BUN 40 mg/dL (7-18); Calcium 9.2 mg/dL (8.5-10.1); Chloride 111 mmol/L (98-107); Estimated GFR 34.81 (mL/min/1.73m2); Glucose 112 mg/dL (74-106); Potassium 5.2 mmol/L (3.5-5.1); Sodium 142 mmol/L (136-145)
[2024-02-28 13:22] LABS: Uric Acid 7.8 mg/dL (3.5-7.2)
== END 2024-02-28 03:15 | disposition home or self-care (01) ==
LOC: LOS 03:14
PROVIDERS: PCP Family Medicine; Visit Provider Family Medicine
DX: I10 Essential (primary) hypertension (principal); N18.4 Chronic kidney disease, stage 4 (severe); M1A.9XX0 Chronic gout, unspecified, without tophus (tophi)
CPT/HCPCS: 36415; 80048; 84550

== ENCOUNTER → 2024-05-19 08:41 | Outpatient (BNVA) | payer MEDICARE, SELFPAY | PROVIDERS: PCP Family Medicine; Referring Provider Family Medicine; Visit Provider Urology | DX: R31.9 Hematuria, unspecified (principal); N39.0 Urinary tract infection, site not specified; C67.8 Malignant neoplasm of overlapping sites of bladder; B96.89 Other specified bacterial agents as the cause of diseases classified elsewhere; Z16.19 Resistance to other specified beta lactam antibiotics; Z16.29 Resistance to other single specified antibiotic | CPT/HCPCS: 52000 ==

== ENCOUNTER 2024-05-19 09:34 | Outpatient (REF) | payer MEDICARE, SELFPAY | END 2024-05-19 09:35 | disposition home or self-care (01) | LOC: LBN 09:34 | PROVIDERS: PCP Family Medicine; Visit Provider Urology | DX: R31.9 Hematuria, unspecified (principal); N39.0 Urinary tract infection, site not specified; C67.8 Malignant neoplasm of overlapping sites of bladder | CPT/HCPCS: 87077; 87086; 87186 ==

== ENCOUNTER 2024-06-01 01:08 | Outpatient (CLI) | payer MEDICARE, SELFPAY ==
[2024-06-01 12:44] LABS: Abs Immature Grans 0.04 10^3/uL (0.0-0.06); Absolute Basophil Count 0.08 10^3/uL (0.0-0.2); Absolute Eosinophil Count 0.39 10^3/uL (0.0-0.7); Absolute Lymphocyte Count 2.26 10^3/uL (1.2-3.4); Absolute Monocyte Count 0.93 10^3/uL (0.1-0.8); Absolute Neutrophil Count 6.04 10^3/uL (1.2-6.7); Basophils % 0.8 %; HCT 33.5 % (40.0-50.0); HGB 10.5 g/dL (13.5-17.5); Immature Grans % 0.4 %; Lymphocytes % 23.2 %; MCH 29.8 pg (27.0-33.0); MCHC 31.3 % (32.0-36.0); MCV 95 fL (80-95); Monocytes % 9.5 %; Neutrophils % 62.1 %; Platelet Count 248 10^3/uL (130-400); RBC 3.52 10^6/uL (4.36-5.78); RDW 13.6 % (11.8-14.1); RDW-SD 47.2 fL; WBC 9.74 10^3/uL (4.4-10.8)
[2024-06-01 13:25] LABS: ALT 17 U/L (16-63); AST 12 U/L (15-37); Albumin 3.4 g/dL (3.4-5.0); Alkaline Phosphatase 110 U/L (46-116); Anion Gap 12.8 mmol/L (3-11); BUN 55 mg/dL (7-18); Bilirubin, Total 0.3 mg/dL (0.2-1.0); CO2 18.2 mmol/L (21.0-32.0); CREATININE 2.7 mg/dL (0.70-1.30); Calcium 8.5 mg/dL (8.5-10.1); Chloride 113 mmol/L (98-107); Estimated GFR 24.13 (mL/min/1.73m2); Ferritin 253 ng/mL (26-388); Glucose 95 mg/dL (74-106); Sodium 144 mmol/L (136-145); TSH (W/Ref FT4) 0.07 uIU/mL (0.36-3.74); Total Protein 7.3 g/dL (6.4-8.2)
[2024-06-01 13:44] LABS: FREE T4 0.99 ng/dL (0.76-1.46)
[2024-06-01 18:34] LABS: Parathyroid Hormone,Intact 148 pg/mL (19-88)
== END 2024-06-01 01:09 | disposition home or self-care (01) ==
LOC: LOS 01:08
PROVIDERS: PCP Family Medicine; Visit Provider Family Medicine
DX: N18.4 Chronic kidney disease, stage 4 (severe) (principal); E05.90 Thyrotoxicosis, unspecified without thyrotoxic crisis or storm; R94.6 Abnormal results of thyroid function studies; Z00.00 Encounter for general adult medical examination without abnormal findings; N25.81 Secondary hyperparathyroidism of renal origin
CPT/HCPCS: 36415; 80053; 82728; 83970; 84439; 84443; 85025

== ENCOUNTER → 2024-06-19 13:13 | Outpatient (BNVA) | payer MEDICARE, SELFPAY | PROVIDERS: PCP Family Medicine; Referring Provider Family Medicine; Visit Provider Nurse Practitioner Gerontology | DX: C67.8 Malignant neoplasm of overlapping sites of bladder (principal); N39.0 Urinary tract infection, site not specified; R31.0 Gross hematuria; B96.89 Other specified bacterial agents as the cause of diseases classified elsewhere | CPT/HCPCS: 81003; 99214 ==

== ENCOUNTER 2024-06-19 19:05 | Outpatient (REF) | payer MEDICARE, SELFPAY | END 2024-06-19 19:06 | disposition home or self-care (01) | LOC: LBN 19:05 | PROVIDERS: PCP Family Medicine; Visit Provider Nurse Practitioner Gerontology | DX: N39.0 Urinary tract infection, site not specified (principal); R82.89 Other abnormal findings on cytological and histological examination of urine | CPT/HCPCS: 87086 ==

== ENCOUNTER → 2024-06-27 14:42 | Outpatient (BNVA) | payer MEDICARE, SELFPAY | PROVIDERS: PCP Family Medicine; Referring Provider Family Medicine; Visit Provider Urology | DX: C67.8 Malignant neoplasm of overlapping sites of bladder (principal); N39.0 Urinary tract infection, site not specified; R10.2 Pelvic and perineal pain; R31.9 Hematuria, unspecified; R30.0 Dysuria | CPT/HCPCS: 81003; 99214 ==

== ENCOUNTER 2024-06-27 15:35 | Outpatient (REF) | payer MEDICARE, SELFPAY | END 2024-06-27 15:36 | disposition home or self-care (01) | LOC: LBN 15:35 | PROVIDERS: PCP Family Medicine; Visit Provider Urology | DX: R30.0 Dysuria (principal) | CPT/HCPCS: 87086 ==

== ENCOUNTER 2024-07-03 02:33 | Outpatient (CLI) | payer MEDICARE, SELFPAY ==
--- NOTE | 2024-07-03 07:15 | DI.CT_ITS ---
Exam(s) CT ABDOMEN PELVIS WO EXAM: CT ABDOMEN PELVIS WO CLINICAL HISTORY: ? stone, pelvic pain, bladder ca,r10.2,r31.9,c67.8. TECHNIQUE: Imaging Protocol: Axial computed tomography images with coronal and sagittal reformatted images were created and reviewed. Oral: no COMPARISON: CT CT ABDOMEN PELVIS WO from 01/05/2023 FINDINGS: Lung Bases: No acute findings. Liver: Normal density. Calcifications again noted. No suspicious mass. Gallbladder and biliary tract: No radiodense calculus or biliary dilation. Pancreas: Normal density. Calcifications again no acute inflammatory process. Spleen: Normal. Kidneys: Normal size, contour and axis. Vascular calcifications. Interval worsening of arm bilateral hydronephrosis, left greater than right. The ureters are dilated down to the level of the bladder t here is irregular wall thickening and multifocal bladder masses. No suspicious masses seen. Adrenal glands: No masses seen. Lymph nodes: Within normal limits. Vasculature: Abdominal aorta non-dilated. Severe vascular calcifications. Soft tissues: Unremarkable. Bladder: Limited evaluation without IV contrast. Interval worsening bladder wall thickening and blad diana mass. There is a irregular wall thickening on anteriorly and superiorly as well as a roughly 2 p oint 7 centimeter mass in the left side of the bladder. No calculi. Bowel: No obstruction or bowel wall thickening. Peritoneal cavity: Small amount of fluid in the low pelvis. No focal collection. No mesenteric infl ammatory response. Reproductive organs: Unremarkable. Bones: Advanced degenerative changes. IMPRESSION: Moderate bilateral hydronephrosis secondary to prominent left-sided bladder mass. No ureteral calcul i. RADIATION DOSE DELIVERED: 607.16mGy.cm Total DLP DATA REPOSITORY: All CT scans at this facility are submitted to the National Radiology Data Registry (NRDR) Dose Index Registry (DIR) with the [employer] (ACR). RADIATION OPTIMIZATION: All CT scans at this facility use at least one of these dose optimization te chniques: automated exposure control; mA and/or kV adjustment per patient size (includes targeted exa ms where dose is matched to clinical indication); or iterative reconstruction.
== END 2024-07-03 02:53 ==
LOC: DI 02:33
PROVIDERS: PCP Family Medicine; Visit Provider Urology
DX: C67.8 Malignant neoplasm of overlapping sites of bladder (principal); R31.9 Hematuria, unspecified; R10.2 Pelvic and perineal pain; N13.0 Hydronephrosis with ureteropelvic junction obstruction
CPT/HCPCS: 74176

== ENCOUNTER 2024-07-20 07:22 | Observation (INO) | payer MEDICARE, SELFPAY ==
[2024-07-20] VITALS (61 sets, daily range): BP systolic 115–175; BP diastolic 52–120; PULSE 52–79; RESP 12–23; TEMP 35.8–37; O2SAT 92–100; BMI 23.2
[2024-07-20] MEDS: Lactated Ringers 1,000 ML 80 ML IV ×3 (08:21→18:33)
--- NOTE | 2024-07-20 08:32 | ANES.PREOP_ITS ---
General Info Date of Service Date Performed: 07/20/24 Height: 6 ft 3 in Weight: 84.3 kg Body Mass Index (BMI): 23.2 Surgical Procedure: Operation Date: 07/20/24 08:40 Proposed Procedure Side Surgeon p Cystoscopy/ Bilateral Retrograde/Transurethral Resection Bladder Tumor Bilateral Curly Vieyra MD Meds Allergies and Home Medications Allergies Allergy/AdvReac Type Severity Reaction Status Date / Time sulfamethoxazole (From AdvReac Severe Kidney Verified 07/20/24 07:39 Bactrim) function distortion trimethoprim (From Bactrim) AdvReac Severe Kidney Verified 07/20/24 07:39 function distortion Home Medication ?Medication ?Instructions ?Recorded ascorbic acid (vitamin C) 500 mg 500 mg PO DAILY 03/03/18 tablet (Vitamin C) inhalational spacing device #1 ea 05/15/19 (Aerochamber MV spacer) blood sugar diagnostic (PromoboxxTouch #100 ea 02/28/21 Ultra Test strips) blood-glucose meter (PromoboxxTouch #1 ea 02/28/21 Ultra2 Meter kit) lancets 30 gauge (OneTouch Delica #100 ea 02/28/21 Plus Lancet) nitroglycerin 0.4 mg sublingual 0.4 mg sublingual ONCE CAD #20 tabs 09/05/21 tablet allopurinol 100 mg tablet 50 mg (1/2 x 100 mg) PO Q2D #45 07/28/23 tabs albuterol sulfate 90 mcg/actuation 2 puff inhalation Q4H PRN 10/27/23 aerosol inhaler (Ventolin HFA) shortness of breath or wheezing #18 grams atorvastatin 40 mg tablet 40 mg PO QHS #90 tabs 10/27/23 lisinopril 40 mg tablet 40 mg PO DAILY #90 tab-caps 10/27/23 urea 40 % topical cream 1 applic topical BID #85 grams 10/27/23 calcitriol 0.25 mcg capsule 0.25 mcg PO DAILY #90 caps 03/01/24 sodium bicarbonate 650 mg tablet 1,300 mg (2 x 650 mg) PO BID #120 03/01/24 tabs amlodipine 5 mg tablet 5 mg PO DAILY #90 tabs 06/07/24 metoprolol tartrate 25 mg tablet 25 mg PO BID #180 tabs 06/07/24 umeclidinium 62.5 mcg-vilanterol 1 inh inhalation DAILY #180 ea 06/07/24 25 mcg/actuation powdr for inhalation levofloxacin 250 mg tablet 250 mg PO DIRECTED #11 tabs 06/19/24 methylprednisolone 4 mg tablets in 4 mg PO PER PKG DIR inflammation 06/27/24 a dose pack (Medrol (Julio)) #21 dose pk tramadol 50 mg tablet 50 mg PO Q6H PRN pain #20 tabs 07/11/24 trospium 20 mg tablet 20 mg PO BID #20 tabs 07/17/24 Current Visit Medications: Current Medications Generic Name Dose Route Start Last Admin Trade Name Freq PRN Reason Stop Dose Admin Ringer's Solution 1,000 mls @ 80 mls/hr 07/20/24 06:00 07/20/24 08:21 IV 07/20/24 23:59 80 mls/hr INFUSION WILLY Administration IV Miscellaneous Supplies 1 each 07/20/24 06:00 Iv Access IV 07/20/24 23:59 DIRECTED WILLY Sodium Chloride 0 ml 07/20/24 06:00 Normal Saline Flush 10 Ml Syr IV 07/20/24 23:59 PRN PRN Sodium Chloride 0 ml 07/20/24 06:00 Normal Saline 10 Ml Vial IJ 07/20/24 23:59 DIRECTED PRN Sterile Water 0 ml 07/20/24 06:00 Water,Injection,Sterile 10 Ml Vial IJ 07/20/24 23:59 DIRECTED PRN PFSH Active Problems Active Problems: Problem Status Onset Code Bilateral hydronephrosis Acute N13.30 Diabetic peripheral neuropathy associated with type 2 diabetes mellitus Chronic E11.42 Secondary hyperparathyroidism (of renal origin) Chronic 06/2023 N25.81 Recurrent UTI Chronic N39.0 Chronic kidney disease, stage 4 (severe) Chronic N18.4 CKD stage 4 secondary to hypertension Chronic I12.9, N18.4 Bladder cancer Chronic ~06/2016 C67.9 Chronic obstructive lung disease Chronic 03/28/12 J44.9 Essential hypertension Chronic 01/03/13 I10 Gout Chronic 07/04/14 M10.9 Hyperlipidemia Chronic 03/28/12 E78.5 Pulmonary nodule seen on imaging study Chronic 12/10/14 R91.1 CHF (congestive heart failure) Chronic I50.9 CAD in [place] artery Chronic ~2011 I25.10 Bundle branch block, right Chronic I45.10 Tobacco abuse Chronic Z72.0 Poor dentition Chronic K08.9 Multiple atypical skin moles Chronic D22.9 Onychomycosis Chronic B35.1 Hyperthyroidism determined by thyroid function test Chronic E05.90, R94.6 Corns and callosities Chronic L84 Nail dystrophy Chronic L60.3 Nocturia more than twice per night Chronic R35.1 Medical History Medical History Alcohol abuse (01/04/13) binge drinks 6 pack on Wednesday PFO (patent foramen ovale) Hyperlipidemia Olecranon bursitis of left elbow (07/04/14) Surgical History Surgical History History of surgery per patient stents place in [facility] [place] S/P CABG x 4 (~2011) H/O transurethral destruction of bladder lesion Tobacco Smoking/Tobacco Use Status: Current every day Tobacco Type: cigarettes Smoking packs per day: 1 Smoking cigarettes per day: 20.0 Years smoked: 40 Smoking pack- years: 40.00 Counseling given: provider counseling Alcohol Alcohol Intake: current Alcohol intake frequency: a few times a week Alcohol type: beer Substance Use Substance use: Never Substance use type: does not use Vital Signs and Lab Results Vital Signs Most Recent Vital Signs in EMR: Most Recent Vital Signs Temp Pulse Resp BP Pulse Ox 36.5 C 67 18 115/60 98 07/20/24 07:42 07/20/24 07:42 07/20/24 07:42 07/20/24 07:42 07/20/24 07:42 Lab Results 07/20/24 06:49 Blood Type / Crossmatch: 2 No Data to Display Complete Blood Count: 2 No Data to Display Complete Metabolic Panel: 2 No Data to Display Liver Function Panel: 2 No Data to Display Coagulation Panel: 2 No Data to Display Cardiac Panel: 2 No Data to Display Arterial Blood Gas: 2 No Data to Display Venous Blood Gas: 2 No Data to Display Pancreas Panel: 2 No Data to Display Thyroid Panel: 2 No Data to Display Infectious Disease: 2 No Data to Display Blood Cultures: 2 No Data to Display Toxicology Panel: 2 No Data to Display Imaging and Studies Imaging and Studies Study information below may be from another EMR and interpreted by another provider. Please see original notes in EMR for more complete details. EKG Summary: 07/24/22: Exam: Resting ECG Reason for Exam: chest pain Patient Location: E HR:56 bpm ECG Measurements Heart Rate 56 AXIS NH 257 P -41 QRSd 149 QRS -75 QT 487 T63 QTc 472 Conclusion Sinus bradycardia...rate< 60 Prolonged NH interval...NH >220, V-rate 50- 90 Right bundle branch block...QRSd>120, terminal axis(90,270) Left ventricular hypertrophy...multiple LVH criteria Inferior infarct, old...Q >35mS, II III aVF sinus bradycardia, left axis, RBBB, poor baseline I have reviewed and I agree with the emergency room physician's ECG interpretation. Stress Test Summary: 2018: small sized, fixed defect involving the apical inferior and mid inferior kitchen suggestive of infarct in RCA territory. LVEF 38% diffuse LV regional wall motion abnormalities. there is severe hypokinesis of the inferior kitchen. Stress EKG is negative. Echocardiogram Summary: 2018: Mild LVH, LVEF 45-50%, severe hypokinesis of the basal-midinferolateral and inferior myocardium. mild MR, LA moderate dilation, RVFXN mildly reduced. RA dilation. small PFO. Pulmonary Function Summary: 10/2020: moderate airflow obstruction with no sig bronchodilator response. reduced diffusion. 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 Anesthesia Assessment and Plan Anesthesia History Personal History: No History of Anesthesia Complications Family History: No Family History of Anesthesia Complications Exercise Tolerance Exercise Tolerance: Metabolic Equivalents>4 Cardiac & Pulmonary Exam Cardiac Exam: Normal S1/S2 Heart Sounds Pulmonary Exam: Other (Diminished) Implantable Cardiac Device Does patient have a Pacemaker or an ICD?: No Airway Exam Known Difficult Airway: No Mallampati Class: 2 Mouth Opening: Normal (> 3cm) Thyromental Distance: Less than 3 cm Neck Range of Motion: Limited ROM Neck Circumference: Normal Teeth Condition: Other ASA Classification ASA Score: ASA 3 Emergency Case?: No NPO Status NPO Status: NPO Clears >2 hours, Solids >8 hours Anesthesia Plan Resuscitation Status: Full Code Anesthesia Technique: General Anesthesia Airway Planned: Natural Airway Monitors Used: Standard Monitors
--- NOTE | 2024-07-20 08:32 | W.PM.HP.N ---
Date of service: 07/20/24 Time of Service: 08:32 Assessment and Plan Assessment and plan (1) Bladder cancer: Status: Chronic (2) Bilateral hydronephrosis: Status: Acute Assessment and plan: We will do cystoscopy and TUR of his pelvic mass to obtain tissue diagnosis. I will keep him in the hospital overnight for CBI since his urine does not reach to bladder with the nephrostomy tubes in place History of Present Illness History of Present Illness Chief Complaint: Bladder cancer Narrative: This is a 74-year-old gentleman who has a history of urothelial cell carcinoma of the bladder. He has had multiple transurethral resections along with intravesical instillations. About a year ago we found some whitish tissue within the bladder. When we resected the tissue, the pathology demonstrated keratinizing squamous metaplasia, but no specific atypia or malignancy. He was due for his scheduled surveillance cystoscopy when he developed gross hematuria. He has had some pelvic pain and worsening renal function. A CT scan demonstrated bilateral hydronephrosis with a large pelvic mass impinging on the bladder. We arranged for bilateral nephrostomy tubes to be placed. Since the nephrostomy tube placement, his back pain has improved, but he is having severe bladder spasms and passing clots from the urethra at times. He comes in now for cystoscopy and transurethral resection of some of the pelvic mass to obtain a tissue diagnosis. We are not planning on completely resecting the mass. We are planning to keep him in the hospital overnight for bladder irrigation. Preop PSA level and renal function labs have been ordered. Review of Systems Narrative: No fevers or chills No vision change or dysphasia Diabetes. No thyroid dysfunction No shortness of breath, cough or hemoptysis No chest pain or palpitations No nausea, vomiting, hepatitis, ulcers, jaundice Diabetic neuropathy. No seizures, strokes No bleeding disorders No recent gout flares PFSH All Active Problems Bilateral hydronephrosis (Acute) Diabetic peripheral neuropathy associated with type 2 diabetes mellitus (Chronic) Secondary hyperparathyroidism (of renal origin) (Chronic 06/2023) normal calcium, phosphorus levels. initiating calcitriol 06/2023 Recurrent UTI (Chronic) Chronic kidney disease, stage 4 (severe) (Chronic) CKD stage 4 secondary to hypertension (Chronic) Bladder cancer (Chronic ~06/2016) Chronic obstructive lung disease (Chronic 03/28/12) Essential hypertension (Chronic 01/03/13) Gout (Chronic 07/04/14) Hyperlipidemia (Chronic 03/28/12) Pulmonary nodule seen on imaging study (Chronic 12/10/14) lung CT due 10/2021 CHF (congestive heart failure) (Chronic) CAD in [place] artery (Chronic ~2011) S/p CABG x 4 @ [facility] [place] in 2011 Bundle branch block, right (Chronic) Tobacco abuse (Chronic) 40 pack year hx. Poor dentition (Chronic) Multiple atypical skin moles (Chronic) Onychomycosis (Chronic) Hyperthyroidism determined by thyroid function test (Chronic) Corns and callosities (Chronic) Nail dystrophy (Chronic) Nocturia more than twice per night (Chronic) Medical History Alcohol abuse (01/04/13) binge drinks 6 pack on Wednesday PFO (patent foramen ovale) Hyperlipidemia Olecranon bursitis of left elbow (07/04/14) Surgical History History of surgery per patient stents place in [facility] [place] S/P CABG x 4 (~2011) H/O transurethral destruction of bladder lesion Family History Father , age 57 Heart disease of [place] at 56 yo Mother , 93 Diabetes Other Hyperlipidemia Hypertension Social History Smoking/Tobacco Use Status: Current every day Tobacco Type: cigarettes Smoking packs per day: 1 Smoking cigarettes per day: 20.0 Years smoked: 40 Smoking pack-years: 40.00 Tobacco: How many years used: 40 Quit status: not considering quitting Counseling given: provider counseling Smoking risk assessment performed?: Yes Alcohol Intake: current Alcohol Intake frequency: a few times a week Alcohol type: beer Drug use: Never Substance use type: does not use Household members: none Housing: apartment Number of Children: 2 number of grandchildren: 4 Education Level: high school 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 Cate/Mandaeism: No preference Special cate needs: No Do you feel safe at home: Yes Additional Social history: lives alone Meds Allergies and Home Medications Allergies Allergy/AdvReac Type Severity Reaction Status Date / Time sulfamethoxazole (From AdvReac Severe Kidney Verified 07/20/24 07:39 Bactrim) function distortion trimethoprim (From Bactrim) AdvReac Severe Kidney Verified 07/20/24 07:39 function distortion Home Medications ?Medication ?Instructions ?Recorded ?Confirmed ?Type ascorbic acid (vitamin C) 500 mg 500 mg PO DAILY 03/03/18 07/18/24 History tablet (Vitamin C) inhalational spacing device #1 ea 05/15/19 06/29/24 Rx (Aerochamber MV spacer) blood sugar diagnostic (Vertica SystemsTouch #100 ea 02/28/21 06/29/24 Rx Ultra Test strips) blood-glucose meter (Vertica SystemsTouch #1 ea 02/28/21 06/29/24 Rx Ultra2 Meter kit) lancets 30 gauge (Vertica SystemsTouch Delica #100 ea 02/28/21 06/29/24 Rx Plus Lancet) nitroglycerin 0.4 mg sublingual 0.4 mg sublingual ONCE CAD #20 tabs 09/05/21 07/18/24 Rx tablet allopurinol 100 mg tablet 50 mg (1/2 x 100 mg) PO Q2D #45 07/28/23 06/29/24 Rx tabs albuterol sulfate 90 mcg/actuation 2 puff inhalation Q4H PRN 10/27/23 07/18/24 Rx aerosol inhaler (Ventolin HFA) shortness of breath or wheezing #18 grams atorvastatin 40 mg tablet 40 mg PO QHS #90 tabs 10/27/23 07/18/24 Rx lisinopril 40 mg tablet 40 mg PO DAILY #90 tab-caps 10/27/23 07/20/24 Rx urea 40 % topical cream 1 applic topical BID #85 grams 10/27/23 07/18/24 Rx calcitriol 0.25 mcg capsule 0.25 mcg PO DAILY #90 caps 03/01/24 06/29/24 Rx sodium bicarbonate 650 mg tablet 1,300 mg (2 x 650 mg) PO BID #120 03/01/24 07/18/24 Rx tabs amlodipine 5 mg tablet 5 mg PO DAILY #90 tabs 06/07/24 07/18/24 Rx metoprolol tartrate 25 mg tablet 25 mg PO BID #180 tabs 06/07/24 07/20/24 Rx umeclidinium 62.5 mcg-vilanterol 1 inh inhalation DAILY #180 ea 06/07/24 07/18/24 Rx 25 mcg/actuation powdr for inhalation levofloxacin 250 mg tablet 250 mg PO DIRECTED #11 tabs 06/19/24 06/29/24 Rx methylprednisolone 4 mg tablets in 4 mg PO PER PKG DIR inflammation 06/27/24 06/27/24 Rx a dose pack (Medrol (Julio)) #21 dose pk tramadol 50 mg tablet 50 mg PO Q6H PRN pain #20 tabs 07/11/24 07/18/24 Rx trospium 20 mg tablet 20 mg PO BID #20 tabs 07/17/24 07/18/24 Rx Exam Const General: cooperative Neck Neck: supple Resp Effort & Inspection: normal respiratory effort Auscultation: clear to auscultation bilaterally Cardio Rate: regular rate Rhythm: regular rhythm GI Inspection: normal to inspection Other: bilateral nephrostomy tubes Neuro General: patient alert, patient awake and patient oriented x3 Results Labs 07/20/24 06:49 Last Vital Signs Temp 36.5 C 07/20/24 07:42 Pulse 67 07/20/24 07:42 Resp 18 07/20/24 07:42 BP 115/60 07/20/24 07:42 Pulse Ox 98 07/20/24 07:42 Time Spent Time spent with Patient: <40 minutes Time was spent: other
[2024-07-20] MEDS: cefTRIAXone 2 GM/50 ML BAG IVPB (09:05)
[2024-07-20 09:13] LABS: Anion Gap 9.9 mmol/L (3-11); BUN 49 mg/dL (7-18); CO2 18.1 mmol/L (21.0-32.0); CREATININE 3.1 mg/dL (0.70-1.30); Calcium 8.6 mg/dL (8.5-10.1); Chloride 111 mmol/L (98-107); Estimated GFR 20.44 (mL/min/1.73m2); Glucose 90 mg/dL (74-106); Potassium 4.7 mmol/L (3.5-5.1); Sodium 139 mmol/L (136-145)
[2024-07-20] MEDS: Lidocaine 2% Jelly 11 ML SYR (09:28)
--- NOTE | 2024-07-20 09:32 | BLADDER_PTH ---
PATIENT: Al Lilly LOC: U#:[id number] AGE/SX: 74/M ROOM: 206 RE07/20/[address]: Curly Vieyra MD : 1950 BED: A DIS: 07/21/2024 SPEC #: [id number] RECD: 07/20/24 13:05 STATUS: KRIS REQ #: [id number] OMER: 07/20/24 09:[address]: Curly Vieyra DEPT: Surgical Specimen RECD BY: Yuridia Rios ENTERED: 07/20/24 13:06 SP TYPE: Bladder OTHR DR: Polly Beverly Tissues: 1 - BLADDER CURRETTINGS Procedures: IMMUNOPEROXIDASE STAIN GROSS AND MICRO LEVEL 5 Comments: [id number]
--- NOTE | 2024-07-20 09:52 | ROE_ITS ---
Operative Note Operative Note PRE-OP DIAGNOSIS: Bladder mass POST-OP DIAGNOSIS: same Bilateral hydronephrosis PROCEDURE: Cystoscopy, clot evacuation, transurethral resection of large bladder tumor (incomplete resection) SURGEON: Curly Vieyra ANESTHESIA TYPE: Local By Surgeon and General:No Airway Refer to Anesthesia Record ESTIMATED BLOOD LOSS: 25 PATHOLOGY: other (Bladder mass) COMPLICATIONS: None Patient was transported to: PACU Patient's condition: stable Implants: 22 Citizen Of [place] coud? tipped irrigating catheter with 30 cc of sterile water in the balloon Indications: This is a 74-year-old gentleman who has a history of noninvasive urothelial cell carcinoma of the bladder. He has been treated with multiple resections along with intravesical Mitomycin-C followed by intravesical gemcitabine. On his most recent surveillance cystoscopy, we identified some whitish tissue within the bladder. A transurethral resection showed keratinizing squamous metaplasia with no dysplasia. He now has gross hematuria and back pain. Imaging showed bilateral hydronephrosis and a large mass on the left side of his pelvis. We arranged for nephrostomy tubes to be placed by interventional radiology. He comes in now for cystoscopy with transurethral resection to obtain a tissue diagnosis of the bladder mass. Findings: Large nodular mass on the left side of his bladder (greater than 5 cm in size) Procedure Description: The patient was given IV antibiotics and brought to the operating room on 07/20/2024. After successful induction of general anesthesia without intubation, he was placed in the dorsal lithotomy position. His genitalia was prepped and draped. 2% Xylocaine jelly was instilled into the urethra to act as a local anesthetic. 24 Citizen [place] resectoscope sheath was passed through the urethra into the bladder. The urethra and bladder were inspected using a 30 degree lens and a visual obturator. The pendulous, bulbar and membranous urethra appeared normal. The prostatic urethra showed some lateral lobe enlargement but no significant median lobe. The bladder neck was entered and a large amount of clot was encountered. We then evacuated the clot using a Kristal syringe. Reinspection of the bladder showed a mostly nodular mass involving the entire left side of the bladder. The trigone and ureteral orifice ease could not be identified. There were some papillary components of the mass as well. We then utilized bipolar cautery and an [employer] resectoscope to resect greater than 5 cm of tissue. The resection was not complete but was felt to be adequate to obtain a tissue diagnosis. All resected tissue was evacuated and sent to pathology for permanent section. Any bleeding points were cauterized using the bipolar cautery. The bladder was filled with irrigant and the resectoscope was removed. A 22 Citizen [place] hematuria catheter was then passed through the urethra into the bladder. The catheter balloon was inflated with 30 cc of sterile water and continuous bladder irrigation was begun. The patient tolerated this procedure well. A postprocedural digital rectal exam revealed a fixed left-sided pelvic mass. He was taken to the recovery room. Date of Procedure: 07/20/24
[2024-07-20] MEDS: fentaNYL 100 MCG/2 ML VIAL IVP ×2 (10:18→10:31)
--- NOTE | 2024-07-20 10:34 | W.ANESPOSTOP ---
Postoperative Evaluation Date, Time and Location Date Performed: 07/20/24 Time Performed: 10:34 Patient Location: PACU Vital Signs Most Recent Imported Vital Signs: Most Recent Vital Signs Temp Pulse Resp BP Pulse Ox 36.5 C 60 18 162/63 H 99 07/20/24 10:15 07/20/24 10:20 07/20/24 10:20 07/20/24 10:16 07/20/24 10:20 Pain Score Most Recent Pain Score: Most Recent Pain Score Pain Level 0 07/20/24 10:02 Assessment Mental Status: Awake (Alert & Oriented to Patient Baseline) Airway and Respiratory Function: Patent airway with normal (patient baseline) respiratory exam Cardiovascular Function: Hemodynamically Stable Hydration Status: Adequately Hydrated Nausea & Vomiting: No Nausea or Vomiting Pain: Pain is Moderate or Severe Postoperative Pain Management: Pain being addressed with medication Peripheral Nerve Block: Patient did not receive a nerve block
[2024-07-20] MEDS: HYDROmorphone 2 MG/ML SYR IVP ×3 (10:40→11:07)
--- NOTE | 2024-07-20 13:41 | W.PC.ACHO ---
Registration Status: Primary Language: Preferred Language: Medical / Surgical History (Last Reviewed 07/20/24 @ 07:47 by Florence Randolph, RN) Alcohol abuse (01/04/13) PFO (patent foramen ovale) Hyperlipidemia Olecranon bursitis of left elbow (07/04/14) (Last Reviewed 07/20/24 @ 07:47 by Florence Randolph, RN) History of surgery S/P CABG x 4 (~2011) H/O transurethral destruction of bladder lesion Most Recent Vital Signs Temperature 36.8 C 07/20/24 13:14 Temperature Source Temporal Artery Scan 07/20/24 13:14 Pulse 57 L 07/20/24 13:14 Pulse Rhythm Regular 07/20/24 07:42 Pulse 64 07/20/24 11:36 Respiratory Rate 17 07/20/24 13:14 Respiratory Depth Normal 07/20/24 07:42 Blood Pressure 148/57 H 07/20/24 13:14 Blood Pressure Mean 87 07/20/24 13:14 Pulse Oximetry 98 07/20/24 13:14 Respiratory End-tidal CO2 24 07/20/24 11:36 Oxygen Delivery Method Room Air 07/20/24 13:14 Oxygen Flow Rate 0 07/20/24 13:14 Pain Level 0 07/20/24 13:14 Allergies sulfamethoxazole (From Bactrim) Adverse Reaction (Severe, Verified 07/20/24 07:39) Kidney function distortion Dr Beverly patient should never take Bactrim again. 10/06/21, MG trimethoprim (From Bactrim) Adverse Reaction (Severe, Verified 07/20/24 07:39) Kidney function distortion Dr Beverly patient should never take Bactrim again. 10/06/21, MG Active Medications Generic Name Dose Route Start Last Admin Trade Name Freq PRN Reason Stop Dose Admin Ringer's Solution 1,000 mls @ 80 mls/hr 07/20/24 06:00 07/20/24 11:25 IV 07/20/24 23:59 80 mls/hr INFUSION WILLY Administration IV IV Catheter Type [Left Forearm Saline Lock ] IV Catheter Gauge [Left 20 Forearm] Diet Orders Category Date Time Status Diet [Diabetes Consistent CHO/Heart Healthy] [DIET] Nutrition 07/20/24 Lunch Active Diagnostics 07/20/24 Range/Units 08:53 Sodium 139 (136-145) mmol/L Potassium 4.7 (3.5-5.1) mmol/L Chloride 111 H (98-107) mmol/L Carbon Dioxide 18.1 L (21.0-32.0) mmol/L Anion Gap 9.9 (3-11) mmol/L BUN 49 H (7-18) mg/dL Creatinine 3.1 H (0.70-1.30) mg/dL Est GFR (CKD-EPI 2020) 20.44 (mL/min/1.73m2) Glucose 90 (74-106) mg/dL Calcium 8.6 (8.5-10.1) mg/dL Prostate Specific Ag Pending Intake and Output - 24 Hour Total 06/29/24 13:47 thru 07/20/24 13:40 Intake Total 1050 Output Total 7887 Balance -6825 Weight 84.3 kg Intake: IV 1050 Output: Drainage 275 Left Lateral Abdomen 100 Right Lateral Abdomen 175 Urine 7600 Other: Urine Color [place] Urine Appearance Hematuria Emesis Description None Urinary Catheter Urinary Catheter Date of 07/20/24 Insertion [3-way Urethral] Time of insertion [3-way 09:33 Urethral] Problems (Last Reviewed 07/20/24 @ 07:47 by Florence Randolph RN) Bilateral hydronephrosis (Acute) Bladder cancer (Chronic ~06/2016) v v v v v v v v v Sending and/or Receiving Nurses: Please use comment section below to note any information pertinent to the patient hand-off not included above. Information / Comments: Report received from: pacu nurse at 1130
[2024-07-20] MEDS: traMADol 50 MG TAB PO (15:07)
[2024-07-20 19:22] LABS: PSA, Diagnostic 2.6 ng/mL (<=6.5)
[2024-07-20] MEDS: TROSPIUM 20 MG PO (19:49)
[2024-07-20] MEDS: Metoprolol 12.5 MG TAB 25 MG PO (19:49)
[2024-07-20] MEDS: Atorvastatin 40 MG TAB PO (19:49)
[2024-07-21 07:26] VITALS: BP 159/79; PULSE 83; RESP 24; TEMP 37.2; O2SAT 95
[2024-07-21 07:32] LABS: Abs Immature Grans 0.04 10^3/uL (0.0-0.06); Absolute Basophil Count 0.02 10^3/uL (0.0-0.2); Absolute Eosinophil Count 0.31 10^3/uL (0.0-0.7); Absolute Lymphocyte Count 1.19 10^3/uL (1.2-3.4); Absolute Monocyte Count 1.09 10^3/uL (0.1-0.8); Absolute Neutrophil Count 7.61 10^3/uL (1.2-6.7); Basophils % 0.2 %; HCT 29.9 % (40.0-50.0); HGB 9.7 g/dL (13.5-17.5); Immature Grans % 0.4 %; Lymphocytes % 11.6 %; MCH 29.7 pg (27.0-33.0); MCHC 32.4 % (32.0-36.0); MCV 91 fL (80-95); MPV 9.9 fL (8.0-11.0); Monocytes % 10.6 %; Neutrophils % 74.2 %; Platelet Count 180 10^3/uL (130-400); RBC 3.27 10^6/uL (4.36-5.78); RDW 13.2 % (11.8-14.1); RDW-SD 44.3 fL; WBC 10.26 10^3/uL (4.4-10.8)
--- NOTE | 2024-07-21 07:37 | PGE_ITS ---
Date of Service Date of service: 07/21/24 Time of Service: 07:37 Assessment and Plan Assessment and plan (1) Bladder cancer: Status: Chronic Assessment and plan: I have discontinued his bladder catheter and continuous bladder irrigation. We will discontinue his IV fluids and discharge him to. Both of his nephrostomy tubes will need to remain to gravity drainage. We will see him back in about a week to review his surgical pathology. Subjective Subjective Interval history since last seen: He has had bladder spasms, but no clot retention. He is able to tolerate oral nutrition and medications Exam Narrative Exam Narrative: His vital signs are documented elsewhere He does not appear acutely ill The bladder outflow is clear with his continuous bladder irrigation He is awake and alert Objective Last Vital Signs Temp 37.2 C 07/21/24 07:26 Pulse 83 07/21/24 07:26 Resp 24 07/21/24 07:26 BP 159/79 H 07/21/24 07:26 Pulse Ox 95 07/21/24 07:26 Laboratory Results - last 24 hr 07/20/24 07/21/24 08:53 07:13 WBC 10.26 RBC 3.27 L Hgb 9.7 L Hct 29.9 L MCV 91 MCH 29.7 MCHC 32.4 RDW 13.2 Plt Count 180 MPV 9.9 Immature Gran % 0.4 Neutrophils % 74.2 Lymphocytes % 11.6 Monocytes % 10.6 Eosinophils % 3.0 Basophils % 0.2 Nucleated RBC % 0.0 Absolute Neutrophils 7.61 H Absolute Lymphocytes 1.19 L Absolute Monocytes 1.09 H Absolute Eosinophils 0.31 Absolute Basophils 0.02 Sodium 139 Potassium 4.7 Chloride 111 H Carbon Dioxide 18.1 L Anion Gap 9.9 BUN 49 H Creatinine 3.1 H Est GFR (CKD-EPI 2020) 20.44 Glucose 90 Calcium 8.6 Time Spent with Patient Time Spent with Patient: <25 minutes Time was spent: preparing to see the patient(eg.review tests), obtaining and/or reviewing separately otained hiistory, referring, communicating with other health hourly caregiver and counseling the patient
--- NOTE | 2024-07-21 07:40 | W.PM.DS.N ---
Date of service: 07/21/24 Time of Service: 07:40 DS: Diagnosis Discharge Diagnosis (1) Bladder cancer: Status: Chronic Discharge Plan Disposition Patient Disposition: Home Condition: Stable Discharge Details Reason For Visit: TUR Bladder tumor Admit Date/Time: 07/20/24 07:22 Admit Provider: Curly Vieyra Attending Provider: Curly Vieyra Primary Care Provider: Polly Beverly Hospital Course Hospital Course: The patient had previously received bilateral nephrostomy tubes for bilateral hydronephrosis. He was admitted to the hospital and taken to the operating room on 07/20/2024. He underwent cystoscopy and we identified a large amount of clot within his bladder. The clot was evacuated and an underlying bladder mass was seen. Transurethral resection of the mass was accomplished in order to obtain a tissue diagnosis. This was not a complete resection given the extent of the mass. Following the procedure, an irrigating catheter was placed and continuous bladder irrigation was maintained so that clots would not reaccumulate within the bladder. We did have to hand irrigate him on 1 occasion for very small clot. The remainder of the time, the patient had no clot retention but did have significant bladder spasms. Postoperative day #1, we are able to successfully remove his urethral catheter. Both nephrostomy tubes staying in place. He is ready to be discharged to home on postoperative day #1. Home Meds and New Rx's Prescriptions: Continued (DME) blood-glucose meter [OneTouch Ultra2 Meter] Kit See Rx Instructions .ROUTE .MEDSUPPLY Qty: 1 0RF Rx Instructions: As directed (DME) lancets [OneTouch Delica Plus Lancet] 30 gauge misc See Rx Instructions .ROUTE .MEDSUPPLY Qty: 100 0RF Rx Instructions: As directed (DME) OneTouch Ultra Test Strip See Rx Instructions .ROUTE .MEDSUPPLY Qty: 100 3RF Rx Instructions: As directed - test daily nitroglycerin 0.4 mg tablet, sublingual 0.4 mg SL ONCE Qty: 20 2RF Rx Instructions: 1 tab SL q. 5-10 minutes as needed for chest pain. No relief after 3 seek emergency care/call 911. lisinopril 40 mg tablet 40 mg PO DAILY Qty: 90 3RF atorvastatin 40 mg tablet 40 mg PO QHS Qty: 90 3RF albuterol sulfate [Ventolin HFA] 90 mcg/actuation HFA aerosol inhaler 2 puff IH Q4H PRN (Reason: shortness of breath or wheezing) Qty: 18 6RF urea 40 % cream 1 applic topical BID Qty: 85 0RF calcitriol 0.25 mcg capsule 0.25 mcg PO DAILY Qty: 90 1RF (DME) Aerochamber MV Spacer See Rx Instructions .ROUTE .MEDSUPPLY Qty: 1 0RF Rx Instructions: As directed umeclidinium-vilanterol 62.5-25 mcg/actuation blister with device 1 inh inhalation DAILY Qty: 180 3RF amlodipine 5 mg tablet 5 mg PO DAILY Qty: 90 3RF metoprolol tartrate 25 mg tablet 25 mg PO BID Qty: 180 3RF allopurinol 100 mg tablet 50 mg PO Q2D Qty: 45 1RF sodium bicarbonate 650 mg tablet 1,300 mg PO BID Qty: 120 12RF ascorbic acid (vitamin C) [Vitamin C] 500 mg Tablet 500 mg PO DAILY trospium 20 mg tablet 20 mg PO BID Qty: 20 0RF Rx Instructions: administer on an empty stomach tramadol 50 mg tablet 50 mg PO Q6H MDD 4 PRN (Reason: pain) Qty: 20 0RF Rx Instructions: may take along with Tylenol Discontinued methylprednisolone [Medrol (Julio)] 4 mg tablets,dose pack 4 mg PO PER PKG DIR Qty: 21 0RF Discharge Instructions Additional Instructions: Bilateral nephrostomy tubes to gravity drainage Follow-up appointment with me in 1 to 2 weeks to review his surgical pathology Referrals: Curly Vieyra MD [ [facility] STAFF PHYSICIAN] - Activity:: Activity as Tolerated Equipment/Supplies:: Nephrostomy tubes to grav Diet:: As Tolerated Discharge Orders Discharge Orders: Discharge Order (Routine); Ordered 07/21/24 Ordered By: Curly Vieyra DS: Summary Time Spent with Patient providing and/or coordinating discharge services: Less than 30 minutes Status at Discharge Functional status at discharge: independent ambulation Overall status at discharge: patient is progressing back to baseline Mental Status: mental status grossly normal Speech and Movement: speech and movement normal Mood: congruent mood Affect: normal affect Quality:SDOH Health Related Social Needs: Health related social needs details runs out of money for food Exam Narrative Exam Narrative: On the morning of discharge, he does not appear acutely ill His vital signs are documented elsewhere His chest wall motion is normal. He is not short of breath at rest. His abdomen is soft with no peritoneal signs His urethral catheter was draining clear bladder irrigant. The irrigant was discontinued and the catheter was successfully removed. He is awake and alert Psych Mental Status: mental status grossly normal Speech and Movement: speech and movement normal Mood: congruent mood Affect: normal affect DS: Data Vitals/I&O Vitals and I&O: Vital Signs Temperature 37.2 C 07/21/24 07:26 Temperature Source Temporal Artery Scan 07/21/24 07:26 Pulse 83 07/21/24 07:26 Pulse Rhythm Regular 07/20/24 07:42 Pulse 64 07/20/24 11:36 Respiratory Rate 24 07/21/24 07:26 Respiratory Depth Normal 07/20/24 07:42 Blood Pressure 159/79 H 07/21/24 07:26 Blood Pressure Mean 105 07/21/24 07:26 Pulse Oximetry 95 07/21/24 07:26 Respiratory End-tidal CO2 24 07/20/24 11:36 Oxygen Delivery Method Room Air 07/21/24 07:26 Oxygen Flow Rate 0 07/21/24 07:26 Pain Level 10 07/21/24 07:26 Comment RN notified 07/21/24 07:26 Intake & Output 07/20/24 07/20/24 07/21/24 11:59 23:59 11:59 Intake Total 1050 / 2019.667 970.667 / 2020.66 2141.334 / 2141.334 Output Total 09761 / 23662 1800 / 1800 Balance 1050 / -85781.333 -25447.333 / -86421.333 341.334 / 341.334 Weight 84.3 kg Intake: IV 1050 / 1620.667 570.667 / 5165.512 4567.334 / 2141.334 Injectate 400 / 400 Left Lateral Abdomen 250 / 250 Right Lateral Abdomen 150 / 150 Output: Drainage 595 / 595 500 / 500 Left Lateral Abdomen 300 / 300 300 / 300 Right Lateral Abdomen 295 / 295 200 / 200 Urine 01678 / 96131 1300 / 1300 Other: Urine Color Bright Red Yellow Yellow Urine Appearance Clear Clear Clear Comment visualized and confirmed ok rate Emesis Description None Data Completed and Pending Labs on day of discharge: Labs from last 24 hours 07/21/24 07/20/24 07:13 08:53 WBC 10.26 RBC 3.27 L Hgb 9.7 L Hct 29.9 L MCV 91 MCH 29.7 MCHC 32.4 RDW 13.2 Plt Count 180 MPV 9.9 Immature Gran % 0.4 Neutrophils % 74.2 Lymphocytes % 11.6 Monocytes % 10.6 Eosinophils % 3.0 Basophils % 0.2 Nucleated RBC % 0.0 Absolute Neutrophils 7.61 H Absolute Lymphocytes 1.19 L Absolute Monocytes 1.09 H Absolute Eosinophils 0.31 Absolute Basophils 0.02 Sodium Pending 139 Potassium Pending 4.7 Chloride Pending 111 H Carbon Dioxide Pending 18.1 L Anion Gap Pending 9.9 BUN Pending 49 H Creatinine Pending 3.1 H Est GFR (CKD-EPI 2020) Pending 20.44 Glucose Pending 90 Calcium Pending 8.6 Prostate Specific Ag Pending PFSH All Active Problems Bilateral hydronephrosis (Acute) Diabetic peripheral neuropathy associated with type 2 diabetes mellitus (Chronic) Secondary hyperparathyroidism (of renal origin) (Chronic 06/2023) normal calcium, phosphorus levels. initiating calcitriol 06/2023 Recurrent UTI (Chronic) Chronic kidney disease, stage 4 (severe) (Chronic) CKD stage 4 secondary to hypertension (Chronic) Bladder cancer (Chronic ~06/2016) Chronic obstructive lung disease (Chronic 03/28/12) Essential hypertension (Chronic 01/03/13) Gout (Chronic 07/04/14) Hyperlipidemia (Chronic 03/28/12) Pulmonary nodule seen on imaging study (Chronic 12/10/14) lung CT due 10/2021 CHF (congestive heart failure) (Chronic) CAD in [place] artery (Chronic ~2011) [place] 4 [place] [facility] [place] Bundle branch block, right (Chronic) Tobacco abuse (Chronic) 40 pack year hx. Poor dentition (Chronic) Multiple atypical skin moles (Chronic) Onychomycosis (Chronic) Hyperthyroidism determined by thyroid function test (Chronic) Corns and callosities (Chronic) Nail dystrophy (Chronic) Nocturia more than twice per night (Chronic) Medical History Alcohol abuse (01/04/13) binge drinks 6 pack on Wednesday PFO (patent foramen ovale) Hyperlipidemia Olecranon bursitis of left elbow (07/04/14) Surgical History History of surgery per patient stents place [place] [facility] [place] (~2011) H/O transurethral destruction of bladder lesion Family History Father , age 57 Heart disease of OR at 56 yo Mother , 93 Diabetes Other Hyperlipidemia Hypertension Social History Smoking/Tobacco Use Status: Current every day Tobacco Type: cigarettes Smoking packs per day: 1 Smoking cigarettes per day: 20.0 Years smoked: 40 Smoking pack-years: 40.00 Tobacco: How many years used: 40 Quit status: not considering quitting Counseling given: provider counseling Smoking risk assessment performed?: Yes Alcohol Intake: current Alcohol Intake frequency: a few times a week Alcohol type: beer Drug use: Never Substance use type: does not use Household members: none Housing: apartment Number of Children: 2 number of grandchildren: 4 Education Level: high school 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 Cate/Anabaptism: No preference Special cate needs: No Do you feel safe at home: Yes Additional Social history: lives alone Time Spent with Patient Time Spent with Patient: <45 minutes Time was spent: preparing to see the patient(eg.review tests), obtaining and/or reviewing separately otained hiistory, referring, communicating with other health respiratory care specialist and counseling the patient
[2024-07-21 07:44] LABS: Anion Gap 13.3 mmol/L (3-11); BUN 43 mg/dL (7-18); CO2 18.7 mmol/L (21.0-32.0); CREATININE 2.6 mg/dL (0.70-1.30); Calcium 8.3 mg/dL (8.5-10.1); Chloride 110 mmol/L (98-107); Estimated GFR 25.25 (mL/min/1.73m2); Glucose 103 mg/dL (74-106); Potassium 4.8 mmol/L (3.5-5.1); Sodium 142 mmol/L (136-145)
[2024-07-21] MEDS: Ascorbic Acid 500 MG TAB PO (08:13)
[2024-07-21] MEDS: Lisinopril 20 MG TAB 40 MG PO (08:22)
[2024-07-21] MEDS: amLODIPine 5 MG TAB PO (08:23)
[2024-07-21] MEDS: Metoprolol 12.5 MG TAB 25 MG PO (08:24)
[2024-07-21] MEDS: TROSPIUM 20 MG PO (08:24)
--- NOTE | 2024-07-21 10:07 | PDOC.CMDIS ---
Date of service: 07/21/24 Time of Service: 10:07 LACE Index Scoring Tool Questions: Length of Stay (in days): 1 Was the patient admitted via the E.D.?: No Comorbidities: Congestive Heart Failure, Chronic Pulmonary Disease and Liver or Renal Disease E.D. Visits: 0 Answers: Total Score: 6 Risk of Readmission: Low Risk Care Management Discharge Plan Reason for Hospitalization: TUR, Bladder Tumor Discharge Plan: Al is discharged via private vehicle. He will follow up with community providers and his discharge plan of care as directed. No new services are indicated at the time of discharge. Patient/Family Education Needs: Review discharge instructions and plan to follow up after discharge, discuss ask me three. SDOH Health Related Social Needs: Health related social needs details runs out of money for food
== END 2024-07-21 09:55 | disposition home or self-care (01) ==
LOC: PDS 11:45 → MS 07-21 07:44 → PDS 07-21 14:28
PROVIDERS: Admitting Provider Urology; PCP Family Medicine; Visit Provider Urology
PROC: 0TBB8ZZ Excision of Bladder, Via Natural or Artificial Opening Endoscopic (ICD-10-PCS; CPT 52240; principal; 2024-07-20 08:30)
DX: C67.8 Malignant neoplasm of overlapping sites of bladder (principal); N32.89 Other specified disorders of bladder; R31.0 Gross hematuria; N13.30 Unspecified hydronephrosis; E11.42 Type 2 diabetes mellitus with diabetic polyneuropathy; N25.81 Secondary hyperparathyroidism of renal origin; N18.4 Chronic kidney disease, stage 4 (severe); J44.9 Chronic obstructive pulmonary disease, unspecified; R35.1 Nocturia; E78.5 Hyperlipidemia, unspecified; R91.1 Solitary pulmonary nodule; I25.10 Atherosclerotic heart disease of native coronary artery without angina pectoris; I45.10 Unspecified right bundle-branch block; F17.210 Nicotine dependence, cigarettes, uncomplicated; B35.1 Tinea unguium; E05.90 Thyrotoxicosis, unspecified without thyrotoxic crisis or storm; F10.10 Alcohol abuse, uncomplicated; Q21.12 Patent foramen ovale; Z95.1 Presence of aortocoronary bypass graft; N40.0 Benign prostatic hyperplasia without lower urinary tract symptoms
CPT/HCPCS: 52240; 52001; 36415; 80048; 88305; 93010; 99222; 99238; 84153; 85025; 88307; 88361; G0378; J0696; J1171; J2003; J2405; J2704; J3010; J3490

== ENCOUNTER → 2024-08-10 14:49 | Outpatient (BNVA) | payer MEDICARE, SELFPAY | PROVIDERS: PCP Family Medicine; Referring Provider Family Medicine; Visit Provider Urology | DX: C67.9 Malignant neoplasm of bladder, unspecified (principal) | CPT/HCPCS: 99215 ==

== ENCOUNTER → 2024-08-17 08:55 | Outpatient (BNVA) | payer MEDICARE, SELFPAY | PROVIDERS: PCP Family Medicine; Referring Provider Family Medicine; Visit Provider Urology | DX: N13.39 Other hydronephrosis (principal); Z43.6 Encounter for attention to other artificial openings of urinary tract | CPT/HCPCS: 99214 ==

== ENCOUNTER 2024-08-19 15:39 | Emergency (ER) | payer MEDICARE, SELFPAY ==
[2024-08-19 15:41] VITALS: BP 172/61; PULSE 76; RESP 16; TEMP 37.1; O2SAT 98
[2024-08-19 15:43] VITALS: BP 172/61; PULSE 76; RESP 16; TEMP 37.1; O2SAT 98
--- NOTE | 2024-08-19 15:59 | W.ED.GENAD ---
Discharge Plan Disposition Patient Disposition: Home Condition: Stable Discharge Details Clinical Impression: Obstructed nephrostomy tube Primary Care Provider: Polly Beverly ED Provider: Fabiano Madden Home Meds and New Rx's Prescriptions: Continued nitroglycerin 0.4 mg tablet, sublingual 0.4 mg SL ONCE Qty: 20 2RF Rx Instructions: 1 tab SL q. 5-10 minutes as needed for chest pain. No relief after 3 seek emergency care/call 911. lisinopril 40 mg tablet 40 mg PO DAILY Qty: 90 3RF atorvastatin 40 mg tablet 40 mg PO QHS Qty: 90 3RF albuterol sulfate [Ventolin HFA] 90 mcg/actuation HFA aerosol inhaler 2 puff IH Q4H PRN (Reason: shortness of breath or wheezing) Qty: 18 6RF urea 40 % cream 1 applic topical BID Qty: 85 0RF gabapentin 300 mg capsule 300 mg PO QHS 30 Days Qty: 30 0RF (DME) Aerochamber MV Spacer See Rx Instructions .ROUTE .MEDSUPPLY Qty: 1 0RF Rx Instructions: As directed umeclidinium-vilanterol 62.5-25 mcg/actuation blister with device 1 inh inhalation DAILY Qty: 180 3RF amlodipine 5 mg tablet 5 mg PO DAILY Qty: 90 3RF metoprolol tartrate 25 mg tablet 25 mg PO BID Qty: 180 3RF sodium bicarbonate 650 mg tablet 1,300 mg PO BID Qty: 120 12RF ascorbic acid (vitamin C) [Vitamin C] 500 mg Tablet 500 mg PO DAILY trospium 20 mg tablet 20 mg PO BID Qty: 20 0RF Rx Instructions: administer on an empty stomach tramadol 50 mg tablet 50 mg PO Q6H MDD 4 PRN (Reason: pain) Qty: 20 0RF Rx Instructions: may take along with Tylenol Discharge Instructions Instructions: How to Care for Your Nephrostomy Tube Additional Instructions: You were seen in the emergency department for your obstructed nephrostomy tube, the problem was likely in the tubing in the leg bag as it was kinked off, we flushed your tube and it was draining well, there was some white blood cells in your urine sample you gave when you voided through your penis. I would like you to follow-up with Dr. Vieyra's office on whether or not to start antibiotics for this as we have sent a culture off which should have a preliminary result tomorrow, please call their office and asked them to review the chart, please return for any further obstructions of your nephrostomy tubes or any other emergent concerns. Referrals: Polly Beverly MD [Primary Care Provider, Medicine] Discharge Data Discharge Date/Time-TO BE ENTERED AT DEPARTURE: 08/19/24 17:42 HPI General Date/Time Provider Initiated Documentation: 08/19/24 15:50. HPI Narrative: 74 year-old male presents to ED today by POV/ambulating with a chief complaint of complaint of his R nephrostomy tube with onset noted today- states his urine is backing up into his bladder and he is able to urinate it out of his penis but it's very uncomfortable. Patient has bladder cancer and sees Dr. Vieyra- has frequent flushes of nephrostomy tubes. Quality described as irritating in his bladder, no radiation to flank pain, fever, nausea, hematuria, states L nephrostomy is operating as normal. Severity is described as moderate. Palliating factors include nothing specific attempted- bag was changed by home health today. Provoking factors include nothing specific. Patient not anticoagulated. Related Data Home Medications ?Medication ?Instructions ?Recorded ?Confirmed ascorbic acid (vitamin C) 500 mg 500 mg PO DAILY 03/03/18 08/19/24 tablet (Vitamin C) inhalational spacing device #1 ea 05/15/19 08/19/24 (Aerochamber MV spacer) nitroglycerin 0.4 mg sublingual 0.4 mg sublingual ONCE CAD #20 tabs 09/05/21 08/19/24 tablet albuterol sulfate 90 mcg/actuation 2 puff inhalation Q4H PRN 10/27/23 08/19/24 aerosol inhaler (Ventolin HFA) shortness of breath or wheezing #18 grams atorvastatin 40 mg tablet 40 mg PO QHS #90 tabs 10/27/23 08/19/24 lisinopril 40 mg tablet 40 mg PO DAILY #90 tab-caps 10/27/23 08/19/24 urea 40 % topical cream 1 applic topical BID #85 grams 10/27/23 08/19/24 sodium bicarbonate 650 mg tablet 1,300 mg (2 x 650 mg) PO BID #120 03/01/24 08/19/24 tabs amlodipine 5 mg tablet 5 mg PO DAILY #90 tabs 06/07/24 08/19/24 metoprolol tartrate 25 mg tablet 25 mg PO BID #180 tabs 06/07/24 08/19/24 umeclidinium 62.5 mcg-vilanterol 1 inh inhalation DAILY #180 ea 06/07/24 08/19/24 25 mcg/actuation powdr for inhalation tramadol 50 mg tablet 50 mg PO Q6H PRN pain #20 tabs 07/21/24 08/19/24 trospium 20 mg tablet 20 mg PO BID #20 tabs 07/21/24 08/19/24 gabapentin 300 mg capsule 300 mg PO QHS 30 days #30 caps 08/10/24 08/19/24 Previous Rx's ?Medication ?Instructions ?Recorded inhalational spacing device #1 ea 05/15/19 (Aerochamber MV spacer) nitroglycerin 0.4 mg sublingual 0.4 mg sublingual ONCE CAD #20 tabs 09/05/21 tablet albuterol sulfate 90 mcg/actuation 2 puff inhalation Q4H PRN 10/27/23 aerosol inhaler (Ventolin HFA) shortness of breath or wheezing #18 grams atorvastatin 40 mg tablet 40 mg PO QHS #90 tabs 10/27/23 lisinopril 40 mg tablet 40 mg PO DAILY #90 tab-caps 10/27/23 urea 40 % topical cream 1 applic topical BID #85 grams 10/27/23 sodium bicarbonate 650 mg tablet 1,300 mg (2 x 650 mg) PO BID #120 03/01/24 tabs amlodipine 5 mg tablet 5 mg PO DAILY #90 tabs 06/07/24 metoprolol tartrate 25 mg tablet 25 mg PO BID #180 tabs 06/07/24 umeclidinium 62.5 mcg-vilanterol 1 inh inhalation DAILY #180 ea 06/07/24 25 mcg/actuation powdr for inhalation tramadol 50 mg tablet 50 mg PO Q6H PRN pain #20 tabs 07/21/24 trospium 20 mg tablet 20 mg PO BID #20 tabs 07/21/24 gabapentin 300 mg capsule 300 mg PO QHS 30 days #30 caps 08/10/24 Allergies Allergy/AdvReac Type Severity Reaction Status Date / Time sulfamethoxazole (From AdvReac Severe Kidney Verified 08/19/24 15:44 Bactrim) function distortion trimethoprim (From Bactrim) AdvReac Severe Kidney Verified 08/19/24 15:44 function distortion General Stated Complaint: Urinary JOSH: 4 Review of Systems All systems reviewed & are unremarkable except as noted in HPI and below Exam Narrative Exam Narrative: GENERAL APPEARANCE: Well-nourished, non-toxic, awake and alert, atraumatic, no acute distress. SKIN: Warm, pink, dry, intact, without rashes/lesions/ulcerations. HEAD: Normocephalic, atraumatic, normal hair distribution for gender/age. EYES: Normal conjunctiva, no exudates on lids/lashes. ENT: Nares patent, no circumoral cyanosis, no facial swelling NECK: Supple, trachea midline, painless cervical ROM. LUNGS/CHEST: Non-labored respirations, normal A/P diameter, symmetrical expansion, no chest wall deformity HEART (CV/PV): No peripheral edema, no JVD. ABDOMEN: Soft, non-distended, no guarding, no CVA tenderness to percussion bilaterally, bilat nephrostomy tubes in place. MSK: Normal ROM, no swelling/deformity to bilateral UEs or LEs, moving all extremities without weakness, no cyanosis, spine midline without tenderness, normal curvature. NEURO: Mental Status AAOx4 - alert to person, place, time, events No facial droop, no forehead involvement. Motor: No focal weakness - strength 5/5 in bilateral UEs and LEs, proximal and distal, symmetric. Sensory: sensation intact to light touch globally. Gait normal: patient ambulated without ataxia into ED room. PSYCH: euthymic, cooperative, pleasant, appropriate speech Course Vital Signs Vital signs: Vital Signs Temperature 37.1 C 08/19/24 15:41 Pulse 76 08/19/24 15:41 Respiratory Rate 16 08/19/24 15:41 Blood Pressure 172/61 H 08/19/24 15:41 Pulse Oximetry 98 08/19/24 15:41 Temperature 37.1 C 08/19/24 15:43 Pulse 76 08/19/24 15:43 Respiratory Rate 16 08/19/24 15:43 Blood Pressure 172/61 H 08/19/24 15:43 Pulse Oximetry 98 08/19/24 15:43 Pain Level 5 0705/25 15:43 Medical Decision Making This dictation utilizes [id number] dictation software and may contain unedited grammatical errors. 74 year-old male presents to ED today by POV/ambulating with a chief complaint of complaint of his R nephrostomy tube with onset noted today- states his urine is backing up into his bladder and he is able to urinate it out of his penis but it's very uncomfortable. Patient has bladder cancer and sees Dr. Vieyra- has frequent flushes of nephrostomy tubes. Quality described as irritating in his bladder, no radiation to flank pain, fever, nausea, hematuria, states L nephrostomy is operating as normal. Severity is described as moderate. Palliating factors include nothing specific attempted- bag was changed by home health today. Provoking factors include nothing specific. Patients' medical history: Bladder cancer, status post CABG X4, T2DM, COPD, hypertension, hyperlipidemia, CHF, CAD. Family and social history: Noncontributory. Pertinent exam findings / vital signs include right nephrostomy tube not draining into bag, no CVA tenderness to percussion bilaterally, benign cardiopulmonary status, nontoxic and afebrile. Differential / pathologies of concern include obstructed nephrostomy tube, UTI. Diagnostic studies of: - UA -result showed greater than 50 WBCs with leuk esterase, possible contamination will hold off as the patient is likely colonized and leave antibiotic decision to urology with culture results. Interventions of: - nursing staff development coordinator flush nephrostomy tube, it was flushing very easily, there was a kink in the tubing at the leg bag which was likely source. ED Course/Assessment/Plan: 74-year-old male presents with right nephrostomy tube problem, he had a change in home health earlier today, there was a kink in the tubing in the leg bag, it is flushing easily here and is operating properly at time of discharge, I did send a UA on him which showed greater than 50 WBCs but I do suspect he has some element of colonization and we will leave it up to culture results and follow-up with Dr. Vieyra to treat. Patient verbalized understanding and he will return for any further nephrostomy tube problems or emergent concerns. Findings not consistent with complete nephrostomy obstruction, sepsis, severe infection. Disposition of obstructed nephrostomy tube. Patient verbalized understanding of the plan and return to ED criteria and engaged in shared decision making. Medical Records Medical records reviewed: Yes I reviewed the patient's medical records. Quality:SDOH Health Related Social Needs: Health related social needs details runs out of money for food [facility], [facility] All Active Problems (Updated 08/19/24 @ 16:54 by DUSTY Kiser) Obstructed nephrostomy tube (Acute) Squamous cell carcinoma of bladder (Acute) Bilateral hydronephrosis (Acute) Diabetic peripheral neuropathy associated with type 2 diabetes mellitus (Chronic) Secondary hyperparathyroidism (of renal origin) (Chronic 06/2023) normal calcium, phosphorus levels. initiating calcitriol 06/2023 Recurrent UTI (Chronic) Chronic kidney disease, stage 4 (severe) (Chronic) CKD stage 4 secondary to hypertension (Chronic) Bladder cancer (Chronic ~06/2016) Chronic obstructive lung disease (Chronic 03/28/12) Essential hypertension (Chronic 01/03/13) Gout (Chronic 07/04/14) Hyperlipidemia (Chronic 03/28/12) Pulmonary nodule seen on imaging study (Chronic 12/10/14) lung CT due 10/2021 CHF (congestive heart failure) (Chronic) CAD in [place] artery (Chronic ~2011) S/p CABG x 4 @ [facility] [place] Bundle branch block, right (Chronic) Tobacco abuse (Chronic) 40 pack year hx. Poor dentition (Chronic) Multiple atypical skin moles (Chronic) Onychomycosis (Chronic) Hyperthyroidism determined by thyroid function test (Chronic) Corns and callosities (Chronic) Nail dystrophy (Chronic) Nocturia more than twice per night (Chronic) Medical History Alcohol abuse (01/04/13) binge drinks 6 pack on Wednesday PFO (patent foramen ovale) Hyperlipidemia Olecranon bursitis of left elbow (07/04/14) Surgical History History of surgery per patient stents place in [facility] [place]P CABG x 4 (~2011) H/O transurethral destruction of bladder lesion Family History Father , age 57 Heart disease of [place] at 56 yo Mother , 93 Diabetes Other Hyperlipidemia Hypertension Social History Smoking/Tobacco Use Status: Current every day Tobacco Type: cigarettes Smoking packs per day: 1 Smoking cigarettes per day: 20.0 Years smoked: 40 Smoking pack-years: 40.00 Tobacco: How many years used: 40 Quit status: not considering quitting Counseling given: provider counseling Smoking risk assessment performed?: Yes Alcohol Intake: current Alcohol Intake frequency: a few times a week Alcohol type: beer Drug use: Never Substance use type: does not use Household members: none Housing: apartment Number of Children: 2 number of grandchildren: 4 Education Level: high school 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 Cate/Christian: No preference Special cate needs: No Do you feel safe at home: Yes Additional Social history: lives alone
[2024-08-19 16:09] LABS: Glucose Negative (Negative)
[2024-08-19 16:18] LABS: C & S Indicated? Yes; WBC >50 HPF (0-5)
--- NOTE | 2024-08-19 17:53 | NUR.NOTE ---
15:00 This rn s/w provider, Bright. Per provider irrigate R nephros tube and change leg bag. This rn irrigated R nephrostomy tube with 10cc of NS in a 10cc sterile syringe. Nephro tube flushed easily and tru back urine. Leg bag was changed and urine draining in to leg bag. Pt verbalized understanding of leg bag. 15:50 Pt verbalized understanding of DC instructions and to follow up with home health and PCP. Pt A&OX4. No acute distress noted. Pt stated he drove himself to ER and desire to drive home and feels safe to do so. Pt ambulates steadily. Nursing Note:
== END 2024-08-19 17:42 | disposition home or self-care (01) ==
PROVIDERS: Emergency Provider Physician Assistant; PCP Family Medicine
DX: T83.092A Other mechanical complication of nephrostomy catheter, initial encounter (principal); C67.9 Malignant neoplasm of bladder, unspecified; R30.0 Dysuria; Z59.41 Food insecurity
CPT/HCPCS: 99283 ×2; 81003; 81015; 87086

== ENCOUNTER → 2024-08-21 14:20 | Outpatient (BNVA) | payer MEDICARE, SELFPAY | PROVIDERS: PCP Family Medicine; Referring Provider Family Medicine; Visit Provider Urology | DX: N13.30 Unspecified hydronephrosis (principal); C67.9 Malignant neoplasm of bladder, unspecified | CPT/HCPCS: 99214 ==

== ENCOUNTER 2024-09-01 17:52 | Outpatient (REF) | payer MEDICARE, SELFPAY ==
[2024-09-01 19:31] LABS: Glucose Negative (Negative)
[2024-09-01 19:36] LABS: WBC >50 HPF (0-5)
== END 2024-09-01 17:53 | disposition home or self-care (01) ==
LOC: LBN 17:52
PROVIDERS: PCP Family Medicine; Visit Provider Urology
DX: R30.0 Dysuria (principal)
CPT/HCPCS: 81003; 81015; 87086

== ENCOUNTER 2024-09-07 09:41 | Observation (INO) | payer MEDICARE, SELFPAY ==
[2024-09-07] VITALS (10 sets, daily range): BP systolic 107–159; BP diastolic 54–99; PULSE 60–80; RESP 12–17; TEMP 36.6–37; O2SAT 94–99
--- NOTE | 2024-09-07 09:45 | W.ED.GENAD ---
Discharge Plan Disposition Patient Disposition: Admit to [facility] Discharge Details Clinical Impression: Displacement of nephrostomy tube, CHARLIE (acute kidney injury) Admit Date/Time: 09/07/24 13:35 Admit Provider: Chico Mcdaniel Attending Provider: Chico Mcdaniel Primary Care Provider: Polly Beverly ED Provider: Stephen Perdomo HPI General Date/Time Provider Initiated Documentation: 09/07/24 09:45. HPI Narrative: MDM This is an overall well-appearing normothermic and not tachycardic 74-year-old male with dislodged nephrostomy tube but no signs of urinary retention for which patient will receive assessment of labs and urinalysis prior to urology consultation. No pain out of proportion to suggest necrotizing soft tissue infection. No signs of Katya's gangrene. No right lower quadrant tenderness to suggest appendicitis. In the absence of flank pain I was not suspicious for hydronephrosis so I did not feel patient required an emergent CT scan. Patient is not been vomiting to suggest small bowel obstruction. No left lower quadrant tenderness to suggest diverticulitis. I considered sepsis however the patient has reassuring vitals so I do not feel he required IV antibiotics nor blood cultures nor assessment of his lactate. Urostomy tube site does not appear infected so not concern for cellulitis. 10:55 AM Patient has a bump in his creatinine consistent with CHARLIE. He has a mildly decreased bicarbonate. Mild anion gap acidosis. Mild hyperglycemia. Will provide 500 cc of crystalloid. CBC shows leukocytosis new compared to prior. Mild improved normocytic anemia. No thrombocytopenia. I suspect that his creatinine will improve following stent placement [place] [facility] [place] 12[place]10 PM Urinalysis showed large blood moderate leuk esterase. Nitrate negative. 1:23 PM I initially spoke to Dr. Vieyra. He advised [place] [facility] spoke with Damien Velasquez from [place] [facility] He requested that the patient be n.p.o. at midnight for down the back nephrostomy tube placement. Given CHARLIE and need for ongoing monitoring pre and post procedurally I was in touch with Dr. Mcdaniel who graciously agreed to accept the patient for hospitalization. HPI The patient presents for evaluation of urinary issues. He reports that his urinary catheter, inserted at the end of July 2024, has become dislodged. He experiences painful urination when not using the bag. He also mentions a burning sensation during urination. He has a functioning catheter on his left side. He reports no recent falls, headaches, fevers, chills, nausea, vomiting, or breathing difficulties. His stomach feels normal. He was prescribed medication by Dr. Hughes but did not take it due to concerns about a potential yeast infection. Exam General: Well-appearing in no acute distress speaking in complete sentences. Head: Normocephalic, atraumatic. Eye: Extraocular eye movements intact. No conjunctival injection. No scleral icterus. Ear, nose, mouth, throat: Grossly normal inspection. Normal voice, handling secretions normally. Neck: Trachea midline. Cardiovascular: Well-perfused distal extremities. Respiratory: Nonlabored respiration. Gastrointestinal: Nondistended abdomen. Soft. Nontender. Right-sided nephrostomy tube site with no signs of infection. No tenderness no erythema. : Circumcised penis.No rash. No scrotal tenderness. Musculoskeletal: No edema. Moving all 4 extremities spontaneously. Skin: Normal for age and race, grossly normal temperature and turgor. No acute rash. Neurologic: Alert and appropriate, no apparent acute deficits. Psychiatric: Mood and manner are appropriate. Grooming and personal hygiene are appropriate. Related Data Home Medications ?Medication ?Instructions ?Recorded ?Confirmed ascorbic acid (vitamin C) 500 mg 500 mg PO DAILY 03/03/18 09/07/24 tablet (Vitamin C) inhalational spacing device #1 ea 05/15/19 09/07/24 (Aerochamber MV spacer) nitroglycerin 0.4 mg sublingual 0.4 mg sublingual ONCE CAD #20 tabs 09/05/21 09/07/24 tablet albuterol sulfate 90 mcg/actuation 2 puff inhalation Q4H PRN 10/27/23 09/07/24 aerosol inhaler (Ventolin HFA) shortness of breath or wheezing #18 grams atorvastatin 40 mg tablet 40 mg PO QHS #90 tabs 10/27/23 09/07/24 lisinopril 40 mg tablet 40 mg PO DAILY #90 tab-caps 10/27/23 09/07/24 urea 40 % topical cream 1 applic topical BID #85 grams 10/27/23 09/07/24 sodium bicarbonate 650 mg tablet 1,300 mg (2 x 650 mg) PO BID #120 03/01/24 09/07/24 tabs amlodipine 5 mg tablet 5 mg PO DAILY #90 tabs 06/07/24 09/07/24 metoprolol tartrate 25 mg tablet 25 mg PO BID #180 tabs 06/07/24 09/07/24 tramadol 50 mg tablet 50 mg PO Q6H PRN pain #20 tabs 07/21/24 09/07/24 trospium 20 mg tablet 20 mg PO BID #20 tabs 07/21/24 09/07/24 gabapentin 300 mg capsule 300 mg PO QHS 30 days #30 caps 08/10/24 09/07/24 umeclidinium 62.5 mcg-vilanterol 1 inh inhalation DAILY #180 ea 08/28/24 09/07/24 25 mcg/actuation powdr for inhalation fluconazole 200 mg tablet 200 mg PO DAILY yeast infection #5 09/04/24 09/07/24 tabs Previous Rx's ?Medication ?Instructions ?Recorded inhalational spacing device #1 ea 05/15/19 (Aerochamber MV spacer) nitroglycerin 0.4 mg sublingual 0.4 mg sublingual ONCE CAD #20 tabs 09/05/21 tablet albuterol sulfate 90 mcg/actuation 2 puff inhalation Q4H PRN 10/27/23 aerosol inhaler (Ventolin HFA) shortness of breath or wheezing #18 grams atorvastatin 40 mg tablet 40 mg PO QHS #90 tabs 10/27/23 lisinopril 40 mg tablet 40 mg PO DAILY #90 tab-caps 10/27/23 urea 40 % topical cream 1 applic topical BID #85 grams 10/27/23 sodium bicarbonate 650 mg tablet 1,300 mg (2 x 650 mg) PO BID #120 03/01/24 tabs amlodipine 5 mg tablet 5 mg PO DAILY #90 tabs 06/07/24 metoprolol tartrate 25 mg tablet 25 mg PO BID #180 tabs 06/07/24 tramadol 50 mg tablet 50 mg PO Q6H PRN pain #20 tabs 07/21/24 trospium 20 mg tablet 20 mg PO BID #20 tabs 07/21/24 gabapentin 300 mg capsule 300 mg PO QHS 30 days #30 caps 08/10/24 umeclidinium 62.5 mcg-vilanterol 1 inh inhalation DAILY #180 ea 08/28/24 25 mcg/actuation powdr for inhalation fluconazole 200 mg tablet 200 mg PO DAILY yeast infection #5 09/04/24 tabs Allergies Allergy/AdvReac Type Severity Reaction Status Date / Time sulfamethoxazole (From AdvReac Severe Kidney Verified 09/07/24 09:51 Bactrim) function distortion trimethoprim (From Bactrim) AdvReac Severe Kidney Verified 09/07/24 09:51 function distortion General JOSH: 4 Medical Decision Making Quality:SDOH Health Related Social Needs: Health related social needs details runs out of money for food PFSH All Active Problems (Updated 09/07/24 @ 13:55 by Christine Robb APRN) On deep vein thrombosis (DVT) prophylaxis (Acute) Diabetes (Chronic) Candiduria (Acute) UTI (urinary tract infection) (Acute) Acute kidney injury superimposed on stage 4 chronic kidney disease (Acute) CHARLIE (acute kidney injury) (Acute) Displacement of nephrostomy tube (Acute) Obstructed nephrostomy tube (Acute) Squamous cell carcinoma of bladder (Acute) Bilateral hydronephrosis (Acute) Diabetic peripheral neuropathy associated with type 2 diabetes mellitus (Chronic) Secondary hyperparathyroidism (of renal origin) (Chronic 06/2023) normal calcium, phosphorus levels. initiating calcitriol 06/2023 Recurrent UTI (Chronic) Chronic kidney disease, stage 4 (severe) (Chronic) CKD stage 4 secondary to hypertension (Chronic) Bladder cancer (Chronic ~06/2016) Chronic obstructive lung disease (Chronic 03/28/12) Essential hypertension (Chronic 01/03/13) Gout (Chronic 07/04/14) Hyperlipidemia (Chronic 03/28/12) Pulmonary nodule seen on imaging study (Chronic 12/10/14) lung CT due 10/2021 CHF (congestive heart failure) (Chronic) CAD in [place] artery (Chronic ~2011) [place] [facility] [place] Bundle branch block, right (Chronic) Tobacco abuse (Chronic) 40 pack year hx. Poor dentition (Chronic) Multiple atypical skin moles (Chronic) Onychomycosis (Chronic) Hyperthyroidism determined by thyroid function test (Chronic) Corns and callosities (Chronic) Nail dystrophy (Chronic) Nocturia more than twice per night (Chronic) Medical History Alcohol abuse (01/04/13) binge drinks 6 pack on Wednesday PFO (patent foramen ovale) Hyperlipidemia Olecranon bursitis of left elbow (07/04/14) Surgical History History of surgery per patient [place] [facility] [place] (~[place]) H/O transurethral destruction of bladder lesion Family History Father , age 57 Heart disease of [place] at 56 yo Mother , 93 Diabetes Other Hyperlipidemia Hypertension Social History Smoking/Tobacco Use Status: Current every day Tobacco Type: cigarettes Smoking packs per day: 1 Smoking cigarettes per day: 20.0 Years smoked: 40 Smoking pack-years: 40.00 Tobacco: How many years used: 40 Quit status: not considering quitting Counseling given: provider counseling Smoking risk assessment performed?: Yes Alcohol Intake: current Alcohol Intake frequency: a few times a week Alcohol type: beer Drug use: Never Substance use type: does not use Household members: none Housing: apartment Number of Children: 2 number of grandchildren: 4 Education Level: high school 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 Cate/Cheondoism: No preference Special cate needs: No Do you feel safe at home: Yes Additional Social history: lives alone
[2024-09-07 10:37] LABS: Abs Immature Grans 0.08 10^3/uL (0.0-0.06); HCT 32.2 % (40.0-50.0); HGB 10.1 g/dL (13.5-17.5); Immature Grans % 0.5 %; MCH 29.1 pg (27.0-33.0); MCHC 31.4 % (32.0-36.0); MCV 93 fL (80-95); MPV 9.7 fL (8.0-11.0); Platelet Count 288 10^3/uL (130-400); RBC 3.47 10^6/uL (4.36-5.78); RDW 13.3 % (11.8-14.1); RDW-SD 45.3 fL; WBC 16.55 10^3/uL (4.4-10.8)
[2024-09-07 10:46] LABS: RBC Morphology Normal
[2024-09-07 10:51] LABS: Anion Gap 14.0 mmol/L (3-11); BUN 66 mg/dL (7-18); CO2 17.0 mmol/L (21.0-32.0); Calcium 9.0 mg/dL (8.5-10.1); Chloride 108 mmol/L (98-107); Estimated GFR 18.30 (mL/min/1.73m2); Glucose 118 mg/dL (74-106); Potassium 4.9 mmol/L (3.5-5.1); Sodium 139 mmol/L (136-145)
[2024-09-07 11:47] LABS: Glucose Negative (Negative)
[2024-09-07 12:02] LABS: C & S Indicated? Yes; WBC >50 HPF (0-5)
--- NOTE | 2024-09-07 13:24 | HPE_ITS ---
Date of service: 09/07/24 Time of Service: 13:24 Assessment and Plan Assessment and plan (1) Displacement of nephrostomy tube: Status: Acute Assessment and plan: Right nephrostomy tube dislodged Left nephrostomy tube still in place [place] [facility] [place]they will call in a.m. with time N.p.o. past midnight urology consult No imaging in the ED IVF after midnight (2) Acute kidney injury superimposed on stage 4 chronic kidney disease: Status: Acute Assessment and plan: CR at 3.4 maximum baseline 3.1 might be due to dislodged nephrostomy tube No imaging in the ED to rule out right hydronephrosis which might have caused a bump in the creatinine due to postrenal CHARLIE (3) UTI (urinary tract infection): Status: Acute Assessment and plan: UA positive Know candiuria Will continue fluconazole Intitate ceftriaxone d/t instrumentation planned on 09/08 Urine Cx pending (4) Candiduria: Status: Acute Assessment and plan: As above (5) Diabetes: Status: Chronic Assessment and plan: Gluc AC and HS SSI coverage (6) Essential hypertension: Status: Chronic Assessment and plan: outpatient medicine regimen (7) Hyperlipidemia: Status: Chronic Assessment and plan: outpatient medicine regimen (8) CHF (congestive heart failure): Status: Chronic Assessment and plan: outpatient medicine regimen (9) On deep vein thrombosis (DVT) prophylaxis: Status: Acute Assessment and plan: LMWH stop on 09/[address] 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 Workup in the ED was consistent with leukocytosis at 16.55, mild anemia, CHARLIE on CKD, UA showed positive leuk esterase negative nitrate positive WBC and RBC. The ED provider discussed with Dr. Vieyra with plans for [place] [facility] [place] Quezada recommended from [place] [facility] for 09/08/2024 for roundtrip [place] [facility] tube [place]. Urine culture pending. The patient was admitted to the medical surgical floor by the hospitalist service for CHARLIE on CKD, UTI, dislodged right nephrostomy tube re-[place] [facility] of 09/08/24. Full code status confirmed. Denies chills, fever, chest pain , SOB, nausea, vomiting, diarrhea; reports bladder pain assoicated to hx fof bladder CA. Review of Systems All systems reviewed & are unremarkable except as noted in HPI and below PFSH All Active Problems (Updated 09/07/24 @ 13:55 by Christine Robb APRN) On deep vein thrombosis (DVT) prophylaxis (Acute) Diabetes (Chronic) Candiduria (Acute) UTI (urinary tract infection) (Acute) Acute kidney injury superimposed on stage 4 chronic kidney disease (Acute) CHARLIE (acute kidney injury) (Acute) Displacement of nephrostomy tube (Acute) Obstructed nephrostomy tube (Acute) Squamous cell carcinoma of bladder (Acute) Bilateral hydronephrosis (Acute) Diabetic peripheral neuropathy associated with type 2 diabetes mellitus (Chronic) Secondary hyperparathyroidism (of renal origin) (Chronic 06/2023) normal calcium, phosphorus levels. initiating calcitriol 06/2023 Recurrent UTI (Chronic) Chronic kidney disease, stage 4 (severe) (Chronic) CKD stage 4 secondary to hypertension (Chronic) Bladder cancer (Chronic ~06/2016) Chronic obstructive lung disease (Chronic 03/28/12) Essential hypertension (Chronic 01/03/13) Gout (Chronic 07/04/14) Hyperlipidemia (Chronic 03/28/12) Pulmonary nodule seen on imaging study (Chronic 12/10/14) lung CT due 10/2021 CHF (congestive heart failure) (Chronic) CAD in [place] artery (Chronic ~2011) [place] [facility] [place] Bundle branch block, right (Chronic) Tobacco abuse (Chronic) 40 pack year hx. Poor dentition (Chronic) Multiple atypical skin moles (Chronic) Onychomycosis (Chronic) Hyperthyroidism determined by thyroid function test (Chronic) Corns and callosities (Chronic) Nail dystrophy (Chronic) Nocturia more than twice per night (Chronic) Medical History Alcohol abuse (01/04/13) binge drinks 6 pack on Wednesday PFO (patent foramen ovale) Hyperlipidemia Olecranon bursitis of left elbow (07/04/14) Surgical History History of surgery per patient [place] [facility] [place] 4 (~2011) H/O transurethral destruction of bladder lesion Family History Father , age 57 Heart disease of [place] at 56 yo Mother , 93 Diabetes Other Hyperlipidemia Hypertension Social History Smoking/Tobacco Use Status: Current every day Tobacco Type: cigarettes Smoking packs per day: 1 Smoking cigarettes per day: 20.0 Years smoked: 40 Smoking pack- years: 40.00 Tobacco: How many years used: 40 Quit status: not considering quitting Counseling given: provider counseling Smoking risk assessment performed?: Yes Alcohol Intake: current Alcohol Intake frequency: a few times a week Alcohol type: beer Drug use: Never Substance use type: does not use Household members: none Housing: apartment Number of Children: 2 number of grandchildren: 4 Education Level: high school 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 Cate/Christianity: No preference Special cate needs: No Do you feel safe at home: Yes Additional Social history: lives alone Meds Allergies and Home Medications Allergies Allergy/AdvReac Type Severity Reaction Status Date / Time sulfamethoxazole (From AdvReac Severe Kidney Verified 09/07/24 09:51 Bactrim) function distortion trimethoprim (From Bactrim) AdvReac Severe Kidney Verified 09/07/24 09:51 function distortion Home Medications ?Medication ?Instructions ?Recorded ?Confirmed ?Type ascorbic acid (vitamin C) 500 mg 500 mg PO DAILY 03/0309/07/24 History tablet (Vitamin C) inhalational spacing device #1 ea 05/15/19 09/07/24 Rx (Aerochamber MV spacer) nitroglycerin 0.4 mg sublingual 0.4 mg sublingual ONCE CAD #20 tabs 09/05/21 09/07/24 Rx tablet albuterol sulfate 90 mcg/actuation 2 puff inhalation Q 4H PRN 10/27/23 09/07/24 Rx aerosol inhaler (Ventolin HFA) shortness of breath or wheezing #18 grams atorvastatin 40 mg tablet 40 mg PO QHS #90 tabs 09/07/24 Rx lisinopril 40 mg tablet 40 mg PO DAILY #90 tab-caps 10/27/23 09/07/24 Rx urea 40 % topical cream 1 applic topical BID #85 gra ms 10/27/23 09/07/24 Rx sodium bicarbonate 650 mg tablet 1,300 mg (2 x 650 mg) PO BID #120 03/01/24 09/07/24 Rx tabs amlodipine 5 mg tablet 5 mg PO DAILY #90 tabs 06/0709/07/24 Rx metoprolol tartrate 25 mg tablet 25 mg PO BID #180 tab s 06/07/24 09/07/24 Rx tramadol 50 mg tablet 50 mg PO Q6H PRN pain #20 ta bs 07/21/24 09/07/24 Rx trospium 20 mg tablet 20 mg PO BID #20 tabs 09/07/24 Rx gabapentin 300 mg capsule 300 mg PO QHS 30 days #30 ca ps 08/10/24 09/07/24 Rx umeclidinium 62.5 mcg-vilanterol 1 inh inhalation MIHAELA Y #180 ea 08/28/24 09/07/24 Rx 25 mcg/actuation powdr for inhalation fluconazole 200 mg tablet 200 mg PO DAILY yeast infect ion #5 09/04/24 09/07/24 Rx tabs Exam Narrative Exam Narrative: Alert and oriented X 4, no focal neurological deficit, clear lungs, S1-S2, pulses are positive to all 4 extremities, abdomen is nondistended soft nontender, NoCVA pain/tenderness, moves all 4 extremities, left nephrostomy dressing DCI. Results Labs 09/07/24 10:22 09/07/24 10:22 Labs: Laboratory Results - last 24 hr 09/07/24 09/07/24 10:22 11:35 WBC 16.55 H RBC 3.47 L Hgb 10.1 L Hct 32.2 L MCV 93 MCH 29.1 MCHC 31.4 L RDW 13.3 Plt Count 288 MPV 9.7 Immature Gran % 0.5 Neutrophils % 76.4 Lymphocytes % 9.6 Monocytes % 12.4 Eosinophils % 0.8 Basophils % 0.3 Nucleated RBC % 0.0 Absolute Neutrophils 12.64 H Absolute Lymphocytes 1.59 Absolute Monocytes 2.05 H Absolute Eosinophils 0.13 Absolute Basophils 0.05 RBC Morphology Normal Sodium 139 Potassium 4.9 Chloride 108 H Carbon Dioxide 17.0 L Anion Gap 14.0 H BUN 66 H Creatinine 3.4 H Est GFR (CKD-EPI 2020) 18.30 Glucose 118 H Calcium 9.0 Urine Color Yellow Urine Clarity Clear Urine pH 5.5 Ur Specific [place] 1.015 Urine Protein 100 H Urine Ketones Negative Urine Blood Large H Urine Nitrite Negative Urine Bilirubin Negative Urine Urobilinogen 0.2 Ur Leukocyte Esterase Moderate H Urine RBC 10-20 H Urine WBC >50 H Ur Epithelial Cells Rare Urine Crystals Negative Urine Bacteria Few Urine Casts Negative Urine Mucus Negative Ur Culture Indicated? Yes Urine Glucose Negative Last Vital Signs Temp 36.6 C 09/07/24 12:54 Pulse 60 09/07/24 12:54 Resp 12 09/07/24 10:47 BP 111/60 09/07/24 12:54 Pulse Ox 98 09/07/24 12:54 Time Spent Time spent with Patient: >75 minutes Time was spent: preparing to see the patient(eg.review tests), obtaining and/or reviewing separately otained hiistory, ordering medications,tests, procedures, referring, communicating with other health children's zoo caretaker, indepentently interpreting results, counseling the patient and care coordination
--- NOTE | 2024-09-07 13:27 | NUR.NOTE ---
Pt presented to the ED for SOB worsening over the past couple of days after leaving [facility] without being discharged. Pt was brought to room 7 for evaluation and treatment. Pt was alert and oriented X4, refused to stay in bed and refused to keep his B/P cuff, monitor, and monitor leads on. Pt was given an albuterol nebulizer and an IV was established and labs drawn, and a covid/flu/RSV swab was performed. I explained to the patient that we needed to keep the door closed for infection prevention. He replied stating he would just open it again. Pt refused to stay in bed when asked due to wires and risk of falls. Pt refused. I explained to the patient that there are other people in the department that we do not want to expose to covid potentially and the door can be opened one we get those results. The patient threatened he would leave. I informed him he was here voluntarily and that we want to take care of him, and are trying to care for him, but he needs to comply with our policies in order to make sure that we are keeping everyone safe. Shortly after this, the patients door was open and his covid results were not yet back. I went to check on the patient and he had taken off all of his monitoring equipment, had taken his gown off and put his shirt on. The patient was removing his tegaderm from his IV. I informed him we need the IV in order to give him antibiotics that were ordered. He refused to listen to me. I went to mirna perry to better secure the IV, and pt was ringing his . I came back and he range because he pulled the IV and was bleeding. I dressed and wrapped the site and discussed with the provider DUSTY Marmolejo that the patient removed his IV and refuses to be compliant. I told the pt that we cannot treat him if he does not allow it. He responded saying you guys take too long. I informed the pt that we tru labs and are waiting for these to come back, but that the ED is busy and I ave spent a significant time in his room trying to get him to comply with our policies and that he is making caring for him extremely difficult and is slowing down the process. Yuridia came in and spoke with the patient as well. He informed her he would wait until his xrays came back but would be waiting in the waiting room. Yuridia had explained the need for the diagnostics and the plan of care. DI went to get the pt for Xray and found he had eloped. Nursing Note:
--- NOTE | 2024-09-07 14:32 | UCONE_ITS ---
Date of service: 09/07/24 Time of Service: 16:00 Assessment and Plan Assessment and plan (1) Bilateral hydronephrosis: Status: Acute (2) Squamous cell carcinoma of bladder: Status: Acute Assessment and plan: In the past, this gentleman has had noninvasive urothelial cell carcinoma of the bladder. Most recently, he was found to have squamous cell carcinoma of the bladder with muscle invasion. His tumor has caused bilateral hydronephrosis and distorted the entire bladder anatomy. Unfortunately, I am not able to visualize his ureteral orifices to place retrograde ureteral stents. We have had to rely on interventional radiology to place nephrostomy tubes to relieve his obstruction. His right kidney provides most of his renal function, so the nephrostomy tube needs to be replaced with some urgency. We have already made referrals for him to meet with the urology team and the medical oncologists at [facility]. Muscle invasive urothelial cell carcinoma is usually treated with a combination of systemic chemotherapy followed by radical cystectomy. If he truly has squamous cell carcinoma of the bladder, which is quite rare, there may be less of a role for the systemic chemotherapy. His appointments are scheduled for early in September. Unfortunately, he requires care that I cannot provide for him locally. I will, however, continue to provide supportive care and postop care should he have surgical treatment such as a radical cystectomy. History of Present Illness History of Present Illness Chief Complaint: Displaced nephrostomy tube Narrative: This is a 74-year-old gentleman who has a history of urothelial cell carcinoma of the bladder. He has undergone multiple transurethral resections. His tumors had been noninvasive, so he was treated with intravesical medications over the years (based on availability). He has had intravesical BCG and gemcitabine in the past. More recently, he began having worsening lower urinary tract symptoms and gross hematuria. We identified a large nodular mass in his bladder which was biopsied (not completely resected) and the mass is now identified as invasive squamous cell carcinoma. The mass is obstructing both of his kidneys and distorting the bladder anatomy, so I was not able to place retrograde stents on him. He required antegrade placement of nephrostomy tubes by the interventional radiology team at [facility]. He has been referred to the medical oncology team at [facility] as well as the urology team at [facility] for consideration of radical cystectomy with urinary diversion with or without chemotherapy. These referrals have been placed and scheduled, but have not yet been accomplished. The patient called our office yesterday with concerns that his right nephrostomy tube had come out completely. The left nephrostomy tube is still draining. Unfortunately, the majority of his renal function is provided by the right kidney. I was in the operating room at the time, so he presented to the emergency department for evaluation. He was found to have increasing serum creatinine without adequate right sided kidney drainage. He has also had increased urination from the bladder. The replacement of his normal bladder with tumor has caused urinary frequency and discomfort. He has had urinary tract infections in the past. The most recent culture from voided urine has grown yeast. Review of Systems Narrative: No fevers or chills No vision change or dysphasia Diabetes. COPD. No hemoptysis No chest pain or palpitations No nausea, vomiting, hepatitis, ulcers, jaundice, diarrhea or constipation Peripheral neuropathy. No seizures or strokes No bleeding disorders or anemia No gout PFSH All Active Problems (Updated 09/07/24 @ 13:55 by Christine Robb APRN) On deep vein thrombosis (DVT) prophylaxis (Acute) Diabetes (Chronic) Candiduria (Acute) UTI (urinary tract infection) (Acute) Acute kidney injury superimposed on stage 4 chronic kidney disease (Acute) CHARLIE (acute kidney injury) (Acute) Displacement of nephrostomy tube (Acute) Obstructed nephrostomy tube (Acute) Squamous cell carcinoma of bladder (Acute) Bilateral hydronephrosis (Acute) Diabetic peripheral neuropathy associated with type 2 diabetes mellitus (Chronic) Secondary hyperparathyroidism (of renal origin) (Chronic 06/2023) normal calcium, phosphorus levels. initiating calcitriol 06/2023 Recurrent UTI (Chronic) Chronic kidney disease, stage 4 (severe) (Chronic) CKD stage 4 secondary to hypertension (Chronic) Bladder cancer (Chronic ~06/2016) Chronic obstructive lung disease (Chronic 03/28/12) Essential hypertension (Chronic 01/03/13) Gout (Chronic 07/04/14) Hyperlipidemia (Chronic 03/28/12) Pulmonary nodule seen on imaging study (Chronic 12/10/14) lung CT due 10/2021 CHF (congestive heart failure) (Chronic) CAD in [place] artery (Chronic ~2011) S/p CABG x 4 @ [facility] [place] Bundle branch block, right (Chronic) Tobacco abuse (Chronic) 40 pack year hx. Poor dentition (Chronic) Multiple atypical skin moles (Chronic) Onychomycosis (Chronic) Hyperthyroidism determined by thyroid function test (Chronic) Corns and callosities (Chronic) Nail dystrophy (Chronic) Nocturia more than twice per night (Chronic) Medical History Alcohol abuse (01/04/13) binge drinks 6 pack on Wednesday PFO (patent foramen ovale) Hyperlipidemia Olecranon bursitis of left elbow (07/04/14) Surgical History History of surgery per patient stents place in [facility] [place]/P CABG x 4 (~2011) H/O transurethral destruction of bladder lesion Family History Father , age 57 Heart disease of [place] at 56 yo Mother , 93 Diabetes Other Hyperlipidemia Hypertension Social History Smoking/Tobacco Use Status: Current every day Tobacco Type: cigarettes Smoking packs per day: 1 Smoking cigarettes per day: 20.0 Years smoked: 40 Smoking pack- years: 40.00 Tobacco: How many years used: 40 Quit status: not considering quitting Counseling given: provider counseling Smoking risk assessment performed?: Yes Alcohol Intake: current Alcohol Intake frequency: a few times a week Alcohol type: beer Drug use: Never Substance use type: does not use Household members: none Housing: house Number of Children: 2 number of grandchildren: 4 Education Level: high school 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 Cate/Bahai: No preference Special cate needs: No Do you feel safe at home: Yes Additional Social history: lives alone Exam Narrative Exam Narrative: He is a pleasant gentleman who appears more chronically ill than he does acutely ill His vital signs are documented elsewhere The left nephrostomy tube is draining pink-tinged urine. The right nephrostomy tube site shows no erythema or ecchymosis. He is awake and alert Results Last Vital Signs Temp 36.6 C 09/07/24 12:54 Pulse 60 09/07/24 12:54 Resp 12 09/07/24 10:47 BP 111/60 09/07/24 12:54 Pulse Ox 98 09/07/24 12:54 Labs 09/08/24 05:50 09/07/24 10:22 Labs: Laboratory Results - last 24 hr 09/07/24 09/07/24 10:22 11:35 WBC 16.55 H RBC 3.47 L Hgb 10.1 L Hct 32.2 L MCV 93 MCH 29.1 MCHC 31.4 L RDW 13.3 Plt Count 288 MPV 9.7 Immature Gran % 0.5 Neutrophils % 76.4 Lymphocytes % 9.6 Monocytes % 12.4 Eosinophils % 0.8 Basophils % 0.3 Nucleated RBC % 0.0 Absolute Neutrophils 12.64 H Absolute Lymphocytes 1.59 Absolute Monocytes 2.05 H Absolute Eosinophils 0.13 Absolute Basophils 0.05 RBC Morphology Normal Sodium 139 Potassium 4.9 Chloride 108 H Carbon Dioxide 17.0 L Anion Gap 14.0 H BUN 66 H Creatinine 3.4 H Est GFR (CKD-EPI 2020) 18.30 Glucose 118 H Calcium 9.0 Urine Color Yellow Urine Clarity Clear Urine pH 5.5 Ur Specific [place] 1.015 Urine Protein 100 H Urine Ketones Negative Urine Blood Large H Urine Nitrite Negative Urine Bilirubin Negative Urine Urobilinogen 0.2 Ur Leukocyte Esterase Moderate H Urine RBC 10-20 H Urine WBC >50 H Ur Epithelial Cells Rare Urine Crystals Negative Urine Bacteria Few Urine Casts Negative Urine Mucus Negative Ur Culture Indicated? Yes Urine Glucose Negative
[2024-09-07] MEDS: cefTRIAXone 1 GM/50 ML BAG IVPB (15:22)
--- NOTE | 2024-09-07 16:18 | W.PC.ACHO ---
Registration Status: ADM IN Primary Language: Preferred Language: Greenlandic ED Information & Data Chief Complaint Urinary 09/07/24 09:51 Chief Complaint Urinary 09/07/24 09:45 Triage Note Pt arrives to ED stating his 09/07/24 09:45 nephrostomy tube fell out this AM around 0700 hrs. Pt states his tube stopped draining last night. Pt states his son attempted to flush the tube and as soon as he flushed it the tube dislodged. Hx of bladder CA. Pt has bilat nephrostomy tubes - no issues w/ the LT side per pt. Pt had nephrostomy tube placed in the RT kidney in July 2023. Medical / Surgical History (Last Reviewed 07/21/24 @ 07:41 by Curly Vieyra MD) Alcohol abuse (01/04/13) PFO (patent foramen ovale) Hyperlipidemia Olecranon bursitis of left elbow (07/04/14) (Last Reviewed 07/21/24 @ 07:41 by Curly Vieyra MD) History of surgery S/P CABG x 4 (~2011) H/O transurethral destruction of bladder lesion Most Recent Vital Signs Temperature 36.6 C 09/07/24 12:54 Temperature Source Tympanic 09/07/24 12:54 Pulse 60 09/07/24 12:54 Respiratory Rate 12 09/07/24 10:47 Blood Pressure 111/60 09/07/24 12:54 Blood Pressure Mean 77 09/07/24 12:54 Blood Pressure Position Sitting 09/07/24 09:45 Pulse Oximetry 98 09/07/24 12:54 Oxygen Delivery Method Room Air 09/07/24 12:54 Oxygen Flow Rate 0 09/07/24 12:54 Pain Level 0 09/07/24 15:25 Allergies sulfamethoxazole (From Bactrim) Adverse Reaction (Severe, Verified 09/07/24 09:51) Kidney function distortion Dr Beverly patient should never take Bactrim again. 10/06/21, MG trimethoprim (From Bactrim) Adverse Reaction (Severe, Verified 09/07/24 09:51) Kidney function distortion Dr Beverly patient should never take Bactrim again. 10/06/21, MG Precautions Isolation Standard precaution 09/07/24 09:51 Active Medications Generic Name Dose Route Start Last Admin Trade Name Freq PRN Reason Stop Dose Admin Ceftriaxone Sodium/Dextrose 1 gm in 50 mls @ 100 mls/hr 09/07/24 14:05 09/07/24 15:24 Rocephin IVPB Infused Q24H WILLY Infusion IV IV Catheter Type [Antecubital] Saline Lock IV Catheter Gauge [Antecubital 18 ] Diet Orders Category Date Time Status Diabetes Consistent CHO/Heart Healthy [DIET] Nutrition 09/07/24 Lunch Active npo [Nothing Per Oral] [DIET] Nutrition 09/08/24 00:01 Ordered Diagnostics 09/07/24 09/07/24 Range/Units 11:35 10:22 WBC 16.55 H (4.4-10.8) 10^3/uL RBC 3.47 L (4.36-5.78) 10^6/uL Hgb 10.1 L (13.5-17.5) g/dL Hct 32.2 L (40.0-50.0) % MCV 93 (80-95) fL MCH 29.1 (27.0-33.0) pg MCHC 31.4 L (32.0-36.0) % RDW 13.3 (11.8-14.1) % Plt Count 288 (130-400) 10^3/uL MPV 9.7 (8.0-11.0) fL Immature Gran % 0.5 % Neutrophils % 76.4 % Lymphocytes % 9.6 % Monocytes % 12.4 % Eosinophils % 0.8 % Basophils % 0.3 % Nucleated RBC % 0.0 (0.0-0.3) % Absolute Neutrophils 12.64 H (1.2-6.7) 10^3/uL Absolute Lymphocytes 1.59 (1.2-3.4) 10^3/uL Absolute Monocytes 2.05 H (0.1-0.8) 10^3/uL Absolute Eosinophils 0.13 (0.0-0.7) 10^3/uL Absolute Basophils 0.05 (0.0-0.2) 10^3/uL RBC Morphology Normal Sodium 139 (136-145) mmol/L Potassium 4.9 (3.5-5.1) mmol/L Chloride 108 H (98-107) mmol/L Carbon Dioxide 17.0 L (21.0-32.0) mmol/L Anion Gap 14.0 H (3-11) mmol/L BUN 66 H (7-18) mg/dL Creatinine 3.4 H (0.70-1.30) mg/dL Est GFR (CKD-EPI 2020) 18.30 (mL/min/1.73m2) Glucose 118 H (74-106) mg/dL Calcium 9.0 (8.5-10.1) mg/dL Urine Color Yellow (Yellow) Urine Clarity Clear (Clear) Urine pH 5.5 (5-8) Ur Specific [place] 1.015 (1.005-1.025) Urine Protein 100 H (Neg-Trace) mg/dL Urine Ketones Negative (Negative) mg/dL Urine Blood Large H (Negative) Urine Nitrite Negative (Negative) Urine Bilirubin Negative (Negative) Urine Urobilinogen 0.2 (Up to 0.2) mg/dL Ur Leukocyte Esterase Moderate H (Negative) Urine RBC 10-20 H (0-2) HPF Urine WBC >50 H (0-5) HPF Ur Epithelial Cells Rare (Negative) HPF Urine Crystals Negative (Negative) HPF Urine Bacteria Few (Negative) HPF Urine Casts Negative (Negative) LPF Urine Mucus Negative (Negative) Ur Culture Indicated? Yes Urine Glucose Negative (Negative) mg/dL 09/07/24 11:35 Urine Culture - Pending Urine - Reflex from Ua Intake and Output - 24 Hour Total 09/07/24 09:41 thru 09/07/24 15:29 Intake Total 50 Balance 50 Weight 83.915 kg Intake: IV 50 Falls Risk Assessment History of Falls No History 09/07/24 10:47 Contributing Factors No Factors 09/07/24 10:47 Ambulatory Aids Independent 09/07/24 10:47 Tubes/Lines None 09/07/24 10:47 Gait Evaluation No gait disturbance 09/07/24 10:47 Cognition No cognitive impairment 09/07/24 10:47 Fall Total Score 0 09/07/24 10:47 Level of Risk Standard/Low Risk 09/07/24 10:47 Problems (Last Reviewed 07/21/24 @ 07:41 by Curly Vieyra MD) On deep vein thrombosis (DVT) prophylaxis (Acute) Diabetes (Chronic) Candiduria (Acute) UTI (urinary tract infection) (Acute) Acute kidney injury superimposed on stage 4 chronic kidney disease (Acute) CHARLIE (acute kidney injury) (Acute) Displacement of nephrostomy tube (Acute) Squamous cell carcinoma of bladder (Acute) Bilateral hydronephrosis (Acute) Essential hypertension (Chronic 01/03/13) Hyperlipidemia (Chronic 03/28/12) CHF (congestive heart failure) (Chronic) v v v v v v v v v Sending and/or Receiving Nurses: Please use comment section below to note any information pertinent to the patient hand-off not included above. Information / Comments: Report received from: [facility] ED
[2024-09-07] MEDS: Metoprolol 12.5 MG TAB 25 MG PO (20:30)
[2024-09-07] MEDS: Gabapentin 300 MG CAP PO (20:30)
[2024-09-07] MEDS: Atorvastatin 40 MG TAB PO (20:30)
[2024-09-08 06:39] LABS: Abs Immature Grans 0.05 10^3/uL (0.0-0.06); HCT 29.2 % (40.0-50.0); HGB 9.3 g/dL (13.5-17.5); Immature Grans % 0.4 %; MCH 29.2 pg (27.0-33.0); MCHC 31.8 % (32.0-36.0); MCV 92 fL (80-95); MPV 10.1 fL (8.0-11.0); Platelet Count 263 10^3/uL (130-400); RBC 3.19 10^6/uL (4.36-5.78); RDW 13.2 % (11.8-14.1); RDW-SD 43.9 fL; WBC 11.24 10^3/uL (4.4-10.8)
--- NOTE | 2024-09-08 07:13 | W.PM.PROGNOT ---
Date of Service Date of service: 09/08/24 Time of Service: 07:13 Assessment and Plan Assessment and plan (1) Squamous cell carcinoma of bladder: Status: Acute (2) Bilateral hydronephrosis: Status: Acute (3) Displacement of nephrostomy tube: Status: Acute Assessment and plan: We would again expect that replacement of his right nephrostomy tube will divert the urine away from his bladder and decrease his bothersome lower urinary tract symptoms. Once the nephrostomy tube is in place, I would expect that he would be able to go back home. He already has his referrals and appointments in place. I would plan on seeing him or at least speaking to him after he meets with the oncologists in early September Subjective Subjective Interval history since last seen: Al has had urinary frequency at night but luckily, has not had hematuria or clots. He is awaiting [facility] back to transfer to [facility] for replacement of his right nephrostomy tube. He is not having any fevers or chills. Exam Narrative Exam Narrative: He does not appear acutely ill His vital signs are documented elsewhere in the chart He is awake and alert Objective Last Vital Signs Temp 36.6 C 09/07/24 19:56 Pulse 67 09/07/24 19:56 Resp 16 09/07/24 19:56 BP 159/67 H 09/07/24 19:56 Pulse Ox 96 09/07/24 19:56 Laboratory Results - last 24 hr 09/07/24 09/07/24 09/08/24 10:22 11:35 05:50 WBC 16.55 H 11.24 H RBC 3.47 L 3.19 L Hgb 10.1 L 9.3 L Hct 32.2 L 29.2 L MCV 93 92 MCH 29.1 29.2 MCHC 31.4 L 31.8 L RDW 13.3 13.2 Plt Count 288 263 MPV 9.7 10.1 Immature Gran % 0.5 0.4 Neutrophils % 76.4 63.2 Lymphocytes % 9.6 19.0 Monocytes % 12.4 13.0 Eosinophils % 0.8 4.0 Basophils % 0.3 0.4 Nucleated RBC % 0.0 0.0 Absolute Neutrophils 12.64 H 7.10 H Absolute Lymphocytes 1.59 2.14 Absolute Monocytes 2.05 H 1.46 H Absolute Eosinophils 0.13 0.45 Absolute Basophils 0.05 0.04 RBC Morphology Normal Sodium 139 Potassium 4.9 Chloride 108 H Carbon Dioxide 17.0 L Anion Gap 14.0 H BUN 66 H Creatinine 3.4 H Est GFR (CKD-EPI 2020) 18.30 Glucose 118 H Calcium 9.0 Urine Color Yellow Urine Clarity Clear Urine pH 5.5 Ur Specific [place] 1.015 Urine Protein 100 H Urine Ketones Negative Urine Blood Large H Urine Nitrite Negative Urine Bilirubin Negative Urine Urobilinogen 0.2 Ur Leukocyte Esterase Moderate H Urine RBC 10-20 H Urine WBC >50 H Ur Epithelial Cells Rare Urine Crystals Negative Urine Bacteria Few Urine Casts Negative Urine Mucus Negative Ur Culture Indicated? Yes Urine Glucose Negative Time Spent with Patient Time Spent with Patient: <25 minutes Time was spent: preparing to see the patient(eg.review tests), obtaining and/or reviewing separately otained hiistory and counseling the patient
[2024-09-08 07:15] LABS: Anion Gap 13.4 mmol/L (3-11); BUN 70 mg/dL (7-18); CO2 17.6 mmol/L (21.0-32.0); Calcium 9.1 mg/dL (8.5-10.1); Chloride 111 mmol/L (98-107); Estimated GFR 19.68 (mL/min/1.73m2); Glucose 88 mg/dL (74-106); Potassium 4.8 mmol/L (3.5-5.1); Sodium 142 mmol/L (136-145)
[2024-09-08 07:47] VITALS: BP 131/57; PULSE 56; RESP 16; TEMP 35.9; O2SAT 97
[2024-09-08] MEDS: Tiotropium/Olodaterol 10 PUFF INHALER 2 PUFF IH (08:01)
--- NOTE | 2024-09-08 09:26 | PGE_ITS ---
Date of Service Date of service: 09/08/24 Time of Service: 09:26 Assessment and Plan Assessment and plan (1) Displacement of nephrostomy tube: Status: Acute Assessment and plan: Right nephrostomy tube dislodged Left nephrostomy tube still in place [facility] placement on 09/08/2024?they will call in a.m. with time N.p.o. past midnight urology consult No imaging in the ED IVF after midnight (2) Acute kidney injury superimposed on stage 4 chronic kidney disease: Status: Acute Assessment and plan: CR at 3.4 maximum baseline 3.1 might be due to dislodged nephrostomy tube No imaging in the ED to rule out right hydronephrosis which might have caused a bump in the creatinine due to postrenal CHARLIE (3) UTI (urinary tract infection): Status: Acute Assessment and plan: UA positive Know candiuria Will continue fluconazole Intitate ceftriaxone d/t instrumentation planned on 09/08 Urine Cx pending (4) Candiduria: Status: Acute Assessment and plan: As above (5) Diabetes: Status: Chronic Assessment and plan: Gluc AC and HS SSI coverage (6) Essential hypertension: Status: Chronic Assessment and plan: outpatient medicine regimen (7) Hyperlipidemia: Status: Chronic Assessment and plan: outpatient medicine regimen (8) CHF (congestive heart failure): Status: Chronic Assessment and plan: outpatient medicine regimen (9) On deep vein thrombosis (DVT) prophylaxis: Status: Acute Assessment and plan: LMWH stop on 09/[address] cMdaniel Subjective Subjective Patient reports: no new complaints Exam Narrative Exam Narrative: Alert and oriented X 4, no focal neurological deficit, clear lungs, S1-S2, pulses are positive to all 4 extremities, abdomen is nondistended soft nontender, NoCVA pain/tenderness, moves all 4 extremities, left nephrostomy dressing DCI. Objective Last Vital Signs Temp 35.9 C L 09/08/24 07:47 Pulse 56 L 09/08/24 07:47 Resp 16 09/08/24 07:47 BP 131/57 L 09/08/24 07:47 Pulse Ox 97 09/08/24 07:47 Laboratory Results - last 24 hr 09/07/24 09/07/24 09/08/24 10:22 11:35 05:50 WBC 16.55 H 11.24 H RBC 3.47 L 3.19 L Hgb 10.1 L 9.3 L Hct 32.2 L 29.2 L MCV 93 92 MCH 29.1 29.2 MCHC 31.4 L 31.8 L RDW 13.3 13.2 Plt Count 288 263 MPV 9.7 10.1 Immature Gran % 0.5 0.4 Neutrophils % 76.4 63.2 Lymphocytes % 9.6 19.0 Monocytes % 12.4 13.0 Eosinophils % 0.8 4.0 Basophils % 0.3 0.4 Nucleated RBC % 0.0 0.0 Absolute Neutrophils 12.64 H 7.10 H Absolute Lymphocytes 1.59 2.14 Absolute Monocytes 2.05 H 1.46 H Absolute Eosinophils 0.13 0.45 Absolute Basophils 0.05 0.04 RBC Morphology Normal Sodium 139 142 Potassium 4.9 4.8 Chloride 108 H 111 H Carbon Dioxide 17.0 L 17.6 L Anion Gap 14.0 H 13.4 H BUN 66 H 70 H Creatinine 3.4 H 3.2 H Est GFR (CKD-EPI 2020) 18.30 19.68 Glucose 118 H 88 Calcium 9.0 9.1 Urine Color Yellow Urine Clarity Clear Urine pH 5.5 Ur Specific [place] 1.015 Urine Protein 100 H Urine Ketones Negative Urine Blood Large H Urine Nitrite Negative Urine Bilirubin Negative Urine Urobilinogen 0.2 Ur Leukocyte Esterase Moderate H Urine RBC 10-20 H Urine WBC >50 H Ur Epithelial Cells Rare Urine Crystals Negative Urine Bacteria Few Urine Casts Negative Urine Mucus Negative Ur Culture Indicated? Yes Urine Glucose Negative
--- NOTE | 2024-09-08 11:12 | PDOC.CMDIS ---
Care Management Discharge SDOH Health Related Social Needs: Health related social needs details runs out of money for food
--- NOTE | 2024-09-08 15:43 | CMPROGNOTE_ITS ---
Date of service: 09/08/24 Time of Service: 15:49 Care Management Progress Note Progress Note Text Progress Note Text: Al went to for a nephrostomy tube replacement. CM was unable to meet with him. Per report, he will likely be discharged upon his return to [facility]. CM will follow. Discharge Potential Discharge Needs: PCP F/U Appt and Surgical F/U Appt Anticipated Barriers to Discharge: None Identified Patient/Family Education Needs: Review discharge instructions, discuss Ask Me Three Transportation: Private vehicle Plan: Anticipate, Al will be discharged once medically ready. He will follow up with his community providers, surgical team, and plan of care as directed. He will be transported via private vehicle. CM will continue to follow. Social Determinants of Health Screening Social Determinants of health last assessed in clinic: 09/07/24 Will the Patient Participate in the Screening?: Declined to provide Do you worry about having a steady place to live?: no Problems where you live: no known problems In the past 12 months, have you had to go without electric, gas, oil or water in your home?: no Has lack of transportation kept you from medical appointments or from doing things needed for daily living?: no Has anyone in your life made you feel unsafe or unsupported?: no How hard is it for you to pay for the very basics like food, housing, medical care, and heating? Would you say it is:: Not hard at all Do you want help finding or keeping work or a job?: I do not need or want help If for any reason you need help with day-to-day activities such as bathing, preparing meals, shopping, managing finances, etc., do you get the help you need?: I don?t need any help How often do you feel lonely or isolated from those around you?: Never Do you speak a language other than [place]isian at home?: No Does the patient want assistance with any of the above?: No
--- NOTE | 2024-09-08 16:03 | W.PM.DS.N ---
Date of service: 09/08/24 Time of Service: 16:03 DS: Diagnosis Discharge Diagnosis (1) Displacement of nephrostomy tube: Status: Acute (2) Acute kidney injury superimposed on stage 4 chronic kidney disease: Status: Acute (3) UTI (urinary tract infection): Status: Acute (4) Candiduria: Status: Acute (5) Diabetes: Status: Chronic (6) Essential hypertension: Status: Chronic (7) Hyperlipidemia: Status: Chronic (8) CHF (congestive heart failure): Status: Chronic (9) On deep vein thrombosis (DVT) prophylaxis: Status: Acute Discharge Plan Disposition Patient Disposition: Home Condition: Improving Discharge Details Reason For Visit: Dislodged right-sided nephrostomy tube Admit Date/Time: 09/07/24 13:35 Admit Provider: [place] Mcdaniel Attending Provider: [place] Mcdaniel Primary Care Provider: Polly Beverly Hospital Course Hospital Course: This 71-year-old male patient with a past medical history of obstructed nephrostomy show squamous cell carcinoma of the bladder, bilateral hydronephrosis diabetes mellitus type 2( last A1C 5.6) with peripheral neuropathy, hyperparathyroidism, recurrent UTI, candiduria, CKD stage IV, COPD, hypertension, hyperlipidemia, CHF, PFO, CAD nicotine dependence, hypothyroidism, presented to the ED on 09/08/2024 for evaluation of dislodged right nephrostomy tube without signs of urinary retention. Workup in the ED was consistent with leukocytosis at 16.55, mild anemia, Cr 3.4 with baseline 2.6 to 3.1 reflecting -CHARLIE on CKD with a positive UA. The ED provider discussed with Dr. Vieyra with recommendation to continue previously ordered fluconazole and IR placement of right nephrostomey catheter at [facility]. The patient was accepted by Dr. Damien Velasquez from IR at [facility] for procedure on subsequent day. The patient was admitted to the medical surgical floor by the hospitalist service for CHARLIE on CKD, UTI, dislodged right nephrostomy tube pending roundtrip to [facility] for right nephrostomy tube placement. Ceftriaxone initiated for positive UA in the setting of planned instrumentation. Subsequently, urine culture was negative for significant bacteriuria, WBC 11.24, Cr 3.2. Stable upon departure to [facility] this AM. Upon return from [facility], the patient was hmodynamically stable with bilateral nephrostomy tubes in place and draining w/o acute complaints. The patient will be discharge home with a follow-up with PCP with 7 days of discharge. Patient reminded to complete his fluconazole as ordered prior to presentation and to follow-up with urology. IR discharge instructions provided by [facility]. Discussed with Dr. Mcdaniel Home Meds and New Rx's Prescriptions: Continued nitroglycerin 0.4 mg tablet, sublingual 0.4 mg SL ONCE Qty: 20 2RF Rx Instructions: 1 tab SL q. 5-10 minutes as needed for chest pain. No relief after 3 seek emergency care/call 911. lisinopril 40 mg tablet 40 mg PO DAILY Qty: 90 3RF atorvastatin 40 mg tablet 40 mg PO QHS Qty: 90 3RF albuterol sulfate [Ventolin HFA] 90 mcg/actuation HFA aerosol inhaler 2 puff IH Q4H PRN (Reason: shortness of breath or wheezing) Qty: 18 6RF urea 40 % cream 1 applic topical BID Qty: 85 0RF gabapentin 300 mg capsule 300 mg PO QHS 30 Days Qty: 30 0RF (DME) Aerochamber MV Spacer See Rx Instructions .ROUTE .MEDSUPPLY Qty: 1 0RF Rx Instructions: As directed amlodipine 5 mg tablet 5 mg PO DAILY Qty: 90 3RF metoprolol tartrate 25 mg tablet 25 mg PO BID Qty: 180 3RF sodium bicarbonate 650 mg tablet 1,300 mg PO BID Qty: 120 12RF umeclidinium-vilanterol 62.5-25 mcg/actuation blister with device 1 inh inhalation DAILY Qty: 180 3RF fluconazole 200 mg tablet 200 mg PO DAILY Qty: 5 0RF ascorbic acid (vitamin C) [Vitamin C] 500 mg Tablet 500 mg PO DAILY trospium 20 mg tablet 20 mg PO BID Qty: 20 0RF Rx Instructions: administer on an empty stomach tramadol 50 mg tablet 50 mg PO Q6H MDD 4 PRN (Reason: pain) Qty: 20 0RF Rx Instructions: may take along with Tylenol Discharge Instructions Referrals: Cruly Vieyra MD [ [facility]YSICIAN, Urology] Referral Note: He already has his referrals and appointments in place Polly Beverly MD [Primary Care Provider, Medicine] Referral Note: PCP follow-up within 7 days of discharge Activity:: Activity as Tolerated Equipment/Supplies:: No Equipment Needed Diet:: heart healthy Discharge Orders Discharge Orders: Discharge Order (Routine); Ordered 09/08/24 Ordered By: Christine Robb DS: Summary Time Spent with Patient providing and/or coordinating discharge services: Greater than 30 minutes Status at Discharge Functional status at discharge: independent ambulation Overall status at discharge: patient is back to baseline Mental Status: mental status grossly normal Speech and Movement: speech and movement normal and slowed movement Mood: congruent mood Affect: normal affect Quality:SDOH Health Related Social Needs: Health related social needs details runs out of money for food Exam Narrative Exam Narrative: Alert and oriented X 4, no focal neurological deficit, clear lungs, S1-S2, pulses are positive to all 4 extremities, abdomen is nondistended soft nontender, No CVA pain/tenderness, bilateral nephrostomy cathetera- patent , dressings DCI, moves all 4 extremities, Psych Mental Status: mental status grossly normal Speech and Movement: speech and movement normal and slowed movement Mood: congruent mood Affect: normal affect DS: Data Vitals/I&O Vitals and I&O: Vital Signs Temperature 35.9 C L 09/08/24 07:47 Temperature Source Temporal Artery Scan 09/08/24 07:47 Pulse 56 L 09/08/24 07:47 Pulse Rhythm Regular 09/07/24 16:00 Respiratory Rate 16 09/08/24 07:47 Respiratory Effort Normal, Non-Labored 09/07/24 16:00 Blood Pressure 131/57 L 09/08/24 07:47 Blood Pressure Mean 81 09/08/24 07:47 Blood Pressure Position Sitting 09/07/24 09:45 Pulse Oximetry 97 09/08/24 07:47 Oxygen Delivery Method Room Air 09/08/24 07:47 Oxygen Flow Rate 0 09/08/24 07:47 Pain Level 0 09/07/24 19:56 Intake & Output 09/07/24 09/08/24 09/08/24 23:59 11:59 23:59 Intake Total 550 / 550 Output Total 50 / 50 Balance 550 / 550 -50 / -50 Weight 83.9 kg Intake: IV 50 / 50 Oral 500 / 500 Output: Urine 50 / 50 Other: Urine Color Light Mariha Straw Urine Appearance Cloudy Clear Urine Odor None Strong Comment Pt used urinal ind. Stool Size Moderate Stool Characteristics Soft Brown Data Completed and Pending Labs on day of discharge: Labs from last 24 hours 09/08/24 05:50 WBC 11.24 H RBC 3.19 L Hgb 9.3 L Hct 29.2 L MCV 92 MCH 29.2 MCHC 31.8 L RDW 13.2 Plt Count 263 MPV 10.1 Immature Gran % 0.4 Neutrophils % 63.2 Lymphocytes % 19.0 Monocytes % 13.0 Eosinophils % 4.0 Basophils % 0.4 Nucleated RBC % 0.0 Absolute Neutrophils 7.10 H Absolute Lymphocytes 2.14 Absolute Monocytes 1.46 H Absolute Eosinophils 0.45 Absolute Basophils 0.04 Sodium 142 Potassium 4.8 Chloride 111 H Carbon Dioxide 17.6 L Anion Gap 13.4 H BUN 70 H Creatinine 3.2 H Est GFR (CKD-EPI 2020) 19.68 Glucose 88 Calcium 9.1 Preliminary micro results at discharge 09/07/24 11:35 Urine - Reflex from Ua Urine Culture - Preliminary Gram positive sulaiman, mixed PFSH All Active Problems (Updated 09/07/24 @ 13:55 by Christine Robb APRN) On deep vein thrombosis (DVT) prophylaxis (Acute) Diabetes (Chronic) Candiduria (Acute) UTI (urinary tract infection) (Acute) Acute kidney injury superimposed on stage 4 chronic kidney disease (Acute) CHARLIE (acute kidney injury) (Acute) Displacement of nephrostomy tube (Acute) Obstructed nephrostomy tube (Acute) Squamous cell carcinoma of bladder (Acute) Bilateral hydronephrosis (Acute) Diabetic peripheral neuropathy associated with type 2 diabetes mellitus (Chronic) Secondary hyperparathyroidism (of renal origin) (Chronic 06/2023) normal calcium, phosphorus levels. initiating calcitriol 06/2023 Recurrent UTI (Chronic) Chronic kidney disease, stage 4 (severe) (Chronic) CKD stage 4 secondary to hypertension (Chronic) Bladder cancer (Chronic ~06/2016) Chronic obstructive lung disease (Chronic 03/28/12) Essential hypertension (Chronic 01/03/13) Gout (Chronic 07/04/14) Hyperlipidemia (Chronic 03/28/12) Pulmonary nodule seen on imaging study (Chronic 12/10/14) lung CT due 10/2021 CHF (congestive heart failure) (Chronic) CAD in [place] artery (Chronic ~2011) S/p CABG x [address] [facility] in 2011 Bundle branch block, right (Chronic) Tobacco abuse (Chronic) 40 pack year hx. Poor dentition (Chronic) Multiple atypical skin moles (Chronic) Onychomycosis (Chronic) Hyperthyroidism determined by thyroid function test (Chronic) Corns and callosities (Chronic) Nail dystrophy (Chronic) Nocturia more than twice per night (Chronic) Medical History Alcohol abuse (01/04/13) binge drinks 6 pack on Wednesday PFO (patent foramen ovale) Hyperlipidemia Olecranon bursitis of left elbow (07/04/14) Surgical History History of surgery per patient stents place in [facility] S/P CABG x 4 (~2011) H/O transurethral destruction of bladder lesion Family History Father , age 57 Heart disease of [place] at 56 yo Mother , 93 Diabetes Other Hyperlipidemia Hypertension Social History Smoking/Tobacco Use Status: Current every day Tobacco Type: cigarettes Smoking packs per day: 1 Smoking cigarettes per day: 20.0 Years smoked: 40 Smoking pack-years: 40.00 Tobacco: How many years used: 40 Quit status: not considering quitting Counseling given: provider counseling Smoking risk assessment performed?: Yes Alcohol Intake: current Alcohol Intake frequency: a few times a week Alcohol type: beer Drug use: Never Substance use type: does not use Household members: none Housing: house Number of Children: 2 number of grandchildren: 4 Education Level: high school 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 Cate/Sikh: No preference Special cate needs: No Do you feel safe at home: Yes Additional Social history: lives alone Time Spent with Patient Time Spent with Patient: 70-84 minutes4 Time was spent: preparing to see the patient(eg.review tests), obtaining and/or reviewing separately otained hiistory, ordering medications,tests, procedures, referring, communicating with other health home health care respiratory therapist, indepentently interpreting results, counseling the patient and care coordination
--- NOTE | 2024-09-08 16:16 | PDOC.CMDIS ---
Date of service: 09/08/24 Time of Service: 16:16 LACE Index Scoring Tool Questions: Length of Stay (in days): 1 Was the patient admitted via the E.D.?: Yes Comorbidities: Congestive Heart Failure E.D. Visits: 2 Answers: Total Score: 8 Risk of Readmission: Low Risk Care Management Discharge Plan Reason for Hospitalization: Dislodged right-sided nephrostomy tube Discharge Plan: Al will be discharged home today and no new services are indicated. He will follow up with his community providers, surgical team, and plan of care as directed. He will be transported via private vehicle. Patient/Family Education Needs: Review of discharge instructions, activity, limitation, and plan of care. Discuss Ask Me Three. SDOH Health Related Social Needs: Health related social needs details runs out of money for food
[2024-09-08 16:24] VITALS: PULSE 70; RESP 18; TEMP 36; O2SAT 99
== END 2024-09-08 17:19 | disposition home or self-care (01) ==
LOC: ER 13:31 → MS 15:29
PROVIDERS: Admitting Provider Family Medicine; Emergency Provider Emergency Medicine; PCP Family Medicine; Responsible Provider Nurse Practitioner Acute Care; Visit Provider Family Medicine
DX: T83.022A Displacement of nephrostomy catheter, initial encounter (principal); B37.49 Other urogenital candidiasis; N13.30 Unspecified hydronephrosis; C67.8 Malignant neoplasm of overlapping sites of bladder; N17.9 Acute kidney failure, unspecified; N18.4 Chronic kidney disease, stage 4 (severe); D72.829 Elevated white blood cell count, unspecified; I13.0 Hypertensive heart and chronic kidney disease with heart failure and stage 1 through stage 4 chronic kidney disease, or unspecified chronic kidney disease; D64.9 Anemia, unspecified; E78.2 Mixed hyperlipidemia; E11.22 Type 2 diabetes mellitus with diabetic chronic kidney disease; I50.22 Chronic systolic (congestive) heart failure; J44.9 Chronic obstructive pulmonary disease, unspecified; E11.42 Type 2 diabetes mellitus with diabetic polyneuropathy; N25.81 Secondary hyperparathyroidism of renal origin; E78.5 Hyperlipidemia, unspecified; I25.10 Atherosclerotic heart disease of native coronary artery without angina pectoris; Z95.1 Presence of aortocoronary bypass graft; I45.10 Unspecified right bundle-branch block; F17.210 Nicotine dependence, cigarettes, uncomplicated; B35.1 Tinea unguium; E05.90 Thyrotoxicosis, unspecified without thyrotoxic crisis or storm; R35.1 Nocturia; Q21.12 Patent foramen ovale
CPT/HCPCS: 00123; 36415; 80048; 94640; 96374; 99222; 99231; 99285; 81003; 81015; 85025; 87086; 94664; 99223; 99239; G0378; J0696; J1815; J3490

== ENCOUNTER 2024-09-27 01:34 | Outpatient (CLI) | payer MEDICARE, SELFPAY ==
--- NOTE | 2024-09-27 | DI.CT_ITS ---
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 TECHNIQUE: Imaging protocol: Axial computed tomography images were obtained and coronal and sagittal reformatted images were created and reviewed. Lung Computer Aided Detection (CAD) was utilized. COMPARISON: CT CT CHEST LUNG CANCER SCREEN from 11/04/[address] CHEST LUNG CANCER SCREEN from 11/05/2022 FINDINGS: Tracheobronchial tree: Patent where visualized. No bronchiectasis is present. Pulmonary parenchyma: Mild emphysematous changes are present in the lungs. There is a stable 6 mm nodule in the medial aspect of the left upper lobe. There is a stable 3 mm nodule in the lateral aspect of the right upper lobe. There are no focal consolidating infiltrates present. Mediastinum and Jayashree: No dominant adenopathy or fluid collection. The esophagus is unremarkable. Thyroid gland: Unremarkable. Pleura: No effusion or pneumothorax. Stable mild pleural calcification in the right lung base. Heart: The heart is not dilated. Three vessel coronary artery calcification and/or stents are present. No pericardial effusion. Aorta: Thoracic aorta non-dilated. Atherosclerotic calcification is present. Lymph nodes: Within normal limits. Soft tissues: Mild gynecomastia. Bones:Within normal limits for the patient's age. IMPRESSION: 1. Stable pulmonary nodules. No new pulmonary nodules. 2. No acute pulmonary process. 3. Mild pulmonary emphysema. RADIATION DOSE DELIVERED: 333.66mGy.cm Total DLP 333.66mGy.cm Total DLP DATA REPOSITORY: All CT scans at this facility are submitted to the National Radiology Data Registry (NRDR) Dose Index Registry (DIR) with the [employer] (ACR). RADIATION OPTIMIZATION: All CT scans at this facility use at least one of these dose optimization techniques: automated exposure control; mA and/or kV adjustment per patient size (includes targeted exams where dose is matched to clinical indication); or iterative reconstruction.
== END 2024-09-27 01:54 ==
PROVIDERS: PCP Family Medicine; Visit Provider Internal Medicine
DX: C67.8 Malignant neoplasm of overlapping sites of bladder (principal); N20.0 Calculus of kidney
CPT/HCPCS: 71250; 74176

== ENCOUNTER 2024-09-27 01:37 | Outpatient (CLI) | payer MEDICARE, SELFPAY ==
--- NOTE | 2024-09-27 07:30 | DI.CT_ITS ---
Exam(s) CT ABDOMEN PELVIS WO EXAM: CT ABDOMEN PELVIS WO CLINICAL HISTORY: monitor known bladder mass,bladder ca,c67.8. TECHNIQUE: Imaging Protocol: Axial computed tomography images with coronal and sagittal reformatted images were created and reviewed. COMPARISON: CT RENAL COLIC WO CONTRAST from 05/04/[address] ABDOMEN PELVIS WO from 07/03/2024 FINDINGS: Examination is limited secondary to lack of IV contrast. ABDOMEN: Lung Bases: Coronary artery calcifications are present. Liver: Normal density. Enlarged liver. Calcified granuloma are present. Gallbladder and biliary tract: No radiodense calculus or biliary ductal dilation. Pancreas: The pancreas is mildly atrophic. Nonspecific pancreatic calcifications are seen. No peripancreatic inflammation or fluid collection is seen. Spleen: Normal. Kidneys: Since the prior examination. There has been placement of bilateral nephrostomy tubes. There is mild residual dilatation of the distal left ureter. No right hydronephrosis is seen.There is bilateral nephrolithiasis. No masses seen. Adrenal glands: No mass is seen. Lymph nodes: Within normal limits. Abdominal Aorta: Abdominal portion non-dilated. Extensive atherosclerotic calcification is present. PELVIS: Bladder:Symmetric distention, no gross wall thickening. There is again seen an irregular mass in the urinary bladder predominantly involving the left side. There does appear to be increase in size of the mass with extension laterally on the left (series 7, image 88). The mass measures at least 5.7 x 5.3 cm. This compares to 4 x 3.7 cm on the prior examination. Bowel: There is diverticulosis of the colon without evidence of acute diverticulitis. There is no evidence of bowel wall thickening or obstruction. Appendix is unremarkable. Peritoneal cavity: There is a trace amount of ascites in the pelvis. No free air. Reproductive organs: The prostate gland is enlarged. Bones: Within normal limits. No new aggressive osseous lesions are present. The lucency in the left iliac bone is unchanged dating back to 2017. Soft Tissues: There is atrophy of the anterior abdominal wall musculature. IMPRESSION: 1. Interval placement of bilateral nephrostomy tubes with mild residual dilatation of the distal left ureter. 2. Interval increase in size of the bladder mass with extension laterally on the left. 3. Trace amount of ascites in the pelvis. 4. Bilateral nephrolithiasis. RADIATION DOSE DELIVERED: 666.93mGy.cm Total DLP DATA REPOSITORY: All CT scans at this facility are submitted to the National Radiology Data Registry (NRDR) Dose Index Registry (DIR) with the [employer] (ACR). RADIATION OPTIMIZATION: All CT scans at this facility use at least one of these dose optimization techniques: automated exposure control; mA and/or kV adjustment per patient size (includes targeted exams where dose is matched to clinical indication); or iterative reconstruction.
== END 2024-09-27 01:57 ==
PROVIDERS: PCP Family Medicine; Visit Provider Urology
DX: C67.8 Malignant neoplasm of overlapping sites of bladder (principal)
CPT/HCPCS: 74176

== ENCOUNTER → 2024-10-03 11:32 | Outpatient (BNVA) | payer MEDICARE, SELFPAY | PROVIDERS: PCP Family Medicine; Referring Provider Family Medicine; Visit Provider Urology | DX: C67.9 Malignant neoplasm of bladder, unspecified (principal) | CPT/HCPCS: 99214 ==

== ENCOUNTER 2024-10-19 11:34 | Outpatient (CLI) | payer MEDICARE, SELFPAY ==
--- NOTE | 2024-10-19 06:00 | DI.NM_ITS ---
APPROVED REPORT Exam: Pharmacologic Patient Location: Out-Patient Room/Bed: Stress Nurse: Mignon Mays RN Ordering Provider:ANDREA ABERNATHY, Contact Number: [phone] BMI: 23.87 Baseline Rhythm: Sinus Rhythm, RBBB Indications: Upcoming bladder cancer surgery, preop, CAD, Medical History Medical History: Diabetes, CHARLIE superimposed on stage 4 CKD, HLD, PFO, bilateral hydronephrosis, diabetic neuropathy associated with DMT2, chronic obstructive lung disease, HLD, HTN, CHF, CAD in [place] coronary artery, RBBB, tobacco abuse, hyperthyroidism Cardiac Medications: Albuterol sulfate, amlodipine, atorvastatin, gabapentin, lisinopril, metoprolol tartrate, sodium bicarbonate, tramadol, anoro ellipta, trospium Allergies: Bactrim Cardiac Risk Factors: Family hx, HTN, HLD, CVD, diabetes, COPD, smoker Previous Cardiac Procedures: S/P CABG x4 Pretest Chest Pain Characteristics: None Exercise History: Sedentary Physical Disabilities: Patient reports inability to use treadmill Lung Sounds: Clear/diminished throughout Heart Sounds: Bradycardia Stress Test Details Test: Pharmacologic stress testing performed using 0.4 mg of regadenoson per 5 mL given IV over 10 seconds. Reason for pharmacologic stress test: physical limitation. Nuclear Acquisition: Rest Tc-99m/Stress Tc-99m 1 day Rest Isotope: Tc-99m Sestamibi. Dose: 10.0 Date: 10/19/2024 Injection Time: 0900 Stress Isotope: Tc-99m Sestamibi. Dose: 30.0 Date: 10/19/2024 Injection Time: 1046 HR Resting HR Supine: 50 bpm Max Heart Rate (APMHR): 147.960917 bpm Target HR (85% APMHR): 124.193244 bpm Max HR Achieved: 71 bpm % of APMHR: 48.30 Recovery HR: 59 bpm BP Resting BP Supine: 150/60 mmHg Max BP: 150/60 mmHg Recovery BP: 135/52 mmHg ECG Resting ECG: Sinus Bradycardia, RBBB, nonspecific ST-T abnormalities Stress ECG: Sinus Rhythm, RBBB, nonspecific ST-T abnormalities ST Change: Nondiagnostic low heart rate Arrhythmia: Rare PVC's, rare PAC's Recovery ECG: Sinus Bradycardia, RBBB, nonspecific ST-T abnormalities Recovery ST Change: Nondiagnostic low heart rate Recovery Arrhythmia: None Clinical Stress Symptoms: None Angina Score: None Rate Pressure Product: 17638 Stress ECG Conclusion 1. Resting electrocardiogram showed left anterior fascicular block and right bundle branch block 2. Patient underwent testing using pharmacologic stress with regadenoson 3. Peak heart rate achieved was 48% of maximal predicted for age 4. The electrocardiographic portion of the test was nondiagnostic 5. See MPI report Stress Test Summary STAGE HR BP SpO2 Symptoms NOTES Supine 50 150/60 95% 1 min post Lexiscan injection 67 146/60 97% 3 min post Lexiscan injection 62 130/52 96% 6 min post Lexiscan injection 59 132/52 95% Patient unable to use treadmill per his report. Fabiana scan protocol performed. Patient denied all symptoms and proceeded to imaging ambulatory in no apparent distress. MPI Conclusion Myocardial perfusion imaging demonstrates no significant myocardial ischemia. There may be a very small area of apical infarction Calculated EF is 40%. The left ventricle appears mildly dilated. There is mild global hypokinesis
[2024-10-19] MEDS: Regadenoson 0.4 MG/5 ML SYR IVP (11:20)
== END 2024-10-19 11:54 ==
LOC: DI 11:34
PROVIDERS: PCP Family Medicine; Visit Provider Internal Medicine Cardiovascular Disease
DX: I25.10 Atherosclerotic heart disease of native coronary artery without angina pectoris (principal)
CPT/HCPCS: 78452; 93016; 93018; 93017; J2785

== ENCOUNTER → 2024-11-03 13:39 | Outpatient (BNVA) | payer MEDICARE, SELFPAY | PROVIDERS: PCP Family Medicine; Referring Provider Family Medicine; Visit Provider Urology | DX: C67.8 Malignant neoplasm of overlapping sites of bladder (principal) | CPT/HCPCS: 99213 ==

== ENCOUNTER → 2024-11-21 15:18 | Outpatient (BNVA) | payer MEDICARE, SELFPAY | PROVIDERS: PCP Family Medicine; Referring Provider Family Medicine; Visit Provider Urology | DX: C67.8 Malignant neoplasm of overlapping sites of bladder (principal) | CPT/HCPCS: 99215 ==

== ENCOUNTER 2024-11-21 16:54 | Outpatient (REF) | payer MEDICARE, SELFPAY ==
[2024-11-24 12:01] LABS: Creatinine, BF 4.1 mg/dL
== END 2024-11-21 16:55 | disposition home or self-care (01) ==
LOC: LBN 16:54
PROVIDERS: PCP Family Medicine; Visit Provider Urology
DX: C67.9 Malignant neoplasm of bladder, unspecified (principal)
CPT/HCPCS: 82570

== ENCOUNTER 2024-12-05 00:06 | Outpatient (CLI) | payer MEDICARE, SELFPAY ==
[2024-12-05 12:52] LABS: ALT 21 U/L (16-63); AST 12 U/L (15-37); Albumin 2.7 g/dL (3.4-5.0); Alkaline Phosphatase 107 U/L (46-116); Anion Gap 13.7 mmol/L (3-11); BUN 72 mg/dL (7-18); Bilirubin, Total 0.3 mg/dL (0.2-1.0); CO2 13.3 mmol/L (21.0-32.0); Calcium 8.7 mg/dL (8.5-10.1); Chloride 112 mmol/L (98-107); Estimated GFR 22.15 (mL/min/1.73m2); Glucose 99 mg/dL (74-106); Magnesium 1.7 mg/dL (1.8-2.4); Potassium 5.0 mmol/L (3.5-5.1); Sodium 139 mmol/L (136-145); Total Protein 7.1 g/dL (6.4-8.2); Vitamin D 25 Total 19 ng/mL (30-100)
== END 2024-12-05 00:07 | disposition home or self-care (01) ==
LOC: LOS 00:06
PROVIDERS: PCP Family Medicine; Visit Provider Surgery
DX: N17.9 Acute kidney failure, unspecified (principal); N18.4 Chronic kidney disease, stage 4 (severe); N25.81 Secondary hyperparathyroidism of renal origin; C67.9 Malignant neoplasm of bladder, unspecified
CPT/HCPCS: 36415; 80053; 82306; 83735; 83970

== ENCOUNTER 2025-01-09 19:06 | Outpatient (REF) | payer MEDICARE, SELFPAY ==
[2025-01-09 19:16] LABS: Glucose Negative (Negative)
[2025-01-09 19:32] LABS: RBC 0-2 HPF (0-2)
== END 2025-01-09 19:07 | disposition home or self-care (01) ==
LOC: LBN 19:06
PROVIDERS: PCP Family Medicine; Visit Provider Urology
DX: R82.90 Unspecified abnormal findings in urine (principal)
CPT/HCPCS: 81003; 81015; 87086

== ENCOUNTER 2025-01-30 12:30 | Outpatient (REF) | payer MEDICARE, SELFPAY ==
[2025-01-30 15:28] LABS: ALT 10 U/L (10-49); AST 10 U/L (<34); Albumin 3.8 g/dL (3.2-5.0); Alkaline Phosphatase 101 U/L (46-116); Bilirubin, Total 0.2 mg/dL (0.2-1.2); Calcium 8.5 mg/dL (8.3-10.6); Chloride 121 mmol/L (98-107); Glucose 64 mg/dL (74-106); Potassium 5.7 mmol/L (3.5-5.1); Sodium 141 mmol/L (136-145); Total Protein 7.0 g/dL (5.7-8.2)
[2025-01-30 15:33] LABS: BUN 116 mg/dL (9-23)
[2025-01-30 15:34] LABS: CO2 < 10.0 mmol/L (20.0-31.0)
== END 2025-01-30 12:31 | disposition home or self-care (01) ==
LOC: LBN 12:30
PROVIDERS: PCP Family Medicine; Visit Provider Urology
DX: C67.8 Malignant neoplasm of overlapping sites of bladder (principal)
CPT/HCPCS: 80053

== ENCOUNTER 2025-01-31 14:33 | Inpatient (IN) | payer MEDICARE, SELFPAY ==
[2025-01-31] VITALS (60 sets, daily range): BP systolic 100–149; BP diastolic 42–110; PULSE 51–109; RESP 15–30; TEMP 35.9–36.4; O2SAT 92–100
--- NOTE | 2025-01-31 14:30 | RT.EKG_ITS ---
APPROVED REPORT Exam: Resting ECG Reason for Exam: Weakness Patient Location: E HR:90 bpm ECG Measurements Heart Rate 90 AXIS AK 236 P -11 QRSd 151 QRS -76 QT 410 T 92 QTc 502 Conclusion Sinus rhythm...normal P axis, V-rate 60- 99 Ventricular premature complex...V complex w/ short R-R interval Prolonged AK interval...AK >220, V-rate 50- 90 IVCD, consider RBBB...QRSd>120mS, terminal axis(90,270) ST elevation secondary to IVCD...Multiple VCG criteria Left [place] I have reviewed and interpreted ECG and agree with software generated interpretation. There are no significant changes compared to prior EKG performed on 09/07/2021 at 14:36.
--- NOTE | 2025-01-31 14:33 | ED.GENADUL_ITS ---
Discharge Plan Disposition Patient Disposition: Admit to [facility] Condition: Serious Discharge Details Clinical Impression: Acidemia, Hyperkalemia, CHARLIE (acute kidney injury) Primary Care Provider: Polly Beverly ED Provider: Brenden Maldonado [facility] and New Rx's Prescriptions: No Action nitroglycerin 0.4 mg tablet, sublingual 0.4 mg SL ONCE Qty: 20 2RF Rx Instructions: 1 tab SL q. 5-10 minutes as needed for chest pain. No relief after 3 seek emergency care/call 911. albuterol sulfate [Ventolin HFA] 90 mcg/actuation HFA aerosol inhaler 2 puff IH Q4H PRN (Reason: shortness of breath or wheezing) Qty: 18 6RF (DME) Aerochamber MV Spacer See Rx Instructions .ROUTE .MEDSUPPLY Qty: 1 0RF Rx Instructions: As directed amlodipine 5 mg tablet 5 mg PO DAILY Qty: 90 3RF metoprolol tartrate 25 mg tablet 25 mg PO BID Qty: 180 3RF lisinopril 40 mg tablet 40 mg PO DAILY Qty: 90 3RF urea 40 % cream 1 applic topical BID Qty: 85 5RF atorvastatin 40 mg tablet 40 mg PO QHS Qty: 90 3RF sennosides-docusate sodium [Senna with Docusate Sodium] 8.6-50 mg tablet 2 tab-cap PO BID PRN Rx Instructions: as needed for constipation polyethylene glycol 3350 [Miralax] 17 gram/dose powder 17 g PO DAILY cholecalciferol (vitamin D3) 25 mcg (1,000 unit) tablet 25 mcg PO DAILY Eliquis 2.5 mg tablet 2.5 mg PO BID Rx Instructions: Take X 22 days metoclopramide HCl [Reglan] 10 mg tablet 10 mg PO QAC Qty: 90 0RF Rx Instructions: administer 30 minutes before meals sodium bicarbonate 650 mg tablet 1,300 mg PO BID Qty: 120 12RF umeclidinium-vilanterol 62.5-25 mcg/actuation blister with device 1 inh inhalation DAILY Qty: 180 3RF gabapentin 300 mg capsule 300 mg PO QHS 30 Days Qty: 30 2RF ascorbic acid (vitamin C) [Vitamin C] 500 mg Tablet 500 mg PO DAILY tramadol 50 mg tablet 50 mg PO Q6H MDD 4 PRN (Reason: pain) Qty: 20 0RF Rx Instructions: may take along with Tylenol HPI General Mode of arrival: EMS . Date/Time Provider Initiated Documentation: 01/31/25 15:06 . Limitations to Documentation: no limitations . Information obtained by: patient, RN notes reviewed and old records reviewed . HPI Narrative: Patient presents to ED with c/o increasing SOB over the last 4-6 weeks. He states that at rest he is ok. Any type of exertion causes significant trouble breathing. He has no chest pain or pressure. He has had no fever or cough. He has not been eating and drinking normally and has had weight loss. He is still making urine and EMS just emptied his bag before transport. He denies any leg swelling. He denies any abdominal pain. Dr. Vieyra ordered labs yesterday and patient referred to ED today for evaluation. Related Data Home Medications ?Medication ?Instructions ?Recorded ?Confirmed ascorbic acid (vitamin C) 500 mg 500 mg PO DAILY 03/0301/31/25 tablet (Vitamin C) inhalational spacing device #1 ea 05/15/19 01/31/25 (Aerochamber MV spacer) nitroglycerin 0.4 mg sublingual 0.4 mg sublingual ONCE CAD #20 tabs 09/05/21 01/31/25 tablet albuterol sulfate 90 mcg/actuation 2 puff inhalation Q 4H PRN 10/27/23 01/31/25 aerosol inhaler (Ventolin HFA) shortness of breath or wheezing #18 grams sodium bicarbonate 650 mg tablet 1,300 mg (2 x 650 mg) PO BID #120 03/01/24 01/31/25 tabs amlodipine 5 mg tablet 5 mg PO DAILY #90 tabs 06/0701/31/25 metoprolol tartrate 25 mg tablet 25 mg PO BID #180 tab s 06/07/24 01/31/25 tramadol 50 mg tablet 50 mg PO Q6H PRN pain #20 ta bs 07/21/24 01/31/25 umeclidinium 62.5 mcg-vilanterol 1 inh inhalation MIHAELA Y #180 ea 08/28/24 01/31/25 25 mcg/actuation powdr for inhalation gabapentin 300 mg capsule 300 mg PO QHS 30 days #30 ca ps 09/12/24 01/31/25 atorvastatin 40 mg tablet 40 mg PO QHS #90 tabs 01/31/25 lisinopril 40 mg tablet 40 mg PO DAILY #90 tab-caps 09/22/24 01/31/25 urea 40 % topical cream 1 applic topical BID #85 gra ms 09/22/24 01/31/25 apixaban 2.5 mg tablet (Eliquis) 2.5 mg PO BID 5 01/31/25 cholecalciferol (vitamin D3) 25 25 mcg PO DAILY 01/31/25 mcg (1,000 unit) tablet polyethylene glycol 3350 17 17 g PO DAILY 11/17/24 gram/dose oral powder (Miralax) sennosides 8.6 mg-docusate sodium 2 tab-cap PO BID PRN 11/17/24 01/31/25 50 mg tablet (Senna with Docusate Sodium) metoclopramide HCl 10 mg tablet 10 mg PO QAC #90 tabs 11/21/24 01/31/25 (Reglan) Previous Rx's ?Medication ?Instructions ?Recorded inhalational spacing device #1 ea 05/15/19 (Aerochamber MV spacer) nitroglycerin 0.4 mg sublingual 0.4 mg sublingual ONCE CAD #20 tabs 09/05/21 tablet albuterol sulfate 90 mcg/actuation 2 puff inhalation Q 4H PRN 10/27/23 aerosol inhaler (Ventolin HFA) shortness of breath or wheezing #18 grams sodium bicarbonate 650 mg tablet 1,300 mg (2 x 650 mg) PO BID #120 03/01/24 tabs amlodipine 5 mg tablet 5 mg PO DAILY #90 tabs 06/07 metoprolol tartrate 25 mg tablet 25 mg PO BID #180 tab s 06/07/24 tramadol 50 mg tablet 50 mg PO Q6H PRN pain #20 ta bs 07/21/24 umeclidinium 62.5 mcg-vilanterol 1 inh inhalation MIHAELA Y #180 ea 08/28/24 25 mcg/actuation powdr for inhalation gabapentin 300 mg capsule 300 mg PO QHS 30 days #30 ca ps 09/12/24 atorvastatin 40 mg tablet 40 mg PO QHS #90 tabs lisinopril 40 mg tablet 40 mg PO DAILY #90 tab-caps 09/22/24 urea 40 % topical cream 1 applic topical BID #85 gra ms 09/22/24 metoclopramide HCl 10 mg tablet 10 mg PO QAC #90 tabs 11/21/24 (Reglan) Allergies Allergy/AdvReac Type Severity Reaction Status Date / Time sulfamethoxazole (From AdvReac Severe Kidney Verified 09/22/24 12:57 Bactrim) function distortion trimethoprim (From Bactrim) AdvReac Severe Kidney Verified 09/22/24 12:57 function distortion General JOSH: 4 Exam Narrative Exam Narrative: Const: Thin elderly male in NAD. VS per triage. HEENT: NC/AT. Normal facial exam. Neck: Supple. Trachea midline. Lungs: Tachypneic but in no distress. Lungs are clear w/o wheeze, rales, rhonchi. Cor: RRR without murmur. Good radial pulses. GI: Soft/ND/NT. Neuro: A+O x 3. Normal speech, mentation, gait. Cranial nerves II - XII grossly intact. No gross motor or sensory deficit. Ext: No C/C/E. Medical Decision Making Patient with DUQUE, decreased appetite, losing weight in setting of previous bladder/prostate resection with ileal conduit at [facility] in October. Still making urine. Labs from yesterday very concerning with kidney injury and very low bicarb. EKG today without acute changes, similar to previous per my read. Order for LR at 100 ml/hr with repeat labs. CXR ordered but lungs are clear. Chronicity of worsening SOB not consistent with PE, no fever or cough so unlikely pneuomnia. Concern for fluid overload, effusion, mass. 16:00 - Patient's labs are significant for venous pH of 6.92 with pCO2 of 24 and HCO3 of 5. Chemistries with a sodium of 141, chloride of 120, bicarb < 10 and potassium of 6. Again, EKG without acute changes. Patient's BUN is 115 and creatinine is 4.72 (baseline is 2.0 - 2.5). His calcium and magnesium are fine, Hgb is baseline. TSH and Free T4 both a little low. BNP high at 4401 but CXR per my read and per radiology without acute changes and no evidence of effusion or edema. I ordered calcium gluconate, sodium bicarb and Lokelma for his potassium. I have reached out to [facility], [facility] and [facility] to discuss possibility of transfer for possible dialysis. Patient remains stable. 17:15 - I was able to speak with nephrology at [facility]. Patient apparently had some fluid loss and problems with bicarb post op. He thinks patient is likely losing fluids and bicarb from his ileal conduit and is not necessarily in renal failure per se. He feels that patient warrants a trial of fluids and bicarb replacement and recommends another amp of sodium bicarb followed by a liter of D5 with 3 amps of bicarb given at 125 ml/hr. Check BMP and VBG q 6 h ours (next check at 21:00). Should check CPK and uric acid given history of cancer (add on to previous labs) and obtain renal U/S in morning to rule out obstruction (ordered). Reach back out to nephrology tomorrow after U/S. I have discussed with hospitalist here. Patient will be admitted to ICU for infusion and frequent labs checks. I did discuss with patient code status and he confirmed full code. Medical Records Medical records reviewed: Yes I reviewed the patient's medical records. Medical records narrative: [facility] notes, yesterday labs Lab Data Lab results reviewed: Yes I reviewed the patient's lab results. Lab results narrative: see [facility] ECG Data Attestation: I personally reviewed and interpreted this ECG (s) as follows: Prior ECG tracings: available for review Interpretation: see [facility]/EKG Quality:SDOH Health Related Social Needs: Health related social needs details runs out of money for food Critical Care Time Critical Care Time Critical Care Time: Yes Total Critical Care Time: 60 Attestation: Upon my evaluation, this patient had a high probability of imminent or life- threatening deterioration, which required my direct attention, intervention, and personal management. I have personally provided 60 minutes of critical care time exclusive of time spent on separately billable procedures. Time includes monitoring for potential decompensation, ordering of tests and medications, review of laboratory and radiology results, discussion with consultants and documentation . Interventions were performed as documented above in procedures. [facility] All Active Problems (Updated 01/31/25 @ 17:39 by Brenden Maldonado MD) CHARLIE (acute kidney injury) (Acute) Hyperkalemia (Acute) Acidemia (Acute) Chronic metabolic acidosis (Acute) Diabetes (Chronic) Candiduria (Acute) Acute kidney injury superimposed on stage 4 chronic kidney disease (Acute) Obstructed nephrostomy tube (Acute) 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 initiating calcitriol 06/2023 Recurrent UTI (Chronic) CKD stage 4 secondary to hypertension (Chronic) Bladder cancer (Chronic ~06/2016) Chronic obstructive lung disease (Chronic 03/28/12) Essential hypertension (Chronic 01/03/13) Gout (Chronic 07/04/14) Hyperlipidemia (Chronic 03/28/12) Pulmonary nodule seen on imaging study (Chronic 12/10/14) lung CT due 10/2021 CHF (congestive heart failure) (Chronic) CAD in [place] artery (Chronic ~2011) S/p CABG x 4 @ [facility] [place] in 2011 Bundle branch block, right (Chronic) Tobacco abuse (Chronic) 40 pack year hx. Poor dentition (Chronic) Multiple atypical skin moles (Chronic) Onychomycosis (Chronic) Hyperthyroidism determined by thyroid function test (Chronic) Corns and callosities (Chronic) Nail dystrophy (Chronic) Nocturia more than twice per night (Chronic) Medical History (Updated 01/31/25 @ 17:39 by Brenden Maldonado MD) CHARLIE (acute kidney injury) Bilateral hydronephrosis Alcohol abuse (01/04/13) binge drinks 6 pack on Wednesday PFO (patent foramen ovale) Hyperlipidemia Olecranon bursitis of left elbow (07/04/14) Surgical History S/P ileal conduit S/P radical cystoprostatectomy History of surgery per patient stents place in [facility] [place] S/P CABG x 4 (~2011) H/O transurethral destruction of bladder lesion Family History Father , age 57 Heart disease of [place] at 56 yo Mother , 93 Diabetes Other Hyperlipidemia Hypertension Social History Smoking/Tobacco Use Status: Current every day Tobacco Type: cigarettes Smoking packs per day: 1 Smoking cigarettes per day: 20.0 Years smoked: 40 Smoking pack- years: 40.00 Tobacco: How many years used: 40 Quit status: not considering quitting Counseling given: provider counseling Smoking risk assessment performed?: Yes Alcohol Intake: current Alcohol Intake frequency: a few times a week Alcohol type: beer Drug use: Never Substance use type: does not use Household members: none Housing: house Number of Children: 2 number of grandchildren: 4 Education Level: high school 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 Cate/Judaism: No preference Special cate needs: No Do you feel safe at home: Yes Additional Social history: lives alone
--- NOTE | 2025-01-31 14:45 | DI.RAD_ITS ---
Exam(s) XR CHEST 2V PA LATERAL EXAM: XR CHEST 2V PA LATERAL CLINICAL HISTORY: SOB TECHNIQUE: 2D digital imaging was performed. Two views. COMPARISON: CT CT CHEST WO from 09/27/2024 FINDINGS: HEART: Mildly enlarged. Status post CABG. Aorta: Not dilated. PULMONARY VASCULATURE: Normal. MEDIASTINUM: Unremarkable. LUNGS: Clear. PLEURAL SPACE: No pleural effusion or pneumothorax. BONE:Unremarkable for age. Sternal wires. SOFT TISSUES: Unremarkable. IMPRESSION: No acute abnormality. DATA REPOSITORY: RADIATION DOSE DELIVERED:
[2025-01-31 15:03] LABS: Abs Immature Grans 0.08 10^3/uL (0.0-0.06); HCT 31.5 % (40.0-50.0); HGB 9.7 g/dL (13.5-17.5); Immature Grans % 1.1 %; MCH 28.4 pg (27.0-33.0); MCHC 30.8 % (32.0-36.0); MCV 92 fL (80-95); MPV 9.7 fL (8.0-11.0); Platelet Count 183 10^3/uL (130-400); RBC 3.42 10^6/uL (4.36-5.78); RDW 16.2 % (11.8-14.1); RDW-SD 55.3 fL; WBC 6.98 10^3/uL (4.4-10.8)
[2025-01-31 15:07] LABS: BE (Venous) -28 mmol/L (-2-3); HCO3 (Venous) 5 mmol/L (23-28); O2 Sat (Venous) 83 %; TCO2 (Venous) 5 mmol/L (24-29); pCO2 (Venous) 24 mmHg (41-51); pO2 (Venous) 52 mmHg
[2025-01-31] MEDS: Lactated Ringers 1,000 ML 100 ML IV (15:09)
[2025-01-31 15:33] LABS: Lipase 85 U/L (<53)
[2025-01-31 15:35] LABS: Magnesium 1.9 mg/dL (1.6-2.6)
[2025-01-31 15:39] LABS: TSH (W/Ref FT4) 0.32 uIU/mL (0.55-4.78)
[2025-01-31 16:10] LABS: ALT 8 U/L (10-49); AST 10 U/L (<34); Albumin 3.8 g/dL (3.2-5.0); Alkaline Phosphatase 105 U/L (46-116); BUN 115 mg/dL (9-23); Bilirubin, Total 0.2 mg/dL (0.2-1.2); CO2 < 10.0 mmol/L (20.0-31.0); Calcium 8.6 mg/dL (8.3-10.6); Chloride 120 mmol/L (98-107); Glucose 73 mg/dL (74-106); Potassium 6.0 mmol/L (3.5-5.1); Sodium 141 mmol/L (136-145); Total Protein 7.2 g/dL (5.7-8.2)
[2025-01-31] MEDS: Normal Saline 100 ML 200 ML (16:24)
[2025-01-31] MEDS: Calcium Gluconate 1,000 MG/10 ML VIAL 1000 MG IVP (16:28)
[2025-01-31] MEDS: Sodium Bicarbonate 50 MEQ/50 ML SYR IVP ×2 (16:29→17:18)
[2025-01-31] MEDS: Sodium Zirconium Cyclosilicate 10 GM PKT PO (16:29)
--- NOTE | 2025-01-31 17:22 | W.PM.HP.N ---
Date of service: 01/31/25 Time of Service: 08:00 Assessment and Plan Assessment and plan (1) Acute metabolic acidosis: Status: Acute Assessment and plan: Repeat episode of fairly alarming acidosis by VBG, serum CO2 below measurable threshold [facility] nephrology advising treatment with D5W+HCO3 drip, BMPs q6h, CK, uric acid, renal ultrasound Admitted to ICU due to q1h monitoring required for bicarb drip Repeat VBG at 2200 Anticipate re-consult nephrology in the morning Approximately 35 minutes of critical time spent on direct patient care. (2) Hyperkalemia: Status: Acute Assessment and plan: Elevated potassium 6.0, correction in the ED with calcium gluconate, lokelma No evidence on EKG of cardiac impact Monitor repeat BMP at 2200 (3) Acute kidney injury superimposed on stage 4 chronic kidney disease: Status: Acute Assessment and plan: Elevated creatinine 4.72 and BUN 115 Baseline creatinine high 2's Patient makes urine No anticipated dialysis need per [facility] Monitor BMP (4) Chronic obstructive lung disease: Status: Chronic Assessment and plan: Continue home regimen PRN bronchodilators O2 supplementation as needed to maintain SpO2 88-92% (5) Diabetic peripheral neuropathy associated with type 2 diabetes mellitus: Status: Chronic Assessment and plan: No active DM, neuropathy persists Continue home regimen (6) Benign essential hypertension: Status: Acute Assessment and plan: Continue home regimen (7) History of ileal conduit: Status: Chronic Assessment and plan: Noted history. History of Present Illness History of Present Illness Chief Complaint: shortness of breath Narrative: Al Lilly is 74 year old man presenting January 31 with 4-6 weeks of worsening shortness of breath. He was sent into the ED by Dr Vieyra, urology, for abnormal lab results. Patient has history of ileal conduit and episodes of HCO3 loss requiring hospitalization. He has CKD stage IV with baseline creatinine in the 2's. He feels no shortness of breath at rest, and his activity level is less than usual. He reports no changes in his urine output. He has missed some of his home medications recently. In the ED, he was mildly tachycardic HR 95. Vitals otherwise unremarkable. EKG with sinus rhythm, chronic consistent with prior EKGs post CABG. CBC with chronic anemia, hemoglobin 9.7. BMP with markedly elevated creatinine 4.72, BUN 115, CO2 below measurable threshold, potassium 6.0, BNP 4401, TSH low 0.32, free T4 low 0.87. VBG with acidosis pH 6.92, pCO2 24. [facility] nephrology was consulted, reporting history of similar episode with loss of CO2 via ileal conduit, advising that patient is not likely to be needing dialysis due to another episode, and advised bicarb drip, renal US, BMPs q6H. Patient was given LR 1L bolus, calcium gluconate, 1 amp bicarb x2, lokelma, and started on D5W with 3 amps bicarb 125/hr PMH includes 2011 CABGx4 s/p [place], 2024 [facility] bladder/prostate resection with ileal conduit, HTN, DM, 2ry hyperparathyroid, CKD4, urothelial cancer, COPD, HLD, tobacco history 40py PFSH All Active Problems (Updated 01/31/25 @ 18:04 by Wilian Parmar MD) History of ileal conduit (Chronic) Benign essential hypertension (Acute) Acute metabolic acidosis (Acute) CHARLIE (acute kidney injury) (Acute) Hyperkalemia (Acute) Acidemia (Acute) Chronic metabolic acidosis (Acute) Diabetes (Chronic) Candiduria (Acute) Acute kidney injury superimposed on stage 4 chronic kidney disease (Acute) Obstructed nephrostomy tube (Acute) 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 initiating calcitriol 06/2023 Recurrent UTI (Chronic) CKD stage 4 secondary to hypertension (Chronic) Bladder cancer (Chronic ~06/2016) Chronic obstructive lung disease (Chronic 03/28/12) Essential hypertension (Chronic 01/03/13) Gout (Chronic 07/04/14) Hyperlipidemia (Chronic 03/28/12) Pulmonary nodule seen on imaging study (Chronic 12/10/14) lung CT due 10/2021 CHF (congestive heart failure) (Chronic) CAD in [place] artery (Chronic ~2011) S/p CABG x 4 @ [facility] in 2011 Bundle branch block, right (Chronic) Tobacco abuse (Chronic) 40 pack year hx. Poor dentition (Chronic) Multiple atypical skin moles (Chronic) Onychomycosis (Chronic) Hyperthyroidism determined by thyroid function test (Chronic) Corns and callosities (Chronic) Nail dystrophy (Chronic) Nocturia more than twice per night (Chronic) Medical History (Updated 01/31/25 @ 18:04 by Wilian Parmar MD) CHARLIE (acute kidney injury) Bilateral hydronephrosis Alcohol abuse (01/04/13) binge drinks 6 pack on Wednesday PFO (patent foramen ovale) Hyperlipidemia Olecranon bursitis of left elbow (07/04/14) Surgical History S/P ileal conduit S/P radical cystoprostatectomy History of surgery per patient stents place in [facility] S/P CABG x 4 (~2011) H/O transurethral destruction of bladder lesion Family History Father , age 57 Heart disease of [place] at 56 yo Mother , 93 Diabetes Other Hyperlipidemia Hypertension Social History Smoking/Tobacco Use Status: Current every day Tobacco Type: cigarettes Smoking packs per day: 1 Smoking cigarettes per day: 20.0 Years smoked: 40 Smoking pack-years: 40.00 Tobacco: How many years used: 40 Quit status: not considering quitting Counseling given: provider counseling Smoking risk assessment performed?: Yes Alcohol Intake: current Alcohol Intake frequency: a few times a week Alcohol type: beer Drug use: Never Substance use type: does not use Household members: none Housing: house Number of Children: 2 number of grandchildren: 4 Education Level: high school 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 Cate/Faith: No preference Special cate needs: No Do you feel safe at home: Yes Additional Social history: lives alone Meds Allergies and Home Medications Allergies Allergy/AdvReac Type Severity Reaction Status Date / Time sulfamethoxazole (From AdvReac Severe Kidney Verified 09/22/24 12:57 Bactrim) function distortion trimethoprim (From Bactrim) AdvReac Severe Kidney Verified 09/22/24 12:57 function distortion Home Medications ?Medication ?Instructions ?Recorded ?Confirmed ?Type ascorbic acid (vitamin C) 500 mg 500 mg PO DAILY 03/03/18 01/31/25 History tablet (Vitamin C) inhalational spacing device #1 ea 05/15/19 01/31/25 Rx (Aerochamber MV spacer) nitroglycerin 0.4 mg sublingual 0.4 mg sublingual ONCE CAD #20 tabs 09/05/21 01/31/25 Rx tablet albuterol sulfate 90 mcg/actuation 2 puff inhalation Q4H PRN 10/27/23 01/31/25 Rx aerosol inhaler (Ventolin HFA) shortness of breath or wheezing #18 grams sodium bicarbonate 650 mg tablet 1,300 mg (2 x 650 mg) PO BID #120 03/01/24 01/31/25 Rx tabs amlodipine 5 mg tablet 5 mg PO DAILY #90 tabs 06/07/24 01/31/25 Rx metoprolol tartrate 25 mg tablet 25 mg PO BID #180 tabs 06/07/24 01/31/25 Rx tramadol 50 mg tablet 50 mg PO Q6H PRN pain #20 tabs 07/21/24 01/31/25 Rx umeclidinium 62.5 mcg-vilanterol 1 inh inhalation DAILY #180 ea 08/28/24 01/31/25 Rx 25 mcg/actuation powdr for inhalation gabapentin 300 mg capsule 300 mg PO QHS 30 days #30 caps 09/12/24 01/31/25 Rx atorvastatin 40 mg tablet 40 mg PO QHS #90 tabs 09/22/24 01/31/25 Rx lisinopril 40 mg tablet 40 mg PO DAILY #90 tab-caps 09/22/24 01/31/25 Rx urea 40 % topical cream 1 applic topical BID #85 grams 09/22/24 01/31/25 Rx apixaban 2.5 mg tablet (Eliquis) 2.5 mg PO BID 11/17/24 01/31/25 History cholecalciferol (vitamin D3) 25 25 mcg PO DAILY 11/17/24 01/31/25 History mcg (1,000 unit) tablet polyethylene glycol 3350 17 17 g PO DAILY 11/17/24 01/31/25 History gram/dose oral powder (Miralax) sennosides 8.6 mg-docusate sodium 2 tab-cap PO BID PRN 11/17/24 01/31/25 History 50 mg tablet (Senna with Docusate Sodium) metoclopramide HCl 10 mg tablet 10 mg PO QAC #90 tabs 11/21/24 01/31/25 Rx (Reglan) Exam Narrative Exam Narrative: General: This is a pleasant, elderly man in no distress HEENT: Normocephalic, atraumatic CV: RRR Resp: CTAB Abd: soft, NTND MSK: voluntary motion x4 Neuro: awake, alert, no focal deficits Results Labs 01/31/25 14:57 01/31/25 14:57 Labs: Laboratory Results - last 24 hr 01/31/25 14:57 WBC 6.98 RBC 3.42 L Hgb 9.7 L Hct 31.5 L MCV 92 MCH 28.4 MCHC 30.8 L RDW 16.2 H Plt Count 183 MPV 9.7 Immature Gran % 1.1 Neutrophils % 73.5 Lymphocytes % 16.5 Monocytes % 8.3 Eosinophils % 0.3 Basophils % 0.3 Nucleated RBC % 0.3 Absolute Neutrophils 5.13 Absolute Lymphocytes 1.15 L Absolute Monocytes 0.58 Absolute Eosinophils 0.02 Absolute Basophils 0.02 VBG pH 6.92 L* VBG pCO2 24 L VBG pO2 52 VBG HCO3 5 L VBG Total CO2 5 L VBG O2 Saturation 83 VBG Base Excess -28 L Sodium 141 Potassium 6.0 H Chloride 120 H Carbon Dioxide < 10.0 L Anion Gap Unable to calculate L BUN 115 H* Creatinine 4.72 H* Est GFR (CKD-EPI 2020) 12.19 Glucose 73 L Calcium 8.6 Magnesium 1.9 Total Bilirubin 0.2 AST 10 ALT 8 L Alkaline Phosphatase 105 NT-Pro-B Natriuret Pep 4401 H Total Protein 7.2 Albumin 3.8 Lipase 85 H TSH 0.32 L Free T4 0.87 L Last Vital Signs Temp 36.4 C 01/31/25 14:38 Pulse 86 01/31/25 16:16 Resp 22 01/31/25 16:20 BP 126/65 01/31/25 16:16 Pulse Ox 99 01/31/25 16:16 VTE Prohylaxis Risk Level: Moderate/High Risk Contraindications: None Prophylaxis: Patient anticoagulated Time Spent Time spent with Patient: 40-54 minutes Time was spent: preparing to see the patient(eg.review tests), obtaining and/or reviewing separately otained hiistory, ordering medications,tests, procedures, referring, communicating with other health home health care provider, indepentently interpreting results, counseling the patient and care coordination
[2025-01-31 17:38] LABS: Lab Add On Test DONE
[2025-01-31] MEDS: SODIUM BICARBONATE 150 MEQ in DEXTROSE 5%-WATER 850 ML 125 MEQ IV (17:51)
[2025-01-31 18:06] LABS: Uric Acid 7.3 mg/dL (3.7-9.2)
[2025-01-31 18:09] LABS: Creatine Kinase 64 U/L (46-171)
[2025-01-31] MEDS: Sodium Bicarbonate 650 MG TAB 1300 MG PO (20:38)
[2025-01-31] MEDS: Atorvastatin 40 MG TAB PO (20:42)
[2025-01-31] MEDS: Normal Saline Flush 10 ML SYR IVP (20:43)
[2025-01-31] MEDS: Apixaban 2.5 MG TAB PO (20:53)
[2025-01-31] MEDS: Gabapentin 300 MG CAP PO (21:02)
[2025-01-31 21:43] LABS: BE (Venous) -22 mmol/L (-2-3); HCO3 (Venous) 7 mmol/L (23-28); TCO2 (Venous) 7 mmol/L (24-29); pCO2 (Venous) 21 mmHg (41-51); pO2 (Venous) 129 mmHg
[2025-01-31 21:48] LABS: O2 Sat (Venous) > 99 %
[2025-01-31 22:18] LABS: BUN 113 mg/dL (9-23); CO2 < 10.0 mmol/L (20.0-31.0); Calcium 8.0 mg/dL (8.3-10.6); Chloride 119 mmol/L (98-107); Glucose 86 mg/dL (74-106); Potassium 4.3 mmol/L (3.5-5.1); Sodium 144 mmol/L (136-145)
--- NOTE | 2025-01-31 23:28 | W.PC.ACHO ---
Registration Status: ADM IN Primary Language: Preferred Language: Armenian ED Information & Data Chief Complaint SOB 01/31/25 14:38 Chief Complaint SOB 01/31/25 14:30 Triage Note tachypnea, diminished lung 01/31/25 14:30 sounds, reduced activity, stopped taking unknown number of his medications. PT has had increasing difficulty breathing over the past 1.[address] Vieyra today who suggested he should be assessed and treated at the ED today. Medical / Surgical History (Last Reviewed 07/21/24 @ 07:41 by Curly Vieyra MD) CHARLIE (acute kidney injury) Bilateral hydronephrosis Alcohol abuse (01/04/13) PFO (patent foramen ovale) Hyperlipidemia Olecranon bursitis of left elbow (07/04/14) (Last Reviewed 01/31/25 @ 15:14 by Brenden Maldonado MD) S/P ileal conduit S/P radical cystoprostatectomy History of surgery S/P CABG x 4 (~2011) H/O transurethral destruction of bladder lesion Most Recent Vital Signs Temperature 35.9 C L 01/31/25 19:30 Temperature Source Temporal Artery Scan 01/31/25 19:30 Pulse 53 L 01/31/25 22:01 Pulse 71 01/31/25 22:01 Respiratory Rate 18 01/31/25 22:01 Respiratory Effort Short of Breath 01/31/25 14:38 Respiratory Depth Normal 01/31/25 14:38 Respiratory Pattern Tachypnea 01/31/25 14:38 Blood Pressure 124/50 L 01/31/25 22:01 Blood Pressure Mean 70 01/31/25 22:01 Blood Pressure Position Sitting 01/31/25 14:38 Pulse Oximetry 97 01/31/25 22:01 Oxygen Delivery Method Room Air 01/31/25 14:38 Oxygen Flow Rate 0 01/31/25 14:38 Allergies sulfamethoxazole (From Bactrim) Adverse Reaction (Severe, Verified 09/22/24 12:57) Kidney function distortion Dr Beverly patient should never take Bactrim again. 10/06/21, MG trimethoprim (From Bactrim) Adverse Reaction (Severe, Verified 09/22/24 12:57) Kidney function distortion Dr Beverly patient should never take Bactrim again. 10/06/21, MG Active Medications Generic Name Dose Route Start Last Admin Trade Name Freq PRN Reason Stop Dose Admin Apixaban 2.5 mg 01/31/25 20:00 01/31/25 20:53 Apixaban 2.5 Mg Tab PO 2.5 mg BID WILLY Administration Atorvastatin Calcium 40 mg 01/31/25 20:00 01/31/25 20:42 Atorvastatin 40 Mg Tab PO 40 mg HS WILLY Administration Gabapentin 300 mg 01/31/25 20:00 01/31/25 21:02 Gabapentin 300 Mg Cap PO 300 mg HS WILLY Administration Sodium Bicarbonate 150 meq/ 1,000 mls @ 0 mls/hr 01/31/25 18:00 01/31/25 22:20 Dextrose/Water IV 125 mls/hr INFUSION WILLY Infusion Metoprolol Tartrate 25 mg 01/31/25 20:00 01/31/25 20:47 Metoprolol 25 Mg Tab PO Not Given BID WILLY Pt's Own Urea 40 % 1 each 01/31/25 20:00 01/31/25 20:49 Cream TP Not Given BID WILLY Sodium Bicarbonate 1,300 mg 01/31/25 20:00 01/31/25 20:38 Sodium Bicarbonate 650 Mg Tab PO 1,300 mg BID WILLY Administration Sodium Chloride 0 ml 01/31/25 20:00 01/31/25 20:43 Normal Saline Flush 10 Ml Syr IVP 10 ml BID WILLY Administration IV IV Catheter Type [Right Peripheral IV Antecubital] IV Catheter Type [Left Saline Lock Antecubital] IV Catheter Gauge [Right 20 Antecubital] IV Catheter Gauge [Left 18 Antecubital] Diet Orders Category Date Time Status Low Sodium [DIET] Nutrition 01/31/25 Dinner Active Diagnostics 01/31/25 01/31/25 01/31/25 Range/Units 21:35 14:57 14:54 WBC 6.98 (4.4-10.8) 10^3/uL RBC 3.42 L (4.36-5.78) 10^6/uL Hgb 9.7 L (13.5-17.5) g/dL Hct 31.5 L (40.0-50.0) % MCV 92 (80-95) fL MCH 28.4 (27.0-33.0) pg MCHC 30.8 L (32.0-36.0) % RDW 16.2 H (11.8-14.1) % Plt Count 183 (130-400) 10^3/uL MPV 9.7 (8.0-11.0) fL Immature Gran % 1.1 % Neutrophils % 73.5 % Lymphocytes % 16.5 % Monocytes % 8.3 % Eosinophils % 0.3 % Basophils % 0.3 % Nucleated RBC % 0.3 (0.0-0.3) % Absolute Neutrophils 5.13 (1.2-6.7) 10^3/uL Absolute Lymphocytes 1.15 L (1.2-3.4) 10^3/uL Absolute Monocytes 0.58 (0.1-0.8) 10^3/uL Absolute Eosinophils 0.02 (0.0-0.7) 10^3/uL Absolute Basophils 0.02 (0.0-0.2) 10^3/uL VBG pH 7.14 L* 6.92 L* (7.31-7.41) VBG pCO2 21 L 24 L (41-51) mmHg VBG pO2 129 52 mmHg VBG HCO3 7 L 5 L (23-28) mmol/L VBG Total CO2 7 L 5 L (24-29) mmol/L VBG O2 Saturation > 99 83 % VBG Base Excess -22 L -28 L (-2-3) mmol/L Sodium 144 141 (136-145) mmol/L Potassium 4.3 D 6.0 H (3.5-5.1) mmol/L Chloride 119 H 120 H (98-107) mmol/L Carbon Dioxide < 10.0 L < 10.0 L (20.0-31.0) mmol/L Anion Gap Unable to calculate L Unable to calculate L (3-11) mmol/L BUN 113 H* 115 H* (9-23) mg/dL Creatinine 4.39 H* 4.72 H* (0.73-1.18) mg/dL Est GFR (CKD-EPI 2020) 13.25 12.19 (mL/min/1.73m2) Glucose 86 73 L (74-106) mg/dL Uric Acid 7.3 (3.7-9.2) mg/dL Calcium 8.0 L 8.6 (8.3-10.6) mg/dL Magnesium 1.9 (1.6-2.6) mg/dL Total Bilirubin 0.2 (0.2-1.2) mg/dL AST 10 (<34) U/L ALT 8 L (10-49) U/L Alkaline Phosphatase 105 (46-116) U/L Creatine Kinase 64 (46-171) U/L NT-Pro-B Natriuret Pep 4401 H (<300) pg/mL Total Protein 7.2 (5.7-8.2) g/dL Albumin 3.8 (3.2-5.0) g/dL Lipase 85 H (<53) U/L TSH 0.32 L (0.55-4.78) uIU/mL Free T4 0.87 L (0.89-1.76) ng/mL Add-On Test Request DONE Intake and Output - 24 Hour Total 01/31/25 14:17 thru 01/31/25 23:17 Intake Total 1220.417 Output Total 275 Balance 945.417 Weight 70.2 kg Intake: IV 770.417 Oral 450 Output: Urine 275 Other: Urine Color Yellow Urine Appearance Cloudy Comment schultz checked. 0 output. Falls Risk Assessment History of Falls No History 01/31/25 19:30 Contributing Factors Unstable 01/31/25 19:30 Ambulatory Aids Independent 01/31/25 19:30 Tubes/Lines With any additional score 01/31/25 19:30 Gait Evaluation No gait disturbance 01/31/25 19:30 Cognition No cognitive impairment 01/31/25 19:30 Fall Total Score 23 01/31/25 19:30 Level of Risk Standard/Low Risk 01/31/25 19:30 Problems (Last Reviewed 07/21/24 @ 07:41 by Curly Vieyra MD) History of ileal conduit (Chronic) Benign essential hypertension (Acute) Acute metabolic acidosis (Acute) Hyperkalemia (Acute) Acute kidney injury superimposed on stage 4 chronic kidney disease (Acute) Diabetic peripheral neuropathy associated with type 2 diabetes mellitus (Chronic) Chronic obstructive lung disease (Chronic 03/28/12) Attestation Statement: By documenting the first initial, last name, and credentials of the reporting nurse below, both parties acknowledge that all relevant information regarding the patient handoff has been communicated, and that all questions have been addressed to ensure continuity and safety of care. Additional Patient Information/Comments: Report Received From: Gloria Dunham
[2025-02-01] VITALS (28 sets, daily range): BP systolic 98–124; BP diastolic 43–64; PULSE 48–113; RESP 14–27; TEMP 36.2–36.5; O2SAT 93–98
[2025-02-01] MEDS: SODIUM BICARBONATE 150 MEQ in DEXTROSE 5%-WATER 850 ML 125 MEQ IV (01:16)
[2025-02-01] MEDS: MAGNESIUM SULFATE 2 GM/50 ML BAG IV_INF (01:28)
[2025-02-01 03:09] LABS: HCT 21.5 % (40.0-50.0); HGB 7.3 g/dL (13.5-17.5); MCH 29.1 pg (27.0-33.0); MCHC 34.0 % (32.0-36.0); MCV 86 fL (80-95); MPV 9.5 fL (8.0-11.0); Platelet Count 132 10^3/uL (130-400); RBC 2.51 10^6/uL (4.36-5.78); RDW 15.9 % (11.8-14.1); RDW-SD 49.6 fL; WBC 4.96 10^3/uL (4.4-10.8)
[2025-02-01 03:26] LABS: Magnesium 2.1 mg/dL (1.6-2.6)
[2025-02-01 03:36] LABS: Anion Gap 15.1 mmol/L (3-11); BUN 114 mg/dL (9-23); CO2 10.9 mmol/L (20.0-31.0); Calcium 7.6 mg/dL (8.3-10.6); Chloride 118 mmol/L (98-107); Glucose 108 mg/dL (74-106); Potassium 3.6 mmol/L (3.5-5.1); Sodium 144 mmol/L (136-145)
[2025-02-01] MEDS: Tiotropium/Olodaterol 10 PUFF INHALER 2 PUFF IH (09:00)
--- NOTE | 2025-02-01 09:03 | PDOC.CMIN ---
Date of service: 02/01/25 Time of Service: 09:04 Care Management Initial Assmt Initial Assessment Reason for Hospitalization: acute metabolic acidosis Functional Status/Living Situation Patient Presentation: Al was lying in bed when CM met with him. His color was poor and he appeared fatigued. Al was admitted with renal failure. He also has a diagnosis of urothelial cancer and has an ileal conduit. In conversation with the providers, he indicated that he does not want to pursue aggressive treatment and his code status has been changed to DNR/DNI. A referral had been placed from the community for a hospice evaluation. Per Norma, the hospice nurse, he definitely meets hospice criteria but does not have a caregiver at this time. That would prevent him from being admitted onto the hospice service. CM spoke with his daughter Pura today about the path moving forward. She had hoped that her Dad would be able to have hospice support and the family is still trying to coordinate caregivers. She shared that it is hard because they do not have a time line or any idea how long this support will be needed. CM discussed Palliative Care with Pura and asked if she could be available tomorrow. She agreed and just requested that she be given an hour's notice as she lives in [place]. CM alerted palliative Care and requested that this consult be prioritized to allow Al to clarifiy his goals of care. Town of Residence: [place] Resides with: Alone Significant Other/Family: Local Employment Status: Retired Instrumental Activities of Daily Living (ADLs): Requires support Medications Medication Management: No Issues/Barriers identified Advance Directives Advance Directives: Do you have an Advance Directive: Y 06/26/24, 10:54 AD On File at [facility]: N 06/26/24, 10:54 Date Asked 01/31/25 01/31/25, 14:45 AD Date Reviewed COLST On File at [facility] No 08/19/24, 15:51 COLST Date Scanned Code Status Resuscitation Status Full Code Portal Pt does not currently have a portal and education provided: Yes Insurance Coverage/Financial Issues Insurance: Medicare Care Team Visit Care Team Role Provider Type Polly Beverly MD Primary Care Provider [facility] STAFF PHYSICIAN InPatient David Strickland Other Providers OTHER Brenden Maldonado MD Emergency Provider [facility] STAFF PHYSICIAN Wilian Parmar MD Admit Provider [facility] STAFF PHYSICIAN Attending Provider Discharge Potential Discharge Needs: PCP F/U Appt and Other (Oncology, Nephrology) Anticipated Barriers to Discharge: None Identified Patient/Family Education Needs: Review discharge instructions, discuss Ask Me Three Transportation: Other (to be determined) Plan: Al will likely be discharged home with new home health services when medically cleared. It is possible he may choose to transition to comfort care. A Palliative consult has been requested for tomorrow. CM will follow and continue to assess for discharge needs. 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 initiating calcitriol 06/2023 Recurrent UTI (Chronic) CKD stage 4 secondary to hypertension (Chronic) Bladder cancer (Chronic ~06/2016) Chronic obstructive lung disease (Chronic 03/28/12) Essential hypertension (Chronic 01/03/13) Gout (Chronic 07/04/14) Hyperlipidemia (Chronic 03/28/12) Pulmonary nodule seen on imaging study (Chronic 12/10/14) lung CT due 10/2021 CHF (congestive heart failure) (Chronic) CAD in knik artery (Chronic ~2011) S/p CABG x 4 @ [facility] in 2011 Bundle branch block, right (Chronic) Tobacco abuse (Chronic) 40 pack year hx. Poor dentition (Chronic) Multiple atypical skin moles (Chronic) Onychomycosis (Chronic) Hyperthyroidism determined by thyroid function test (Chronic) Corns and callosities (Chronic) Nail dystrophy (Chronic) Nocturia more than twice per night (Chronic) Medical History (Updated 01/31/25 @ 18:04 by Wilian Parmar MD) CHARLIE (acute kidney injury) Bilateral hydronephrosis Alcohol abuse (01/04/13) binge drinks 6 pack on Wednesday PFO (patent foramen ovale) Hyperlipidemia Olecranon bursitis of left elbow (07/04/14) Surgical History S/P ileal conduit S/P radical cystoprostatectomy History of surgery per patient stents place in [facility] S/P CABG x 4 (~2011) H/O transurethral destruction of bladder lesion Family History Father , age 57 Heart disease of [place] at 56 yo Mother , 93 Diabetes Other Hyperlipidemia Hypertension Social History Smoking/Tobacco Use Status: Current every day Tobacco Type: cigarettes Smoking packs per day: 1 Smoking cigarettes per day: 20.0 Years smoked: 40 Smoking pack-years: 40.00 Tobacco: How many years used: 40 Quit status: not considering quitting Counseling given: provider counseling Smoking risk assessment performed?: Yes Alcohol Intake: current Alcohol Intake frequency: a few times a week Alcohol type: beer Drug use: Never Substance use type: does not use Household members: none Housing: apartment Number of Children: 2 number of grandchildren: 4 Education Level: high school 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 Cate/Judaism: No preference Special cate needs: No Do you feel safe at home: Yes Additional Social history: lives alone
[2025-02-01] MEDS: Sodium Bicarbonate 650 MG TAB 1300 MG PO ×2 (09:42→21:02)
[2025-02-01] MEDS: Apixaban 2.5 MG TAB PO ×2 (09:42→21:01)
[2025-02-01] MEDS: Lisinopril 20 MG TAB 40 MG PO (09:43)
[2025-02-01] MEDS: Normal Saline Flush 10 ML SYR IVP ×2 (09:43→21:08)
[2025-02-01] MEDS: amLODIPine 5 MG TAB PO (09:43)
[2025-02-01 11:51] LABS: Anion Gap 15.3 mmol/L (3-11); BUN 108 mg/dL (9-23); CO2 14.7 mmol/L (20.0-31.0); Calcium 7.4 mg/dL (8.3-10.6); Chloride 116 mmol/L (98-107); Glucose 128 mg/dL (74-106); Potassium 3.3 mmol/L (3.5-5.1); Sodium 146 mmol/L (136-145)
[2025-02-01] MEDS: traMADol 50 MG TAB PO ×2 (12:39→21:02)
--- NOTE | 2025-02-01 13:27 | PGE_ITS ---
Date of Service Date of service: 02/01/25 Time of Service: 08:00 Assessment and Plan Assessment and plan (1) Acute metabolic acidosis: Status: Acute Assessment and plan: Repeat episode of fairly alarming acidosis by VBG, serum CO2 below measurable threshold [facility] nephrology advising treatment with D5W+HCO3 drip, BMPs q6h, CK, uric acid, renal ultrasound Admitted to ICU due to q1h monitoring required for bicarb drip Overnight renal function and acidosis improved Interventions reduced as patient will be going on hospice Appreciate support from Dr Vieyra and Dr Beverly who know the patient well. Appreciate hospice service No additional labs Discontinued drip medications Downgraded to medical floor (2) Hyperkalemia: Status: Acute Assessment and plan: Elevated potassium 6.0, correction in the ED with calcium gluconate, lokelma No evidence on EKG of cardiac impact Morning potassium normal to low, no additional labs (3) Acute kidney injury superimposed on stage 4 chronic kidney disease: Status: Acute Assessment and plan: Elevated creatinine 4.72 and BUN 115 Baseline creatinine high 2's Patient makes urine No anticipated dialysis need per [facility] No additional labs (4) Chronic obstructive lung disease: Status: Chronic Assessment and plan: Continue home regimen PRN bronchodilators O2 supplementation as needed to maintain SpO2 88-92% (5) Diabetic peripheral neuropathy associated with type 2 diabetes mellitus: Status: Chronic Assessment and plan: No active DM, neuropathy persists Continue home regimen (6) Benign essential hypertension: Status: Acute Assessment and plan: Continue home regimen, PRN basis is acceptable (7) History of ileal conduit: Status: Chronic Assessment and plan: Noted history. Subjective Subjective Interval history since last seen: Mr. Lilly is awake and alert, reporting that he is not in pain. He is mildly confused. Appreciate Dr Beverly's bedside visit to clarify goals of care. Anticipate hospice care soon. He requested that his family not be contacted, but his daughter was at bedside in the afternoon. She will not be able to care for him in a home hospice situation, and he has no other support. Exam Narrative Exam Narrative: General: This is a pleasant, elderly man in no distress HEENT: Normocephalic, atraumatic CV: RRR Resp: CTAB Abd: soft, NTND MSK: voluntary motion x4 Neuro: awake, alert, no focal deficits Objective Last Vital Signs Temp 36.5 C 02/01/25 03:30 Pulse 68 02/01/25 11:00 Resp 19 02/01/25 11:00 BP 116/43 L 02/01/25 11:00 Pulse Ox 93 02/01/25 11:00 Laboratory Results - last 24 hr 01/31/25 01/31/25 01/31/25 14:54 14:57 21:35 WBC 6.98 RBC 3.42 L Hgb 9.7 L Hct 31.5 L MCV 92 MCH 28.4 MCHC 30.8 L RDW 16.2 H Plt Count 183 MPV 9.7 Immature Gran % 1.1 Neutrophils % 73.5 Lymphocytes % 16.5 Monocytes % 8.3 Eosinophils % 0.3 Basophils % 0.3 Nucleated RBC % 0.3 Absolute Neutrophils 5.13 Absolute Lymphocytes 1.15 L Absolute Monocytes 0.58 Absolute Eosinophils 0.02 Absolute Basophils 0.02 VBG pH 6.92 L* 7.14 L* VBG pCO2 24 L 21 L VBG pO2 52 129 VBG HCO3 5 L 7 L VBG Total CO2 5 L 7 L VBG O2 Saturation 83 > 99 VBG Base Excess -28 L -22 L Sodium 141 144 Potassium 6.0 H 4.3 D Chloride 120 H 119 H Carbon Dioxide < 10.0 L < 10.0 L Anion Gap Unable to calculate L Unable to calculate L BUN 115 H* 113 H* Creatinine 4.72 H* 4.39 H* Est GFR (CKD-EPI 2020) 12.19 13.25 Glucose 73 L 86 Uric Acid 7.3 Calcium 8.6 8.0 L Phosphorus Magnesium 1.9 Total Bilirubin 0.2 AST 10 ALT 8 L Alkaline Phosphatase 105 Creatine Kinase 64 NT-Pro-B Natriuret Pep 4401 H Total Protein 7.2 Albumin 3.8 Lipase 85 H TSH 0.32 L Free T4 0.87 L Add-On Test Request DONE 02/01/25 02/01/25 02/01/25 03:00 09:20 15:00 WBC 4.96 RBC 2.51 L Hgb 7.3 L D Hct 21.5 L MCV 86 D MCH 29.1 MCHC 34.0 D RDW 15.9 H Plt Count 132 MPV 9.5 Immature Gran % Neutrophils % Lymphocytes % Monocytes % Eosinophils % Basophils % Nucleated RBC % Absolute Neutrophils Absolute Lymphocytes Absolute Monocytes Absolute Eosinophils Absolute Basophils VBG pH VBG pCO2 VBG pO2 VBG HCO3 VBG Total CO2 VBG O2 Saturation VBG Base Excess Sodium 144 146 H Cancelled Potassium 3.6 3.3 L Cancelled Chloride 118 H 116 H Cancelled Carbon Dioxide 10.9 L 14.7 L Cancelled Anion Gap 15.1 H 15.3 H Cancelled BUN 114 H* 108 H* Cancelled Creatinine 4.19 H* 3.88 H* Cancelled Est GFR (CKD-EPI 2020) 13.99 15.62 Cancelled Glucose 108 H 128 H Cancelled Uric Acid Calcium 7.6 L 7.4 L Cancelled Phosphorus 4.5 Magnesium 2.1 Total Bilirubin AST ALT Alkaline Phosphatase Creatine Kinase NT-Pro-B Natriuret Pep Total Protein Albumin Lipase TSH Free T4 Add-On Test Request VTE Prohylaxis Risk Level: Moderate/High Risk Contraindications: None Prophylaxis: Patient anticoagulated
--- NOTE | 2025-02-01 16:33 | PHA.REVIEW2 ---
Pharmacy Admission Review Admission Clinical Review Admission Pharmacy Review: Benign essential hypertension (Acute) Acute metabolic acidosis (Acute) Hyperkalemia (Acute) Acute kidney injury superimposed on stage 4 chronic kidney disease (Acute) sulfamethoxazole (From Bactrim) Adverse Reaction (Severe, Verified 09/22/24 12:57) Kidney function distortion trimethoprim (From Bactrim) Adverse Reaction (Severe, Verified 09/22/24 12:57) Kidney function distortion Resuscitation Status DNR/DNI Height 6 ft 3 in Weight 70.2 kg Pharmacy Admission Review Renal Dosing Renal Dosing: BUN Cancelled 02/01/25 15:00 Creatinine Cancelled 02/01/25 15:00 Anticoagulation Anticoagulation: Hgb 7.3 g/dL (13.5-17.5) L D 02/01/25 03:00 Hct 21.5 % (40.0-50.0) L 02/01/25 03:00 Plt Count 132 10^3/uL (130-400) 02/01/25 03:00 Creatinine Cancelled 02/01/25 15:00 DVT Prophylaxis: Reviewed (CrCl ~ 16, home meds requiring adjustments have been renally dosed (Apixaban 2.5mg PO QD)) Relevant Labs Relevant Labs: Sodium Cancelled 02/01/25 15:00 Potassium Cancelled 02/01/25 15:00 Chloride Cancelled 02/01/25 15:00 Phosphorus 4.5 mg/dL (2.4-5.1) 02/01/25 03:00 Magnesium 2.1 mg/dL (1.6-2.6) 02/01/25 03:00 Cardiac Review Cardiac Review: NT-Pro-B Natriuret Pep 4401 pg/mL (<300) H 01/31/25 14:57
--- NOTE | 2025-02-01 16:35 | PHA.REVIEW2 ---
Pharmacy Admission Review Admission Clinical Review Admission Pharmacy Review: Benign essential hypertension (Acute) Acute metabolic acidosis (Acute) Hyperkalemia (Acute) Acute kidney injury superimposed on stage 4 chronic kidney disease (Acute) sulfamethoxazole (From Bactrim) Adverse Reaction (Severe, Verified 09/22/24 12:57) Kidney function distortion trimethoprim (From Bactrim) Adverse Reaction (Severe, Verified 09/22/24 12:57) Kidney function distortion Resuscitation Status DNR/DNI Height 6 ft 3 in Weight 70.2 kg Pharmacy Admission Review Renal Dosing Renal Dosing: BUN Cancelled 02/01/25 15:00 Creatinine Cancelled 02/01/25 15:00 Medications needing adjustments: Reviewed (CrCl ~ 16. Pt's home med requiring renal adjustment is being dosed appropriately.) Anticoagulation Anticoagulation: Hgb 7.3 g/dL (13.5-17.5) L D 02/01/25 03:00 Hct 21.5 % (40.0-50.0) L 02/01/25 03:00 Plt Count 132 10^3/uL (130-400) 02/01/25 03:00 Creatinine Cancelled 02/01/25 15:00 DVT Prophylaxis: Reviewed (Pt anticoagulated, Apixaban 2.5 mg PO BID.) Opiate Usage Evaluate Pain Scale/Pains Meds: N/A Relevant Labs Relevant Labs: Sodium Cancelled 02/01/25 15:00 Potassium Cancelled 02/01/25 15:00 Chloride Cancelled 02/01/25 15:00 Phosphorus 4.5 mg/dL (2.4-5.1) 02/01/25 03:00 Magnesium 2.1 mg/dL (1.6-2.6) 02/01/25 03:00 Electrolytes, C-Reactive P, ESR: Reviewed (Pt was hyperkalemic upon arrival to ED,treating with Na Bicard drip and calcium gluconate. Labs from this morning's BMP show the following: Calcium low (7.4), Glucose high (128), BUN high (108), Creatinine high (3.88), Sodium high (146), Chloride high (116), Co2 low (14.7)) DM Control DM Control: N/A Cardiac Review Cardiac Review: NT-Pro-B Natriuret Pep 4401 pg/mL (<300) H 12/17/25 14:57 BP, HR, EF%: Reviewed (BP 116/43 today, pulse 68. BP on 01/31 100/50, pulse 65.) QTc Review QTc: Reviewed (QTc 502, not currently taking any meds prolonging QTc.) IV to PO Switch IV Medications: Reviewed (No current IV meds.) Home Meds Home Med List reviewed: Intervened (Several home meds not ordered: Ascorbic Acid 500mg PO QD, Cholecalciferol 1000 Units PO QD, Urea 40% cream applying BID, Anoro Ellipta Inhaler 1 Puff orally QD. Mentioned to provider, waiting for reply.) Current Meds Current Medication Order Review: Reviewed Pharmacy Antibiotic Review Pharmacy Antibiotic Activity: Reviewed, no change (No antibiotics ordered at this time.)
[2025-02-01] MEDS: Gabapentin 300 MG CAP PO (21:01)
[2025-02-01] MEDS: Atorvastatin 40 MG TAB PO (21:01)
[2025-02-01] MEDS: Acetaminophen 325 MG TAB 650 MG PO (21:01)
[2025-02-01] MEDS: Metoprolol 25 MG TAB PO (21:01)
[2025-02-02 01:45] VITALS: BP 101/53; PULSE 51; TEMP 37.3
[2025-02-02 08:04] LABS: HCT 22.2 % (40.0-50.0); HGB 7.3 g/dL (13.5-17.5)
[2025-02-02] MEDS: Tiotropium/Olodaterol 10 PUFF INHALER 2 PUFF IH (08:11)
[2025-02-02 08:35] LABS: Anion Gap 11.7 mmol/L (3-11); BUN 103 mg/dL (9-23); CO2 16.3 mmol/L (20.0-31.0); Calcium 7.0 mg/dL (8.3-10.6); Chloride 119 mmol/L (98-107); Glucose 85 mg/dL (74-106); Potassium 3.2 mmol/L (3.5-5.1); Sodium 147 mmol/L (136-145)
[2025-02-02] MEDS: amLODIPine 5 MG TAB PO (08:48)
[2025-02-02] MEDS: Metoclopramide 10 MG TAB PO ×3 (08:48→16:27)
[2025-02-02] MEDS: Sodium Bicarbonate 650 MG TAB 1300 MG PO ×2 (08:49→21:13)
[2025-02-02] MEDS: Apixaban 2.5 MG TAB PO ×2 (08:49→21:13)
[2025-02-02] MEDS: Lisinopril 20 MG TAB 40 MG PO (08:49)
[2025-02-02] MEDS: Metoprolol 25 MG TAB PO (08:49)
[2025-02-02 08:52] VITALS: BP 102/45; PULSE 58; TEMP 37.2; O2SAT 95
--- NOTE | 2025-02-02 11:08 | PCNE_ITS ---
Date of service: 02/02/25 Time of Service: 10:40 History of Present Illness Narrative: Al was seen in his room in the ICU. He was alone for the first visit and his daughter, Pura joined for the second visit today. Al had a hospice consult yesterday. He prefers to focus on comfort but he does not have a caregiver for home hospice at this point. Pura would like to honor his wishes and get him home to allow him to there, however, she needs to work to pay her bills. Pura plans to talk to her employer to see if working remotely would be an option for her so she can continue to work and care for her dad. Al has not been OOB yet today. He got OOB to the [facility] yesterday but it took everything out of him to do so. He is eating small amounts. He has lost a significant amount of weight, 50# since 02/2024. He has a pressure ulcer on his coccyx that is painful. He reports pain at this time and frequently repositions himself in bed. Discussed the option of fentanyl patch, he is agreeable. He prefers not to go to a SNF. Discussed that this may have to be an option if he appears to have a prolonged prognosis and his daughter cannot take him home. Assessment and Plan Assessment and plan (1) Comfort measures only status: Status: Acute Assessment and plan: Al is a 74 year old man with a past medical Hx significant for bladder/prostate resection with ileal conduit who presented to the ED in renal failure. He expressed a preference for comfort-focused care and had a hospice consult yesterday. He does not have a caregiver at home and he is not safe to discharge home alone. He continues to state that he wants comfort care today. 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 His daughter, Pura would like to honor his wishes and get him home for EOL care, however, she needs to work with her employer on this. The plan will be for him to remain here while Pura sorts this out. The goal would be to get home with hospice services if Pura is able to make this work. If he appears to have a more prolonged prognosis and she is unable to take him home, he may need to consider skilled nursing placement. PRN orders placed for comfort care. Fentanyl patch ordered for pain. CODE STATUS: DNR/DNI (2) Squamous cell carcinoma of bladder: Status: Acute Assessment and plan: Hx of bladder/prostate resection with ileal conduit. He has lost 50# over the last several months. He is eating small amounts. He is weak and nearly bed bound with pressure ulcer on his coccyx. (3) Acute metabolic acidosis: Status: Acute (4) Palliative care patient: Status: Acute (5) Advanced care planning/counseling discussion: Status: Acute (6) Bladder cancer: Status: Chronic (7) History of ileal conduit: Status: Chronic (8) Pressure ulcer: Status: Acute Review of Systems Narrative: Per HPI PFSH All Active Problems (Updated 02/02/25 @ 15:17 by Treva Hartman NP) Pressure ulcer (Acute) Advanced care planning/counseling discussion (Acute) Palliative care patient (Acute) Comfort measures only status (Acute) History of ileal conduit (Chronic) Benign essential hypertension (Acute) Acute metabolic acidosis (Acute) CHARLIE (acute kidney injury) (Acute) Hyperkalemia (Acute) Acidemia (Acute) Chronic metabolic acidosis (Acute) Diabetes (Chronic) Candiduria (Acute) Acute kidney injury superimposed on stage 4 chronic kidney disease (Acute) Obstructed nephrostomy tube (Acute) 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 initiating calcitriol 06/2023 Recurrent UTI (Chronic) CKD stage 4 secondary to hypertension (Chronic) Bladder cancer (Chronic ~06/2016) Chronic obstructive lung disease (Chronic 03/28/12) Essential hypertension (Chronic 01/03/13) Gout (Chronic 07/04/14) Hyperlipidemia (Chronic 03/28/12) Pulmonary nodule seen on imaging study (Chronic 12/10/14) lung CT due 10/2021 CHF (congestive heart failure) (Chronic) CAD in [place] artery (Chronic ~2011) [place] [facility] [place] Bundle branch block, right (Chronic) Tobacco abuse (Chronic) 40 pack year hx. Poor dentition (Chronic) Multiple atypical skin moles (Chronic) Onychomycosis (Chronic) Hyperthyroidism determined by thyroid function test (Chronic) Corns and callosities (Chronic) Nail dystrophy (Chronic) Nocturia more than twice per night (Chronic) Medical History CHARLIE (acute kidney injury) Bilateral hydronephrosis Alcohol abuse (01/04/13) binge drinks 6 pack on Wednesday PFO (patent foramen ovale) Hyperlipidemia Olecranon bursitis of left elbow (07/04/14) Surgical History S/P ileal conduit S/P radical cystoprostatectomy History of surgery per patient [place] place [place] [facility] [place] x 4 (~2011) H/O transurethral destruction of bladder lesion Family History Father , age 57 Heart disease of [place] at 56 yo Mother , 93 Diabetes Other Hyperlipidemia Hypertension Social History Smoking/Tobacco Use Status: Current every day Tobacco Type: cigarettes Smoking packs per day: 1 Smoking cigarettes per day: 20.0 Years smoked: 40 Smoking pack- years: 40.00 Tobacco: How many years used: 40 Quit status: not considering quitting Counseling given: provider counseling Smoking risk assessment performed?: Yes Alcohol Intake: current Alcohol Intake frequency: a few times a week Alcohol type: beer Drug use: Never Substance use type: does not use Household members: none Housing: apartment Number of Children: 2 number of grandchildren: 4 Education Level: high school 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 Cate/Moravian: No preference Special cate needs: No Do you feel safe at home: Yes Additional Social history: lives alone Exam Narrative Exam Narrative: General: very pleasant, chronically-ill appearing, older man, lying in the hospital bed. He is thin, frail appearing. Awake, appears fatigued. Engages in the visit and answers questions appropriately. HEENT: normocephalic, atraumatic, EOMI, mmm Neck: supple Respiratory: respirations appear even and unlabored at rest. Ext: moves all 4 extremities freely, no edema, extremities are thin with muscle atrophy. Results Last Vital Signs Temp 37.2 C 02/02/25 08:52 Pulse 58 L 02/02/25 08:52 Resp 27 H 02/01/25 12:00 BP 102/45 L 02/02/25 08:52 Pulse Ox 95 02/02/25 08:52 Labs 02/02/25 07:50 02/02/25 07:50 Labs: Laboratory Results - last 24 hr 02/01/25 02/01/25 02/02/25 09:20 15:00 07:50 Hgb 7.3 L Hct 22.2 L Sodium 146 H Cancelled 147 H Potassium 3.3 L Cancelled 3.2 L Chloride 116 H Cancelled 119 H Carbon Dioxide 14.7 L Cancelled 16.3 L Anion Gap 15.3 H Cancelled 11.7 H BUN 108 H* Cancelled 103 H* Creatinine 3.88 H* Cancelled 3.49 H Est GFR (CKD-EPI 2020) 15.62 Cancelled 17.27 Glucose 128 H Cancelled 85 Calcium 7.4 L Cancelled 7.0 L Time Spent Time Spent with Patient Time Spent(min): 92
--- NOTE | 2025-02-02 11:50 | PDOC.CMPRO ---
Date of service: 02/02/25 Time of Service: 15:44 Care Management Progress Note Progress Note Text Progress Note Text: Al was lying in bed and awake when CM with him. He was pleasant and requested that his daughter, Pura, be added to his contact list; HIPAA preferences updated, as well. 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 His daughter, Pura, will be meeting with palliative care to discuss advance care planning. Per report, Al will remain at [facility] under CONTINUOUS IMPROVEMENT LEAD status while caregiver supports are being coordinated. Pura shared that she is coordinating with her work schedule to facilitate bringing Al home, in accordance with his wishes. CM will continue to follow. Discharge Potential Discharge Needs: PCP F/U Appt and Other (Oncology, Nephrology) Anticipated Barriers to Discharge: None Identified Patient/Family Education Needs: Review discharge instructions, discuss Ask Me Three Plan: Al will likely be discharged home with his daughter when medically cleared. It is possible he may choose to transition to comfort care. Palliative care is seeing him today. CM will follow and continue to assess for discharge needs. Social Determinants of Health Screening Will the Patient Participate in the Screening?: Declined to provide
--- NOTE | 2025-02-02 14:40 | CHAPLAIN ---
I had a brief visit with Al this afternoon. He was in bed, and his daughter Pura was visiting with him. I explained my role and offered support. According to Care Management note, Al had considered a hospice admission, but doesn't have a caregiver to sign on with him. A Palliative Care consult was requested and Pura said they were waiting to hear from Treva Brizuela NP, from Palliative Care.
[2025-02-02] MEDS: traMADol 50 MG TAB PO ×2 (14:57→21:13)
[2025-02-02] MEDS: fentaNYL 12 MCG PATCH TD (16:28)
--- NOTE | 2025-02-02 17:37 | W.PM.PROGNOT ---
Date of Service Date of service: 02/02/25 Time of Service: 17:37 Assessment and Plan Assessment and plan (1) Acute metabolic acidosis: Status: Acute Assessment and plan: [facility] [place], was on bicarb drip. Has improved. Now that [facility], will discontinue lab monitoring. (2) Acute kidney injury superimposed on stage 4 chronic kidney disease: Status: Acute Assessment and plan: Some improvement, but stopping labs as above. Not interested in dialysis. (3) Chronic obstructive lung disease: Status: Chronic Assessment and plan: Continue home regimen for comfort. (4) Squamous cell carcinoma of bladder: Status: Acute Assessment and plan: Locally invasive, treated with resection and ileal conduit, since then he has lost 50lbs and become bed bound, with diminishing QOL and independance. 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 (5) Comfort measures only status: Status: Acute Assessment and plan: Appreciated palliative help. Continue inpatient now if deteriorating. If he stabilizes consider SNF. 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 Eating little. Exam Narrative Exam Narrative: General: This is a pleasant, mildly cachectic appearing elderly man in no distress HEENT: Normocephalic, atraumatic CV: RRR Resp: CTAB Abd: soft, NTND MSK: voluntary motion x4 Neuro: awake, alert, no focal deficits, moving slowly Objective Last Vital Signs Temp 37.2 C 02/02/25 08:52 Pulse 58 L 02/02/25 08:52 Resp 27 H 02/01/25 12:00 BP 102/45 L 02/02/25 08:52 Pulse Ox 95 02/02/25 08:52 Laboratory Results - last 24 hr 02/01/25 02/02/25 09:20 07:50 Hgb 7.3 L Hct 22.2 L Sodium 146 H 147 H Potassium 3.3 L 3.2 L Chloride 116 H 119 H Carbon Dioxide 14.7 L 16.3 L Anion Gap 15.3 H 11.7 H BUN 108 H* 103 H* Creatinine 3.88 H* 3.49 H Est GFR (CKD-EPI 2020) 15.62 17.27 Glucose 128 H 85 Calcium 7.4 L 7.0 L VTE Prohylaxis Risk Level: Moderate/High Risk Contraindications: None Prophylaxis: Patient anticoagulated Time Spent with Patient Time Spent with Patient: 25-34 minutes Time was spent: preparing to see the patient(eg.review tests), obtaining and/or reviewing separately otained hiistory, ordering medications,tests, procedures, referring, communicating with other health healthcare administration internship, indepentently interpreting results, counseling the patient and care coordination
[2025-02-02] MEDS: Gabapentin 300 MG CAP PO (21:13)
[2025-02-03] MEDS: Acetaminophen 325 MG TAB 650 MG PO (01:35)
[2025-02-03] MEDS: Tiotropium/Olodaterol 10 PUFF INHALER 2 PUFF IH (08:07)
[2025-02-03] MEDS: Sodium Bicarbonate 650 MG TAB 1300 MG PO ×2 (08:14→20:34)
[2025-02-03] MEDS: Apixaban 2.5 MG TAB PO (08:14)
[2025-02-03] MEDS: Metoclopramide 10 MG TAB PO ×3 (08:15→16:16)
--- NOTE | 2025-02-03 10:42 | PGE_ITS ---
Date of Service Date of service: 02/03/25 Time of Service: 10:42 Assessment and Plan Assessment and plan (1) Comfort measures only status: Status: Acute Assessment and plan: Appreciated palliative help. He is eating more, suggesting his prognosis may be weeks to months rather than days. SNF not an option. Working on getting caregivers so he can go home with hospice. stop anticoagulation (2) Squamous cell carcinoma of bladder: Status: Acute Assessment and plan: Locally invasive, treated with resection and ileal conduit, since then he has lost 50lbs and become bed bound, with diminishing QOL and independance. 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 (3) Chronic obstructive lung disease: Status: Chronic Assessment and plan: Continue home regimen for comfort. (4) Pressure ulcer: Status: Acute Assessment and plan: will add topical metronidazole, wound care for comfort. (5) Knee pain: Status: Acute Assessment and plan: h/o OA and gout, exam not suggestive of gout. Add topical ketoralac, had prn opioids as well for pain as well as gabapentin. Subjective Subjective Patient reports: denies diarrhea, vomiting, shortness of breath or fever Interval history since last seen: Events: RETAIL COSMETICS SALES BEAUTY ADVISOR status 02/02 He feels okay. Knees are aching and down lower legs. Hurts to move them. No other complaints. He is eating/drinking a little more today. Exam Narrative Exam Narrative: General: This is a pleasant, mildly cachectic appearing elderly man in no distress HEENT: Normocephalic, atraumatic CV: RRR Resp: CTAB Abd: soft, NTND MSK: voluntary motion x4, tender kelly knee joint lines, not hot/red, but pain with flexion. no edema, calves not tender. Neuro: awake, alert, no focal deficits, moving slowly skin: see RN notes re sacral wound Objective Last Vital Signs Temp 37.2 C 02/02/25 08:52 Pulse 58 L 02/02/25 08:52 Resp 27 H 02/01/25 12:00 BP 102/45 L 02/02/25 08:52 Pulse Ox 95 02/02/25 08:52 Laboratory Results - last 24 hr 02/01/25 09:20 Sodium 146 H Potassium 3.3 L Chloride 116 H Carbon Dioxide 14.7 L Anion Gap 15.3 H BUN 108 H* Creatinine 3.88 H* Est GFR (CKD-EPI 2020) 15.62 Glucose 128 H Calcium 7.4 L VTE Prohylaxis Risk Level: Moderate/High Risk Contraindications: None Prophylaxis: Patient anticoagulated Time Spent with Patient Time Spent with Patient: 25-34 minutes Time was spent: preparing to see the patient(eg.review tests), obtaining and/or reviewing separately otained hiistory, ordering medications,tests, procedures, referring, communicating with other health day care worker, indepentently interpreting results, counseling the patient and care coordination
[2025-02-03] MEDS: metroNIDAZOLE 500 MG TAB PO (13:45)
[2025-02-03] MEDS: Diclofenac 1% Gel 100 GM TUBE TP ×3 (13:53→20:34)
[2025-02-03] MEDS: Polyethylene Glycol 3350 17 GM PACKET PO (16:17)
[2025-02-03] MEDS: Gabapentin 300 MG CAP PO (20:34)
[2025-02-04] MEDS: LORazepam 1 MG TAB PO (01:02)
[2025-02-04] MEDS: traMADol 50 MG TAB PO ×3 (03:23→21:17)
[2025-02-04] MEDS: Metoclopramide 10 MG TAB PO ×3 (07:38→16:10)
[2025-02-04] MEDS: Acetaminophen 325 MG TAB 650 MG PO ×2 (07:39→21:17)
[2025-02-04] MEDS: Diclofenac 1% Gel 100 GM TUBE TP ×4 (07:41→21:18)
[2025-02-04] MEDS: Tiotropium/Olodaterol 10 PUFF INHALER 2 PUFF IH (08:11)
[2025-02-04] MEDS: Sodium Bicarbonate 650 MG TAB 1300 MG PO ×2 (09:49→21:17)
[2025-02-04] MEDS: Normal Saline Flush 10 ML SYR IVP ×2 (11:13→21:19)
[2025-02-04] MEDS: metroNIDAZOLE 500 MG TAB PO (12:40)
--- NOTE | 2025-02-04 18:07 | PGE_ITS ---
Date of Service Date of service: 02/04/25 Time of Service: 18:07 Assessment and Plan Assessment and plan (1) Comfort measures only status: Status: Acute Assessment and plan: Appreciated palliative help. He is eating more since de-escalating care, suggesting his prognosis may be weeks to months rather than days. SNF not an option. His family is still working on getting caregivers so he can go home with hospice. 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 No further treatment. 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 (3) Chronic obstructive lung disease: Status: Chronic Assessment and plan: Continue home regimen for comfort. (4) Pressure ulcer: Status: Acute Assessment and plan: Added topical metronidazole 02/03, helping smell of wound, continue wound care for comfort. (5) Knee pain: Status: Acute Assessment and plan: h/o OA and gout, exam now more suggestive of gout. Injection would be useful but we don't have immediate access to the meds/needles. Treat with oral prednisone as steroid likely to work faster and not affect renal function. Also has topical ketoralac, had prn opioids as well for pain as well as gabapentin. Discharge Planning Discharge Planning: Transition to home with hospice when caregivers identified Subjective Subjective Patient reports: tolerating a regular diet; denies diarrhea, nausea, vomiting, shortness of breath or fever Interval history since last seen: Feels okay, knees remain quite painful. He is eating okay. Exam Narrative Exam Narrative: General: This is a pleasant, mildly cachectic appearing elderly man in no distress HEENT: Normocephalic, atraumatic CV: RRR Resp: CTAB Abd: soft, NTND MSK: voluntary motion x4, tender kelly knee joint lines, now more warm with kelly effusions, more pain with flexion. no edema, calves not tender. Neuro: awake, alert, no focal deficits, moving slowly skin: see RN notes re sacral wound Objective Last Vital Signs Temp 37.2 C 02/02/25 08:52 Pulse 58 L 02/02/25 08:52 Resp 27 H 02/01/25 12:00 BP 102/45 L 02/02/25 08:52 Pulse Ox 95 02/02/25 08:52 VTE Prohylaxis Risk Level: Moderate/High Risk Contraindications: None Prophylaxis: Patient anticoagulated Time Spent with Patient Time Spent with Patient: 25-34 minutes Time was spent: preparing to see the patient(eg.review tests), obtaining and/or reviewing separately otained hiistory, ordering medications,tests, procedures, referring, communicating with other health resident care supervisor, counseling the patient and care coordination
[2025-02-04] MEDS: predniSONE 20 MG TAB 40 MG PO (18:31)
[2025-02-04] MEDS: Gabapentin 300 MG CAP PO (21:17)
[2025-02-05] MEDS: Metoclopramide 10 MG TAB PO ×3 (07:42→15:58)
[2025-02-05] MEDS: Diclofenac 1% Gel 100 GM TUBE TP ×4 (09:32→20:48)
[2025-02-05] MEDS: predniSONE 20 MG TAB 40 MG PO (09:32)
[2025-02-05] MEDS: Sodium Bicarbonate 650 MG TAB 1300 MG PO ×2 (09:32→20:48)
[2025-02-05] MEDS: Tiotropium/Olodaterol 10 PUFF INHALER 2 PUFF IH (11:03)
[2025-02-05] MEDS: metroNIDAZOLE 500 MG TAB PO (12:53)
--- NOTE | 2025-02-05 13:36 | CMPROGNOTE_ITS ---
Date of service: 02/05/25 Time of Service: 13:46 Care Management Progress Note Progress Note Text Progress Note Text: Al was lying in bed and watching TV when CM met with him. CM contacted Mr. Al Garcia?s daughter, Pura, who is anticipated to serve as his primary caregiver. Pura reported that she continues to coordinate working from home in order to provide care for her father. CM discussed that Mr. Garcia is medically ready for discharge and that a definitive discharge plan needs to begin establishment. CM explained that if Al is unable to safely discharge home within the next day or two, [facility] facility referrals would need to be initiated. It was also discussed that Al currently does not have an established payer source for long-term care. CM also spoke with Arleth from the [place] [facility]. Per Arleth, Al completed a long-term Medicaid application, which was submitted last week. Arleth shared that Yoly, Anisa ex-, is a reliable support person who visits weekly and assists with grocery shopping. Arleth stated she will attempt to reach out to both Yoly and Pura to help support discharge planning and coordination of care. With Al?s permission, respite care referrals are currently pending with the following facilities: [facility], and [facility]. CM will continue to follow and assist with discharge planning. Discharge Potential Discharge Needs: PCP F/U Appt and Other (Nephrology) Anticipated Barriers to Discharge: None Identified Patient/Family Education Needs: Review discharge instructions, discuss Ask Me Three Plan: Al's discharge plan is unclear at this time. Al will likely be discharged home with his daughter when medically cleared. He is hospice eligable without a door closer. 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 Palliative will follow. CM will follow and continue to assess for discharge needs. Social Determinants of Health Screening Will the Patient Participate in the Screening?: Declined to provide
[2025-02-05] MEDS: fentaNYL 12 MCG PATCH TD (15:58)
--- NOTE | 2025-02-05 16:26 | PGE_ITS ---
Date of Service Date of service: 02/05/25 Time of Service: 16:26 Assessment and Plan Assessment and plan (1) Comfort measures only status: Status: Acute Assessment and plan: Appreciated palliative help. He is eating more since de-escalating care, suggesting his prognosis may be weeks to months rather than days. SNF not an option. His family is still working on getting caregivers so he can go home with hospice. Ordered PT to help assess and mobilize so we know what level of care he will need at home and help facilitate discharge. 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 No further treatment. 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 (3) Chronic obstructive lung disease: Status: Chronic Assessment and plan: Continue home regimen for comfort. (4) Pressure ulcer: Status: Acute Assessment and plan: Added topical metronidazole 02/03, helping smell of wound, continue wound care for comfort. (5) Knee pain: Status: Acute Assessment and plan: Clearly responded to prednisone starting 02/04. This was almost certainly gout. Plan to taper 02/06 from 40mg to 30mg Also has topical ketoralac, had prn opioids as well for pain as well as rohan apentin. Subjective Subjective Patient reports: no new complaints and tolerating liquids well; denies diarrhea, nausea, vomiting, shortness of breath or fever Interval history since last seen: He feels okay. Not in pain now. knees much better after steroids started for gout. He would like to try to get out of bed. Exam Narrative Exam Narrative: General: This is a pleasant, mildly cachectic appearing elderly man in no distress. Sleepy but arouses HEENT: Normocephalic, atraumatic CV: RRR Resp: CTAB Abd: soft, NTND MSK: voluntary motion x4, knees less tender, less effusion Neuro: awake, alert, no focal deficits, moving slowly skin: sacral wound dressed,clean Objective Last Vital Signs Temp 37.2 C 02/02/25 08:52 Pulse 58 L 02/02/25 08:52 Resp 27 H 02/01/25 12:00 BP 102/45 L 02/02/25 08:52 Pulse Ox 95 02/02/25 08:52 VTE Prohylaxis Risk Level: Moderate/High Risk Contraindications: None Prophylaxis: Patient anticoagulated Time Spent with Patient Time Spent with Patient: 25-34 minutes Time was spent: preparing to see the patient(eg.review tests), obtaining and/or reviewing separately otained hiistory, ordering medications,tests, procedures, referring, communicating with other health home care and home health aides teacher, counseling the patient and care coordination
[2025-02-05] MEDS: Gabapentin 300 MG CAP PO (20:48)
[2025-02-06] MEDS: Metoclopramide 10 MG TAB PO ×3 (08:16→15:40)
[2025-02-06] MEDS: Sodium Bicarbonate 650 MG TAB 1300 MG PO (08:16)
[2025-02-06] MEDS: predniSONE 20 MG TAB 30 MG PO (08:16)
[2025-02-06] MEDS: Diclofenac 1% Gel 100 GM TUBE TP ×3 (08:17→15:40)
--- NOTE | 2025-02-06 08:48 | PDOC.CMPRO ---
Date of service: 02/06/25 Time of Service: 16:38 Care Management Progress Note Progress Note Text Progress Note Text: Al was awake and sitting up in his chair when CM met with him. Per the provider, Al has shown daily improvement. During the visit, lA reported feeling uncomfortable and requested assistance returning to bed; CM notified the LNAs. Al stated that his daughter has not yet visited him. His daughter, Pura, reported that she is unable to work remotely and therefore cannot take him home at this time. Updated long-term care referrals have been sent to the appropriate facilities. CM will follow up on all referrals today. If no placement offers are pending, it is anticipated that Al will be transitioned to Swing Bed 2 within the week (with no confirmed payer source). CM will contact Pura again to provide this update. CM will also request a palliative care follow-up tomorrow to continue discussions regarding goals of care with Al, as his options remain limited. PT was consulted for DME requirement's. CM will continue to follow. Referrals: [facility] - Declined, no beds 02/06/25 [facility] - Declined due to payer source 02/06/25 [facility] - Pending 02/06/25 [facility] - Pending - Follow up on 02/12 per admission. 02/06/25 [facility] - Declines for LTC; ? STR if alligns with GOC 02/06/25 Discharge Potential Discharge Needs: PCP F/U Appt Anticipated Barriers to Discharge: None Identified Patient/Family Education Needs: Review discharge instructions, discuss Ask Me Three Plan: Al's discharge plan is unclear at this time, Al has no place to be discharged too. He is hospice eligible without a oracle architect. 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 Palliative will follow. CM will follow and continue to assess for discharge needs. Social Determinants of Health Screening Will the Patient Participate in the Screening?: Declined to provide
[2025-02-06] MEDS: Tiotropium/Olodaterol 10 PUFF INHALER 2 PUFF IH (08:51)
--- NOTE | 2025-02-06 10:40 | PT.INIE ---
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 Vieyra's office with abnormal labs and 4-6 weeks of increased shortness of breath.In the ED, he was mildly tachycardic HR 95. Vitals otherwise unremarkable. EKG with sinus rhythm, chronic consistent with prior EKGs post CABG. CBC with chronic anemia, hemoglobin 9.7. BMP with markedly elevated creatinine 4.72, BUN 115, CO2 below measurable threshold, potassium 6.0, BNP 4401, TSH low 0.32, free T4 low 0.87. VBG with acidosis pH 6.92, pCO2 24. On 02/04/2025, patient developed right knee pain determined to be gout and treated with prednisone taper. 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 Therefore MD ordered PT eval to assess for DME needs and current functional level in anticipation of discharge. PMHX: [] History of ileal conduit (Chronic) Benign essential hypertension (Acute) Acute metabolic acidosis (Acute) CHARLIE (acute kidney injury) (Acute) Hyperkalemia (Acute) Acidemia (Acute) Chronic metabolic acidosis (Acute) Diabetes (Chronic) Candiduria (Acute) Acute kidney injury superimposed on stage 4 chronic kidney disease (Acute) Obstructed nephrostomy tube (Acute) 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 Poor dentition (Chronic) Multiple atypical skin moles (Chronic) Onychomycosis (Chronic) Hyperthyroidism determined by thyroid function test (Chronic) Corns and callosities (Chronic) Nail dystrophy (Chronic) Nocturia more than twice per night (Chronic) Medical History (Updated 01/31/25 @ 18:04 by Wilian Parmar MD) CHARLIE (acute kidney injury) Bilateral hydronephrosis Alcohol abuse (01/04/13) binge drinks 6 pack on Wednesday PFO (patent foramen ovale) Hyperlipidemia Olecranon bursitis of left elbow (07/04/14) Surgical History S/P ileal conduit S/P radical cystoprostatectomy History of surgery per patient stents place in [facility] S/P CABG x 4 (~2011) H/O transurethral destruction of bladder lesion Social History/Home Situation: Patient resides alone single-family home with 8 steps to enter Equipment Owned/DME: FWW, cane Subjective: Patient reports he is feeling weak but willing to try sitting up in the chair. Objective: [] General Observation: Frail cachetic male supine in bed watching television. Mental Status: Alert and oriented x 4, cooperative, able to follow instructions, agreeable to participate in evaluation Pain: Denied pain ROM: [] BUE WFL BLE: WFL Strength: [] Right Upper Extremity: Grossly 3/5 Left Upper Extremity: [] Grossly 3/5 B Lower Extremity: Hips 3 -/5, knees 3/5 ankles 3/5 Sensation: Intact Bed Mobility/Transfers: [] Supine to sit contact-guard assist with increased time Sit to stand min assist of 1 cues for hand placement Stand to sit min assist of 1 with cues for hand placement Bed to chair min assist of 1 with FWW Gait: Ambulated 15 feet with FWW min assist of 1 with close wheelchair follow for safety. Patient demonstrating significant bilateral knee and hip instability. Diminished step length bilaterally Stairs: Unable to assess Balance: [] Static Sitting:Normal Dynamic Sitting: Good Static Standing: Fair with BUE support Dynamic Standing: Poor + with UE support Special Tests: [] Mobility Limitations Standardized Measure [] [facility] AM-PAC 6 clicks Basic Mobility Inpatient Short Form: [] Raw Score: 18 CMS Score: 46.58% Informed Consent/Education: Patient instructed in purpose of PT consult. Treatment: 37984 Sit to stand from 19 inch height with min assist, sit to stand from 21 inch height contact-guard assist Functional transfers surface to surface with FWW min assist for trunk stability patient demonstrates bilateral knee instability as well. Assessment: Patient is a 74-year-old male referred to PT for assessment of functional status and DME recommendations for home. Patient would benefit from elevated surfaces as patient is 6 foot 3 inches tall therefore lower surface require increased assistance ands exertion for patient. Pt prognosis is poor. Nursing currently demonstrating ability to provide 1 assist for transfers to chair and commode at this time. Patient demonstrates clinical signs and symptoms consistent with current/admitting diagnoses that have resulted to mobility limitations, gait instability, generalized weakness, and impairment of motor control as demonstrated by the following impairment level findings: 1. Decreased strength to BUE/BLE major muscle groups 2. Impaired standing balance 3. Limitation of joint range of motion in right knee 4. impaired functional activity tolerance 5. increased work of breathing/SOB Impairments are contributing to the following functional limitations: 1. Inability to safely ambulate without assistive device 2. Increase completion time for mobility ADL performance 3. Increased fall risk 4. decline in transfer skills 5. Inability to perform stairs safely Patient is assessed as a moderate complexity based on the following: History: 74-year-old male with impairment level findings, functional limitations, and past medical history as indicated above Examination: Demonstrable impairment in strength, balance, and mobility level with underlying impairments and functional limitations as documented above Presentation: stable/evolving Decision Making: moderate Goals: N/A. PT evaluation and 1- treatment session to establish functional level and DME needed for home with hospice Plan of Care/Treatment Plan: PT evaluation and 1treatment session only to establish functional level and DME needed for home with hospice DISCHARGE RECOMMENDATIONS: Home with hospital bed, overbed table, commode. Pt has FWW and cane. He will need lift assist into home TREATMENT CODE/TIME: 28043, 03969/ [id number] Thank you for the opportunity to participate in the care of this patient. Sharonda Stoner, PT [facility]
--- NOTE | 2025-02-06 12:29 | W.NUTRFU ---
Date of service: 02/06/25 Time of Service: 12:29 Nutrition Note NOTE: Chart reviewed. 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 Doing a fair job with intake at this time. Kitchen staff offering ONS at each meal for ease of intake. Mostly opting for CIB frappes. At this time will continue to offer any desired foods/bevs per pt preference. No aggressive nutrition interventions planned outside of the above. Will continue to monitor and check in with patient regarding preferences, any barriers to eating and food quality. Time Spent in Nutritional Counseling and Treatment: 10 min
[2025-02-06] MEDS: Normal Saline Flush 10 ML SYR IVP (13:27)
[2025-02-06] MEDS: metroNIDAZOLE 500 MG TAB PO (13:27)
--- NOTE | 2025-02-06 14:03 | W.PM.PROGNOT ---
Date of Service Date of service: 02/06/25 Time of Service: 14:03 Assessment and Plan Assessment and plan (1) Comfort measures only status: Status: Acute Assessment and plan: Appreciated palliative help. He is eating more since de-escalating care, indicating his prognosis may be weeks to months rather than days. SNF has not been an option, but may be if he is rehabilitating with PT. His family is still working on getting caregivers so he can go home with hospice. 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 No further treatment. 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 (3) Chronic obstructive lung disease: Status: Chronic Assessment and plan: Continue home regimen for comfort. (4) Pressure ulcer: Status: Acute Assessment and plan: Added topical metronidazole 02/03, helping smell of wound, continue wound care for comfort. (5) Knee pain: Status: Acute Assessment and plan: Clearly responded to prednisone starting 02/04. This was almost certainly gout. Tapered to 30 02/06, taper again 02/08 Also has topical ketoralac, had prn opioids as well for pain as well as gabapentin. Subjective Subjective Patient reports: no new complaints and pain is less; denies diarrhea, vomiting, fever or other Interval history since last seen: He feels okay. He is actaully eating a little more. Exam Narrative Exam Narrative: General: This is a pleasant, mildly cachectic appearing elderly man in no distress. Sleepy but arouses CV: RRR Resp: normal effort Abd: soft, NTND MSK: knees no longer tender, effusion resolved Neuro: awake, alert, no focal deficits, moving slowly skin: sacral wound not examined today Objective Last Vital Signs Temp 37.2 C 02/02/25 08:52 Pulse 58 L 02/02/25 08:52 Resp 27 H 02/01/25 12:00 BP 102/45 L 02/02/25 08:52 Pulse Ox 95 02/02/25 08:52 VTE Prohylaxis Risk Level: Moderate/High Risk Contraindications: None Prophylaxis: Patient ambulatory (RAG CUTTING MACHINE FEEDER, not indicated) Time Spent with Patient Time Spent with Patient: 25-34 minutes Time was spent: preparing to see the patient(eg.review tests), obtaining and/or reviewing separately otained hiistory, ordering medications,tests, procedures, referring, communicating with other health senior care manager, counseling the patient and care coordination
--- NOTE | 2025-02-06 14:23 | CHAPLAIN ---
Al is here with renal failure. I first visited with him in the ICU. He's now on Med/Surg. He has continued to improve in some ways. lA's daughter was hoping she could arrange to work remotely and take Al home with the support of Hospice Care. Al is a palliative care patient, but currently doesn't have a part time receptionist caregiver which makes him ineligible for hospice, although he's decided to have just comfort measures in place. His daughter has not been able to arrange to work remotely. Today, Al was sitting up in the chair when I visited, but he said he was quite uncomfortable because of the sore on his rump. He was hoping to go back to bed soon, where he is comfortable, and alerted the nursing staff. I will continue to visit.
[2025-02-07] MEDS: Sodium Bicarbonate 650 MG TAB 1300 MG PO ×3 (03:54→19:54)
[2025-02-07] MEDS: Diclofenac 1% Gel 100 GM TUBE TP ×5 (03:54→17:14)
[2025-02-07] MEDS: Gabapentin 300 MG CAP PO ×2 (03:54→19:55)
[2025-02-07] MEDS: Sennosides/Docusate Sodium TAB 2 TAB PO (05:05)
--- NOTE | 2025-02-07 08:08 | CMPROGNOTE_ITS ---
Date of service: 02/07/25 Time of Service: 12:34 Care Management Progress Note Progress Note Text Progress Note Text: Al was awake and resting in bed at the time CM met with him. Per report, he will take a hot shower today which he is looking forward too. CM offered him a prayer fang which he was grateful for. He met with Palliative Care again today and is agreeable to working with Physical Therapy to promote independence and support his goal of returning home following a short-term rehabilitation stay. Per report, Al experiences bilateral knee pain, which is currently well controlled; however, premedication may be beneficial prior to Physical Therapy sessions. Updated clinical information has been sent to [facility] and [facility]. CM will continue to follow. Referrals: [facility] - Declined, no beds 02/06/25 [facility] - Declined due to payer source 02/06/25 [facility] - Declines for LTC; ? STR if alligns with GOC 02/06/25 [facility] - Pending 02/07/25 [facility] - Pending - Follow up on 02/12 per admission. 02/07/25 Discharge Potential Discharge Needs: PCP F/U Appt Anticipated Barriers to Discharge: None Identified Patient/Family Education Needs: Review discharge instructions, discuss Ask Me Three Plan: Al's discharge plan is unclear at this time, Al has no place to be discharged too. He is hospice eligible without a corporate quality manager. 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 Palliative will follow. CM will follow and continue to assess for discharge needs. Social Determinants of Health Screening Will the Patient Participate in the Screening?: Declined to provide
[2025-02-07] MEDS: Tiotropium/Olodaterol 10 PUFF INHALER 2 PUFF IH (08:38)
--- NOTE | 2025-02-07 09:00 | PCPN_ITS ---
Date of service: 02/07/25 Time of Service: 09:00 Assessment and Plan Assessment and plan (1) Knee pain: Status: Acute Assessment and plan: improved w/prednisone taper and Voltaren gel, continue fentanyl 12mcg patch placed 02/02 w/limited tramadol use, last dose 02/04; pt preference to remove fentanyl patch today; may re-place at pt's discretion. encouraged he not get behind in pain and restart based on response IV morphine 1mg PRN added if additional coverage needed; continue tramadol PRN PT consult for QoL goal to get out of bed safely w/goal to return home and navigate commode transfers etc; premedicate w/tramadol and voltaren prior to PT (2) Constipation: Status: Acute Assessment and plan: Miralax overnight, anticipate relief today d/t prior good effect continue Senna PRN recommend scheduled Senna if fentanyl patch restarted (3) Acute kidney injury superimposed on stage 4 chronic kidney disease: Status: Acute (4) Squamous cell carcinoma of bladder: Status: Acute (5) Ambulatory dysfunction: Status: Acute Assessment and plan: PT consult as above (6) Comfort measures only status: Status: Acute Assessment and plan: Al's preference is comfort directed care w/goal of returning home w/supports of hospice At this time it is not safe for him to return home. PT consult w/goal of improving transfer ability for safe discharge. (7) Palliative care patient: Status: Acute Assessment and plan: PC will continue to follow as needed - prison planning, goals of care and sxs management for pain/constipation as needed (8) Advanced care planning/counseling discussion: Status: Acute Assessment and plan: reviewed w/Al current goals of getting out of bed, working w/PT, recommendations for short term stay at SNF for ongoing PT work for safe return home. Al would like to pursue this goal, and would prefer to remain out of SNF, remain in hospital until safe discharge home. Reviewed hospital acute bed need, appropriate/safe care available at SNF, likely will need a short stay there prior to returning home reviewed pain management; follow Al's preferences; remove fentanyl patch today, may add back on at his discretion. PRN pain management w/topicals and opioids, consider changing from tramadol to oxycodone based on effect of tramadol; premedicate prior to PT; reviewed constipation management; recommend add Senna scheduled if return on fentanyl patch. spent 20m w/ACP Subjective Subjective Interval history since last seen: Al remains hospitalized on comfort directed care Activity: 1 person assist w/OOB, pain was limiting desire to get out of bed. He is most comfortable in bed. Pain: knee pain much improved w/Voltaren gel and prednisone taper. He has a fentanyl 12mcg patch on and would like to remove it bc he is unsure it is helping. last tramadol dose 02/04. wound on backside remains painful, most bothersome when he is sitting in the chair, prefers to be in bed to offload this pain. Intake: eating well, enjoys milkshakes, no concerns Bowels: last BM 5 days ago, was on Senna. Miralax given overnight. Al reports he doesn't feel the need to move bowels now, but is optimistic he will soon. No abd pain/discomfort/distention/nausea. Financial: LTM application pending. daughter unable to take time off work to be caregiver. concerns for payer source. Social: Pura, daughter would like to be able to take Al to his home and provide caregiving w/supports of hospice. Unfortunately her work is unable to support this goal. PT eval w/recommendations for DMe in home hospital bed, table commode. ACP: Al has a goal of being able to get out of bed, transfer to commode, bathroom or chair if desired. He would like to work w/PT for this goal. Al would like to return home on hospice, this is his biggest goal. He would prefer not to have any placement at a skilled rehab or correction, but would agree to this for a bridge to getting home if unable to remain in hospital until safe caregiving at home Exam Narrative Exam Narrative: General: 74 y/o chronically-ill appearing, older man, lying in the hospital bed. He is thin, frail appearing. Awake and alert, fatigued. HEENT: normocephalic, atraumatic, EOMI, mmm Neck: supple Respiratory: respirations appear even and unlabored at rest. Ext: muscle atrophy Psych: pleasant, answers questions appropriately/engages throughout; thought process WNL; insight/judgment fair Objective Last Vital Signs Temp 99.0 F 02/02/25 08:52 Pulse 58 L 02/02/25 08:52 Resp 27 H 02/01/25 12:00 BP 102/45 L 02/02/25 08:52 Pulse Ox 95 02/02/25 08:52
[2025-02-07] MEDS: predniSONE 20 MG TAB 30 MG PO (09:59)
[2025-02-07] MEDS: Normal Saline Flush 10 ML SYR IVP ×2 (09:59→19:55)
[2025-02-07] MEDS: Metoclopramide 10 MG TAB PO ×3 (09:59→17:14)
[2025-02-07] MEDS: traMADol 50 MG TAB PO (10:27)
--- NOTE | 2025-02-07 12:12 | IN_ITS ---
Date of service: 02/07/25 PT Notes Visit Reasons: Renal Failure Physical Therapy Inpatient Initial Evaluation Date: 02/07/2025 Referring Doctor: Gypsy Lewis PT Orders: PT CONSULT: Limited ability Precautions: ileal conduit/catheter to bedside drainage, standard, fall risk, IV access, wound to coccyx Patient Profile/Admitting Diagnosis: Patient is 74-year-old male presented to the ED on 01/31/[address] Vieyra's office with abnormal labs and 4-6 weeks of increased shortness of breath.In the ED, he was mildly tachycardic HR 95. Vitals otherwise unremarkable. EKG with sinus rhythm, chronic consistent with prior EKGs post CABG. CBC with chronic anemia, hemoglobin 9.7. BMP with markedly elevated creatinine 4.72, BUN 115, CO2 below measurable threshold, potassium 6.0, BNP 4401, TSH low 0.32, free T4 low 0.87. VBG with acidosis pH 6.92, pCO2 24. On 02/04/2025, patient developed right knee pain determined to be gout and treated with prednisone taper. Patient now plans to transfer to SNF for short term prior to discharge to home. He would like to maximize his functional transfers PMHX: [] History of ileal conduit (Chronic) Benign essential hypertension (Acute) Acute metabolic acidosis (Acute) CHARLIE (acute kidney injury) (Acute) Hyperkalemia (Acute) Acidemia (Acute) Chronic metabolic acidosis (Acute) Diabetes (Chronic) Candiduria (Acute) Acute kidney injury superimposed on stage 4 chronic kidney disease (Acute) Obstructed nephrostomy tube (Acute) 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 initiating calcitriol 06/2023 Recurrent UTI (Chronic) CKD stage 4 secondary to hypertension (Chronic) Bladder cancer (Chronic ~06/2016) Chronic obstructive lung disease (Chronic 03/28/12) Essential hypertension (Chronic 01/03/13) Gout (Chronic 07/04/14) Hyperlipidemia (Chronic 03/28/12) Pulmonary nodule seen on imaging study (Chronic 12/10/14) lung CT due 10/2021 CHF (congestive heart failure) (Chronic) CAD in [place] artery (Chronic ~2011) [place] [facility] [place] Bundle branch block, right (Chronic) Tobacco abuse (Chronic) 40 pack year hx. Poor dentition (Chronic) Multiple atypical skin moles (Chronic) Onychomycosis (Chronic) Hyperthyroidism determined by thyroid function test (Chronic) Corns and callosities (Chronic) Nail dystrophy (Chronic) Nocturia more than twice per night (Chronic) Medical History (Updated 01/31/25 @ 18:04 by Wilian Parmar MD) CHARLIE (acute kidney injury) Bilateral hydronephrosis Alcohol abuse (01/04/13) binge drinks 6 pack on Wednesday PFO (patent foramen ovale) Hyperlipidemia Olecranon bursitis of left elbow (07/04/14) Surgical History S/P ileal conduit S/P radical cystoprostatectomy History of surgery per patient stents place [place] [facility] [place] CABG x 4 (~2011) H/O transurethral destruction of bladder lesion Social History/Home Situation: Patient resides alone single-family home with 8 steps to enter Equipment Owned/DME: FWW, cane Subjective: Patient reports he is feeling weak but willing to try sitting up in the chair. Objective: [] General Observation: Frail cachetic male supine in bed watching television. Mental Status: Alert and oriented x 4, cooperative, able to follow instructions, agreeable to participate in evaluation Pain: in coccxy/ buttocks with prolonged sitting ROM: [] BUE WFL BLE: WFL right knee flexion 95 degrees d/t pain Strength: [] Right Upper Extremity: Grossly 3/5 Left Upper Extremity: [] Grossly 3/5 B Lower Extremity: Hips 3 -/5, knees 3/5 ankles 3/5 Sensation: Intact Bed Mobility/Transfers: [] Supine to sit contact-guard assist with increased time Sit to stand min assist of 1 cues for hand placement Stand to sit min assist of 1 with cues for hand placement Bed to chair min assist of 1 with FWW Gait: Ambulated 15 feet with FWW min assist of 1 with close wheelchair follow for safety. Patient demonstrating significant bilateral knee and hip instability. Diminished step length bilaterally Stairs: Unable to assess Balance: [] Static Sitting:Normal Dynamic Sitting: Good Static Standing: Fair with BUE support Dynamic Standing: Poor + with UE support Special Tests: [] Mobility Limitations Standardized Measure [] [facility] 6 clicks Basic Mobility Inpatient Short Form: [] Raw Score: 18 CMS Score: 46.58% Informed Consent/Education: Patient instructed in purpose of PT consult. Treatment: 12253 Sit to stand from 19 inch height with min assist, sit to stand from 21 inch height contact-guard assist Functional transfers surface to surface with FWW min assist for trunk stability patient demonstrates bilateral knee instability as well. Assessment: Pt. now would like to focus on strengthening to improve his functional mobility prior to discharge to home. Patient is a 74 yo male who demonstrates clinical signs and symptoms consistent with current/admitting diagnoses that have resulted to mobility limitations, gait instability, generalized weakness, and impairment of motor control as demonstrated by the following impairment level findings: 1. Decreased strength to BUE/BLE major muscle groups 2. Impaired standing balance 3. Limitation of joint range of motion in right knee 4. impaired functional activity tolerance 5. increased work of breathing/SOB 6. pain right knee Impairments are contributing to the following functional limitations: 1. Inability to safely ambulate without assistive device 2. Increase completion time for mobility ADL performance 3. Increased fall risk 4. decline in transfer skills 5. Inability to perform stairs safely 6. decline in bed mobility skills Patient is assessed as a moderate complexity based on the following: History: 74-year-old male with impairment level findings, functional limitations, and past medical history as indicated above Examination: Demonstrable impairment in strength, balance, and mobility level with underlying impairments and functional limitations as documented above Presentation: stable/evolving Decision Making: moderate Goals: 1. Supervision bed mobility with rail 2. SBA transfers with and without FWW 3. SBA ambulation with FWW >25 feet x 3 to simulate ambulation within home Plan of Care/Treatment Plan: 1-2x/day, 7 days/week x 1 week. Plan of care has been reviewed with the SECURITIES SUPERVISOR providing the service under Physical Therapy direction. Initiate Physical Therapy intervention for strengthening, bed mobility, transfers, gait, stairs, balance training, use of assistive device. DISCHARGE RECOMMENDATIONS:SNF TREATMENT CODE/TIME: 95850/ 5335-9781, [id number] Thank you for the opportunity to participate in the care of this patient. Sharonda Stoner, PT [facility]
[2025-02-07] MEDS: [UNRECOGNIZED DRUG - OTHER] 1 EACH TP (13:31)
[2025-02-07] MEDS: metroNIDAZOLE 500 MG TAB PO (15:35)
--- NOTE | 2025-02-07 16:23 | PGE_ITS ---
Date of Service Date of service: 02/07/25 Time of Service: 08:00 Assessment and Plan Assessment and plan (1) Comfort measures only status: Status: Acute Assessment and plan: Al's preference is comfort directed care w/goal of returning home w/supports of hospice At this time it is not safe for him to return home. PT consult w/goal of improving transfer ability for safe discharge. February 07: continue comfort measures pending hospice placement. Appreciate palliative consult. (2) Knee pain: Status: Acute Assessment and plan: improved w/prednisone taper and Voltaren gel, continue fentanyl 12mcg patch placed 02/02 w/limited tramadol use, last dose 02/04; pt preference to remove fentanyl patch today; may re-place at pt's discretion. encouraged he not get behind in pain and restart based on response IV morphine 1mg PRN added if additional coverage needed; continue tramadol PRN PT consult for QoL goal to get out of bed safely w/goal to return home and navigate commode transfers etc; premedicate w/tramadol and voltaren prior to PT (3) Constipation: Status: Acute Assessment and plan: Miralax overnight, anticipate relief today d/t prior good effect continue Senna PRN recommend scheduled Senna if fentanyl patch restarted (4) Acute kidney injury superimposed on stage 4 chronic kidney disease: Status: Acute (5) Squamous cell carcinoma of bladder: Status: Acute (6) Ambulatory dysfunction: Status: Acute Assessment and plan: PT consult as above (7) Palliative care patient: Status: Acute Assessment and plan: PC will continue to follow as needed - nursing home planning, goals of care and sxs management for pain/constipation as needed (8) Advanced care planning/counseling discussion: Status: Acute Assessment and plan: reviewed w/Al current goals of getting out of bed, working w/PT, recommendations for short term stay at SNF for ongoing PT work for safe return home. Al would like to pursue this goal, and would prefer to remain out of SNF, remain in hospital until safe discharge home. Reviewed hospital acute bed need, appropriate/safe care available at SNF, likely will need a short stay there prior to returning home reviewed pain management; follow Al's preferences; remove fentanyl patch today, may add back on at his discretion. PRN pain management w/topicals and opioids, consider changing from tramadol to oxycodone based on effect of tramadol; premedicate prior to PT; reviewed constipation management; recommend add Senna scheduled if return on fentanyl patch. spent 20m w/ACP Subjective Subjective Interval history since last seen: Mr. Lilly has been up for a shower. Still comfort care, likely will transition to hospice if a facility can accept him. Exam Narrative Exam Narrative: General: This is a pleasant, elderly man in no distress HEENT: Normocephalic, atraumatic CV: RRR Resp: CTAB Abd: soft, NTND MSK: voluntary motion x4 Neuro: awake, alert, no focal deficits Objective Last Vital Signs Temp 37.2 C 02/02/25 08:52 Pulse 58 L 02/02/25 08:52 Resp 27 H 02/01/25 12:00 BP 102/45 L 02/02/25 08:52 Pulse Ox 95 02/02/25 08:52 VTE Prohylaxis Risk Level: Moderate/High Risk Contraindications: None Prophylaxis: Patient ambulatory (INTERNAL CORROSION SPECIALIST, not indicated) Time Spent with Patient Time Spent with Patient: 25-34 minutes Time was spent: preparing to see the patient(eg.review tests), obtaining and/or reviewing separately otained hiistory, ordering medications,tests, procedures, referring, communicating with other health child care assistant, indepentently interpreting results, counseling the patient and care coordination
[2025-02-08] MEDS: Tiotropium/Olodaterol 10 PUFF INHALER 2 PUFF IH (08:23)
[2025-02-08] MEDS: Sodium Bicarbonate 650 MG TAB 1300 MG PO ×2 (08:35→20:23)
[2025-02-08] MEDS: predniSONE 20 MG TAB 30 MG PO (08:35)
[2025-02-08] MEDS: Metoclopramide 10 MG TAB PO ×3 (08:35→18:14)
--- NOTE | 2025-02-08 11:22 | CHAPLAIN ---
Al was sitting up in bed when I visited. He said he's not sure what the plan is for him. They don't tell anything, he said. Options include going home on hospice, but because he doesn't have a caregiver he may need to go to a rehab first. We talked about how it can be unsettling to not know next steps. Today he is waiting for his daughter from [place] to arrive to celebrate Marlene with him.
[2025-02-08] MEDS: Diclofenac 1% Gel 100 GM TUBE TP ×3 (12:15→21:29)
[2025-02-08] MEDS: metroNIDAZOLE 500 MG TAB PO (13:45)
--- NOTE | 2025-02-08 15:17 | W.PM.PROGNOT ---
Date of Service Date of service: 02/08/25 Time of Service: 08:00 Assessment and Plan Assessment and plan (1) Comfort measures only status: Status: Acute Assessment and plan: Al's preference is comfort directed care w/goal of returning home w/supports of hospice At this time it is not safe for him to return home. PT consult w/goal of improving transfer ability for safe discharge. February 07: continue comfort measures pending hospice placement. Appreciate palliative consult. February 08: no changes in medical management (2) Knee pain: Status: Acute Assessment and plan: improved w/prednisone taper and Voltaren gel, continue fentanyl 12mcg patch placed 02/02 w/limited tramadol use, last dose 02/04; pt preference to remove fentanyl patch today; may re-place at pt's discretion. encouraged he not get behind in pain and restart based on response IV morphine 1mg PRN added if additional coverage needed; continue tramadol PRN PT consult for QoL goal to get out of bed safely w/goal to return home and navigate commode transfers etc; premedicate w/tramadol and voltaren prior to PT February 07: He has been ambulating and has been able to shower (3) Constipation: Status: Acute Assessment and plan: Miralax overnight, anticipate relief today d/t prior good effect continue Senna PRN recommend scheduled Senna if fentanyl patch restarted (4) Acute kidney injury superimposed on stage 4 chronic kidney disease: Status: Acute (5) Squamous cell carcinoma of bladder: Status: Acute (6) Ambulatory dysfunction: Status: Acute Assessment and plan: PT consult as above (7) Palliative care patient: Status: Acute Assessment and plan: PC will continue to follow as needed - assistant terminal manager planning, goals of care and sxs management for pain/constipation as needed (8) Advanced care planning/counseling discussion: Status: Acute Assessment and plan: reviewed w/Al current goals of getting out of bed, working w/PT, recommendations for short term stay at SNF for ongoing PT work for safe return home. Al would like to pursue this goal, and would prefer to remain out of SNF, remain in hospital until safe discharge home. Reviewed hospital acute bed need, appropriate/safe care available at SNF, likely will need a short stay there prior to returning home reviewed pain management; follow Al's preferences; remove fentanyl patch today, may add back on at his discretion. PRN pain management w/topicals and opioids, consider changing from tramadol to oxycodone based on effect of tramadol; premedicate prior to PT; reviewed constipation management; recommend add Senna scheduled if return on fentanyl patch. spent 20m w/ACP Subjective Subjective Interval history since last seen: Mr. Lilly continues to be awake and alert. Awaiting arrangements for hospice at a facility. Exam Narrative Exam Narrative: General: This is a pleasant, elderly man in no distress HEENT: Normocephalic, atraumatic CV: RRR Resp: CTAB Abd: soft, NTND MSK: voluntary motion x4 Neuro: awake, alert, no focal deficits Objective Last Vital Signs Temp 37.2 C 02/02/25 08:52 Pulse 58 L 02/02/25 08:52 Resp 27 H 02/01/25 12:00 BP 102/45 L 02/02/25 08:52 Pulse Ox 95 02/02/25 08:52 VTE Prohylaxis Risk Level: Moderate/High Risk Contraindications: None Prophylaxis: Patient ambulatory (CONSTRUCTION AREA MANAGER, not indicated) Time Spent with Patient Time Spent with Patient: 25-34 minutes Time was spent: preparing to see the patient(eg.review tests), obtaining and/or reviewing separately otained hiistory, ordering medications,tests, procedures, referring, communicating with other health career portals teacher, indepentently interpreting results, counseling the patient and care coordination
[2025-02-08] MEDS: Gabapentin 300 MG CAP PO (20:23)
[2025-02-08 20:35] VITALS: BP 119/52; RESP 16; O2SAT 96
[2025-02-08] MEDS: MORPHine 2 MG/ML SYR 1 MG IVP (20:49)
[2025-02-08] MEDS: Acetaminophen 325 MG TAB 650 MG PO (21:34)
[2025-02-09] MEDS: Metoclopramide 10 MG TAB PO ×3 (07:50→17:12)
[2025-02-09] MEDS: Tiotropium/Olodaterol 10 PUFF INHALER 2 PUFF IH (08:03)
--- NOTE | 2025-02-09 08:42 | CMPROGNOTE_ITS ---
Date of service: 02/09/25 Time of Service: 08:43 Care Management Progress Note Progress Note Text Progress Note Text: Al transitioned to comfort-directed care and although he is significantly ill, he is for the most part stable and not felt to be imminently dying. See M.D progress notes. Al's discharge plan is complicated because he is not functionally independent and does not have adequate caregiver support to safely discharge home. He is hospice eligible, however admission to services is not possible without an caregiver. PT reported today that he is demonstrating improved strength and was able to walk from his room to the PT room with only CGA. Plan is to continue to work with PT over the weekend with a re-evaluation planned for Wednesday to determine whether discharge home with [facility] services would be a reasonable option. Palliative will continue to follow patients goals of care as his ability to pursue Hospice in any care setting other than home remains limited without a secured payer source. Fortunately, patients LTM application was submitted last week, per [place] at the [facility]. CM will continue to follow and support ongoing discharge efforts. Referrals: [facility] - Declined, no beds 02/06/25 [facility] - Declined due to payer source 02/06/25 [facility] - Declines for LTC; ? STR if alligns with C 02/06/25 [facility] - Pending 02/07/25 [facility] - Pending - Follow up on 02/12 per admission. 02/07/25 Discharge Anticipated Barriers to Discharge: Medical Status and SDOH Patient/Family Education Needs: Review discharge instructions, discuss Ask Me Three Plan: Al's discharge plan is unclear at this time, Al has no place to be discharged too. He is hospice eligible without a housecleaner floor. 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 Palliative will follow. CM will follow and continue to assess for discharge needs. Social Determinants of Health Screening Will the Patient Participate in the Screening?: Declined to provide
[2025-02-09] MEDS: predniSONE 20 MG TAB 30 MG PO (09:22)
[2025-02-09] MEDS: Acetaminophen 325 MG TAB 650 MG PO ×2 (09:22→15:07)
[2025-02-09] MEDS: Sodium Bicarbonate 650 MG TAB 1300 MG PO ×2 (09:22→19:20)
[2025-02-09] MEDS: traMADol 50 MG TAB PO ×2 (09:23→15:07)
[2025-02-09] MEDS: Normal Saline Flush 10 ML SYR IVP ×4 (09:23→23:01)
[2025-02-09] MEDS: MORPHine 2 MG/ML SYR 1 MG IVP (11:45)
--- NOTE | 2025-02-09 12:52 | PT.INTREAT ---
Date of service: 02/09/25 PT Notes Visit Reasons: Renal Failure Inpatient Physical Therapy Treatment Note [facility] Date: 02/09/2025 PRECAUTIONS:Fall Risk, Standard, open area to coccyx Pre Medicate for knee pain SUBJECTIVE: Pt reports he is feeling better today . He continues to report that sitting out of bed is difficult d/t pain in his tailbone. He states that since they started the Voltaren cream and the Prednisone he has not had any knee pain. OBJECTIVE: Pt presented supine with HOB at 20 degrees using his phone. ? PAIN: coccxy with transition supine to sit and sitting Therapeutic Activities ([id number][]): Direct one-on-one instruction in dynamic activities to improve functional performance. ? BED MOBILITY/TRANSFERS? Rolling L/R: independent with rails Supine-sit: CGA and increased time with HOB at 20 degrees? Sit-supine: Supervision ? Sit-stand: from 19 height CGA with increased effort; from 22 height SBA x 5 trials each height? Stand-sit: SBA to all heights. Pt able to control descent with BUE ? Therapeutic Exercises : Direct one-on-one instruction in therapeutic exercises to develop strength, endurance, range of motion and flexibility. ? Exercises ? supine Heel slides, bridging x 10 reps seated: LAQ, marching, Heel raises, toe raises, isometric hip add/abd x 10 reps sit to stands as stated above Provided skilled instruction in proper exercise performance ASSESSMENT:? Pt demonstrates improved activity tolerance. Session shortened by ileal conduit bag leaking and needing to be changed by RN. Pt demonstrates improved knee stability with FWW in standing. No episodes of buckling noted. Pt continues to benefit from skilled PT to maximize functional ability with FWW PLAN: 1-2x/day, 7 days/week x 1 week. Plan of care has been reviewed with the HOG CONFINEMENT SYSTEM MANAGER providing the service under Physical Therapy direction. Initiate Physical Therapy intervention for strengthening, bed mobility, transfers, gait, stairs, balance training, use of assistive device. TREATMENT CODE/TIME: 10551/ [id number] DISCHARGE RECOMMENDATION: SNF
[2025-02-09] MEDS: metroNIDAZOLE 500 MG TAB PO (14:19)
--- NOTE | 2025-02-09 14:50 | PT.INTREAT ---
PT Notes Visit Reasons: Renal Failure Date: 02/09/2025 PRECAUTIONS: Fall, Standard, Activity as tolerated. SUBJECTIVE: pt in bed when approached for therapy tis afternoon. agreed to participating with therapy session. OBJECTIVE: Ileal conduit, schultz catheter. ? PAIN: Non reported VITALS: Monitored by nursing Therapeutic Activities 69849: Direct one-on-one instruction in dynamic activities to improve functional performance. ?? BED MOBILITY/TRANSFERS? Rolling L/R: supervision Supine-sit: ?supervision ? Sit-supine: ?Supervision ? Sit-stand: ?SBA from elevated bed, min A from standard chair? Stand-sit: ?SBA? Bed-Chair:? SBA? Chair-bed: SBA Provided skilled cues and instruction on performance and technique throughout. Gait Training 04013: Direct one-on-one instruction and skilled instruction in: Employing an assistive device Modified weight-bearing status Movement sequencing Turning and movement with proper form Provided verbal cues for equipment management and technique Provided instruction in gait pattern Patient education regarding pacing and breathing techniques to maximize activity tolerance? GAIT? Assistive Device: ?? FWW? Weight bearing: FWB Assist: ?CGA ? Distance:?? ?100'x2 seated rest break in between distances ? Deviation: ? Stoop forward posture, low step height, short step length, slow mundo speed? Therapeutic Exercises 59954: Direct one-on-one instruction in therapeutic exercises to develop strength, endurance, range of motion and flexibility. Exercises Supine: Heel slides, bridging x 10 reps Seated: LAQ, marching, Heel raises, toe raises, isometric hip add/abd x 10 reps? Provided skilled instruction in proper exercise performance Provided skilled manual cues to facilitate proper muscle recruitment and/or form: ASSESSMENT:?pt tolerated activity well given enough rest break in between distance. pt situated in bed for pillow bolsters on both sides of the hip to help unload sacral area, setup a for bed alarms, call bells, body alignment for comfort and blankets for warm post session. PLAN: Continue with balance training, global strengthening and general conditioning for improved safety, mobility and activity tolerance until pt is ready for DC. TREATMENT CODE/TIME: [id number] 25mins (2:00-2:25pm)
[2025-02-09] MEDS: Diclofenac 1% Gel 100 GM TUBE TP ×2 (15:02→19:26)
--- NOTE | 2025-02-09 16:08 | W.PM.PROGNOT ---
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 Anticipate transition to hospice care if a facility is able to accept him (2) Knee pain: Status: Acute Assessment and plan: Revised pain regimen today, now on norco PRN with dilaudid IV PRN breakthrough Can continue with fentanyl patch if desired (3) Constipation: Status: Acute Assessment and plan: Miralax overnight, anticipate relief today d/t prior good effect continue Senna PRN recommend scheduled Senna if fentanyl patch restarted (4) Acute kidney injury superimposed on stage 4 chronic kidney disease: Status: Acute (5) Squamous cell carcinoma of bladder: Status: Acute Subjective Subjective Interval history since last seen: Mr. Lilly is comfortable. Occasionally ambulating. Some pain requiring narcotics. Exam Narrative Exam Narrative: General: This is a pleasant, elderly man in no distress HEENT: Normocephalic, atraumatic CV: RRR Resp: CTAB Abd: soft, NTND MSK: voluntary motion x4 Neuro: awake, alert, no focal deficits Objective Last Vital Signs Temp 37.2 C 02/02/25 08:52 Pulse 58 L 02/02/25 08:52 Resp 16 02/08/25 20:35 BP 119/52 L 02/08/25 20:35 Pulse Ox 96 02/08/25 20:35 VTE Prohylaxis Risk Level: Moderate/High Risk Contraindications: None Prophylaxis: Patient ambulatory (BOX BLANK MACHINE OPERATOR HELPER, not indicated) Time Spent with Patient Time Spent with Patient: 25-34 minutes Time was spent: preparing to see the patient(eg.review tests), obtaining and/or reviewing separately otained hiistory, ordering medications,tests, procedures, referring, communicating with other health career technical education teacher, indepentently interpreting results, counseling the patient and care coordination
[2025-02-09] MEDS: Gabapentin 300 MG CAP PO (19:20)
[2025-02-09] MEDS: HYDROcodone 5/Acetaminophen 325 TAB PO (19:20)
[2025-02-09] MEDS: Sennosides/Docusate Sodium TAB 2 TAB PO (19:45)
[2025-02-09] MEDS: HYDROmorphone 2 MG/ML SYR 0.5 MG IVP (21:30)
[2025-02-10] MEDS: Tiotropium/Olodaterol 10 PUFF INHALER 2 PUFF IH (08:27)
[2025-02-10] MEDS: predniSONE 20 MG TAB 30 MG PO (09:13)
[2025-02-10] MEDS: Sodium Bicarbonate 650 MG TAB 1300 MG PO ×2 (09:13→19:25)
[2025-02-10] MEDS: Metoclopramide 10 MG TAB PO ×3 (09:13→17:38)
[2025-02-10] MEDS: Diclofenac 1% Gel 100 GM TUBE TP ×4 (09:18→19:26)
[2025-02-10] MEDS: Normal Saline Flush 10 ML SYR IVP ×2 (09:19→19:28)
--- NOTE | 2025-02-10 10:11 | PT.INTREAT ---
PT Notes Visit Reasons: Renal Failure Inpatient Physical Therapy Treatment Note [facility] Date: 02/10/25 PRECAUTIONS: Fall Risk, Standard, open area to coccyx Pre Medicate for knee pain SUBJECTIVE: Pt was agreeable to get OOB and work with PT OBJECTIVE: ? VITALS: Monitored by nursing ? Therapeutic Activities (92825g[1]): Direct one-on-one instruction in dynamic activities to improve functional performance. ? BED MOBILITY/TRANSFERS? Supine-sit: Supervision ? Sit-supine: Supervision ? Sit-stand: CG of 1 ? Stand-sit: CG of 1? Provided skilled cues and instruction on performance and technique throughout. ? GAIT? Assistive Device: FWW ? Weight bearing: Full Assist: CG of 1 ? Distance:? 150 ft ? Provided skilled instruction in proper exercise performance ASSESSMENT:?Pt did well with functional mobility and gait. Able to ambulate further without needing a rest break. PLAN: Continue with balance training, global strengthening and general conditioning for improved safety, mobility and activity tolerance until pt is ready for DC. TREATMENT CODE/TIME: 27796 15 minutes 9:55-10:10 DISCHARGE RECOMMENDATION: SNF
[2025-02-10] MEDS: HYDROcodone 5/Acetaminophen 325 TAB PO ×2 (10:40→17:38)
[2025-02-10 16:33] LABS: Abs Immature Grans 0.08 10^3/uL (0.0-0.06); HCT 22.7 % (40.0-50.0); HGB 7.1 g/dL (13.5-17.5); Immature Grans % 0.8 %; MCH 28.0 pg (27.0-33.0); MCHC 31.3 % (32.0-36.0); MCV 89 fL (80-95); MPV 9.5 fL (8.0-11.0); Platelet Count 286 10^3/uL (130-400); RBC 2.54 10^6/uL (4.36-5.78); RDW 14.9 % (11.8-14.1); RDW-SD 48.9 fL; WBC 9.69 10^3/uL (4.4-10.8)
[2025-02-10 16:49] LABS: Magnesium 1.3 mg/dL (1.6-2.6)
[2025-02-10 17:02] LABS: ALT 33 U/L (10-49); AST 10 U/L (<34); Albumin 2.6 g/dL (3.2-5.0); Alkaline Phosphatase 70 U/L (46-116); Anion Gap 8.3 mmol/L (3-11); BUN 105 mg/dL (9-23); Bilirubin, Total 0.2 mg/dL (0.2-1.2); CO2 17.7 mmol/L (20.0-31.0); Calcium 7.7 mg/dL (8.3-10.6); Chloride 111 mmol/L (98-107); Glucose 239 mg/dL (74-106); Potassium 4.9 mmol/L (3.5-5.1); Sodium 137 mmol/L (136-145); Total Protein 5.0 g/dL (5.7-8.2)
--- NOTE | 2025-02-10 18:07 | PGE_ITS ---
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 expected Anticipate transition to hospice care if a facility is able to accept him (2) Knee pain: Status: Acute Assessment and plan: Revised pain regimen today, now on norco PRN with dilaudid IV PRN breakthrough Can continue with fentanyl patch if desired (3) Constipation: Status: Acute Assessment and plan: Miralax overnight, anticipate relief today d/t prior good effect continue Senna PRN recommend scheduled Senna if fentanyl patch restarted (4) Acute kidney injury superimposed on stage 4 chronic kidney disease: Status: Acute (5) Squamous cell carcinoma of bladder: Status: Acute Subjective Subjective Interval history since last seen: Mr. Lilly is comfortable in bed. No overnight events, no new complaints. Exam Narrative Exam Narrative: General: This is a pleasant, elderly man in no distress HEENT: Normocephalic, atraumatic CV: RRR Resp: CTAB Abd: soft, NTND MSK: voluntary motion x4 Neuro: awake, alert, no focal deficits Objective Last Vital Signs Temp 37.2 C 02/02/25 08:52 Pulse 58 L 02/02/25 08:52 Resp 16 02/08/25 20:35 BP 119/52 L 02/08/25 20:35 Pulse Ox 96 02/08/25 20:35 Laboratory Results - last 24 hr 02/10/25 16:10 WBC 9.69 RBC 2.54 L Hgb 7.1 L Hct 22.7 L MCV 89 MCH 28.0 MCHC 31.3 L RDW 14.9 H Plt Count 286 MPV 9.5 Immature Gran % 0.8 Neutrophils % 91.6 Lymphocytes % 3.6 Monocytes % 3.9 Eosinophils % 0.0 Basophils % 0.1 Nucleated RBC % 0.0 Absolute Neutrophils 8.87 H Absolute Lymphocytes 0.35 L Absolute Monocytes 0.38 Absolute Eosinophils 0.00 Absolute Basophils 0.01 Sodium 137 Potassium 4.9 Chloride 111 H Carbon Dioxide 17.7 L Anion Gap 8.3 BUN 105 H* Creatinine 2.96 H Est GFR (CKD-EPI 2020) 20.89 Glucose 239 H Calcium 7.7 L Magnesium 1.3 L Total Bilirubin 0.2 AST 10 ALT 33 Alkaline Phosphatase 70 Total Protein 5.0 L Albumin 2.6 L VTE Prohylaxis Risk Level: Moderate/High Risk Contraindications: None Prophylaxis: Patient ambulatory (GLUE SPECIALTY SUPERVISOR, not indicated) Time Spent with Patient Time Spent with Patient: 25-34 minutes Time was spent: preparing to see the patient(eg.review tests), obtaining and/or reviewing separately otained hiistory, ordering medications,tests, procedures, referring, communicating with other health client care coordinator, indepentently interpreting results, counseling the patient and care coordination
[2025-02-10] MEDS: Gabapentin 300 MG CAP PO (19:26)
[2025-02-10] MEDS: HYDROmorphone 2 MG/ML SYR 0.5 MG IVP (21:58)
[2025-02-11] MEDS: Sodium Bicarbonate 650 MG TAB 1300 MG PO ×2 (07:59→20:58)
[2025-02-11] MEDS: predniSONE 20 MG TAB 30 MG PO (07:59)
[2025-02-11] MEDS: Metoclopramide 10 MG TAB PO ×3 (07:59→16:10)
[2025-02-11] MEDS: Diclofenac 1% Gel 100 GM TUBE TP ×4 (08:00→20:58)
[2025-02-11] MEDS: Tiotropium/Olodaterol 10 PUFF INHALER 2 PUFF IH (08:39)
[2025-02-11] MEDS: Ondansetron 4 MG/2 ML VIAL IVP (09:03)
[2025-02-11] MEDS: Normal Saline Flush 10 ML SYR IVP (09:06)
[2025-02-11] MEDS: LORazepam 1 MG TAB PO (10:11)
[2025-02-11] MEDS: HYDROcodone 5/Acetaminophen 325 TAB PO (12:31)
[2025-02-11] MEDS: HYDROmorphone 2 MG/ML SYR 0.5 MG IVP (14:32)
--- NOTE | 2025-02-11 16:19 | PT.INNT ---
PT Notes Visit Reasons: Renal Failure Pt declined PT this afternoon stating that he had walked with nursing earlier in the day and he wanted to watch the football game.
--- NOTE | 2025-02-11 17:37 | PGE_ITS ---
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 expected Anticipate transition to hospice care if a facility is able to accept him (2) Knee pain: Status: Acute Assessment and plan: Revised pain regimen today, now on norco PRN with dilaudid IV PRN breakthrough Can continue with fentanyl patch if desired (3) Constipation: Status: Acute Assessment and plan: Miralax overnight, anticipate relief today d/t prior good effect continue Senna PRN recommend scheduled Senna if fentanyl patch restarted (4) Acute kidney injury superimposed on stage 4 chronic kidney disease: Status: Acute (5) Squamous cell carcinoma of bladder: Status: Acute Subjective Subjective Interval history since last seen: Mr. Lilly is comfortable in bed. No new concerns. Exam Narrative Exam Narrative: General: This is a pleasant, elderly man in no distress HEENT: Normocephalic, atraumatic CV: RRR Resp: CTAB Abd: soft, NTND MSK: voluntary motion x4 Neuro: awake, alert, no focal deficits Objective Last Vital Signs Temp 37.2 C 02/02/25 08:52 Pulse 58 L 02/02/25 08:52 Resp 16 02/08/25 20:35 BP 119/52 L 02/08/25 20:35 Pulse Ox 96 02/08/25 20:35 VTE Prohylaxis Risk Level: Moderate/High Risk Contraindications: None Prophylaxis: Patient ambulatory (SUGAR CANE PLANTING EQUIPMENT OPERATOR, not indicated) Time Spent with Patient Time Spent with Patient: <25 minutes Time was spent: preparing to see the patient(eg.review tests), obtaining and/or reviewing separately otained hiistory, ordering medications,tests, procedures, referring, communicating with other health day care home provider, indepentently interpreting results, counseling the patient and care coordination
[2025-02-11] MEDS: Gabapentin 300 MG CAP PO (20:58)
[2025-02-12] MEDS: Metoclopramide 10 MG TAB PO ×3 (06:29→16:57)
[2025-02-12] MEDS: Tiotropium/Olodaterol 10 PUFF INHALER 2 PUFF IH (08:11)
[2025-02-12] MEDS: Normal Saline Flush 10 ML SYR IVP (08:37)
[2025-02-12] MEDS: Sodium Bicarbonate 650 MG TAB 1300 MG PO (08:38)
[2025-02-12] MEDS: predniSONE 20 MG TAB 30 MG PO (08:38)
[2025-02-12] MEDS: Diclofenac 1% Gel 100 GM TUBE TP ×3 (08:38→16:58)
--- NOTE | 2025-02-12 11:18 | PTTR_ITS ---
PT Notes Visit Reasons: Renal Failure Date: 02/12/2025 (AM session) PRECAUTIONS: Fall, Standard, Activity as tolerated. ileal conduit Right abdomen SUBJECTIVE: pt in bed when approached for therapy very agreeable to participating with therapy session. OBJECTIVE: toenails elongated ? PAIN: denies VITALS: Monitored by nursing Therapeutic Activities 31984: Direct one-on-one instruction in dynamic activities to improve functional performance. ?? BED MOBILITY/TRANSFERS? Rolling L/R: independent Supine-sit: ?supervision ? Sit-supine: ?Supervision ? Sit-stand: ?SBA ? Stand-sit: ?SBA? Bed-Chair:? SBA? ?with FWW ? Chair-bed: SBA with FWW Provided skilled cues and instruction on performance and technique throughout. Ambulation: Direct one-on-one instruction and skilled instruction in: Patient education regarding pacing and breathing techniques to maximize activity tolerance? Ambulation ? Assistive Device: ?? FWW? Weight bearing: FWB Assist: ?SBA ? Distance:?? ?150'x2 seated rest break in between distances ? Deviation: ? Stoop forward posture, low step height, short step length, slow mundo speed? Stairs: Step over step bilateral handrail, 6 x4, 4 x6 up/down supervision ? ASSESSMENT:?Pt able to progress with stair training this session. pt requires seated rest after between distances and after performing stair activity to avoid SOB. SaO2: 97% on RA Pt did note DUQUE after stairs requiring the sit rest to eliminate DUQUE. Pt continues to benefit from skilled PT for functional strengthening, balance and ambulation including stair training. Pt would also benefit from OT evaluation for ADL/self care tasks in anticipation of discharge PLAN: Continue with balance training, global strengthening and general conditio taylor for improved safety, mobility and activity tolerance until pt is ready for DC. TREATMENT CODE/TIME: [id number] Sharonda Stoner PT [facility]
[2025-02-12] MEDS: HYDROcodone 5/Acetaminophen 325 TAB PO (11:58)
--- NOTE | 2025-02-12 12:12 | CMPROGNOTE_ITS ---
Date of service: 02/12/25 Time of Service: 16:59 Care Management Progress Note Progress Note Text Progress Note Text: CM continues to communicate with [facility] and [facility] regarding STR with a plan to transition to long-term care. [facility] has declined. CM is currently awaiting a response from [facility]. All other facilities have declined at this time. If no bed offer is received by this afternoon, Al will transition to Swing Bed 1 today and continue working with physical therapy. At the patient?s request, CM contacted Al?s , Yoly ([phone]). Per Yoly, she plans to be in the home for approximately 3?4 hours per day and is willing to assist with hygiene and meal preparation. Per Al?s daughter, Pura, she plans to eventually move in with her dad. Per palliative care, a negotiated risk agreement with hospice is being presented; Hospice did not agree to this, at this time. Al?s stated goal remains to return home with HH services. Per physical therapy, Al would perform best at home with caregiver support for mealtimes and bathing. Yoly has requested education from PT when she arrives; CM has notified PT of this request. CM will continue to follow. Referrals: [facility] - Declined, no beds 02/06/25 [place] - Declined due to payer source 02/06/25 [facility] - Declined 02/06/25 [facility] - Declined 02/12/25 [facility] - Pending 02/12/25 Discharge Potential Discharge Needs: PCP F/U Appt Anticipated Barriers to Discharge: None Identified Patient/Family Education Needs: Review discharge instructions, discuss Ask Me Three Transportation: Private vehicle Plan: Anticipate Al will be transitioned to SB1. 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 This is Al's goal and preference. It is recommended he follow up with his community providers, palliative care, hospice, and discharge plan of care. He will transport via [facility]. CM will follow. Social Determinants of Health Screening Will the Patient Participate in the Screening?: Declined to provide
--- NOTE | 2025-02-12 15:46 | PT.INTREAT ---
PT Notes Visit Reasons: Renal Failure Date: 02/12/2025 PRECAUTIONS: Fall, Standard, Activity as tolerated. SUBJECTIVE: pt in bed when approached for therapy tis afternoon. agreed to participating with therapy session. OBJECTIVE: schultz catheter. ? PAIN: denies VITALS: Monitored by nursing Therapeutic Activities 31535: Direct one-on-one instruction in dynamic activities to improve functional performance. ?? BED MOBILITY/TRANSFERS? Rolling L/R: supervision Supine-sit: ?supervision ? Sit-supine: ?Supervision ? Sit-stand: ?SBA ? Stand-sit: ?SBA? Bed-Chair:? SBA? Chair-bed: SBA Provided skilled cues and instruction on performance and technique throughout. Gait Training 33138: Direct one-on-one instruction and skilled instruction in: Employing an assistive device Modified weight-bearing status Movement sequencing Turning and movement with proper form Provided verbal cues for equipment management and technique Provided instruction in gait pattern Patient education regarding pacing and breathing techniques to maximize activity tolerance? GAIT? Assistive Device: ?? FWW? Weight bearing: FWB Assist: ?CGA ? Distance:?? ?150'x2 seated rest break in between distances ? Deviation: ? Stoop forward posture, low step height, short step length, slow mundo speed? Stairs: Step over step bilateral handrail, 6 x4, 4 x6 up/down supervision ? ASSESSMENT:?pt requires rest break from walking from pt room to rehab as well as after doing stair activity to avoid SOB. pt situated in bed for comfort and proper alignment post session. PLAN: Continue with balance training, global strengthening and general conditioning for improved safety, mobility and activity tolerance until pt is ready for DC. TREATMENT CODE/TIME: 25153g6 25mins (2:15-2:45pm)
--- NOTE | 2025-02-12 17:36 | W.PM.DS.N ---
Date of service: 02/12/25 Time of Service: 17:36 DS: Diagnosis Discharge Diagnosis (1) Comfort measures only status: Status: Acute (2) Knee pain: Status: Acute (3) Constipation: Status: Acute (4) Acute kidney injury superimposed on stage 4 chronic kidney disease: Status: Acute (5) Squamous cell carcinoma of bladder: Status: Acute Discharge Plan Disposition Patient Disposition: Swing Bed(Skilled,SB1) Anticipated Discharge Date/Time: 02/12/25 17:38 Condition: Poor Discharge Details Reason For Visit: Renal Failure Admit Date/Time: 01/31/25 17:10 Admit Provider: Wilian Parmar Attending Provider: Wilian Parmar Primary Care Provider: Polly Beverly Hospital Course Hospital Course: This is a 74-year-old man with 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 Given his progressive functional decline, significant weight loss, poor oral intake, and overall prognosis, goals of care were discussed. He consistently expressed a preference for comfort-focused care. Hospice was consulted. The patient lives alone and currently lacks a home caregiver. His daughter is exploring options to provide care at home. Until a safe discharge plan can be established, the patient will remain inpatient under comfort measures only. Pain is being managed with comfort medications, including initiation of a fentanyl patch. Code status is DNR/DNI. Patient is being changed to swing bed 1 status today with continued PT. Home Meds and New Rx's Prescriptions: No Action nitroglycerin 0.4 mg tablet, sublingual 0.4 mg SL ONCE Qty: 20 2RF Rx Instructions: 1 tab SL q. 5-10 minutes as needed for chest pain. No relief after 3 seek emergency care/call 911. albuterol sulfate [Ventolin HFA] 90 mcg/actuation HFA aerosol inhaler 2 puff IH Q4H PRN (Reason: shortness of breath or wheezing) Qty: 18 6RF (DME) Aerochamber MV Spacer See Rx Instructions .ROUTE .MEDSUPPLY Qty: 1 0RF Rx Instructions: As directed amlodipine 5 mg tablet 5 mg PO DAILY Qty: 90 3RF metoprolol tartrate 25 mg tablet 25 mg PO BID Qty: 180 3RF lisinopril 40 mg tablet 40 mg PO DAILY Qty: 90 3RF urea 40 % cream 1 applic topical BID Qty: 85 5RF atorvastatin 40 mg tablet 40 mg PO QHS Qty: 90 3RF sennosides-docusate sodium [Senna with Docusate Sodium] 8.6-50 mg tablet 2 tab-cap PO BID PRN Rx Instructions: as needed for constipation polyethylene glycol 3350 [Miralax] 17 gram/dose powder 17 g PO DAILY cholecalciferol (vitamin D3) 25 mcg (1,000 unit) tablet 25 mcg PO DAILY Eliquis 2.5 mg tablet 2.5 mg PO BID Rx Instructions: Take X 22 days metoclopramide HCl [Reglan] 10 mg tablet 10 mg PO QAC Qty: 90 0RF Rx Instructions: administer 30 minutes before meals sodium bicarbonate 650 mg tablet 1,300 mg PO BID Qty: 120 12RF umeclidinium-vilanterol 62.5-25 mcg/actuation blister with device 1 inh inhalation DAILY Qty: 180 3RF gabapentin 300 mg capsule 300 mg PO QHS 30 Days Qty: 30 2RF ascorbic acid (vitamin C) [Vitamin C] 500 mg Tablet 500 mg PO DAILY tramadol 50 mg tablet 50 mg PO Q6H MDD 4 PRN (Reason: pain) Qty: 20 0RF Rx Instructions: may take along with Tylenol Discharge Instructions Activity:: Activity as Tolerated Equipment/Supplies:: No Equipment Needed Diet:: As Tolerated DS: Summary Time Spent with Patient providing and/or coordinating discharge services: Greater than 30 minutes Status at Discharge Functional status at discharge: uses cane/walker Overall status at discharge: patient is progressing back to baseline Mental Status: mental status grossly normal Speech and Movement: speech and movement normal Mood: congruent mood Affect: normal affect Quality:SDOH Health Related Social Needs: Health related social needs details runs out of money for food Exam Narrative Exam Narrative: General: This is a pleasant, elderly man in no distress HEENT: Normocephalic, atraumatic CV: RRR Resp: CTAB Abd: soft, NTND MSK: voluntary motion x4 Neuro: awake, alert, no focal deficits Psych Mental Status: mental status grossly normal Speech and Movement: speech and movement normal Mood: congruent mood Affect: normal affect DS: Data Vitals/I&O Vitals and I&O: Vital Signs Temperature 37.2 C 02/02/25 08:52 Temperature Source Temporal Artery Scan 02/01/25 07:40 Pulse 58 L 02/02/25 08:52 Pulse 113 H 02/01/25 12:00 Respiratory Rate 16 02/08/25 20:35 Respiratory Effort Short of Breath 01/31/25 14:38 Respiratory Depth Normal 01/31/25 14:38 Respiratory Pattern Tachypnea 01/31/25 14:38 Blood Pressure 119/52 L 02/08/25 20:35 Blood Pressure Mean 74 02/08/25 20:35 Blood Pressure Position Sitting 01/31/25 14:38 Pulse Oximetry 96 02/08/25 20:35 Oxygen Delivery Method Room Air 02/08/25 20:35 Oxygen Flow Rate 0 02/08/25 20:35 Pain Level 2 02/12/25 12:58 Intake & Output 02/11/25 02/12/25 02/12/25 23:59 11:59 23:59 Intake Total 450 / 690 240 / 480 240 / 480 Output Total 675 / 2225 1975 / 2775 800 / 2775 Balance -225 / -1535 -1735 / -2295 -560 / -2295 Intake: Oral 450 / 690 240 / 480 240 / 480 Output: Urine 1300 / 1300 Stool 675 / 975 675 / 1475 800 / 1475 Other: Urine Color Yellow Urine Appearance Clear Clear Data Completed and Pending Pending Labs at Discharge: 01/31/25 01/31/25 01/31/25 14:54 14:57 21:35 WBC 6.98 RBC 3.42 L Hgb 9.7 L Hct 31.5 L MCV 92 MCH 28.4 MCHC 30.8 L RDW 16.2 H Plt Count 183 MPV 9.7 Immature Gran % 1.1 Neutrophils % 73.5 Lymphocytes % 16.5 Monocytes % 8.3 Eosinophils % 0.3 Basophils % 0.3 Nucleated RBC % 0.3 Absolute Neutrophils 5.13 Absolute Lymphocytes 1.15 L Absolute Monocytes 0.58 Absolute Eosinophils 0.02 Absolute Basophils 0.02 VBG pH 6.92 L* 7.14 L* VBG pCO2 24 L 21 L VBG pO2 52 129 VBG HCO3 5 L 7 L VBG Total CO2 5 L 7 L VBG O2 Saturation 83 > 99 VBG Base Excess -28 L -22 L Sodium 141 144 Potassium 6.0 H 4.3 D Chloride 120 H 119 H Carbon Dioxide < 10.0 L < 10.0 L Anion Gap Unable to calculate L Unable to calculate L BUN 115 H* 113 H* Creatinine 4.72 H* 4.39 H* Est GFR (CKD-EPI 2020) 12.19 13.25 Glucose 73 L 86 Uric Acid 7.3 Calcium 8.6 8.0 L Phosphorus Magnesium 1.9 Total Bilirubin 0.2 AST 10 ALT 8 L Alkaline Phosphatase 105 Creatine Kinase 64 NT-Pro-B Natriuret Pep 4401 H Total Protein 7.2 Albumin 3.8 Lipase 85 H TSH 0.32 L Free T4 0.87 L Add-On Test Request DONE 02/01/25 02/01/25 02/01/25 03:00 09:20 15:00 WBC 4.96 RBC 2.51 L Hgb 7.3 L D Hct 21.5 L MCV 86 D MCH 29.1 MCHC 34.0 D RDW 15.9 H Plt Count 132 MPV 9.5 Immature Gran % Neutrophils % Lymphocytes % Monocytes % Eosinophils % Basophils % Nucleated RBC % Absolute Neutrophils Absolute Lymphocytes Absolute Monocytes Absolute Eosinophils Absolute Basophils VBG pH VBG pCO2 VBG pO2 VBG HCO3 VBG Total CO2 VBG O2 Saturation VBG Base Excess Sodium 144 146 H Cancelled Potassium 3.6 3.3 L Cancelled Chloride 118 H 116 H Cancelled Carbon Dioxide 10.9 L 14.7 L Cancelled Anion Gap 15.1 H 15.3 H Cancelled BUN 114 H* 108 H* Cancelled Creatinine 4.19 H* 3.88 H* Cancelled Est GFR (CKD-EPI 2020) 13.99 15.62 Cancelled Glucose 108 H 128 H Cancelled Uric Acid Calcium 7.6 L 7.4 L Cancelled Phosphorus 4.5 Magnesium 2.1 Total Bilirubin AST ALT Alkaline Phosphatase Creatine Kinase NT-Pro-B Natriuret Pep Total Protein Albumin Lipase TSH Free T4 Add-On Test Request 02/02/25 02/10/25 07:50 16:10 WBC 9.69 RBC 2.54 L Hgb 7.3 L 7.1 L Hct 22.2 L 22.7 L MCV 89 MCH 28.0 MCHC 31.3 L RDW 14.9 H Plt Count 286 MPV 9.5 Immature Gran % 0.8 Neutrophils % 91.6 Lymphocytes % 3.6 Monocytes % 3.9 Eosinophils % 0.0 Basophils % 0.1 Nucleated RBC % 0.0 Absolute Neutrophils 8.87 H Absolute Lymphocytes 0.35 L Absolute Monocytes 0.38 Absolute Eosinophils 0.00 Absolute Basophils 0.01 VBG pH VBG pCO2 VBG pO2 VBG HCO3 VBG Total CO2 VBG O2 Saturation VBG Base Excess Sodium 147 H 137 Potassium 3.2 L 4.9 Chloride 119 H 111 H Carbon Dioxide 16.3 L 17.7 L Anion Gap 11.7 H 8.3 BUN 103 H* 105 H* Creatinine 3.49 H 2.96 H Est GFR (CKD-EPI 2020) 17.27 20.89 Glucose 85 239 H Uric Acid Calcium 7.0 L 7.7 L Phosphorus Magnesium 1.3 L Total Bilirubin 0.2 AST 10 ALT 33 Alkaline Phosphatase 70 Creatine Kinase NT-Pro-B Natriuret Pep Total Protein 5.0 L Albumin 2.6 L Lipase TSH Free T4 Add-On Test Request PFSH All Active Problems (Updated 02/07/25 @ 10:16 by Gypsy Lewis NP) Constipation (Acute) Ambulatory dysfunction (Acute) Knee pain (Acute) Pressure ulcer (Acute) Advanced care planning/counseling discussion (Acute) Palliative care patient (Acute) Comfort measures only status (Acute) History of ileal conduit (Chronic) Benign essential hypertension (Acute) Acute metabolic acidosis (Acute) CHARLIE (acute kidney injury) (Acute) Hyperkalemia (Acute) Acidemia (Acute) Chronic metabolic acidosis (Acute) Diabetes (Chronic) Candiduria (Acute) Acute kidney injury superimposed on stage 4 chronic kidney disease (Acute) Obstructed nephrostomy tube (Acute) 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 initiating calcitriol 06/2023 Recurrent UTI (Chronic) CKD stage 4 secondary to hypertension (Chronic) Bladder cancer (Chronic ~06/2016) Chronic obstructive lung disease (Chronic 03/28/12) Essential hypertension (Chronic 01/03/13) Gout (Chronic 07/04/14) Hyperlipidemia (Chronic 03/28/12) Pulmonary nodule seen on imaging study (Chronic 12/10/14) lung CT due 10/2021 CHF (congestive heart failure) (Chronic) CAD in [place] artery (Chronic ~2011) S/p CABG x 4 @ [facility] in 2012 Bundle branch block, right (Chronic) Tobacco abuse (Chronic) 40 pack year hx. Poor dentition (Chronic) Multiple atypical skin moles (Chronic) Onychomycosis (Chronic) Hyperthyroidism determined by thyroid function test (Chronic) Corns and callosities (Chronic) Nail dystrophy (Chronic) Nocturia more than twice per night (Chronic) Medical History CHARLIE (acute kidney injury) Bilateral hydronephrosis Alcohol abuse (01/04/13) binge drinks 6 pack on Wednesday PFO (patent foramen ovale) Hyperlipidemia Olecranon bursitis of left elbow (07/04/14) Surgical History S/P ileal conduit S/P radical cystoprostatectomy History of surgery per patient stents place in [facility] S/P CABG x 4 (~2011) H/O transurethral destruction of bladder lesion Family History Father , age 57 Heart disease of [place] at 56 yo Mother , 93 Diabetes Other Hyperlipidemia Hypertension Social History Smoking/Tobacco Use Status: Current every day Tobacco Type: cigarettes Smoking packs per day: 1 Smoking cigarettes per day: 20.0 Years smoked: 40 Smoking pack-years: 40.00 Tobacco: How many years used: 40 Quit status: not considering quitting Counseling given: provider counseling Smoking risk assessment performed?: Yes Alcohol Intake: current Alcohol Intake frequency: a few times a week Alcohol type: beer Drug use: Never Substance use type: does not use Household members: none Housing: apartment Number of Children: 2 number of grandchildren: 4 Education Level: high school 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 Cate/Holiness: No preference Special cate needs: No Do you feel safe at home: Yes Additional Social history: lives alone Time Spent with Patient Time Spent with Patient: 45-69 minutes Time was spent: preparing to see the patient(eg.review tests), referring, communicating with other health care transition coordinator, counseling the patient and care coordination
== END 2025-02-12 17:54 | disposition swing bed (61) | DRG 683 ==
LOC: ER 17:39 → ICU 19:20 → MS 02-02 23:37
PROVIDERS: Family Medicine; Admitting Provider Family Medicine; Emergency Provider Emergency Medicine; PCP Family Medicine; Responsible Provider Nurse Practitioner Family; Visit Provider Family Medicine
DX: E87.5 Hyperkalemia; N18.4 Chronic kidney disease, stage 4 (severe); J44.9 Chronic obstructive pulmonary disease, unspecified; E11.42 Type 2 diabetes mellitus with diabetic polyneuropathy; E11.22 Type 2 diabetes mellitus with diabetic chronic kidney disease; C67.8 Malignant neoplasm of overlapping sites of bladder; K59.00 Constipation, unspecified; R26.2 Difficulty in walking, not elsewhere classified; Z68.1 Body mass index [BMI] 19.9 or less, adult; I13.0 Hypertensive heart and chronic kidney disease with heart failure and stage 1 through stage 4 chronic kidney disease, or unspecified chronic kidney disease; Q21.12 Patent foramen ovale; N25.81 Secondary hyperparathyroidism of renal origin; Z79.01 Long term (current) use of anticoagulants; R63.4 Abnormal weight loss; Z59.41 Food insecurity; Z93.6 Other artificial openings of urinary tract status; E78.5 Hyperlipidemia, unspecified; I50.9 Heart failure, unspecified; I25.10 Atherosclerotic heart disease of native coronary artery without angina pectoris; Z95.1 Presence of aortocoronary bypass graft; I45.10 Unspecified right bundle-branch block; F17.210 Nicotine dependence, cigarettes, uncomplicated; Z90.6 Acquired absence of other parts of urinary tract; E05.90 Thyrotoxicosis, unspecified without thyrotoxic crisis or storm; Z51.5 Encounter for palliative care; Z66 Do not resuscitate; Z74.01 Bed confinement status; M17.0 Bilateral primary osteoarthritis of knee; M10.062 Idiopathic gout, left knee; M10.061 Idiopathic gout, right knee; L89.159 Pressure ulcer of sacral region, unspecified stage; N17.9 Acute kidney failure, unspecified; E87.21 Acute metabolic acidosis
CPT/HCPCS: 00123; 36415; 80048; 80053; 82550; 82805; 83690; 85027; 93005; 94640; 96361; 96374; 96375; 96376; 97110; 97162; 97530; 99291; 71046; 83735; 83880; 84100; 84439; 84443; 84550; 85014; 85018; 85025; 93010; 94664; 99222; 99231; 99239; J0612; J1171; J2270; J2405; J3475; J3490; J7060; J7512